=== PATIENT | male | born 1965 | race Caucasian/White ===

== ENCOUNTER → 2016-06-18 | Outpatient (CLI) | payer MEDICAID | LOC: RAD 08:25 | PROVIDERS: ATTEND Specialist | DX: C82.90 Follicular lymphoma, unspecified, unspecified site (principal); C83.39 Diffuse large B-cell lymphoma, extranodal and solid organ sites | CPT/HCPCS: 70491; 71260; 74177 ==

== ENCOUNTER 2016-07-03 08:38 | Day surgery (SDC) | payer MEDICAID ==
[2016-07-03 10:12] LABS: PROTHROMBIN TIME 13.2 SEC (11.4-15.4)
[2016-07-03 10:13] LABS: PARTIAL THROMBOPLASTIN TIME 28.3 SEC (23.5-35.8)
[2016-07-03 10:15] LABS: MEAN CORPUSCULAR HEMOGLOBIN 28.2 pg (27.0-33.4); MEAN CORPUSCULAR HGB CONC 32.6 g/dL (32.0-36.0); MEAN CORPUSCULAR VOLUME 87 fl (80-97); RED BLOOD COUNT 4.62 10^6/uL (4.35-5.55); RED CELL DISTRIBUTION WIDTH 14.1 % (11.5-14.0); WHITE BLOOD COUNT 3.9 10^3/uL (4.0-10.5)
[2016-07-03 10:23] LABS: BLOOD UREA NITROGEN 11 mg/dL (7-20)
[2016-07-03] MEDS ORDERED: FENTANYL CITRATE INJ/PF 100 MCG/2 ML AMPUL ONE (10:52)
[2016-07-03] MEDS ORDERED: MIDAZOLAM 2 MG/2 ML INJ ONE (10:52)
[2016-07-03 16:21] VITALS: BP 110/79
== END 2016-07-03 16:22 | disposition home or self-care (01) ==
LOC: RAD 08:38
PROVIDERS: ATTEND Specialist
PROC: 0BBG3ZX Excision of Left Upper Lung Lobe, Percutaneous Approach, Diagnostic (ICD-10-PCS; principal; 2016-07-03)
DX: C82.90 Follicular lymphoma, unspecified, unspecified site (principal); F17.210 Nicotine dependence, cigarettes, uncomplicated
CPT/HCPCS: 36415; 84520; 82565; 85027; 85610; 85730; 88342 ×2; 88305 ×2; 88313 ×2; 71010; 77012; 32405; J2250; J3010

== ENCOUNTER → 2016-09-26 | Outpatient (CLI) | payer MEDICAID | LOC: RAD 07:39 | PROVIDERS: ATTEND Specialist | DX: C82.90 Follicular lymphoma, unspecified, unspecified site (principal) | CPT/HCPCS: 71260; 82565 ==

== ENCOUNTER 2016-10-22 05:42 | Day surgery (SDC) | payer MEDICAID ==
[2016-10-09 10:53] LABS: HEMATOCRIT 44.4 % (37.9-51.0); HGB HCT DIFFERENCE 0.6; MEAN CORPUSCULAR HEMOGLOBIN 29.5 pg (27.0-33.4); MEAN CORPUSCULAR HGB CONC 33.7 g/dL (32.0-36.0); MEAN CORPUSCULAR VOLUME 88 fl (80-97); RED BLOOD COUNT 5.07 10^6/uL (4.35-5.55); RED CELL DISTRIBUTION WIDTH 14.7 % (11.5-14.0); WHITE BLOOD COUNT 4.6 10^3/uL (4.0-10.5)
[2016-10-09 11:02] LABS: PARTIAL THROMBOPLASTIN TIME 28.6 SEC (23.5-35.8); PROTHROMBIN TIME 12.7 SEC (11.4-15.4)
--- NOTE | 2016-10-09 21:16 | EKG REPORT ---
SEVERITY:- NORMAL ECG - SINUS RHYTHM : Confirmed by: Gail Barrientos 09-Oct-2016 21:15:06
[~2016-10-22 05:42] MED LIST: CEFAZOLIN 1 GM/D5W RTU 1 GM/50 ML RTUPB IV PRN; LIDOCAINE 0.5% INJ-PF (5 MG/ML) 50 ML SDV INJ PRN; RINGERS SOLUTION,LACTATED 1,000 ML IV PRN
[2016-10-22] MEDS ORDERED: SODIUM BICARBONATE 8.4% INJ 50 MEQ/50 ML DISP.SYRIN ONE (06:58)
[2016-10-22] MEDS ORDERED: POVIDONE-IODINE 5% OPH PREP SOLN 30 ML ONE (06:58)
[2016-10-22] MEDS ORDERED: LIDOCAINE 1%/EPINEPHRINE INJ 20 ML VIAL ONE (06:59)
[2016-10-22] MEDS ORDERED: MIDAZOLAM 2 MG/2 ML INJ ONE (07:28)
[2016-10-22] MEDS ORDERED: PROPOFOL INJ 200 MG/20 ML VIAL IV ONE (07:28)
[2016-10-22] MEDS ORDERED: KETAMINE HCL INJ 500 MG/10 ML VIAL ONE (07:28)
[2016-10-22] MEDS ORDERED: OXYCODONE-ACETAMINOPHEN 5-325 MG TABLET PO PRN ×2 (08:16)
[2016-10-22] MEDS ORDERED: DIPHENHYDRAMINE HCL 50 MG/ML VIAL IV PRN (08:16)
[2016-10-22] MEDS ORDERED: PROMETHAZINE HCL INJ 25 MG/1 ML VIAL IV PRN ×2 (08:16)
[2016-10-22] MEDS ORDERED: MEPERIDINE HCL/PF INJ 25 MG/1 ML DISP.SYRIN IV PRN (08:16)
[2016-10-22] MEDS ORDERED: FENTANYL CITRATE INJ/PF 100 MCG/2 ML AMPUL IV PRN ×3 (08:16)
[2016-10-22] MEDS ORDERED: MORPHINE SULFATE 10 MG/ML INJ IV PRN (08:16)
--- NOTE | 2016-10-22 09:04 | Operative Report ---
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 Patient was brought into the operating room and placed on the operating room table in a supine position. Patient was then prepped with a Betadine scrub and Betadine solution and draped in a sterile and aseptic manner. The area was then marked. 12 O'clock was marked towards the brow 3 O'clock was marked towards to caodaism forehead 6:00 was marked towards hairline 9:00 was marked towards the cheek The area was then anesthetized with 1% lidocaine with epinephrine and bicarbonate for its anesthetic and hemostatic effects. The area was then excised and marked at 12:00. We had considered a primary closure but this would go against the natural relaxed skin tension lines. A primary closure would be too tight and would have increased chance of dehiscence. This will leave more of a scar so we decided to use a O to S plasty Flap reconstruction which would camouflage the scar better and take tension off of the closure so that would be less chances of complications. Then went ahead and outlined the flap and anesthetized it. Then incised the flap and developed a flap maintaining the subdermal plexus. Then we undermined 360 to allow for plate like scarring and minimize trap door deformity. Throughout the case hemostasis was achieved with the bipolar. We then sutured the flap into its new position Using 5-0 Vicryl for the subcutaneous and deep dermis. Skin was closed with a subcuticular stitch using 4-0 PDS with knots being tied on the outside. And 4-0 PDS suture was used for support and placed in the central area of the incision. We then applied tincture benzoin and Steri-Strips followed by a light pressure dressing. Patient was then reversed from anesthesia and taken to the [facility] for recovery. The patient tolerated well. There were no complications. Lesion size was approximately 1.5 x 1.3 cm please see pathology for actual size. Portions of this note may be dictated using [employer] voice recognition software. Occasional variations and spelling and vocabulary could be possible and are unintentional. Additionally, there is a chance that some errors may not be caught or corrected. Please notify the offer of any discrepancies noted or if any statements are unclear. Subjective: No complaints Objective: Vital signs stable afebrile No bleeding Dressing intact Assessment and plan: Doing well. Elevate the operative site. Resume medications. Take antibiotics for 1 day Follow-up Full instructions were given to the patient and family and they understand Portions of this note may be dictated using [employer] voice recognition software. Occasional variations and spelling and vocabulary could be possible and are unintentional. Additionally, there is a chance that some errors may not be caught or corrected. Please notify the offer of any discrepancies noted or if any statements are unclear.
--- NOTE | 2016-10-22 09:06 | PDOC DISCHARGE SUMMARY ---
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 Leave the steri-strip tapes on for 5 days, then removal. Then cleaning wound with peroxide and apply Neosporin/bacitracin 3 times per day. Antibiotics for 1 day, then discontinue. Elevate operative area to decrease swelling. Do not strain, or lift heavy objects. Call for excessive bleeding, increased temperature of 101, uncontrolled pain, or excessive nausea or vomiting. You may reach Dr. Jean-Baptiste through his office at [phone]. In the event of an emergency after hours, then contact Dr. Jean-Baptiste through [facility]. Return to the office for a postop check on . The time will be scheduled by the nursing staff of [facility] prior to discharge. Please give the patient a copy of their labs and EKG so they can bring this to their PMD. Thank you Portions of this note may be dictated using [employer] voice recognition software. Occasional variations and spelling and vocabulary could be possible and are unintentional. Additionally, there is a chance that some errors may not be caught or corrected. Please notify the offer of any discrepancies noted or if any statements are unclear. Discharge Diet: Regular Discharge Activity: Activity As Tolerated - Discharged to home
[2016-10-22 10:41] VITALS: BP 105/61
== END 2016-10-22 10:56 | disposition home or self-care (01) ==
LOC: OROUT 05:42
PROVIDERS: ATTEND Plastic Surgery
PROC: 0HB1XZZ Excision of Face Skin, External Approach (ICD-10-PCS; 2016-10-22)
PROC: 0HX1XZZ Transfer Face Skin, External Approach (ICD-10-PCS; principal; 2016-10-22 07:30)
DX: C44.329 Squamous cell carcinoma of skin of other parts of face (principal); J44.9 Chronic obstructive pulmonary disease, unspecified; F17.210 Nicotine dependence, cigarettes, uncomplicated; R06.02 Shortness of breath; Z79.899 Other long term (current) drug therapy
CPT/HCPCS: 93005; 36415; 85027; 85610; 85730; 88305 ×2; 88331 ×2; 93010; 14040; J2250; J0690; J3490 ×4; J2704

== ENCOUNTER → 2017-01-15 | Outpatient (CLI) | payer MEDICARE, MEDICAID ==
--- NOTE | 2017-01-15 09:47 | RADIOLOGY REPORT (SQ) ---
EXAM DESCRIPTION: CT CHEST WITH; CT ABD/PELVIS WITH IV ORAL COMPLETED DATE/TIME: 01/15/2017 9:16 am; 01/15/2017 9:21 am REASON FOR STUDY: LYMPHOMA (C83.39) C83.39 DIFFUSE LARGE B-CELL LYMPHOMA, EXTRNOD AND SOLID ORGA COMPARISON: CT chest dated 09/26/2016. CT abdomen/ pelvis dated 06/18/2016. CONTRAST TYPE AND DOSE: contrast/concentration: Isovue 370.00 mg/ml; Total Contrast Delivered: 58.0 ml; Total Saline Delivered: 65.0 ml RENAL FUNCTION: Creatinine 0.8 TECHNIQUE: CT scan of the chest performed using helical scanning technique with dynamic intravenous contrast injection. Images reviewed with lung, soft tissue and bone windows. Reconstructed coronal a nd sagittal MPR images reviewed. All images stored on PACS. CT scan of the abdomen and pelvis performed with intravenous and with oral contrastusing helical scan adelfo technique with dynamic intravenous contrast injection. Images reviewed with lung, soft tissue a nd bone windows. Reconstructed coronal and sagittal MPR images reviewed. Delayed images for evaluat ion of the urinary system also acquired and evaluated. All images stored on PACS. All CT scanners at this facility use dose modulation, iterative reconstruction, and/or weight based d osing when appropriate to reduce radiation dose to as low as reasonably achievable (ALARA). [facility]: Dose Right [facility]: CareDose [facility]: Dose Right [facility]: Teradose 4D [facility]: [employer] RADIATION DOSE: Up-to-date CT equipment and radiation dose reduction techniques were employed. CTDIv ol: 4.4 - 4.5 mGy. DLP: 600 mGy-cm. . LIMITATIONS: None. FINDINGS: CHEST: LUNGS AND PLEURA: The 11 mm nodule seen in the left upper lobe has increased slightly in size compari son the prior study (series 6, image 46) which it measured approximately 10 mm the prior study. The previously noted lesion in the left lung apex that have developed a cystic component on the prior cortney dy is not completely cystic with a small rim of thickening (series 6, image 28). Stable scarring not ed in the medial left lingula. Stable a focal area of scarring noted in the right lung apex posterio rly (series 6, image 32). No new nodules are identified. No focal consolidations. No pleural effusi on or pleural thickening. No pneumothorax. HILAR AND MEDIASTINAL STRUCTURES: No identified masses or abnormal nodes. HEART AND VASCULAR STRUCTURES: No aneurysm or dissection. No central pulmonary emboli. No pericardi al effusion. HARDWARE: None. THYROID AND OTHER SOFT TISSUES: No masses. No adenopathy. BONES: No significant finding. OTHER: No other significant finding. ABDOMEN AND PELVIS: LIVER: Again noted is the prominence of the intrahepatic biliary system, left greater than right, sim ilar to the prior study. No focal worrisome liver lesions are identified. The liver is normal in si ze. SPLEEN: Normal size. No focal lesions. PANCREAS: No masses. No significant calcifications. No adjacent inflammation or peripancreatic fluid collections. Pancreatic duct not dilated. GALLBLADDER: No identified stones by CT criteria. No inflammatory changes to suggest cholecystitis. ADRENAL GLANDS: No significant masses or asymmetry. RIGHT KIDNEY AND URETER: No solid masses. No significant calcification. No hydronephrosis or hydroure ter. LEFT KIDNEY AND URETER: Atrophic. No mass lesions. No hydronephrosis. No significant calcification s. AORTA AND VESSELS: Mild soft tissue prominence surrounding the aorta and iliac arteries appears to be slightly more prominent on the than on the prior study. This could represent scarring lower diffuse disease. There is scattered calcifications noted throughout the aorta and iliac arteries. No disse ction identified. No aneurysm. The mesenteric and renal arteries are patent. RETROPERITONEUM: No hemorrhage. Again soft tissue thickening is noted along the aorta and iliac sweta tamir of unknown significance. This appears to be slightly more prominent on the prior study from Jun. No retroperitoneal masses. No discrete adenopathy. BOWEL AND PERITONEAL CAVITY: No masses or inflammatory changes. No free fluid or peritoneal masses. APPENDIX: Normal. ABDOMINAL WALL: No masses. No hernias. Prominent varicosities noted over the lower abdomen/pelvis. BONES: No significant or acute findings. OTHER: No definite adenopathy identified within the pelvis. IMPRESSION: 1. A solid soft tissue nodule in the left upper lobe is slightly enlarged in comparison prior study measuring 11 mm compared to 10 mm on the prior study. The previously noted semi solid/ cystic soft tissue nodule in the left lung apex is not completely cystic with a rim of soft tissue th ickening. No new pulmonary nodules are identified. No adenopathy identified within the mediastinum, axilla, or supraclavicular regions. 2. There is some very mild soft tissue thickening seen along the abdominal aorta and iliac arteries of unknown significance. This appears to be slightly more prominent on prior study. This could rep resent disease versus scarring. No discrete adenopathy identified in the retroperitoneum or pelvis. No mesenteric adenopathy. 3. Stable prominence of the intrahepatic biliary ducts, left greater than right. Overall this is no t significantly changed since 2014. NORMAL CT OF THE ABDOMEN AND PELVIS WITH ORAL AND INTRAVENOUS CONTRAST. TECHNICAL DOCUMENTATION: JOB ID: [id number] Quality ID # [id number]: Final reports with documentation of one or more dose reduction techniques (e.g., Au tomated exposure control, adjustment of the mA and/or kV according to patient size, use of iterative reconstruction technique) 2010 [employer]- All Rights Reserved
== END ==
LOC: RAD 08:33
PROVIDERS: ATTEND Specialist
DX: C83.39 Diffuse large B-cell lymphoma, extranodal and solid organ sites (principal)
CPT/HCPCS: 71260; 74177; 82565

== ENCOUNTER 2017-04-30 18:51 | Inpatient (IN) | payer MEDICARE, MEDICAID ==
[2017-04-30] MEDS ORDERED: NORMAL SALINE 1000 ML 1,000 ML IV ONE (19:52)
--- NOTE | 2017-04-30 20:23 | RADIOLOGY REPORT (SQ) ---
EXAM DESCRIPTION: CHEST SINGLE VIEW COMPLETED DATE/TIME: 04/30/2017 8:14 pm REASON FOR STUDY: difficulty breathing COMPARISON: June 2016 EXAM PARAMETERS: NUMBER OF VIEWS: One view. TECHNIQUE: Single frontal radiographic view of the chest acquired. RADIATION DOSE: NA LIMITATIONS: None. FINDINGS: LUNGS AND PLEURA: No opacities, masses or pneumothorax. No pleural effusion. Stable appea ring chronic appearing changes are again identified. Again there is evidence for obstructive lung di sease. MEDIASTINUM AND HILAR STRUCTURES: No masses. Contour normal. HEART AND VASCULAR STRUCTURES: Heart normal in size. Normal vasculature. BONES: No acute findings. HARDWARE: None in the chest. OTHER: No other significant finding. IMPRESSION: No significant interval change. No acute findings. Other findings as noted above TECHNICAL DOCUMENTATION: JOB ID: [id number] [employer]- All Rights Reserved
[2017-04-30 20:26] LABS: HEMATOCRIT 37.2 % (37.9-51.0); HEMOGLOBIN 12.8 g/dL (13.5-17.0); HGB HCT DIFFERENCE 1.2; MEAN CORPUSCULAR HEMOGLOBIN 29.1 pg (27.0-33.4); MEAN CORPUSCULAR HGB CONC 34.3 g/dL (32.0-36.0); MEAN CORPUSCULAR VOLUME 85 fl (80-97); RED CELL DISTRIBUTION WIDTH 13.9 % (11.5-14.0); WHITE BLOOD COUNT 5.1 10^3/uL (4.0-10.5)
[2017-04-30 20:27] LABS: VENOUS BLOOD HCO3 31.9 mmol/L (20-32); VENOUS BLOOD PCO2 58.2 mmHg (35-63); VENOUS BLOOD PH 7.36 (7.30-7.42)
[2017-04-30 20:29] LABS: PROTHROMBIN TIME 14.6 SEC (11.4-15.4)
[2017-04-30 21:11] LABS: BASOPHILS % (MANUAL) 0 % (0-2); EOSINOPHILS % (MANUAL) 2 % (0-6); LYMPHOCYTES % (MANUAL) 4 % (13-45); TOTAL CELLS COUNTED 100
[2017-04-30 21:12] LABS: TOXIC GRANULATION SLIGHT
[2017-04-30 21:13] LABS: BAND NEUTROPHILS % (MANUAL) 25 % (3-5)
[2017-04-30 21:44] LABS: ALANINE AMINOTRANSFERASE 26 U/L (21-72); ALBUMIN 2.7 g/dL (3.5-5.0); ALKALINE PHOSPHATASE 92 U/L (38-126); ANION GAP 13 (5-19); ASPARTATE AMINO TRANSFERASE 29 U/L (17-59); BILIRUBIN,DIRECT 0.6 mg/dL (0.0-0.4); BILIRUBIN,TOTAL 0.7 mg/dL (0.2-1.3); BLOOD UREA NITROGEN 24 mg/dL (7-20); CARBON DIOXIDE 30 mmol/L (22-30); CHLORIDE 87 mmol/L (98-107); GLUCOSE 94 mg/dL (75-110); POTASSIUM 3.8 mmol/L (3.6-5.0); SODIUM 130.1 mmol/L (137-145); TOTAL PROTEIN 4.6 g/dL (6.3-8.2)
--- NOTE | 2017-04-30 22:08 | ER Document Report ---
ED General - General Chief Complaint: Shortness Of Breath Stated Complaint: DIFFICULTY BREATHING Time Seen by Provider: 04/30/17 19:31 Notes: Patient is a 52-year-old male with a past medical history of lymphoma currently receiving active chemotherapy, COPD, who presents with 1 week of progressively worsening shortness of breath, cough, nausea, and generalized fatigue. He has not had any chest pain, fever, headache or neck pain at home. His son at the bedside states that is been trying to convince the patient come to the hospital for quite some time but the father has persistently refused. Patient agreed to come today when he himself began to feel extremely weak, tired and lethargic. He has not noted that anything seems to improve or worsen his symptoms. Patient has had difficulty tolerating oral intake over the last several days but has not had vomiting. He has no history of similar symptoms in the past. He does not have a baseline oxygen requirement. He has not seen his primary doctor regarding today's concerns. TRAVEL OUTSIDE OF THE [place] IN LAST 30 DAYS: No - Related Data Allergies/Adverse Reactions: alex Allergy (Mild, Verified 04/30/17 19:00) RASH Past Medical History - General Information source: Patient, Relative - Social History Smoking Status: Smoker,Current Status Unk Chew tobacco use (# tins/day): No Frequency of alcohol use: None Drug Abuse: None Lives with: Family Family History: Reviewed & Not Pertinent Patient has suicidal ideation: No Patient has homicidal ideation: No - Past Medical History Cardiac Medical History: Denies: Hx Coronary Artery Disease, Hx Heart Attack, Hx Hypertension Pulmonary Medical History: Denies: Hx Asthma, Hx Bronchitis, Hx COPD, Hx Pneumonia Neurological Medical History: Reports: 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 Denies: Hx Cerebrovascular Accident Renal/ Medical History: Denies: Hx Peritoneal Dialysis Malignancy Medical History: 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 Medicated with rituxan Musculoskeltal Medical History: Reports Hx Arthritis - BACK, Reports Hx Gout Psychiatric Medical History: Denies: Hx Depression Past Surgical History: Reports: Hx Bowel Surgery - Perforated bowel surgery - Immunizations Hx Diphtheria, Pertussis, Tetanus Vaccination: No - UNSURE Review of Systems - Review of Systems Notes: Constitutional: Negative for fever. HENT: Negative for sore throat. Eyes: Negative for visual changes. Cardiovascular: Negative for chest pain. Respiratory: Positive for shortness of breath. Gastrointestinal: Positive for nausea Genitourinary: Negative for dysuria. Musculoskeletal: Negative for back pain. Skin: Negative for rash. Neurological: Negative for headaches, weakness or numbness. 10 point ROS negative except as marked above and in HPI. Physical Exam - Vital signs Vitals: Temp Pulse Resp BP Pulse Ox 98.5 F 126 H 26 H 93/64 L 87 L 04/30/17 19:00 04/30/17 19:00 04/30/17 19:00 04/30/17 19:00 04/30/17 19:00 Interpretation: Hypotensive, Tachycardic, Hypoxic, Tachypneic Notes: PHYSICAL EXAMINATION: GENERAL: Appears extremely unwell, emaciated, lethargic HEAD: Atraumatic, normocephalic. EYES: Pupils equal round and reactive to light, extraocular movements intact, sclera anicteric, conjunctiva are normal. ENT: nares patent, oropharynx clear without exudates. Dry mucous membranes. NECK: Normal range of motion, supple without lymphadenopathy LUNGS: Diminished at the bases bilaterally, rhonchi bilaterally. Tachypneic without retractions or obvious distress HEART: Regular tachycardia without murmurs ABDOMEN: Soft, nontender, normoactive bowel sounds. No guarding, no rebound. No masses appreciated. EXTREMITIES: Normal range of motion, no pitting or edema. No cyanosis. NEUROLOGICAL: No focal neurological deficits. Moves all extremities spontaneously and on command. PSYCH: Somewhat lethargic SKIN: Warm, Dry, poor skin turgor, no rashes or lesions noted. Course - Re-evaluation Re-evalutation: 04/30/171999- Please note that documentation is initially delayed as our electronic medical record system was initially not operating when I first saw this patient. In summary, this is a critically ill patient who presents with acute tachycardia, tachypnea, hypoxemia, and hypotension in the setting of lymphoma actively receiving chemotherapy. Patient is not febrile. He is chronically ill in appearance and with some moderate respiratory distress at time of presentation although this did improve with supplemental oxygen administration. Patient does have coarse breath sounds at the bases bilaterally, is tachypneic, but is not having retractions. Patient also appears quite clinically dehydrated. Chest x-ray does not show any evidence of an acute infiltrate although does show a patchy pattern of mild vascular congestion bilaterally. Immediately upon seeing this patient 2 L of IV fluids were ordered. Patient did not have any significant change in his blood pressure after the first liter. Labs were pending at this time. 2200-labs have returned and show some mild dehydration, mild elevation of creatinine, lactate 2.1. Patient remains hypotensive and the second liter fluid is infusing. Primary concerns at this point include pulmonary embolus, less likely an acute myopericarditis, possible occult pneumonia not visualized on chest x-ray. Patient remains chronically ill given his ongoing hypertension I have continue to reassess him frequently. CT of the chest will be obtained at this time as his blood pressure has remained stable although continues to be moderately low in the mid 90s. 04/30/17 22:27 Patient's blood pressure is now improved to 106 and 73, tachycardia is also improving down to 108. Awaiting the results of the CT of the chest. 04/30/17 23:35 CT scan shows an atypical pneumonia pattern, has been started on levofloxacin and will be admitted to the hospitalist service. Patient appears Much improved relative to presentation is no longer considered critically ill. - Vital Signs Vital signs: Temp Pulse Resp BP Pulse Ox 98.5 F 122 H 16 106/73 97 04/30/17 19:00 04/30/17 19:23 04/30/17 22:24 04/30/17 22:24 04/30/17 22:24 - Laboratory Result Diagrams: 04/30/17 19:45 04/30/17 21:15 Laboratory results interpreted by me: 04/30/17 04/30/17 19:45 21:15 Hgb 12.8 L Hct 37.2 L Plt Count 493 H Band Neutrophils % 25 H Lymphocytes % (Manual) 4 L Metamyelocytes % 1 H Myelocytes % 3 H Abs Lymphs (Manual) 0.2 L Sodium 130.1 L Chloride 87 L BUN 24 H Creatinine 1.30 H Est GFR (Non-Af Amer) 58 L Calcium 8.0 L Direct Bilirubin 0.6 H Total Protein 4.6 L Albumin 2.7 L - Diagnostic Test Radiology reviewed: Image reviewed, Reports reviewed Radiology results interpreted by me: 05/01/17 01:35 Chest x-ray: Patchy infiltrates bilaterally - EKG Interpretation by Me Additional EKG results interpreted by me: 05/01/17 01:41 Sinus tachycardia. Rate 112. No ST elevations or depressions. QTC is 437. Critical Care Note - Critical Care Note Total time excluding time spent on procedures (mins): 37 Comments: Critical care time spent obtaining history from patient or surrogate, discussions with consultants, development of treatment plan with patient or surrogate, evaluation of patient's response to treatment, examination of patient , ordering and performing treatments and interventions, ordering and review of laboratory studies, re-evaluation of patient's condition, ordering and review of radiographic studies and review of old charts Discharge - Discharge Clinical Impression: Atypical pneumonia Sepsis Qualifiers: Sepsis type: sepsis due to unspecified organism Qualified Code(s): A41.9 - Sepsis, unspecified organism Hypotension Qualifiers: Hypotension type: other hypotension type Qualified Code(s): I95.89 - Other hypotension Condition: Fair Disposition: ADMITTED INPATIENT Admitting Provider: Kekeist [facility] [place] Unit Admitted: [facility]
--- NOTE | 2017-04-30 22:33 | RADIOLOGY REPORT (SQ) ---
EXAM DESCRIPTION: CTA CHEST COMPLETED DATE/TIME: 04/30/2017 10:10 pm REASON FOR STUDY: sob, diff breathing, eval pe COMPARISON: Chest CT an abdominal CT scan dated January 2017 TECHNIQUE: CT scan of the chest performed using helical scanning technique with dynamic intravenous contrast injection. Images reviewed with lung, soft tissue and bone windows. Reconstructed coronal and sagittal MPR images reviewed. Additional 3 dimensional post-processing performed to develop Maximal Intensity Projection images (ID P). All images stored on PACS. All CT scanners at this facility use dose modulation, iterative reconstruction, and/or weight based d osing when appropriate to reduce radiation dose to as low as reasonably achievable (ALARA). [facility]: Dose Right [facility]: CareDose [facility]: Dose Right [facility]: Teradose 4D [facility]: [employer] CONTRAST TYPE AND DOSE: contrast/concentration: Isovue 370.00 mg/ml; Total Contrast Delivered: 61.0 ml; Total Saline Delivered: 40.1 ml Contrast bolus optimized for the pulmonary arteries. Not diagnostic for the aorta. RENAL FUNCTION: Creatinine 1.3 RADIATION DOSE: Up-to-date CT equipment and radiation dose reduction techniques were employed. CTDIv ol: 3.3 - 14.3 mGy. DLP: 576 mGy-cm. . LIMITATIONS: None. FINDINGS: LUNGS AND PLEURA: Chronic appearing changes are again identified. Diffuse bilateral tree- in-bud opacities are identified most consistent with a developing infiltrate. The possibility of an atypical pneumonia including a mycobacterial infection cannot be excluded. There are ground-glass op acities in the lingula of the left upper lobe which could represent an infiltrate or atelectatic [place] ges. There is some minimal airspace consolidation in the lung bases bilaterally which could represen t pneumonic infiltrates or atelectatic changes. No pleural effusions are identified. No pneumothora x is seen. AORTA AND GREAT VESSELS: No aneurysm. Contrast bolus not optimized for the aorta. HEART: No pericardial effusion. No significant coronary artery calcifications. PULMONARY ARTERIES: No emboli visualized in the main pulmonary arteries or the segmental branches. HILAR AND MEDIASTINAL STRUCTURES: No identified masses or abnormal nodes. HARDWARE: None in the chest. UPPER ABDOMEN: Prominent intrahepatic bile ducts are again identified. Atrophic appearing left kidne y is again identified. Limited exam. THYROID AND OTHER SOFT TISSUES: No masses. No adenopathy. BONES: No acute or significant finding. 3D MIPS: Confirm above findings. OTHER: No other significant finding. IMPRESSION: No evidence for pulmonary embolic disease. Diffuse bilateral tree-in-bud opacities as n oted above most consistent with a developing infiltrate. The possibility of an 8 typical pneumonia s hould be considered. There are ground-glass opacities in the lingula of the left upper lobe which co uld represent an infiltrate or atelectatic changes. Other findings as noted above COMMENT: Quality ID # [id number]: Final reports with documentation of one or more dose reduction techniques (e.g., Automated exposure control, adjustment of the mA and/or kV according to patient size, use of iterative reconstruction technique) TECHNICAL DOCUMENTATION: JOB ID: [id number] [employer]- All Rights Reserved
[2017-04-30 23:17] LABS: APPEARANCE,URINE SLIGHTLY-CLOUDY; BILIRUBIN,URINE NEGATIVE (NEGATIVE); GLUCOSE, URINE NEGATIVE (NEGATIVE); KETONES,URINE NEGATIVE (NEGATIVE); LEUKOCYTE ESTERASE,URINE NEGATIVE (NEGATIVE); NITRITE,URINE NEGATIVE (NEGATIVE); PROTEIN,URINE NEGATIVE (NEGATIVE); URINE SPECIFIC GRAVITY 1.013; UROBILINOGEN,URINE NEGATIVE mg/dL (<2.0)
[2017-04-30] MEDS ORDERED: LEVOFLOXACIN 750 MG/D5W RTU 750 MG/150 ML RTUPB IV ONE (23:35)
[2017-05-01] MEDS ORDERED: NORMAL SALINE 1000 ML 2,000 ML IV ONE
[2017-05-01] MEDS ORDERED: GUAIFENESIN SYRP 200 MG/10 ML UDC PO PRN
[2017-05-01] MEDS ORDERED: GENTAMICIN SULFATE 0 MG in DEXTROSE 5%-WATER 100 ML IV NR ×2
[2017-05-01] MEDS ORDERED: NORMAL SALINE 1000 ML 1,000 ML IV PRN
[2017-05-01] MEDS ORDERED: ACETAMINOPHEN 325 MG TABLET PO PRN
--- NOTE | 2017-05-01 00:03 | EKG REPORT ---
SEVERITY:- BORDERLINE ECG - SINUS TACHYCARDIA LOW VOLTAGE WITH RIGHT AXIS DEVIATION : Confirmed by: Gail Barrientos 01-May-2017 00:02:28
--- NOTE | 2017-05-01 00:03 | EKG REPORT ---
SEVERITY:- OTHERWISE NORMAL ECG - SINUS TACHYCARDIA LOW VOLTAGE IN FRONTAL LEADS : Confirmed by: Gail Barrientos 01-May-2017 00:03:05
--- NOTE | 2017-05-01 00:04 | EKG REPORT ---
SEVERITY:- ABNORMAL ECG - SINUS RHYTHM BORDERLINE PROLONGED QT INTERVAL : Confirmed by: Gail Barrientos 01-May-2017 00:04:11
[2017-05-01] MEDS ORDERED: LEVALBUTEROL HCL NEB 1.25 MG/3 ML AMPUL NEB PRN ×2 (00:09→08:00)
[2017-05-01] MEDS ORDERED: (PENDING PHARMACY ID) (Oxycodone Hcl/Acetaminophen [Percocet 10-325 Mg Tablet] 1 TAB) PO PRN (00:09)
[2017-05-01] MEDS ORDERED: METHYLPREDNISOLONE INJ 125 MG/2 ML SDV IV ONE (00:45)
[2017-05-01] MEDS ORDERED: CEFEPIME 2 GM/D5W RTU 2 GM/50 ML RTUPB IV ONE (00:45)
[2017-05-01] MEDS ORDERED: GENTAMICIN SULFATE INJ 80 MG/2 ML VIAL IV PRN (00:47)
[2017-05-01] MEDS ORDERED: GENTAMICIN SULFATE 100 MG in DEXTROSE 5%-WATER 100 ML IV ONE (01:00)
[2017-05-01] MEDS ORDERED: NICOTINE 7 MG/24 HR PATCH.TD24 TD PRN (01:12)
--- NOTE | 2017-05-01 01:19 | PDOC H&P ---
History of Present Illness Admission Date/PCP: 04/30/17 23:53 DALE GUZMAN MD History of Present Illness: DARSHAN SABA is a 52 year old male with a PMH of lymphoma who presents with 2 weeks of shortness of breath. Patient reports his last chemo was at the beginning of March. He reports cough, which is minimally productive. He does complain of mouth pain. He reports he has been on a white pill that he is not sure the name of for his rash/skin lesions which has occurred since the initiation of chemotherapy. He denies any fevers or chills. He does report shortness of breath which has been worsening over the last several days. Patient was found to be tachycardic, tachypneic, hypotensive and hypoxic on admission. Patient underwent a CTA in the emergency department which revealed no PE but did reveal an atypical pneumonia. He is referred to the hospitalist service for sepsis and pneumonia. Past Medical History Cardiac Medical History: Denies: Coronary Artery Disease, Myocardial Infarction, Hypertension Pulmonary Medical History: Denies: Asthma, Bronchitis, Chronic Obstructive Pulmonary Disease (COPD), Pneumonia Neurological Medical History: Reports: Seizures - 20 YEARS AGO R/T HX COCAINE Malignancy Medical History: Reports: Lymphoma - Follicular. Medicated with rituxan GI Medical History: Reports: Peptic Ulcer Disease Musculoskeltal Medical History: Reports: Arthritis - BACK, Gout Psychiatric Medical History: Denies: Depression Hematology: Denies: Anemia Past Surgical History Past Surgical History: Reports: Other - Ulcer repair, SBO repair, port placement , left eyebrow surgery Social History Smoking Status: Current Every Day Smoker Cigarettes Packs Per Day: 0.2 Frequency of Alcohol Use: None Hx Recreational Drug Use: No Drugs: Cocaine - History, Marijuana Hx Prescription Drug Abuse: No - Advance Directive Resuscitation Status: Full Code Surrogate healthcare decision maker:: Darshan Saba Junior. Son Family History Family History: Other - Alcoholism and old age Parental Family History Reviewed: Yes Children Family History Reviewed: Yes Sibling(s) Family History Reviewed.: Yes Medication/Allergy Home Medications: Oxycodone HCl/Acetaminophen [Percocet 10-325 mg Tablet] 2 tab PO DAILY 07/03/16 Esomeprazole Magnesium [Nexium] 20 mg PO DAILY 10/09/16 Oxycodone HCl [Oxycontin Sr 10 mg Tablet] 10 mg PO DAILY 10/09/16 Allergies/Adverse Reactions: alex Allergy (Mild, Verified 04/30/17 19:00) RASH Review of Systems Constitutional: PRESENT: fatigue, weakness. ABSENT: chills, fever(s), headache( s), weight gain, weight loss Eyes: ABSENT: visual disturbances Ears: ABSENT: hearing changes Nose, Mouth, and Throat: PRESENT: mouth pain Cardiovascular: PRESENT: dyspnea on exertion. ABSENT: chest pain, edema, orthropnea, palpitations Respiratory: PRESENT: cough, dyspnea, sputum. ABSENT: hemoptysis Gastrointestinal: PRESENT: constipation, heartburn, nausea. ABSENT: abdominal pain, diarrhea, hematemesis, hematochezia, melena, vomiting Genitourinary: PRESENT: difficulty urinating - Occasional. ABSENT: dysuria, hematuria Musculoskeletal: ABSENT: joint swelling Integumentary: ABSENT: rash, wounds Neurological: PRESENT: weakness. ABSENT: abnormal gait, abnormal speech, confusion, dizziness, focal weakness, syncope Psychiatric: ABSENT: anxiety, depression, homidical ideation, suicidal ideation Endocrine: ABSENT: cold intolerance, heat intolerance, polydipsia, polyuria Hematologic/Lymphatic: ABSENT: easy bleeding, easy bruising Physical Exam Vital Signs: Temp Pulse Resp BP Pulse Ox 98.5 F 122 H 16 106/73 97 04/30/17 19:00 04/30/17 19:23 04/30/17 22:24 04/30/17 22:24 04/30/17 22:24 General appearance: PRESENT: mild distress - Acute and chronically ill-appearing , thin, well-developed, well-nourished Head exam: PRESENT: atraumatic, normocephalic Eye exam: PRESENT: conjunctiva pink, EOMI, PERRLA. ABSENT: conjunctival injection, periorbital swelling, scleral icterus Ear exam: PRESENT: normal external ear exam Mouth exam: PRESENT: dry mucosa, tongue midline, other - White plaques and mucositis Neck exam: PRESENT: lymphadenopathy. ABSENT: JVD, thyromegaly, tracheal deviation Respiratory exam: PRESENT: accessory muscle use, prolonged expiratory phas, rhonchi, symmetrical, tachypnea. ABSENT: crackles, rales, unlabored, wheezes Cardiovascular exam: PRESENT: RRR, +S1, +S2, tachycardia. ABSENT: diastolic murmur, gallop, rubs, systolic murmur Pulses: PRESENT: normal dorsalis pedis pul Vascular exam: PRESENT: normal capillary refill GI/Abdominal exam: PRESENT: normal bowel sounds, soft. ABSENT: distended, firm , guarding, mass, Wilkins's sign, organolmegaly, rebound, rigid, tenderness Rectal exam: PRESENT: deferred Extremities exam: PRESENT: clubbing, full ROM. ABSENT: calf tenderness, pedal edema Neurological exam: PRESENT: alert, awake, oriented to person, oriented to place , oriented to time, oriented to situation, CN II-XII grossly intact. ABSENT: motor sensory deficit Psychiatric exam: PRESENT: appropriate affect, normal mood. ABSENT: homicidal ideation, suicidal ideation Skin exam: PRESENT: dry, warm, other - Large circumferential ulcerated lesions on the extensor surfaces of the hand, elbow, and bilateral lower extremities. ABSENT: cyanosis, rash Results Laboratory Results: 04/30/17 04/30/17 04/30/17 19:45 19:45 19:45 WBC 5.1 Hgb 12.8 L Hct 37.2 L Plt Count 493 H Band Neutrophils % 25 H INR 1.07 VBG pH 7.36 VBG pCO2 58.2 VBG HCO3 31.9 Sodium Potassium Chloride Carbon Dioxide Anion Gap BUN Creatinine Est GFR (Non-Af Amer) Glucose Lactic Acid Calcium Total Bilirubin Direct Bilirubin AST ALT Alkaline Phosphatase Total Protein Albumin 04/30/17 04/30/17 21:15 23:40 WBC Hgb Hct Plt Count Band Neutrophils % INR VBG pH VBG pCO2 VBG HCO3 Sodium 130.1 L Potassium 3.8 Chloride 87 L Carbon Dioxide 30 Anion Gap 13 BUN 24 H Creatinine 1.30 H Est GFR (Non-Af Amer) 58 L Glucose 94 Lactic Acid 1.2 Calcium 8.0 L Total Bilirubin 0.7 Direct Bilirubin 0.6 H AST 29 ALT 26 Alkaline Phosphatase 92 Total Protein 4.6 L Albumin 2.7 L Impressions: Chest X-Ray 04/30/17 19:56 IMPRESSION: No significant interval change. No acute findings. Other findings as noted above Chest/Abdomen CTA 04/30/17 20:03 IMPRESSION: No evidence for pulmonary embolic disease. Diffuse bilateral tree- in-bud opacities as noted above most consistent with a developing infiltrate. The possibility of an 8 typical pneumonia should be considered. There are ground-glass opacities in the lingula of the left upper lobe which could represent an infiltrate or atelectatic changes. Other findings as noted above Status: Imported from PACS Assessment & Plan - Diagnosis (1) Sepsis Qualifiers: Sepsis type: sepsis due to unspecified organism Qualified Code(s): A41.9 - Sepsis, unspecified organism Is this a current diagnosis for this admission?: Yes Plan: Patient meets sepsis criteria on admission secondary to underlying pneumonia. Maintain map greater than 65. Have placed patient on broad-spectrum antibiotics pending cultures. Blood, sputum, and urine cultures pending. Influenza was negative. Selected Entries 04/30/17 04/30/17 04/30/17 19:00 21:39 21:40 Pulse Rate [ 126 H Peripheral] Respiratory 26 H 31 H Rate Blood Pressure 91/65 L Blood Pressure 93/64 L [Right Upper Arm] O2 Sat by Pulse 87 L Oximetry 07/03/16 04/30/17 04/30/17 09:44 19:45 21:15 Band Neutrophils % 25 H Creatinine 0.90 1.30 H (2) Atypical pneumonia Is this a current diagnosis for this admission?: Yes Plan: Place patient on azithromycin, cefepime, gentamicin and will consider vancomycin if patient worsens. Patient is currently undergoing chemotherapy and susceptible to abnormal pathogens. Place patient on guaifenesin, scheduled nebulized treatments, and Solu-Medrol (3) COPD exacerbation Is this a current diagnosis for this admission?: Yes Plan: Place patient on Solu-Medrol and scheduled nebulized treatments. Continue home Advair. As needed Xopenex (4) Acute hypoxemic respiratory failure Is this a current diagnosis for this admission?: Yes Plan: Secondary to underlying pneumonia and COPD exacerbation. Continue oxygen as needed to maintain saturation between 90 and 94%. (5) ARF (acute renal failure) Qualifiers: Acute renal failure type: unspecified Qualified Code(s): N17.9 - Acute kidney failure, unspecified Is this a current diagnosis for this admission?: Yes Plan: Secondary to dehydration. will hydrate and recheck. (6) Hyponatremia Is this a current diagnosis for this admission?: Yes Plan: Secondary to intravascular volume depletion. Will replete and recheck (7) Anemia Qualifiers: Anemia type: unspecified type Qualified Code(s): D64.9 - Anemia, unspecified Is this a current diagnosis for this admission?: Yes Plan: Likely secondary to underlying malignancy. Will monitor and transfuse if drops below 8 (8) Hypotension Qualifiers: Hypotension type: other hypotension type Qualified Code(s): I95.89 - Other hypotension Is this a current diagnosis for this admission?: Yes Plan: Improved with hydration. Will give patient 2 additional liters of normal saline and initiated on maintenance fluids. (9) Tobacco abuse Is this a current diagnosis for this admission?: Yes Plan: Nicotine patch as needed encourage cessation (10) Lymphoma Qualifiers: Lymphoma type: unspecified type Lymphoma site: unspecified region Qualified Code(s): C85.90 - Non-Hodgkin lymphoma, unspecified, unspecified site Is this a current diagnosis for this admission?: Yes Plan: Have consulted his hematology oncologist (11) Chemotherapy adverse reaction Qualifiers: Encounter type: subsequent encounter Qualified Code(s): T45.1X5D - Adverse effect of antineoplastic and immunosuppressive drugs, subsequent encounter Is this a current diagnosis for this admission?: Yes Plan: We will place patient on Solu-Medrol and consult his oncologist for further guidance. Local wound care and expectant management. (12) Protein-calorie malnutrition, severe Is this a current diagnosis for this admission?: Yes Plan: Consult dietary and place patient on a high-calorie high-protein diet Magic cup 3 times daily (13) Thrush Is this a current diagnosis for this admission?: Yes Plan: Magic mouthwash 4 times daily - Time Time Spent: 50 to 70 Minutes Medications reviewed and adjusted accordingly: Yes Anticipated discharge: Home with Homehealth Within: Other - Inpatient Certification Based on my medical assessment, after consideration of the patient's comorbidities, presenting symptoms, or acuity I expect that the services needed warrant INPATIENT care.: Yes I certify that my determination is in accordance with my understanding of Medicare's requirements for reasonable and necessary INPATIENT services [42 CFR 412.3e].: Yes Medical Necessity: Need For IV Fluids, Need For Continuous Telemetry Monitoring , Need for IV Antibiotics Post Hospital Care: D/C Board Stacker Documentation
[2017-05-01] MEDS: IPRATROPIUM/ALBUTEROL 0.5-2.5 MG/3 ML AMPUL NEB SCH ×4 (01:53→19:49)
[2017-05-01] MEDS ORDERED: OXYCODONE-ACETAMINOPHEN 5-325 MG TABLET PO PRN ×2 (05:09→05:18)
[2017-05-01] MEDS ORDERED: OXYCODONE HCL IR 5 MG TABLET PO PRN (05:10)
[2017-05-01] MEDS: METHYLPREDNISOLONE INJ 125 MG/2 ML SDV IV SCH ×3 (05:33→21:47)
[2017-05-01] MEDS: HEPARIN SOD (PORCINE) 5,000 UNIT/ML 1 ML SYRINGE SUBCUT SCH ×3 (05:33→21:46)
[2017-05-01] MEDS: OXYCODONE-ACETAMINOPHEN 5-325 MG TABLET PO PRN ×2 (05:35→14:19)
[2017-05-01] MEDS: OXYCODONE HCL IR 5 MG TABLET PO PRN ×2 (05:35→14:18)
[2017-05-01] MEDS ORDERED: LANSOPRAZOLE 15 MG TAB.RAP.DR PO SCH (06:00)
[2017-05-01] MEDS ORDERED: INFLUENZA ADLT QUAD (36MOS+) 2017-18 VAC 0.5 ML SYR IM PRN (08:36)
[2017-05-01] MEDS: NYSTATIN/DEXAMETH/DIPHEN SUSP 120 ML PO SCH ×4 (10:01→21:46)
[2017-05-01] MEDS: FLUTICASONE/SALMETEROL DISKUS 250-50 MCG/DOSE IH SCH ×2 (10:01→21:45)
[2017-05-01] MEDS: GUAIFENESIN 600 MG TABLET.SA PO SCH ×2 (10:01→21:44)
[2017-05-01] MEDS: OXYCODONE HCL SR 10 MG TABLET PO SCH ×2 (10:02→21:44)
[2017-05-01] MEDS: DOCUSATE SODIUM 100 MG CAPSULE PO SCH ×2 (10:02→17:22)
[2017-05-01] MEDS: CEFEPIME 2 GM/D5W RTU 2 GM/50 ML RTUPB IV SCH ×2 (10:03→21:46)
[2017-05-01] MEDS: AZITHROMYCIN 500 MG in DEXTROSE 5%-WATER 250 ML IV SCH (11:08)
[2017-05-01 11:14] LABS: PATH REVIEW PATHOLOGIST REVIEWED
--- NOTE | 2017-05-01 11:47 | PDOC CONSULTATION ---
Consultation Consult Date: 05/01/17 Attending physician:: HARLAN BYNUM Consult reason:: lymphoma History of Present Illness Admission Date/PCP: 04/30/17 23:53 DALE GUZMAN MD History of Present Illness: Mr. Low is a 52 year old male who has followed with me for his Non -Hodgkin Lymphoma. 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 He was treated with R-CHOP x 6 cycles which completed . Since that time, he has had no evidence of active disease and has been on maintenance Rituxan every 2 months. His most recent dose was 03/25/2017 , when I last saw him. At that time, he was complaining of further dyspnea and pulmonary consult was requested, but this has not yet been arranged. Today, he states that about 2 weeks ago, his dyspnea worsened and has progressed until he presented to the ED. He has been using Advair and Albuterol , but these were no longer helping. He was found on admission to have an atypical pneumonia by chest CT without evidence of PE. His BP was also quite low. Past Medical History Cardiac Medical History: Denies: Coronary Artery Disease, Myocardial Infarction, Hypertension Pulmonary Medical History: Reports: Chronic Obstructive Pulmonary Disease (COPD) Denies: Asthma, Bronchitis, Pneumonia Neurological Medical History: Reports: Seizures - 20 YEARS AGO R/T HX COCAINE Malignancy Medical History: Reports: Lymphoma - Follicular. Medicated with rituxan GI Medical History: Reports: Peptic Ulcer Disease Musculoskeltal Medical History: Reports: Arthritis - BACK, Gout Skin Medical History: Reports: Other - Squamous cell skin cancer Right buddhist. Psychiatric Medical History: Denies: Depression Hematology: Denies: Anemia Past Surgical History Past Surgical History: Reports: Other - Ulcer repair, SBO repair, port placement , left eyebrow surgery Social History Information Source: Patient Occupation: Unemployed since 2013. 3 children. Lives with . Lives with: Family Smoking Status: Former Smoker Cigarettes Packs Per Day: 0.2 Frequency of Alcohol Use: None Hx Prescription Drug Abuse: No - Advance Directive Resuscitation Status: Full Code Family History Family History: Reviewed & Not Pertinent Parental Family History Reviewed: Yes - Mother at age 55 from alcohol. Father long ago. Unknown cause. Children Family History Reviewed: Yes Sibling(s) Family History Reviewed.: Yes Medication/Allergy Home Medications: Albuterol Sulfate [Proair Hfa Inhalation Aerosol 8.5 gm Mdi] 2 puff IH Q4HP PRN 05/01/17 Clotrimazole/Betamethasone Dip [Clotrimazole-Betamethasone Crm] 1 applic TP BID 05/01/17 Esomeprazole Mag Trihydrate [Nexium] 40 mg PO DAILY 05/01/17 Oxycodone HCl [Oxy-Ir 5 mg Tablet] 10 mg PO Q6HP PRN 05/01/17 Oxycodone HCl [Oxycontin] 10 mg PO Q12 05/01/17 Allergies/Adverse Reactions: alex Allergy (Mild, Verified 04/30/17 19:00) RASH Review of Systems Constitutional: PRESENT: chills, fever(s), weakness Eyes: ABSENT: visual disturbances Ears: ABSENT: hearing changes Nose, Mouth, and Throat: ABSENT: sore throat Cardiovascular: PRESENT: dyspnea on exertion Respiratory: PRESENT: cough, dyspnea Gastrointestinal: ABSENT: constipation, diarrhea Genitourinary: ABSENT: difficulty urinating Neurological: ABSENT: confusion Endocrine: PRESENT: other - Decreased Appetite. Physical Exam Vital Signs: Temp Pulse Resp BP Pulse Ox 97.7 F 110 H 18 93/64 L 96 05/01/17 08:08 05/01/17 08:36 05/01/17 08:36 05/01/17 08:08 05/01/17 08:36 Intake & Output 04/30/17 05/01/17 05/02/17 06:59 06:59 06:59 Intake Total 700 Balance 700 Weight 51.4 kg General appearance: PRESENT: no acute distress, thin Exam: Male, lying in bed, wearing Oxygen. Mild respiratory distress. Head exam: PRESENT: atraumatic Eye exam: PRESENT: PERRLA Mouth exam: PRESENT: dry mucosa, tongue midline Neck exam: ABSENT: lymphadenopathy, tenderness Respiratory exam: PRESENT: wheezes Cardiovascular exam: PRESENT: RRR GI/Abdominal exam: PRESENT: soft. ABSENT: tenderness Extremities exam: ABSENT: pedal edema Neurological exam: PRESENT: alert, oriented to person, oriented to place, other - Some memory difficulties. Psychiatric exam: PRESENT: appropriate affect Skin exam: PRESENT: dry, warm Results Impressions: Chest X-Ray 04/30/17 19:56 IMPRESSION: No significant interval change. No acute findings. Other findings as noted above Chest/Abdomen CTA 04/30/17 20:03 IMPRESSION: No evidence for pulmonary embolic disease. Diffuse bilateral tree- in-bud opacities as noted above most consistent with a developing infiltrate. The possibility of an 8 typical pneumonia should be considered. There are ground-glass opacities in the lingula of the left upper lobe which could represent an infiltrate or atelectatic changes. Other findings as noted above Assessment & Plan - Diagnosis (1) Lymphoma Qualifiers: Lymphoma type: non-Hodgkin Non-Hodgkin lymphoma type: follicular Follicular lymphoma grade: unspecified grade Lymphoma site: unspecified region Qualified Code(s): C82.90 - Follicular lymphoma, unspecified, unspecified site Is this a current diagnosis for this admission?: Yes Plan: Currently with No evidence of Active Disease. Last CT 01/15/2017 showed stability. He should continue maintenance Rituxan. Last dose was 03/25/2017. Next dose will be due in Early May, 2017 (2) Atypical pneumonia Is this a current diagnosis for this admission?: Yes Plan: I agree with plan for antibiotics. He has NOT been neutropenic, but has had Decreased LYMPHOCYTES, which would make him more susceptible to viral and fungal infections. (3) Anemia Qualifiers: Anemia type: unspecified type Qualified Code(s): D64.9 - Anemia, unspecified Is this a current diagnosis for this admission?: Yes Plan: This is new. His HGB on 03/25/17 was 15.2 Will watch and follow.
--- NOTE | 2017-05-01 12:23 | PROGRESS NOTE E ---
Progress Note NAME: DARSHAN SABA : 1965 AGE: 52Y DATE: 05/01/2017 ROOM: 313 SUBJECTIVE: The patient is currently lying in bed. The patient does appear to have work of breathing. The patient at this time denies any nausea, vomiting, diarrhea, dizziness, chest pain. No fevers, chills. The patient does admit to shortness of breath. According to the patient, this has been persisting for quite some period of time. The patient stated that he felt that he was absolutely going to ; however, he has been holding on because he is caring for his "old lady" that has Parkinson disease. The patient stated that multiple people rely on his disability check and, therefore, he wants to hang on as long as he can, although he did express a desire for a natural of his own. The patient has been afebrile, his blood pressures have been somewhat soft, the patient is mildly tachycardic and does not voice any specific concerns at this time. MEDICATIONS: Medications have been reviewed. DIAGNOSTICS: Lab values are as follows. Hematology obtained on 04/30/2017: WBCs are 5.1, hemoglobin is 12.8, hematocrit is 37.5, platelet count is 493,000. Chemistry obtained on 04/30/2017: Sodium is 130, potassium 3.8, chloride is 87, carbon dioxide 30, BUN 24, creatinine is 1.30, glucose 94, calcium is 8.0, bilirubin is 0.7, AST 29, ALT is 26, alk phos 92, total protein 4.6, albumin 2.7. IMPRESSION AND PLAN: 1. ATYPICAL PNEUMONIA. The patient is on broad-spectrum coverage. Will add an additional fungal agent and obtain sputum specimen and Candidal smear as well. It appears the patient has been on Rituxan which can unfortunately cause these issues. Follow. 2. CHRONIC OBSTRUCTIVE PULMONARY DISEASE. The patient has had an ongoing history of this and is quite exacerbated at this time. Will continue with nebulizers and discourage smoking THC at this time. 3. ACUTE ON CHRONIC HYPOXEMIC RESPIRATORY FAILURE. The patient does appear to have significant work of breathing at this time. Will defer BiPAP as long as possible given a possible fungal etiology and maintain sats greater than 88%. 4. LYMPHOMA. Apparently the patient's last chemo was in March. He is on an agent for suppression and is supposedly "lymphoma free." Will hold this agent during this time and follow. 5. SEPSIS. The patient has been tachycardic, tachypneic and hypotensive. The patient's symptoms do appear to be improving though. Will follow. 6. ACUTE RENAL FAILURE. Will repeat the patient's chemistries this afternoon. 7. HYPONATREMIA, POSSIBLY DUE TO INTRAVASCULAR VOLUME DEPLETION BUT MOST LIKELY A SYNDROME OF INAPPROPRIATE DIURETIC HORMONE AT THIS TIME. 8. ANEMIA, MOST LIKELY OF UNDERLYING CHRONIC DISEASE. Will transfuse at the threshold that Hematology suggests. 9. TOBACCO DEPENDENCY. Will continue p.r.n. nicotine patch. 10. PROTEIN CALORIE MALNOURISHMENT. Patient has been placed on a high-calorie, high-protein diet. 11. THRUSH. Will continue Magic Mouthwash. 12. ULCERATED LESIONS. The patient does have these on the extensor surface of his hands, elbow, bilateral lower extremities. The patient has an appointment with Dermatology on the regarding this. Will follow. DISPOSITION: THE PATIENT IS A FULL CODE. However, the patient has expressed conflicting interests in his code status. Will consult Palliative Care to help this patient and follow. Time spent on this followup, including assessment/plan, physical examination, patient education, and specialty collaboration, is 45 minutes. DICTATING PHYSICIAN: TERESA WELCH NP [id number] PHY#: [id number] ID: [id number] JOB#: [id number] ACCT: [id number] cc: >
[2017-05-01 13:09] LABS: VENOUS BLOOD BASE EXCESS 3.4 mmol/L; VENOUS BLOOD HCO3 29.4 mmol/L (20-32); VENOUS BLOOD PCO2 50.3 mmHg (35-63); VENOUS BLOOD PH 7.38 (7.30-7.42)
[2017-05-01 13:27] LABS: ANION GAP 13 (5-19); BLOOD UREA NITROGEN 18 mg/dL (7-20); CALCIUM 8.3 mg/dL (8.4-10.2); CARBON DIOXIDE 28 mmol/L (22-30); CHLORIDE 95 mmol/L (98-107); CREATININE RESULT 0.75 mg/dL (0.52-1.25); GLUCOSE 169 mg/dL (75-110); POTASSIUM 4.1 mmol/L (3.6-5.0); SODIUM 135.6 mmol/L (137-145)
[2017-05-01] MEDS: NORMAL SALINE 1000 ML 1,000 ML IV PRN (15:22)
[2017-05-01] MEDS: GENTAMICIN SULFATE 120 MG in DEXTROSE 5%-WATER 100 ML IV SCH (17:23)
[2017-05-01] MEDS: MICAFUNGIN SODIUM 150 MG in NORMAL SALINE 100 ML IV SCH (18:44)
[2017-05-01] MEDS: SENNOSIDES/DOCUSATE 8.6-50 MG 1 EACH TABLET PO SCH (21:44)
[2017-05-02] MEDS: IPRATROPIUM/ALBUTEROL 0.5-2.5 MG/3 ML AMPUL NEB SCH ×4 (01:51→20:21)
[2017-05-02 05:16] LABS: HEMATOCRIT 31.8 % (37.9-51.0); HEMOGLOBIN 10.9 g/dL (13.5-17.0); HGB HCT DIFFERENCE 0.9; MEAN CORPUSCULAR HEMOGLOBIN 29.1 pg (27.0-33.4); MEAN CORPUSCULAR HGB CONC 34.4 g/dL (32.0-36.0); MEAN CORPUSCULAR VOLUME 85 fl (80-97); RED BLOOD COUNT 3.76 10^6/uL (4.35-5.55); WHITE BLOOD COUNT 3.8 10^3/uL (4.0-10.5)
[2017-05-02] MEDS: GENTAMICIN SULFATE 120 MG in DEXTROSE 5%-WATER 100 ML IV SCH ×2 (05:33→18:35)
[2017-05-02] MEDS: LANSOPRAZOLE 30 MG TAB.RAP.DR PO SCH (05:33)
[2017-05-02] MEDS: HEPARIN SOD (PORCINE) 5,000 UNIT/ML 1 ML SYRINGE SUBCUT SCH ×3 (05:33→22:40)
[2017-05-02] MEDS: METHYLPREDNISOLONE INJ 125 MG/2 ML SDV IV SCH ×3 (05:34→23:59)
[2017-05-02 05:37] LABS: ANION GAP 12 (5-19); BLOOD UREA NITROGEN 16 mg/dL (7-20); CALCIUM 8.5 mg/dL (8.4-10.2); CARBON DIOXIDE 28 mmol/L (22-30); CHLORIDE 98 mmol/L (98-107); CREATININE RESULT 0.73 mg/dL (0.52-1.25); GLUCOSE 162 mg/dL (75-110); POTASSIUM 4.7 mmol/L (3.6-5.0); SODIUM 138.3 mmol/L (137-145)
[2017-05-02 05:42] LABS: BAND NEUTROPHILS % (MANUAL) 11 % (3-5); BASOPHILS % (MANUAL) 0 % (0-2); EOSINOPHILS % (MANUAL) 0 % (0-6); LYMPHOCYTES % (MANUAL) 10 % (13-45); TOTAL CELLS COUNTED 100
[2017-05-02 05:43] LABS: PLATELET CLUMPS PRESENT
[2017-05-02 05:46] LABS: ANISOCYTOSIS SLIGHT
--- NOTE | 2017-05-02 07:56 | PDOC PROGRESS REPORT ---
Subjective Progress Note for:: 05/02/17 Subjective:: Patient reports that his breathing is some better. No new complaints. He is eating some, but does not have much appetite. Physical Exam Vital Signs: Temp Pulse Resp BP Pulse Ox 97.6 F 91 22 H 111/61 91 L 05/02/17 04:45 05/02/17 04:45 05/02/17 04:45 05/02/17 04:45 05/02/17 04:45 Intake & Output 05/01/17 05/02/17 05/03/17 06:59 06:59 06:59 Intake Total 700 2569 Balance 700 2569 Weight 51.4 kg General appearance: PRESENT: mild distress, thin Respiratory exam: PRESENT: rales, wheezes Cardiovascular exam: PRESENT: RRR. ABSENT: systolic murmur Pulses: PRESENT: normal dorsalis pedis pul Psychiatric exam: PRESENT: appropriate affect, normal mood Skin exam: PRESENT: other - Lesions unchanged. Results Laboratory Results: 05/02/17 04:24 05/02/17 04:24 05/01/17 05/01/17 05/02/17 12:50 12:50 04:24 WBC 3.8 L RBC 3.76 L Hgb 10.9 L Hct 31.8 L MCV 85 MCH 29.1 MCHC 34.4 RDW 14.0 Plt Count 447 Seg Neutrophils % Not Reportable Lymphocytes % Not Reportable Monocytes % Not Reportable Eosinophils % Not Reportable Basophils % Not Reportable Absolute Neutrophils Not Reportable Absolute Lymphocytes Not Reportable Absolute Monocytes Not Reportable Absolute Eosinophils Not Reportable Absolute Basophils Not Reportable VBG pH 7.38 VBG pCO2 50.3 VBG HCO3 29.4 VBG Base Excess 3.4 Sodium 135.6 L Potassium 4.1 Chloride 95 L Carbon Dioxide 28 Anion Gap 13 BUN 18 Creatinine 0.75 Est GFR ( Amer) > 60 Est GFR (Non-Af Amer) > 60 Glucose 169 H Calcium 8.3 L 05/02/17 04:24 WBC RBC Hgb Hct MCV MCH MCHC RDW Plt Count Seg Neutrophils % Lymphocytes % Monocytes % Eosinophils % Basophils % Absolute Neutrophils Absolute Lymphocytes Absolute Monocytes Absolute Eosinophils Absolute Basophils VBG pH VBG pCO2 VBG HCO3 VBG Base Excess Sodium 138.3 Potassium 4.7 Chloride 98 Carbon Dioxide 28 Anion Gap 12 BUN 16 Creatinine 0.73 Est GFR ( Amer) > 60 Est GFR (Non-Af Amer) > 60 Glucose 162 H Calcium 8.5 Impressions: Chest X-Ray 04/30/17 19:56 IMPRESSION: No significant interval change. No acute findings. Other findings as noted above Chest/Abdomen CTA 04/30/17 20:03 IMPRESSION: No evidence for pulmonary embolic disease. Diffuse bilateral tree- in-bud opacities as noted above most consistent with a developing infiltrate. The possibility of an 8 typical pneumonia should be considered. There are ground-glass opacities in the lingula of the left upper lobe which could represent an infiltrate or atelectatic changes. Other findings as noted above Assessment & Plan - Diagnosis (1) Lymphoma Qualifiers: Lymphoma type: non-Hodgkin Non-Hodgkin lymphoma type: follicular Follicular lymphoma grade: unspecified grade Lymphoma site: unspecified region Qualified Code(s): C82.90 - Follicular lymphoma, unspecified, unspecified site Is this a current diagnosis for this admission?: Yes Plan: Although no current evidence of active lymphoma, current treatment may have contributed to suppressed immune system. No further Rituxan planned until May. (2) Atypical pneumonia Is this a current diagnosis for this admission?: Yes Plan: HIV testing in 2014 was negative. However, in light of pneumonia and skin issues, perhaps repeat HIV screening would be indicated. No known risk factors currently. (3) Anemia Qualifiers: Anemia type: unspecified type Qualified Code(s): D64.9 - Anemia, unspecified Is this a current diagnosis for this admission?: Yes Plan: Currently stable. Continue to follow.
[2017-05-02] MEDS: DOCUSATE SODIUM 100 MG CAPSULE PO SCH ×2 (09:49→18:31)
[2017-05-02] MEDS: CEFEPIME 2 GM/D5W RTU 2 GM/50 ML RTUPB IV SCH ×2 (09:49→23:57)
[2017-05-02] MEDS: OXYCODONE HCL SR 10 MG TABLET PO SCH ×2 (09:49→23:42)
[2017-05-02] MEDS: GUAIFENESIN 600 MG TABLET.SA PO SCH ×2 (09:49→22:42)
[2017-05-02] MEDS: NYSTATIN/DEXAMETH/DIPHEN SUSP 120 ML PO SCH ×4 (09:50→22:54)
[2017-05-02] MEDS: FLUTICASONE/SALMETEROL DISKUS 250-50 MCG/DOSE IH SCH ×2 (09:50→22:40)
[2017-05-02] MEDS: AZITHROMYCIN 500 MG in DEXTROSE 5%-WATER 250 ML IV SCH (09:52)
[2017-05-02] MEDS ORDERED: (PENDING PHARMACY ID) (Esomeprazole Mag Trihydrate [Nexium] 40 MG) PO SCH (10:00)
[2017-05-02] MEDS: NORMAL SALINE 1000 ML 1,000 ML IV PRN (10:44)
[2017-05-02] MEDS: OXYCODONE-ACETAMINOPHEN 5-325 MG TABLET PO PRN ×2 (10:52→18:31)
[2017-05-02] MEDS: OXYCODONE HCL IR 5 MG TABLET PO PRN ×2 (10:54→18:31)
--- NOTE | 2017-05-02 12:18 | PDOC PROGRESS REPORT ---
Subjective Progress Note for:: 05/02/17 Subjective:: Pt states that he is coughing up phelgm. Pt states that he has been having night sweats. Pt states that he has been losing weight. Pt states that he does not have known TB contact. Pt states that his appetite has been good well in hospital. Physical Exam Vital Signs: Temp Pulse Resp BP Pulse Ox 97.7 F 75 22 H 109/56 L 95 05/02/17 07:59 05/02/17 08:03 05/02/17 08:03 05/02/17 07:59 05/02/17 08:03 Intake & Output 05/01/17 05/02/17 05/03/17 06:59 06:59 06:59 Intake Total 700 2569 Balance 700 2569 Weight 51.4 kg General appearance: PRESENT: no acute distress, thin Head exam: PRESENT: atraumatic, normocephalic Eye exam: PRESENT: conjunctiva pink, EOMI, PERRLA. ABSENT: scleral icterus Ear exam: PRESENT: normal external ear exam Mouth exam: PRESENT: moist, tongue midline Neck exam: ABSENT: carotid bruit, JVD, lymphadenopathy, thyromegaly Respiratory exam: PRESENT: other - + coarse breath sounds, + Prolonged exp phase Cardiovascular exam: PRESENT: RRR. ABSENT: diastolic murmur, rubs, systolic murmur Pulses: PRESENT: normal dorsalis pedis pul Vascular exam: PRESENT: normal capillary refill GI/Abdominal exam: PRESENT: normal bowel sounds, soft. ABSENT: distended, guarding, mass, organolmegaly, rebound, tenderness Rectal exam: PRESENT: deferred Extremities exam: PRESENT: full ROM. ABSENT: calf tenderness, clubbing, pedal edema Neurological exam: PRESENT: alert, awake, oriented to person, oriented to place , oriented to time, oriented to situation, CN II-XII grossly intact. ABSENT: motor sensory deficit Psychiatric exam: PRESENT: appropriate affect, normal mood. ABSENT: homicidal ideation, suicidal ideation Skin exam: PRESENT: other - dry erythematous lesions on arms. Results Laboratory Results: 05/02/17 04:24 05/02/17 04:24 05/01/17 05/01/17 05/02/17 12:50 12:50 04:24 WBC 3.8 L RBC 3.76 L Hgb 10.9 L Hct 31.8 L MCV 85 MCH 29.1 MCHC 34.4 RDW 14.0 Plt Count 447 Seg Neutrophils % Not Reportable Lymphocytes % Not Reportable Monocytes % Not Reportable Eosinophils % Not Reportable Basophils % Not Reportable Absolute Neutrophils Not Reportable Absolute Lymphocytes Not Reportable Absolute Monocytes Not Reportable Absolute Eosinophils Not Reportable Absolute Basophils Not Reportable VBG pH 7.38 VBG pCO2 50.3 VBG HCO3 29.4 VBG Base Excess 3.4 Sodium 135.6 L Potassium 4.1 Chloride 95 L Carbon Dioxide 28 Anion Gap 13 BUN 18 Creatinine 0.75 Est GFR ( Amer) > 60 Est GFR (Non-Af Amer) > 60 Glucose 169 H Calcium 8.3 L 05/02/17 04:24 WBC RBC Hgb Hct MCV MCH MCHC RDW Plt Count Seg Neutrophils % Lymphocytes % Monocytes % Eosinophils % Basophils % Absolute Neutrophils Absolute Lymphocytes Absolute Monocytes Absolute Eosinophils Absolute Basophils VBG pH VBG pCO2 VBG HCO3 VBG Base Excess Sodium 138.3 Potassium 4.7 Chloride 98 Carbon Dioxide 28 Anion Gap 12 BUN 16 Creatinine 0.73 Est GFR ( Amer) > 60 Est GFR (Non-Af Amer) > 60 Glucose 162 H Calcium 8.5 Impressions: Chest X-Ray 04/30/17 19:56 IMPRESSION: No significant interval change. No acute findings. Other findings as noted above Chest/Abdomen CTA 04/30/17 20:03 IMPRESSION: No evidence for pulmonary embolic disease. Diffuse bilateral tree- in-bud opacities as noted above most consistent with a developing infiltrate. The possibility of an 8 typical pneumonia should be considered. There are ground-glass opacities in the lingula of the left upper lobe which could represent an infiltrate or atelectatic changes. Other findings as noted above Assessment & Plan - Diagnosis (1) Acute hypoxemic respiratory failure Is this a current diagnosis for this admission?: Yes Plan: Will continue current treatment. Pt currently on NC. Will continue steroids, breathing treatments, antibiotics, and antifungal. (2) Atypical pneumonia Is this a current diagnosis for this admission?: Yes Plan: Will check Interferon Gold, AFBs, and Asp Quant. Will continue current treatment. (3) COPD exacerbation Is this a current diagnosis for this admission?: Yes Plan: Will wean steroids to 60 mg IV Q8 hours. Will continue current treatment plan. (4) Chemotherapy adverse reaction Qualifiers: Encounter type: subsequent encounter Qualified Code(s): T45.1X5D - Adverse effect of antineoplastic and immunosuppressive drugs, subsequent encounter Is this a current diagnosis for this admission?: Yes Plan: Pt's current condition most likely related to pt being immunocompromised. (5) Hyponatremia Is this a current diagnosis for this admission?: Yes Plan: Secondary to Hypovolemia Hyponatremia: Resolved (6) Lymphoma Qualifiers: Lymphoma type: non-Hodgkin Non-Hodgkin lymphoma type: follicular Follicular lymphoma grade: unspecified grade Lymphoma site: unspecified region Qualified Code(s): C82.90 - Follicular lymphoma, unspecified, unspecified site Is this a current diagnosis for this admission?: Yes Plan: Appreciate Dr. Shaikh's assistance with case. (7) Protein-calorie malnutrition, severe Is this a current diagnosis for this admission?: Yes (8) Sepsis Qualifiers: Sepsis type: sepsis due to unspecified organism Qualified Code(s): A41.9 - Sepsis, unspecified organism Is this a current diagnosis for this admission?: Yes Plan: Secondary to Atypical Pneumonia: Will continue current treatment. (9) Thrush Is this a current diagnosis for this admission?: Yes Plan: Will continue current treatment. (10) Tobacco abuse Is this a current diagnosis for this admission?: Yes Plan: Will continue nicoderm patch. (11) DVT prophylaxis Is this a current diagnosis for this admission?: Yes Plan: Heparin - Time Time Spent with patient: 15-24 minutes
[2017-05-02 13:24] LABS: ADD HIVPANEL? NO; HIV (1 AND 2) ANTIBODY NEGATIVE (NEGATIVE)
[2017-05-02] MEDS: CLONAZEPAM 1 MG TABLET PO PRN (15:07)
[2017-05-02] MEDS: MICAFUNGIN SODIUM 150 MG in NORMAL SALINE 100 ML IV SCH (18:36)
[2017-05-02] MEDS: SENNOSIDES/DOCUSATE 8.6-50 MG 1 EACH TABLET PO SCH (22:42)
--- NOTE | 2017-05-02 23:49 | Palliative Consultation Report ---
Consultation From:: IRVIN STONE Consult Reason: lymphoma - HPI HPI: Palliative Care Visit May 02, 2017 3:10- 3:35 PM Appreciate consult request with this unfortunate 52 year old man who suffers with lymphoma and is treating with chemotherapy. He has been admitted with increased dyspnea and has been diagnosed with an atypical pneumonia. He is in respiratory isolation with question of TB from CXR. He also has anemia and increased fatigue. Mr. Low is alert and awake at time of visit. He is having some anxiety and obvious conversational dyspnea. He states he doesnt feel especially short of breath and he dos improve when nurse brings a fan into the room. Patient is also wearing a paper mask which may be adding to his shortness of reath. He reports being afraid of "catching something" from others.'' Normally patient lives at home. His son is very close and helps him with most of his health care. He states he lives with his significant other female friend but she has Parkinson's disease and he cares for her. He wants his son to be his spokes personif he cannot speak for himself but doesnt have any legal papers to that effect. However, his son is his next of kin and he reports no one would contest the sons choices for him. We discussed his wishes for end of life care. He states he would want CPR and even ventilatory support if he had an arrest but would not want to be on a ventilator for a long time. He said he feels sure his son would be able to "pull the plug" if the situation hopeless. He did not want to complete MOST form today. Mr. Low has pain in his back and has pain in ribs with cough.. He says Dr. Serrano has him on a good plan for pain using oxycodone. We discussed how the oxycodone helps his respiratory distress also. He has taken a clonazepam just before my visit to help with his dyspnea. He seems to enjoy talking and is very open. He reports many people including his daughter depend on him. Onset: Last week Onset/Duration: Gradual Quality of Pain: Achy Severity: Moderate Associated Symptoms: Nonproductive cough, Hurts to breath, Shortness of breath, Weakness Exacerbated by: Movement Relieved by: Remaining still Past Medical History(Consults) - General Information Source: Patient, [facility] Records Home Medications: Albuterol Sulfate [Proair Hfa Inhalation Aerosol 8.5 gm Mdi] 2 puff IH Q4HP PRN 05/01/17 Clotrimazole/Betamethasone Dip [Clotrimazole-Betamethasone Crm] 1 applic TP BID 05/01/17 Esomeprazole Mag Trihydrate [Nexium] 40 mg PO DAILY 05/01/17 Oxycodone HCl [Oxy-Ir 5 mg Tablet] 10 mg PO Q6HP PRN 05/01/17 Oxycodone HCl [Oxycontin] 10 mg PO Q12 05/01/17 Allergies/Adverse Reactions: alex Allergy (Mild, Verified 04/30/17 19:00) RASH - Social History Lives with: Family Family History: Reviewed & Not Pertinent Parental Family History Reviewed: No Children Family History Reviewed: No Sibling(s) Family History Reviewed.: No Smoking Status: Smoker,Current Status Unk Cigarettes Packs Per Day: 0.2 Frequency of Alcohol Use: None Hx Recreational Drug Use: No Drugs: Cocaine - History, Marijuana Hx Prescription Drug Abuse: No - Past Medical History Cardiac Medical History: Denies: Hx Coronary Artery Disease, Hx Heart Attack, Hx Hypertension Pulmonary Medical History: Reports: Hx COPD Denies: Hx Asthma, Hx Bronchitis, Hx Pneumonia Neurological Medical History: Reports: 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 Denies: Hx Cerebrovascular Accident Renal/ Medical History: Denies: Hx Peritoneal Dialysis Malignancy Medical History: 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 Medicated with rituxan Musculoskeltal Medical History: Reports Hx Arthritis - BACK, Reports Hx Gout Skin Medical History: Reports Other - Squamous cell skin cancer Right taoism. Psychiatric Medical History: Reports: Hx Anxiety Denies: Hx Depression Hematology: Denies: Anemia - Surgical History Past Surgical History: Reports: Hx Bowel Surgery - Perforated bowel surgery, Other - Ulcer repair, SBO repair, port placement, left eyebrow surgery Review of systems Constitutional: Weakness, Recent illness EENT: Nose congestion Cardiovascular: Dyspnea Respiratory: Cough, Hurts to breath Geniturinary: No symptoms reported Musculoskeltal: Back pain, Joint pain, Muscle pain, Muscle stiffness Hematologic/Lymphatic: Anemia Neurological/Psychological: Anxiety Ojective:Exam Vital Signs: Temp Pulse Resp BP Pulse Ox 98.0 F 91 18 94/69 L 98 05/02/17 16:23 05/02/17 20:21 05/02/17 20:21 05/02/17 16:23 05/02/17 20:21 Intake & Output 05/01/17 05/02/17 05/03/17 06:59 06:59 06:59 Intake Total 700 2569 1913 Balance 700 2569 1913 Weight 51.4 kg - General General Appearance: Alert, Anxious In distress: Mild - HEENT Head: Normocephalic Conjunctiva: Normal Pupils: PERRLA - Respiratory Respiratory Status: Labored Chest Status: Nontender Breath sounds: Rhonchi - Cardiovascular Rhythm: Regular Pulses: Normal: Radial - Neurological Cognition: Normal Orientation: AAOx4 Speech: Normal Cranial nerves: Facial palsy - Psychological Associated symptoms: Anxious, Decreased appetite Objective-Diagnostic Laboratory: 05/02/17 04:24 05/02/17 04:24 05/02/17 05/02/17 04:24 04:24 WBC 3.8 L RBC 3.76 L Hgb 10.9 L Hct 31.8 L MCV 85 MCH 29.1 MCHC 34.4 RDW 14.0 Plt Count 447 Seg Neutrophils % Not Reportable Lymphocytes % Not Reportable Monocytes % Not Reportable Eosinophils % Not Reportable Basophils % Not Reportable Absolute Neutrophils Not Reportable Absolute Lymphocytes Not Reportable Absolute Monocytes Not Reportable Absolute Eosinophils Not Reportable Absolute Basophils Not Reportable Sodium 138.3 Potassium 4.7 Chloride 98 Carbon Dioxide 28 Anion Gap 12 BUN 16 Creatinine 0.73 Est GFR ( Amer) > 60 Est GFR (Non-Af Amer) > 60 Glucose 162 H Calcium 8.5 Plan and Recommendation Plan and Recommendation: Patient does want to remain full code and doesnt want to complete MOST form at this time. He depends on his son to make decisions for him. Agreed to let me follow up with him next week when he is able to talk without as much dyspnea. We discussed treating his pneumonia. He is happy with current medication orders for pain while he is in hosptal and appreciative of doctor carefully controlling pain at home.. Weakness is his only other symptom at present. Will follow next week. - Time Spent with Patient Time: 30 min with patient and consultation nurse after chart review.
[2017-05-03] MEDS: IPRATROPIUM/ALBUTEROL 0.5-2.5 MG/3 ML AMPUL NEB SCH ×4 (02:09→19:35)
[2017-05-03] MEDS: HEPARIN SOD (PORCINE) 5,000 UNIT/ML 1 ML SYRINGE SUBCUT SCH ×3 (05:50→21:39)
[2017-05-03] MEDS: LANSOPRAZOLE 30 MG TAB.RAP.DR PO SCH (05:51)
[2017-05-03] MEDS: METHYLPREDNISOLONE INJ 125 MG/2 ML SDV IV SCH ×3 (05:51→21:37)
[2017-05-03] MEDS: GENTAMICIN SULFATE 120 MG in DEXTROSE 5%-WATER 100 ML IV SCH (05:54)
[2017-05-03 06:35] LABS: HEMATOCRIT 31.5 % (37.9-51.0); HEMOGLOBIN 10.6 g/dL (13.5-17.0); HGB HCT DIFFERENCE 0.3; MEAN CORPUSCULAR HEMOGLOBIN 28.7 pg (27.0-33.4); MEAN CORPUSCULAR HGB CONC 33.7 g/dL (32.0-36.0); MEAN CORPUSCULAR VOLUME 85 fl (80-97); RED CELL DISTRIBUTION WIDTH 14.5 % (11.5-14.0)
[2017-05-03 07:11] LABS: CREATININE RESULT 0.64 mg/dL (0.52-1.25)
[2017-05-03 07:15] LABS: GENTAMICIN-TROUGH 1.6 ug/mL (<2.0)
[2017-05-03 07:23] LABS: BAND NEUTROPHILS % (MANUAL) 4 % (3-5); BASOPHILS % (MANUAL) 0 % (0-2); EOSINOPHILS % (MANUAL) 0 % (0-6); LYMPHOCYTES % (MANUAL) 3 % (13-45); TOTAL CELLS COUNTED 100
[2017-05-03 07:24] LABS: RBC MORPHOLOGY COMMENT NORMO-CYTIC/CHROMIC
[2017-05-03] MEDS ORDERED: TUBERCULIN,PURIF.PROT.DERIV. 5 TU/0.1 ML TEST 1 ML VIAL ID ONE ×2 (07:49→09:00)
--- NOTE | 2017-05-03 08:20 | PDOC PROGRESS REPORT ---
Subjective Progress Note for:: 05/03/17 Subjective:: Patient states that the Klonopin he was given for his anxiety worked quite well and he would like to have this as an outpatient. He believes this would help prevent him for getting addicted to the narcotics. His breathing is about the same. No other new concerns. Physical Exam Vital Signs: Temp Pulse Resp BP Pulse Ox 97.7 F 89 22 H 136/90 H 99 05/03/17 04:00 05/03/17 04:00 05/03/17 04:00 05/03/17 04:00 05/03/17 04:00 Intake & Output 05/02/17 05/03/17 05/04/17 06:59 06:59 06:59 Intake Total 2569 3940 Output Total 400 Balance 2569 3540 Weight 55.5 kg General appearance: PRESENT: mild distress Head exam: PRESENT: atraumatic Respiratory exam: PRESENT: crackles, rales, wheezes Cardiovascular exam: PRESENT: other - Heart sounds obscured by lung sounds. Neurological exam: PRESENT: alert, awake, oriented to person, oriented to place , oriented to situation Results Laboratory Results: 05/03/17 05:54 05/03/17 05:54 05/03/17 05/03/17 05:54 05:54 WBC 5.0 RBC 3.70 L Hgb 10.6 L Hct 31.5 L MCV 85 MCH 28.7 MCHC 33.7 RDW 14.5 H Plt Count 351 Seg Neutrophils % Not Reportable Lymphocytes % Not Reportable Monocytes % Not Reportable Eosinophils % Not Reportable Basophils % Not Reportable Absolute Neutrophils Not Reportable Absolute Lymphocytes Not Reportable Absolute Monocytes Not Reportable Absolute Eosinophils Not Reportable Absolute Basophils Not Reportable Creatinine 0.64 Est GFR ( Amer) > 60 Est GFR (Non-Af Amer) > 60 Impressions: Chest X-Ray 04/30/17 19:56 IMPRESSION: No significant interval change. No acute findings. Other findings as noted above Chest/Abdomen CTA 04/30/17 20:03 IMPRESSION: No evidence for pulmonary embolic disease. Diffuse bilateral tree- in-bud opacities as noted above most consistent with a developing infiltrate. The possibility of an 8 typical pneumonia should be considered. There are ground-glass opacities in the lingula of the left upper lobe which could represent an infiltrate or atelectatic changes. Other findings as noted above Assessment & Plan - Diagnosis (1) Lymphoma Qualifiers: Qualified Code(s): C82.90 - Follicular lymphoma, unspecified, unspecified site Is this a current diagnosis for this admission?: Yes Plan: Still with low Lymphocyte count due to Rituxan. (2) Atypical pneumonia Is this a current diagnosis for this admission?: Yes Plan: Agree with broad spectrum coverage. Consider repeat CXR. Fungal and TB studies pending. HIV was negative. I have inquired as to if Beta D Glucan could be obtained. If no significant improvement, may need to consider bronch. (3) Anemia Qualifiers: Qualified Code(s): D64.9 - Anemia, unspecified Is this a current diagnosis for this admission?: Yes Plan: Currently remains stable. No indication for transfusion currently. - Plan Summary Plan Summary: Klonopin has helped his anxiety. Consider PRN dose of this in the future.
--- NOTE | 2017-05-03 08:21 | PDOC PROGRESS REPORT ---
Subjective Progress Note for:: 05/03/17 Subjective:: Pt states that he is doing ok. Nursing states that there were no problems overnight. Physical Exam Vital Signs: Temp Pulse Resp BP Pulse Ox 97.7 F 89 22 H 136/90 H 99 05/03/17 04:00 05/03/17 04:00 05/03/17 04:00 05/03/17 04:00 05/03/17 04:00 Intake & Output 05/02/17 05/03/17 05/04/17 06:59 06:59 06:59 Intake Total 2569 3940 Output Total 400 Balance 2569 3540 Weight 55.5 kg General appearance: PRESENT: no acute distress, thin Head exam: PRESENT: atraumatic, normocephalic Eye exam: PRESENT: conjunctiva pink, EOMI, PERRLA. ABSENT: scleral icterus Ear exam: PRESENT: normal external ear exam Mouth exam: PRESENT: moist, tongue midline Neck exam: ABSENT: carotid bruit, JVD, lymphadenopathy, thyromegaly Respiratory exam: PRESENT: other - +coarse breath sounds,+ scant wheezing. Cardiovascular exam: PRESENT: RRR. ABSENT: diastolic murmur, rubs, systolic murmur Pulses: PRESENT: normal carotid pulses Vascular exam: PRESENT: normal capillary refill GI/Abdominal exam: PRESENT: normal bowel sounds, soft. ABSENT: distended, guarding, mass, organolmegaly, rebound, tenderness Rectal exam: PRESENT: deferred Extremities exam: PRESENT: full ROM. ABSENT: calf tenderness, clubbing, pedal edema Musculoskeletal exam: PRESENT: full ROM Neurological exam: PRESENT: alert, awake, oriented to person, oriented to place , oriented to time, oriented to situation, CN II-XII grossly intact. ABSENT: motor sensory deficit Psychiatric exam: PRESENT: appropriate affect, normal mood. ABSENT: homicidal ideation, suicidal ideation Skin exam: PRESENT: other - +right hand lesion Results Laboratory Results: 05/03/17 05:54 05/03/17 05:54 05/03/17 05/03/17 05:54 05:54 WBC 5.0 RBC 3.70 L Hgb 10.6 L Hct 31.5 L MCV 85 MCH 28.7 MCHC 33.7 RDW 14.5 H Plt Count 351 Seg Neutrophils % Not Reportable Lymphocytes % Not Reportable Monocytes % Not Reportable Eosinophils % Not Reportable Basophils % Not Reportable Absolute Neutrophils Not Reportable Absolute Lymphocytes Not Reportable Absolute Monocytes Not Reportable Absolute Eosinophils Not Reportable Absolute Basophils Not Reportable Creatinine 0.64 Est GFR ( Amer) > 60 Est GFR (Non-Af Amer) > 60 Impressions: Chest X-Ray 04/30/17 19:56 IMPRESSION: No significant interval change. No acute findings. Other findings as noted above Chest/Abdomen CTA 04/30/17 20:03 IMPRESSION: No evidence for pulmonary embolic disease. Diffuse bilateral tree- in-bud opacities as noted above most consistent with a developing infiltrate. The possibility of an 8 typical pneumonia should be considered. There are ground-glass opacities in the lingula of the left upper lobe which could represent an infiltrate or atelectatic changes. Other findings as noted above Assessment & Plan - Diagnosis (1) Acute hypoxemic respiratory failure Is this a current diagnosis for this admission?: Yes Plan: Will continue current treatment. Pt currently on NC. Will continue steroids, breathing treatments, antibiotics, and antifungal. (2) Atypical pneumonia Is this a current diagnosis for this admission?: Yes Plan: Interferon Gold, AFBs, and Asp Quant. Spoke to Dr. Fontana who states that we continue to obtain sputum cultures. Appreciate Dr. Fontana's assistance. Will continue current treatment. (3) COPD exacerbation Is this a current diagnosis for this admission?: Yes Plan: Will continue steroids at 60 mg IV Q8 hours. Will continue current treatment plan. (4) Chemotherapy adverse reaction Qualifiers: Encounter type: subsequent encounter Qualified Code(s): T45.1X5D - Adverse effect of antineoplastic and immunosuppressive drugs, subsequent encounter Is this a current diagnosis for this admission?: Yes Plan: Pt's current condition most likely related to pt being immunocompromised. (5) Hyponatremia Is this a current diagnosis for this admission?: Yes Plan: Resolved. (6) Lymphoma Qualifiers: Lymphoma type: non-Hodgkin Non-Hodgkin lymphoma type: follicular Follicular lymphoma grade: unspecified grade Lymphoma site: unspecified region Qualified Code(s): C82.90 - Follicular lymphoma, unspecified, unspecified site Is this a current diagnosis for this admission?: Yes Plan: Appreciate Dr. Shaikh's assistance with case. Pt has been on rituximab. (7) Open wound of right hand Is this a current diagnosis for this admission?: Yes Plan: Will consult Dr. Beck to see if he can biopsy right hand skin lesion. (8) Protein-calorie malnutrition, severe Is this a current diagnosis for this admission?: Yes Plan: Encourage good PO intake with supplemental drinks. (9) Sepsis Qualifiers: Sepsis type: sepsis due to unspecified organism Qualified Code(s): A41.9 - Sepsis, unspecified organism Is this a current diagnosis for this admission?: Yes Plan: Secondary to Atypical Pneumonia: Will continue current treatment. (10) Thrush Is this a current diagnosis for this admission?: Yes Plan: Will continue current treatment. (11) Tobacco abuse Is this a current diagnosis for this admission?: Yes Plan: Will continue nicoderm patch. (12) DVT prophylaxis Is this a current diagnosis for this admission?: Yes Plan: Heparin - Time Time Spent with patient: 15-24 minutes
[2017-05-03] MEDS: NORMAL SALINE 1000 ML 1,000 ML IV PRN (08:29)
[2017-05-03] MEDS: OXYCODONE-ACETAMINOPHEN 5-325 MG TABLET PO PRN ×2 (08:33→15:06)
[2017-05-03] MEDS: OXYCODONE HCL IR 5 MG TABLET PO PRN ×2 (08:34→15:06)
[2017-05-03] MEDS ORDERED: SODIUM CHLORIDE 3% FOR INHALATION 15 ML AMPUL NEB ONE (09:00)
[2017-05-03] MEDS ORDERED: ALBUTEROL SULFATE 0.083% NEB 2.5 MG/3 ML AMPUL NEB ONE (09:00)
[2017-05-03] MEDS: DOCUSATE SODIUM 100 MG CAPSULE PO SCH ×2 (10:52→18:06)
[2017-05-03] MEDS: GUAIFENESIN 600 MG TABLET.SA PO SCH ×2 (10:53→21:43)
[2017-05-03] MEDS: OXYCODONE HCL SR 10 MG TABLET PO SCH ×2 (10:53→21:44)
[2017-05-03] MEDS: AZITHROMYCIN 500 MG in DEXTROSE 5%-WATER 250 ML IV SCH (11:00)
[2017-05-03] MEDS: CEFEPIME 2 GM/D5W RTU 2 GM/50 ML RTUPB IV SCH ×2 (11:00→21:37)
[2017-05-03] MEDS: FLUTICASONE/SALMETEROL DISKUS 250-50 MCG/DOSE IH SCH ×2 (11:02→22:05)
[2017-05-03] MEDS: NYSTATIN/DEXAMETH/DIPHEN SUSP 120 ML PO SCH ×4 (11:02→22:05)
--- NOTE | 2017-05-03 15:18 | CONSULTATION REPORT E ---
Consultation Report NAME: DARSHAN SABA : 1965 AGE: 52Y DATE: 05/03/2017 301 A TO: FREDDIE WOLFE M.D. FROM: HARLAN BYNUM M.D. Requesting Physician CHIEF COMPLAINT: Lesion, right hand. REASON FOR CONSULTATION: The patient is a 52-year-old white male with a history of lymphoma, atypical pneumonia, and respiratory insufficiency who has a several week history of a right hand lesion. PAST MEDICAL AND SURGICAL HISTORY: Can be found in his history and physical document. PHYSICAL EXAMINATION: Using a photograph for interpretation, the patient has an approximately 3 cm centrally ulcerated, heaped up margin, circular lesion on the dorsal aspect of his right hand. No satellite lesions identified. IMPRESSION: Right dorsum hand soft tissue lesion suspicious for cutaneous malignancy. RECOMMENDATIONS: At this point, management is either observation or excision. I do not see a role for an incisional diagnostic biopsy. We may arrange for excision under local anesthesia on an outpatient basis. DICTATING PHYSICIAN: FREDDIE WOLFE M.D. [id number] PHY#: [id number] ID: [id number] JOB#: [id number] ACCT: [id number] cc:FREDDIE WOLFE M.D. > [place]
[2017-05-03] MEDS: MICAFUNGIN SODIUM 150 MG in NORMAL SALINE 100 ML IV SCH (18:07)
[2017-05-03] MEDS ORDERED: ALBUTEROL SULFATE 0.083% NEB 2.5 MG/3 ML AMPUL NEB SCH (20:00)
[2017-05-03] MEDS ORDERED: SODIUM CHLORIDE 3% FOR INHALATION 15 ML AMPUL NEB SCH ×2 (20:00)
[2017-05-03] MEDS: SENNOSIDES/DOCUSATE 8.6-50 MG 1 EACH TABLET PO SCH (21:42)
[2017-05-03] MEDS: CLONAZEPAM 1 MG TABLET PO PRN (21:43)
[2017-05-04] MEDS: IPRATROPIUM/ALBUTEROL 0.5-2.5 MG/3 ML AMPUL NEB SCH ×4 (01:42→19:47)
[2017-05-04] MEDS: METHYLPREDNISOLONE INJ 125 MG/2 ML SDV IV SCH ×3 (06:08→23:24)
[2017-05-04] MEDS: LANSOPRAZOLE 30 MG TAB.RAP.DR PO SCH (06:10)
[2017-05-04] MEDS: HEPARIN SOD (PORCINE) 5,000 UNIT/ML 1 ML SYRINGE SUBCUT SCH ×3 (06:11→23:23)
--- NOTE | 2017-05-04 08:14 | PDOC PROGRESS REPORT ---
Subjective Progress Note for:: 05/04/17 Subjective:: Mr. Low states that he is eating well and has a BM this morning. However, his breathing still has not improved. He misses his children who cannot currently visit him. No new complaints voiced today otherwise. Physical Exam Vital Signs: Temp Pulse Resp BP Pulse Ox 97.5 F 70 18 128/85 H 100 05/04/17 08:00 05/04/17 08:00 05/04/17 08:00 05/04/17 08:00 05/04/17 08:00 Intake & Output 05/03/17 05/04/17 05/05/17 06:59 06:59 06:59 Intake Total 3940 4440 Output Total 400 400 Balance 3540 4040 Weight 55.5 kg 55.6 kg General appearance: PRESENT: mild distress, thin Respiratory exam: PRESENT: rhonchi, wheezes - But improved from yesterday. Cardiovascular exam: PRESENT: other - Obscured by breath sounds. Skin exam: PRESENT: other - Lecion/excar right hand - unchanged. Results Laboratory Results: 05/03/17 05:54 05/03/17 05:54 05/01/17 02:14 Sputum Gram Stain - Final 05/02/17 11:45 Sputum AFB Smear Concentration - Final 05/02/17 11:45 Sputum Acid Fast Bacilli Smear - Final Impressions: Chest X-Ray 04/30/17 19:56 IMPRESSION: No significant interval change. No acute findings. Other findings as noted above Chest/Abdomen CTA 04/30/17 20:03 IMPRESSION: No evidence for pulmonary embolic disease. Diffuse bilateral tree- in-bud opacities as noted above most consistent with a developing infiltrate. The possibility of an 8 typical pneumonia should be considered. There are ground-glass opacities in the lingula of the left upper lobe which could represent an infiltrate or atelectatic changes. Other findings as noted above Assessment & Plan - Diagnosis (1) Lymphoma Qualifiers: Lymphoma type: non-Hodgkin Non-Hodgkin lymphoma type: follicular Follicular lymphoma grade: unspecified grade Lymphoma site: unspecified region Qualified Code(s): C82.90 - Follicular lymphoma, unspecified, unspecified site Is this a current diagnosis for this admission?: Yes (2) Atypical pneumonia Is this a current diagnosis for this admission?: Yes Plan: All cultures still without obvious cause. Consider Bronch if cultures remain negative. This would be a very atypical presentation for cancer recurrence, but not impossible. (3) Anemia Qualifiers: Anemia type: unspecified type Qualified Code(s): D64.9 - Anemia, unspecified Is this a current diagnosis for this admission?: Yes Plan: Currently stable. No treatment indicated at this time. Continue to follow CBCs.
[2017-05-04] MEDS: NORMAL SALINE 1000 ML 1,000 ML IV PRN (08:28)
[2017-05-04] MEDS: CEFEPIME 2 GM/D5W RTU 2 GM/50 ML RTUPB IV SCH ×2 (10:29→23:23)
[2017-05-04] MEDS: GUAIFENESIN 600 MG TABLET.SA PO SCH ×2 (10:29→23:24)
[2017-05-04] MEDS: NYSTATIN/DEXAMETH/DIPHEN SUSP 120 ML PO SCH ×4 (10:29→23:25)
[2017-05-04] MEDS: OXYCODONE HCL SR 10 MG TABLET PO SCH ×2 (10:30→23:24)
[2017-05-04] MEDS: FLUTICASONE/SALMETEROL DISKUS 250-50 MCG/DOSE IH SCH ×2 (10:30→23:24)
[2017-05-04] MEDS: DOCUSATE SODIUM 100 MG CAPSULE PO SCH ×2 (10:37→17:45)
[2017-05-04] MEDS: AZITHROMYCIN 500 MG in DEXTROSE 5%-WATER 250 ML IV SCH (11:18)
[2017-05-04] MEDS ORDERED: DEXTROSE 50%-WATER 25 GM/50 ML DISP.SYRIN IV PRN ×2 (11:53)
[2017-05-04] MEDS ORDERED: INSULIN REG, HUMAN 100 UNIT/ML 3 ML VIAL (PYX) SUBCUT PRN (11:53)
[2017-05-04] MEDS ORDERED: GLUCAGON,HUMAN RECOMB 1 MG INJ IM PRN (11:53)
[2017-05-04] MEDS ORDERED: DEXTROSE 40% GEL 15 GM TUBE PO PRN ×2 (11:53)
--- NOTE | 2017-05-04 11:54 | PDOC PROGRESS REPORT ---
Subjective Progress Note for:: 05/04/17 Subjective:: Pt states that he is resting better. Nursing states that pt has been doing well. Physical Exam Vital Signs: Temp Pulse Resp BP Pulse Ox 97.5 F 70 18 128/85 H 100 05/04/17 08:00 05/04/17 08:00 05/04/17 08:00 05/04/17 08:00 05/04/17 08:00 Intake & Output 05/03/17 05/04/17 05/05/17 06:59 06:59 06:59 Intake Total 3940 4440 Output Total 400 400 Balance 3540 4040 Weight 55.5 kg 55.6 kg General appearance: PRESENT: no acute distress, thin, other - sleeping when I entered the room. Head exam: PRESENT: atraumatic, normocephalic Eye exam: PRESENT: conjunctiva pink, EOMI, PERRLA. ABSENT: scleral icterus Ear exam: PRESENT: normal external ear exam Mouth exam: PRESENT: moist, tongue midline Neck exam: ABSENT: carotid bruit, JVD, lymphadenopathy, thyromegaly Respiratory exam: PRESENT: other - Prolonged exp phase, + Wheezing, + Coarse breath sounds bilaterally. Cardiovascular exam: PRESENT: RRR. ABSENT: diastolic murmur, rubs, systolic murmur Pulses: PRESENT: normal dorsalis pedis pul Vascular exam: PRESENT: normal capillary refill GI/Abdominal exam: PRESENT: normal bowel sounds, soft. ABSENT: distended, guarding, mass, organolmegaly, rebound, tenderness Rectal exam: PRESENT: deferred Extremities exam: PRESENT: full ROM. ABSENT: calf tenderness, clubbing, pedal edema Neurological exam: PRESENT: alert, awake, oriented to person, oriented to place , oriented to time, oriented to situation, CN II-XII grossly intact. ABSENT: motor sensory deficit Psychiatric exam: PRESENT: appropriate affect, normal mood. ABSENT: homicidal ideation, suicidal ideation Skin exam: PRESENT: dry, intact, warm, other - + Right hand lesion with black Escar present.. ABSENT: cyanosis, rash Results Laboratory Results: 05/04/17 09:27 05/03/17 05:54 05/04/17 09:27 WBC Cancelled RBC Cancelled Hgb Cancelled Hct Cancelled MCV Cancelled MCH Cancelled MCHC Cancelled RDW Cancelled Plt Count Cancelled Seg Neutrophils % Cancelled Lymphocytes % Cancelled Monocytes % Cancelled Eosinophils % Cancelled Basophils % Cancelled Absolute Neutrophils Cancelled Absolute Lymphocytes Cancelled Absolute Monocytes Cancelled Absolute Eosinophils Cancelled Absolute Basophils Cancelled 05/01/17 02:14 Sputum Gram Stain - Final 05/01/17 02:14 Sputum Sputum Culture - Final Staphylococcus Aureus Haemophilus Influenzae Normal Belen 05/02/17 11:45 Sputum AFB Smear Concentration - Final 05/02/17 11:45 Sputum Acid Fast Bacilli Smear - Final Impressions: Chest X-Ray 04/30/17 19:56 IMPRESSION: No significant interval change. No acute findings. Other findings as noted above Chest/Abdomen CTA 04/30/17 20:03 IMPRESSION: No evidence for pulmonary embolic disease. Diffuse bilateral tree- in-bud opacities as noted above most consistent with a developing infiltrate. The possibility of an 8 typical pneumonia should be considered. There are ground-glass opacities in the lingula of the left upper lobe which could represent an infiltrate or atelectatic changes. Other findings as noted above Assessment & Plan - Diagnosis (1) Acute hypoxemic respiratory failure Is this a current diagnosis for this admission?: Yes Plan: Will continue current treatment. No changes currently. Pulmonary following pt and may need to have bronch. (2) Atypical pneumonia Is this a current diagnosis for this admission?: Yes Plan: Interferon Gold, AFBs, and Asp Quant. Appreciate Dr. Fontana's assistance. Will continue current treatment. Sputum demonstrated Staph Aureus and Haemophilus Influenzae. Will continue current treatment. (3) COPD exacerbation Is this a current diagnosis for this admission?: Yes Plan: Will continue steroids at 60 mg IV Q8 hours. Will continue current treatment plan. (4) Chemotherapy adverse reaction Qualifiers: Encounter type: subsequent encounter Qualified Code(s): T45.1X5D - Adverse effect of antineoplastic and immunosuppressive drugs, subsequent encounter Is this a current diagnosis for this admission?: Yes Plan: Pt's current condition most likely related to pt being immunocompromised. (5) Hyponatremia Is this a current diagnosis for this admission?: Yes Plan: Resolved. (6) Lymphoma Qualifiers: Lymphoma type: non-Hodgkin Non-Hodgkin lymphoma type: follicular Follicular lymphoma grade: unspecified grade Lymphoma site: unspecified region Qualified Code(s): C82.90 - Follicular lymphoma, unspecified, unspecified site Is this a current diagnosis for this admission?: Yes Plan: Appreciate Dr. Shaikh's assistance with case. Pt has been on rituximab. Pt currently not with recurrence of Lymphoma (7) Open wound of right hand Is this a current diagnosis for this admission?: Yes Plan: Surgery felt that it was not necessary to biopsy lesion at this time. (8) Protein-calorie malnutrition, severe Is this a current diagnosis for this admission?: Yes Plan: Encourage good PO intake with supplemental drinks. (9) Sepsis Qualifiers: Sepsis type: sepsis due to unspecified organism Qualified Code(s): A41.9 - Sepsis, unspecified organism Is this a current diagnosis for this admission?: Yes Plan: Secondary to Atypical Pneumonia: Will continue current treatment. Work up in place. Pt may need biopsy. (10) Hyperglycemia Is this a current diagnosis for this admission?: Yes Plan: Will place on SSI and check Accuchecks. Will check HBGA1C. (11) Thrush Is this a current diagnosis for this admission?: Yes Plan: Will continue current treatment. (12) Tobacco abuse Is this a current diagnosis for this admission?: Yes Plan: Will continue nicoderm patch. (13) DVT prophylaxis Is this a current diagnosis for this admission?: Yes Plan: Heparin
[2017-05-04 12:56] LABS: HEMATOCRIT 37.2 % (37.9-51.0); HEMOGLOBIN 12.5 g/dL (13.5-17.0); HGB HCT DIFFERENCE 0.3; MEAN CORPUSCULAR HEMOGLOBIN 28.6 pg (27.0-33.4); MEAN CORPUSCULAR HGB CONC 33.6 g/dL (32.0-36.0); MEAN CORPUSCULAR VOLUME 85 fl (80-97); RED BLOOD COUNT 4.38 10^6/uL (4.35-5.55); RED CELL DISTRIBUTION WIDTH 14.3 % (11.5-14.0); WHITE BLOOD COUNT 5.9 10^3/uL (4.0-10.5)
[2017-05-04 13:17] LABS: BAND NEUTROPHILS % (MANUAL) 3 % (3-5); BASOPHILS % (MANUAL) 0 % (0-2); EOSINOPHILS % (MANUAL) 1 % (0-6); LYMPHOCYTES % (MANUAL) 2 % (13-45); TOTAL CELLS COUNTED 100
[2017-05-04 13:18] LABS: HYPOCHROMASIA SLIGHT
[2017-05-04] MEDS: OXYCODONE HCL IR 5 MG TABLET PO PRN (14:08)
[2017-05-04] MEDS: MICAFUNGIN SODIUM 150 MG in NORMAL SALINE 100 ML IV SCH (17:40)
--- NOTE | 2017-05-04 18:09 | PDOC CONSULTATION ---
Consultation Consult Date: 05/02/17 Attending physician:: JEREMY ADAMS Consult reason:: dyspnea History of Present Illness Admission Date/PCP: 04/30/17 23:53 DALE GUZMAN MD History of Present Illness: 52-year-old male with a history of lymphoma and chemotherapy complains of increasing shortness of breath and cough related to presented to the emergency room he admits to having dyspnea on exertion at home [id number] history continues to smoke up until the time of admission status is unknown he denies history of chronic lung disease as a child or adolescent he admits to exposed to large amounts of passive smoke with a child as well as an adult. 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 Variations in spelling and tvocabulary are possible and unintentional. Please notify the author if any discrepancies are noted. Past Medical History Cardiac Medical History: Denies: Coronary Artery Disease, Myocardial Infarction, Hypertension Pulmonary Medical History: Reports: Chronic Obstructive Pulmonary Disease (COPD) Denies: Asthma, Bronchitis, Pneumonia EENT Medical History: Denies: Eyes Neurological Medical History: Reports: Seizures - 20 YEARS AGO R/T HX COCAINE Denies: Hemorrhagic CVA, Ischemic CVA Endocrine Medical History: Denies: Diabetes Mellitus Type 1, Obesity Renal/ Medical History: Denies: Nephrolithiasis Malignancy Medical History: Reports: Lymphoma - Follicular. 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 Lives with: Family Smoking Status: Former Smoker Cigarettes Packs Per Day: 1 Number of Years Smokin Passive smoke exposure as: Both Frequency of Alcohol Use: None Hx Recreational Drug Use: No Drugs: Cocaine - History, Marijuana Hx Prescription Drug Abuse: No Do you have pets?: No Have you had any respiratory illnesses as a child?: No Have you been exposed to any sick contacts recently?: No Have you had any recent respiratory illnesses?: No Have you travelled outside of [place] in the past 12 months?: No - Advance Directive Resuscitation Status: Full Code Family History Family History: CAD, Hypertension, Malignancy Parental Family History Reviewed: Yes Children Family History Reviewed: Yes Sibling(s) Family History Reviewed.: Yes Medication/Allergy Home Medications: Albuterol Sulfate [Proair Hfa Inhalation Aerosol 8.5 gm Mdi] 2 puff IH Q4HP PRN 05/01/17 Clotrimazole/Betamethasone Dip [Clotrimazole-Betamethasone Crm] 1 applic TP BID 05/01/17 Esomeprazole Mag Trihydrate [Nexium] 40 mg PO DAILY 05/01/17 Oxycodone HCl [Oxy-Ir 5 mg Tablet] 10 mg PO Q6HP PRN 05/01/17 Oxycodone HCl [Oxycontin] 10 mg PO Q12 05/01/17 Allergies/Adverse Reactions: alex Allergy (Mild, Verified 04/30/17 19:00) RASH Review of Systems Constitutional: ABSENT: anorexia, chills, fatigue Eyes: ABSENT: visual disturbances Ears: ABSENT: hearing changes Nose, Mouth, and Throat: ABSENT: headache(s), sore throat Cardiovascular: ABSENT: palpitations Respiratory: ABSENT: hemoptysis Gastrointestinal: ABSENT: abdominal pain, bloating, diarrhea, melena Neurological: PRESENT: lack of coordination. ABSENT: confusion, convulsions, memory loss Psychiatric: ABSENT: hallucinations, homidical ideation, suicidal ideation Endocrine: ABSENT: cold intolerance, heat intolerance Physical Exam Vital Signs: Temp Pulse Resp BP Pulse Ox 97.7 F 75 22 H 109/56 L 95 05/02/17 07:59 05/02/17 08:03 05/02/17 08:03 05/02/17 07:59 05/02/17 08:03 Intake & Output 05/01/17 05/02/17 05/03/17 06:59 06:59 06:59 Intake Total 700 2569 Balance 700 2569 Weight 51.4 kg General appearance: PRESENT: no acute distress, cooperative, disheveled, thin Head exam: PRESENT: atraumatic, normocephalic Eye exam: PRESENT: conjunctiva pale, EOMI Mouth exam: PRESENT: dry mucosa, neck supple, tongue midline Neck exam: ABSENT: carotid bruit, JVD, lymphadenopathy, thyromegaly Respiratory exam: PRESENT: decreased breath sounds, prolonged expiratory phas, rhonchi, symmetrical, unlabored, wheezes. ABSENT: accessory muscle use, chest wall tenderness, clear to auscultation rylie, crackles Cardiovascular exam: PRESENT: RRR, +S1, +S2 Pulses: PRESENT: normal radial pulses GI/Abdominal exam: PRESENT: normal bowel sounds, soft. ABSENT: distended, guarding, mass, organolmegaly, rebound, tenderness Extremities exam: ABSENT: calf tenderness, joint swelling Musculoskeletal exam: ABSENT: deformity, dislocation Neurological exam: PRESENT: alert, awake Psychiatric exam: PRESENT: normal mood Skin exam: PRESENT: dry, warm Results Laboratory Results: 05/02/17 04:24 05/02/17 04:24 05/01/17 05/01/17 05/02/17 12:50 12:50 04:24 WBC 3.8 L RBC 3.76 L Hgb 10.9 L Hct 31.8 L MCV 85 MCH 29.1 MCHC 34.4 RDW 14.0 Plt Count 447 Seg Neutrophils % Not Reportable Lymphocytes % Not Reportable Monocytes % Not Reportable Eosinophils % Not Reportable Basophils % Not Reportable Absolute Neutrophils Not Reportable Absolute Lymphocytes Not Reportable Absolute Monocytes Not Reportable Absolute Eosinophils Not Reportable Absolute Basophils Not Reportable VBG pH 7.38 VBG pCO2 50.3 VBG HCO3 29.4 VBG Base Excess 3.4 Sodium 135.6 L Potassium 4.1 Chloride 95 L Carbon Dioxide 28 Anion Gap 13 BUN 18 Creatinine 0.75 Est GFR ( Amer) > 60 Est GFR (Non-Af Amer) > 60 Glucose 169 H Calcium 8.3 L 05/02/17 04:24 WBC RBC Hgb Hct MCV MCH MCHC RDW Plt Count Seg Neutrophils % Lymphocytes % Monocytes % Eosinophils % Basophils % Absolute Neutrophils Absolute Lymphocytes Absolute Monocytes Absolute Eosinophils Absolute Basophils VBG pH VBG pCO2 VBG HCO3 VBG Base Excess Sodium 138.3 Potassium 4.7 Chloride 98 Carbon Dioxide 28 Anion Gap 12 BUN 16 Creatinine 0.73 Est GFR ( Amer) > 60 Est GFR (Non-Af Amer) > 60 Glucose 162 H Calcium 8.5 Impressions: Chest X-Ray 04/30/17 19:56 IMPRESSION: No significant interval change. No acute findings. Other findings as noted above Chest/Abdomen CTA 04/30/17 20:03 IMPRESSION: No evidence for pulmonary embolic disease. Diffuse bilateral tree- in-bud opacities as noted above most consistent with a developing infiltrate. The possibility of an 8 typical pneumonia should be considered. There are ground-glass opacities in the lingula of the left upper lobe which could represent an infiltrate or atelectatic changes. Other findings as noted above Assessment & Plan - Diagnosis (1) Atypical pneumonia Is this a current diagnosis for this admission?: Yes Plan: CT scan miliary pattern isolation,ppd sputums for AFB (2) COPD exacerbation Is this a current diagnosis for this admission?: Yes Plan: Generic Name Dose Route Start Last Admin Trade Name Freq PRN Reason Stop Dose Admin Albuterol/Ipratropium 3 ml 05/01/17 02:00 05/04/17 13:33 Duoneb 3 Ml Ampul NEB 05/31/17 01:59 3 ml RTQ6 KEVIN Levalbuterol HCl 1.25 mg 05/01/17 08:00 Xopenex Neb 1.25 Mg/3 Ml Ampul NEB 05/31/17 00:08 RTQ2HP PRN WHEEZING/DYSPNEA (3) Open wound of right hand Is this a current diagnosis for this admission?: Yes (4) Protein-calorie malnutrition, severe Is this a current diagnosis for this admission?: Yes (5) Tobacco abuse Is this a current diagnosis for this admission?: Yes Plan: transdermal nictine disscussed risk/dangers associated with continued tobacco use
[2017-05-04] MEDS: SODIUM CHLORIDE 3% FOR INHALATION 15 ML AMPUL NEB SCH (19:53)
[2017-05-04] MEDS: SENNOSIDES/DOCUSATE 8.6-50 MG 1 EACH TABLET PO SCH (23:25)
[2017-05-05] MEDS: IPRATROPIUM/ALBUTEROL 0.5-2.5 MG/3 ML AMPUL NEB SCH ×4 (02:06→21:19)
[2017-05-05 05:51] LABS: HEMATOCRIT 35.6 % (37.9-51.0); HEMOGLOBIN 11.9 g/dL (13.5-17.0); HGB HCT DIFFERENCE 0.1; MEAN CORPUSCULAR HEMOGLOBIN 28.5 pg (27.0-33.4); MEAN CORPUSCULAR HGB CONC 33.3 g/dL (32.0-36.0); MEAN CORPUSCULAR VOLUME 86 fl (80-97); RED BLOOD COUNT 4.16 10^6/uL (4.35-5.55); RED CELL DISTRIBUTION WIDTH 14.6 % (11.5-14.0); WHITE BLOOD COUNT 5.5 10^3/uL (4.0-10.5)
[2017-05-05 05:52] LABS: ALANINE AMINOTRANSFERASE 31 U/L (21-72); ALBUMIN 2.7 g/dL (3.5-5.0); ALKALINE PHOSPHATASE 71 U/L (38-126); ANION GAP 9 (5-19); ASPARTATE AMINO TRANSFERASE 19 U/L (17-59); BILIRUBIN,DIRECT 0.3 mg/dL (0.0-0.4); BILIRUBIN,TOTAL 0.3 mg/dL (0.2-1.3); BLOOD UREA NITROGEN 13 mg/dL (7-20); CALCIUM 8.2 mg/dL (8.4-10.2); CARBON DIOXIDE 39 mmol/L (22-30); CHLORIDE 93 mmol/L (98-107); CREATININE RESULT 0.56 mg/dL (0.52-1.25); GLUCOSE 123 mg/dL (75-110); POTASSIUM 4.5 mmol/L (3.6-5.0); SODIUM 141.3 mmol/L (137-145); TOTAL PROTEIN 4.5 g/dL (6.3-8.2)
[2017-05-05] MEDS: METHYLPREDNISOLONE INJ 125 MG/2 ML SDV IV SCH ×3 (06:02→21:18)
[2017-05-05] MEDS: LANSOPRAZOLE 30 MG TAB.RAP.DR PO SCH (06:02)
[2017-05-05] MEDS: HEPARIN SOD (PORCINE) 5,000 UNIT/ML 1 ML SYRINGE SUBCUT SCH ×3 (06:02→21:18)
[2017-05-05 06:33] LABS: BAND NEUTROPHILS % (MANUAL) 6 % (3-5); BASOPHILS % (MANUAL) 0 % (0-2); EOSINOPHILS % (MANUAL) 0 % (0-6); LYMPHOCYTES % (MANUAL) 6 % (13-45); TOTAL CELLS COUNTED 100
[2017-05-05 06:37] LABS: RBC MORPHOLOGY COMMENT NORMO-CYTIC/CHROMIC
[2017-05-05] MEDS: OXYCODONE-ACETAMINOPHEN 5-325 MG TABLET PO PRN ×2 (06:51→17:52)
--- NOTE | 2017-05-05 08:08 | PDOC PROGRESS REPORT ---
Subjective Progress Note for:: 05/05/17 Subjective:: Patient states that he does not feel any difference. No better, no worse. Still worried about family at home. Wants to get better faster. Physical Exam Vital Signs: Temp Pulse Resp BP Pulse Ox 97.3 F 62 18 126/81 H 95 05/04/17 23:47 05/05/17 05:30 05/05/17 05:30 05/04/17 23:47 05/05/17 02:07 Intake & Output 05/04/17 05/05/17 05/06/17 06:59 06:59 06:59 Intake Total 4440 3843 Output Total 400 Balance 4040 3843 Weight 55.6 kg 55.4 kg General appearance: PRESENT: no acute distress, thin Head exam: PRESENT: atraumatic, normocephalic Respiratory exam: PRESENT: wheezes - Only wheezes today. Much improved. Cardiovascular exam: PRESENT: RRR Results Laboratory Results: 05/05/17 05:08 05/05/17 05:08 05/04/17 05/04/17 05/05/17 09:27 12:17 05:08 WBC Cancelled 5.9 5.5 RBC Cancelled 4.38 4.16 L Hgb Cancelled 12.5 L 11.9 L Hct Cancelled 37.2 L 35.6 L MCV Cancelled 85 86 MCH Cancelled 28.6 28.5 MCHC Cancelled 33.6 33.3 RDW Cancelled 14.3 H 14.6 H Plt Count Cancelled 490 H 499 H Seg Neutrophils % Cancelled Not Reportable Not Reportable Lymphocytes % Cancelled Not Reportable Not Reportable Monocytes % Cancelled Not Reportable Not Reportable Eosinophils % Cancelled Not Reportable Not Reportable Basophils % Cancelled Not Reportable Not Reportable Absolute Neutrophils Cancelled Not Reportable Not Reportable Absolute Lymphocytes Cancelled Not Reportable Not Reportable Absolute Monocytes Cancelled Not Reportable Not Reportable Absolute Eosinophils Cancelled Not Reportable Not Reportable Absolute Basophils Cancelled Not Reportable Not Reportable Sodium Potassium Chloride Carbon Dioxide Anion Gap BUN Creatinine Est GFR ( Amer) Est GFR (Non-Af Amer) Glucose Calcium Total Bilirubin AST ALT Alkaline Phosphatase Total Protein Albumin 05/05/17 05:08 WBC RBC Hgb Hct MCV MCH MCHC RDW Plt Count Seg Neutrophils % Lymphocytes % Monocytes % Eosinophils % Basophils % Absolute Neutrophils Absolute Lymphocytes Absolute Monocytes Absolute Eosinophils Absolute Basophils Sodium 141.3 Potassium 4.5 Chloride 93 L Carbon Dioxide 39 H Anion Gap 9 BUN 13 Creatinine 0.56 Est GFR ( Amer) > 60 Est GFR (Non-Af Amer) > 60 Glucose 123 H Calcium 8.2 L Total Bilirubin 0.3 AST 19 ALT 31 Alkaline Phosphatase 71 Total Protein 4.5 L Albumin 2.7 L 05/01/17 02:14 Sputum Gram Stain - Final 05/01/17 02:14 Sputum Sputum Culture - Final Staphylococcus Aureus Haemophilus Influenzae Normal Belen Impressions: Chest X-Ray 04/30/17 19:56 IMPRESSION: No significant interval change. No acute findings. Other findings as noted above Chest/Abdomen CTA 04/30/17 20:03 IMPRESSION: No evidence for pulmonary embolic disease. Diffuse bilateral tree- in-bud opacities as noted above most consistent with a developing infiltrate. The possibility of an 8 typical pneumonia should be considered. There are ground-glass opacities in the lingula of the left upper lobe which could represent an infiltrate or atelectatic changes. Other findings as noted above Assessment & Plan - Diagnosis (1) Lymphoma Qualifiers: Lymphoma type: non-Hodgkin Non-Hodgkin lymphoma type: follicular Follicular lymphoma grade: unspecified grade Lymphoma site: unspecified region Qualified Code(s): C82.90 - Follicular lymphoma, unspecified, unspecified site Is this a current diagnosis for this admission?: Yes (2) Atypical pneumonia Is this a current diagnosis for this admission?: Yes Plan: Agree with current treatment. Consider repeat CXR. Pulmonary also following. (3) Anemia Qualifiers: Anemia type: unspecified type Qualified Code(s): D64.9 - Anemia, unspecified Is this a current diagnosis for this admission?: Yes Plan: Remains stable. No transfusion indicated currently.
[2017-05-05] MEDS: SODIUM CHLORIDE 3% FOR INHALATION 15 ML AMPUL NEB SCH ×2 (08:38→21:19)
[2017-05-05] MEDS: CEFEPIME 2 GM/D5W RTU 2 GM/50 ML RTUPB IV SCH ×2 (09:13→21:20)
[2017-05-05] MEDS: GUAIFENESIN 600 MG TABLET.SA PO SCH ×2 (09:14→21:19)
[2017-05-05] MEDS: OXYCODONE HCL SR 10 MG TABLET PO SCH ×2 (09:15→21:21)
[2017-05-05] MEDS: FLUTICASONE/SALMETEROL DISKUS 250-50 MCG/DOSE IH SCH ×2 (09:16→21:41)
[2017-05-05] MEDS: NYSTATIN/DEXAMETH/DIPHEN SUSP 120 ML PO SCH ×4 (09:17→21:23)
[2017-05-05] MEDS: DOCUSATE SODIUM 100 MG CAPSULE PO SCH ×2 (09:19→17:47)
[2017-05-05] MEDS: AZITHROMYCIN 500 MG in DEXTROSE 5%-WATER 250 ML IV SCH (10:30)
--- NOTE | 2017-05-05 12:24 | PDOC PROGRESS REPORT ---
Subjective Progress Note for:: 05/05/17 Subjective:: Pt states that his breathing is a little better today. Nursing states that their are no new changes. Physical Exam Vital Signs: Temp Pulse Resp BP Pulse Ox 97.2 F 84 14 124/78 95 05/05/17 07:57 05/05/17 08:39 05/05/17 08:39 05/05/17 07:57 05/05/17 08:39 Intake & Output 05/04/17 05/05/17 05/06/17 06:59 06:59 06:59 Intake Total 4440 3843 Output Total 400 Balance 4040 3843 Weight 55.6 kg 55.4 kg General appearance: PRESENT: no acute distress, thin Head exam: PRESENT: atraumatic, normocephalic Eye exam: PRESENT: conjunctiva pink, EOMI. ABSENT: scleral icterus Ear exam: PRESENT: normal external ear exam Mouth exam: PRESENT: moist, tongue midline Neck exam: ABSENT: carotid bruit, JVD, lymphadenopathy, thyromegaly Respiratory exam: PRESENT: accessory muscle use, crackles, wheezes Cardiovascular exam: PRESENT: RRR. ABSENT: diastolic murmur, rubs, systolic murmur Pulses: PRESENT: normal dorsalis pedis pul Vascular exam: PRESENT: normal capillary refill GI/Abdominal exam: PRESENT: normal bowel sounds, soft. ABSENT: distended, guarding, mass, organolmegaly, rebound, tenderness Rectal exam: PRESENT: deferred Extremities exam: PRESENT: full ROM. ABSENT: calf tenderness, clubbing, pedal edema Neurological exam: PRESENT: alert, awake, oriented to person, oriented to place , oriented to time, oriented to situation, CN II-XII grossly intact. ABSENT: motor sensory deficit Psychiatric exam: PRESENT: appropriate affect, normal mood. ABSENT: homicidal ideation, suicidal ideation Skin exam: PRESENT: dry, intact, warm, other - +right hand with large dry wound present.. ABSENT: cyanosis, rash Results Laboratory Results: 05/05/17 05:08 05/05/17 05:08 05/04/17 05/05/17 05/05/17 12:17 05:08 05:08 WBC 5.9 5.5 RBC 4.38 4.16 L Hgb 12.5 L 11.9 L Hct 37.2 L 35.6 L MCV 85 86 MCH 28.6 28.5 MCHC 33.6 33.3 RDW 14.3 H 14.6 H Plt Count 490 H 499 H Seg Neutrophils % Not Reportable Not Reportable Lymphocytes % Not Reportable Not Reportable Monocytes % Not Reportable Not Reportable Eosinophils % Not Reportable Not Reportable Basophils % Not Reportable Not Reportable Absolute Neutrophils Not Reportable Not Reportable Absolute Lymphocytes Not Reportable Not Reportable Absolute Monocytes Not Reportable Not Reportable Absolute Eosinophils Not Reportable Not Reportable Absolute Basophils Not Reportable Not Reportable Sodium 141.3 Potassium 4.5 Chloride 93 L Carbon Dioxide 39 H Anion Gap 9 BUN 13 Creatinine 0.56 Est GFR ( Amer) > 60 Est GFR (Non-Af Amer) > 60 Glucose 123 H Calcium 8.2 L Total Bilirubin 0.3 AST 19 ALT 31 Alkaline Phosphatase 71 Total Protein 4.5 L Albumin 2.7 L 05/01/17 02:14 Sputum Gram Stain - Final 05/01/17 02:14 Sputum Sputum Culture - Final Staphylococcus Aureus Haemophilus Influenzae Normal Belen Impressions: Chest X-Ray 04/30/17 19:56 IMPRESSION: No significant interval change. No acute findings. Other findings as noted above Chest/Abdomen CTA 04/30/17 20:03 IMPRESSION: No evidence for pulmonary embolic disease. Diffuse bilateral tree- in-bud opacities as noted above most consistent with a developing infiltrate. The possibility of an 8 typical pneumonia should be considered. There are ground-glass opacities in the lingula of the left upper lobe which could represent an infiltrate or atelectatic changes. Other findings as noted above Assessment & Plan - Diagnosis (1) Acute hypoxemic respiratory failure Is this a current diagnosis for this admission?: Yes Plan: Will continue current treatment. No changes currently. Pulmonary following pt and will most likely need a bronch. (2) Atypical pneumonia Is this a current diagnosis for this admission?: Yes Plan: AFBs and Asp Quant. Appreciate Dr. Fontana's assistance. Will continue current treatment. Sputum demonstrated Staph Aureus and Haemophilus Influenzae. Will continue current treatment. Per nursing Interferon Gold was cancelled. (3) COPD exacerbation Is this a current diagnosis for this admission?: Yes Plan: Will continue steroids at 60 mg IV Q8 hours. Will continue current treatment plan. (4) Chemotherapy adverse reaction Qualifiers: Encounter type: subsequent encounter Qualified Code(s): T45.1X5D - Adverse effect of antineoplastic and immunosuppressive drugs, subsequent encounter Is this a current diagnosis for this admission?: Yes Plan: Pt's current condition most likely related to pt being immunocompromised. (5) Hyponatremia Is this a current diagnosis for this admission?: Yes Plan: Resolved. (6) Lymphoma Qualifiers: Lymphoma type: non-Hodgkin Non-Hodgkin lymphoma type: follicular Follicular lymphoma grade: unspecified grade Lymphoma site: unspecified region Qualified Code(s): C82.90 - Follicular lymphoma, unspecified, unspecified site Is this a current diagnosis for this admission?: Yes Plan: Appreciate Dr. Shaikh's assistance with case. Pt has been on rituximab. Pt currently not with recurrence of Lymphoma. (7) Open wound of right hand Is this a current diagnosis for this admission?: Yes Plan: Surgery felt that it was not necessary to biopsy lesion at this time. (8) Protein-calorie malnutrition, severe Is this a current diagnosis for this admission?: Yes Plan: Encourage good PO intake with supplemental drinks. (9) Sepsis Qualifiers: Sepsis type: sepsis due to unspecified organism Qualified Code(s): A41.9 - Sepsis, unspecified organism Is this a current diagnosis for this admission?: Yes Plan: Secondary to Atypical Pneumonia: Will continue current treatment. Work up in place. Pt will most likely need bronch. (10) Hyperglycemia Is this a current diagnosis for this admission?: Yes Plan: Will continue SSI and Accuchecks do to steroids. HBGA1C 5.7. (11) Thrush Is this a current diagnosis for this admission?: Yes Plan: Will continue current treatment. (12) Tobacco abuse Is this a current diagnosis for this admission?: Yes Plan: Will continue nicoderm patch. (13) DVT prophylaxis Is this a current diagnosis for this admission?: Yes Plan: Heparin
[2017-05-05] MEDS: CLONAZEPAM 1 MG TABLET PO PRN (14:05)
[2017-05-05] MEDS: MICAFUNGIN SODIUM 150 MG in NORMAL SALINE 100 ML IV SCH (17:48)
[2017-05-05 21:07] LABS: ASPERGILLUS FLAVUS Negative (Neg:<1:1); ASPERGILLUS FUMIGATUS Negative (Neg:<1:1)
[2017-05-05] MEDS: SENNOSIDES/DOCUSATE 8.6-50 MG 1 EACH TABLET PO SCH (21:19)
[2017-05-05] MEDS: NORMAL SALINE 1000 ML 1,000 ML IV PRN ×2 (21:20→23:06)
[2017-05-06] MEDS: IPRATROPIUM/ALBUTEROL 0.5-2.5 MG/3 ML AMPUL NEB SCH ×4 (02:26→20:00)
[2017-05-06] MEDS: METHYLPREDNISOLONE INJ 125 MG/2 ML SDV IV SCH ×2 (05:59→15:02)
[2017-05-06] MEDS: HEPARIN SOD (PORCINE) 5,000 UNIT/ML 1 ML SYRINGE SUBCUT SCH ×2 (05:59→15:06)
[2017-05-06] MEDS: LANSOPRAZOLE 30 MG TAB.RAP.DR PO SCH (06:00)
[2017-05-06] MEDS: SODIUM CHLORIDE 3% FOR INHALATION 15 ML AMPUL NEB SCH ×2 (09:26→20:00)
--- NOTE | 2017-05-06 10:03 | PDOC PROGRESS REPORT ---
Subjective Progress Note for:: 05/03/17 Subjective:: Coughing well with saline nebs denies hemoptysis Physical Exam Vital Signs: Temp Pulse Resp BP Pulse Ox 97.8 F 86 18 119/64 95 05/03/17 11:12 05/03/17 19:00 05/03/17 13:33 05/03/17 11:12 05/03/17 11:12 Intake & Output 05/02/17 05/03/17 05/04/17 06:59 06:59 06:59 Intake Total 2569 3940 2265 Output Total 400 400 Balance 2569 3540 1865 Weight 55.5 kg General appearance: PRESENT: no acute distress, cooperative, disheveled, thin, well-developed Head exam: PRESENT: atraumatic, normocephalic Eye exam: PRESENT: conjunctiva pale, EOMI Mouth exam: PRESENT: dry mucosa, neck supple, tongue midline Teeth exam: PRESENT: poor dentation Neck exam: ABSENT: carotid bruit, JVD, lymphadenopathy, thyromegaly Respiratory exam: PRESENT: crackles, decreased breath sounds, prolonged expiratory phas, rhonchi, symmetrical, unlabored. ABSENT: accessory muscle use , chest wall tenderness, clear to auscultation rylie, rales, retraction, stridor, tachypnea Cardiovascular exam: PRESENT: RRR, +S1, +S2. ABSENT: irregular rhythm Pulses: PRESENT: normal radial pulses GI/Abdominal exam: PRESENT: normal bowel sounds, soft. ABSENT: distended, guarding, mass, organolmegaly, rebound, tenderness Extremities exam: ABSENT: calf tenderness, clubbing, joint swelling, pedal edema , tenderness Musculoskeletal exam: PRESENT: ambulatory. ABSENT: deformity, dislocation, tenderness Neurological exam: PRESENT: alert, awake Psychiatric exam: PRESENT: normal mood Skin exam: PRESENT: dry, pallor, warm Results Laboratory Results: 05/03/17 05:54 05/03/17 05:54 05/03/17 05/03/17 05:54 05:54 WBC 5.0 RBC 3.70 L Hgb 10.6 L Hct 31.5 L MCV 85 MCH 28.7 MCHC 33.7 RDW 14.5 H Plt Count 351 Seg Neutrophils % Not Reportable Lymphocytes % Not Reportable Monocytes % Not Reportable Eosinophils % Not Reportable Basophils % Not Reportable Absolute Neutrophils Not Reportable Absolute Lymphocytes Not Reportable Absolute Monocytes Not Reportable Absolute Eosinophils Not Reportable Absolute Basophils Not Reportable Creatinine 0.64 Est GFR ( Amer) > 60 Est GFR (Non-Af Amer) > 60 05/02/17 11:45 Sputum AFB Smear Concentration - Final 05/02/17 11:45 Sputum Acid Fast Bacilli Smear - Final 05/01/17 02:14 Sputum Gram Stain - Final Impressions: Chest X-Ray 04/30/17 19:56 IMPRESSION: No significant interval change. No acute findings. Other findings as noted above Chest/Abdomen CTA 04/30/17 20:03 IMPRESSION: No evidence for pulmonary embolic disease. Diffuse bilateral tree- in-bud opacities as noted above most consistent with a developing infiltrate. The possibility of an 8 typical pneumonia should be considered. There are ground-glass opacities in the lingula of the left upper lobe which could represent an infiltrate or atelectatic changes. Other findings as noted above Assessment & Plan - Diagnosis (1) Acute hypoxemic respiratory failure Is this a current diagnosis for this admission?: Yes Plan: Stable at this time continue supplemental oxygen follow pulse oximetry (2) Atypical pneumonia Is this a current diagnosis for this admission?: Yes Plan: AFBs negative thus far (3) COPD exacerbation Is this a current diagnosis for this admission?: Yes Plan: Generic Name Dose Route Start Last Admin Trade Name Freq PRN Reason Stop Dose Admin Albuterol/Ipratropium 3 ml 05/01/17 02:00 05/04/17 13:33 Duoneb 3 Ml Ampul NEB 05/31/17 01:59 3 ml RTQ6 KEVIN Levalbuterol HCl 1.25 mg 05/01/17 08:00 Xopenex Neb 1.25 Mg/3 Ml Ampul NEB 05/31/17 00:08 RTQ2HP PRN WHEEZING/DYSPNEA
--- NOTE | 2017-05-06 10:04 | PDOC PROGRESS REPORT ---
Subjective Progress Note for:: 05/05/17 Subjective:: Patient without complaints continues to cough up copious amounts of secretions as a result of nebulizer therapy chest physiotherapy and postural drainage. Physical Exam Vital Signs: Temp Pulse Resp BP Pulse Ox 98.0 F 78 16 110/80 95 05/05/17 12:38 05/05/17 14:10 05/05/17 14:10 05/05/17 12:38 05/05/17 12:38 Intake & Output 05/04/17 05/05/17 05/06/17 06:59 06:59 06:59 Intake Total 4440 3843 Output Total 400 Balance 4040 3843 Weight 55.6 kg 55.4 kg General appearance: PRESENT: no acute distress, cooperative, disheveled, thin, well-developed Head exam: PRESENT: atraumatic, normocephalic Eye exam: PRESENT: conjunctiva pale, EOMI Mouth exam: PRESENT: dry mucosa, neck supple, tongue midline Teeth exam: PRESENT: poor dentation Neck exam: ABSENT: carotid bruit, JVD, lymphadenopathy, thyromegaly Respiratory exam: PRESENT: decreased breath sounds, prolonged expiratory phas, rhonchi, symmetrical, unlabored, wheezes. ABSENT: accessory muscle use, chest wall tenderness, clear to auscultation rylie, crackles, rales, retraction, stridor , tachypnea Cardiovascular exam: PRESENT: RRR, +S1, +S2. ABSENT: irregular rhythm Pulses: PRESENT: normal radial pulses GI/Abdominal exam: PRESENT: normal bowel sounds, soft. ABSENT: distended, guarding, mass, organolmegaly, rebound, tenderness Extremities exam: PRESENT: calf tenderness, clubbing, joint swelling, pedal edema Musculoskeletal exam: ABSENT: deformity, dislocation, tenderness Neurological exam: PRESENT: alert, awake Psychiatric exam: PRESENT: normal mood Skin exam: PRESENT: dry, warm Results Laboratory Results: 05/05/17 05:08 05/05/17 05:08 05/05/17 05/05/17 05:08 05:08 WBC 5.5 RBC 4.16 L Hgb 11.9 L Hct 35.6 L MCV 86 MCH 28.5 MCHC 33.3 RDW 14.6 H Plt Count 499 H Seg Neutrophils % Not Reportable Lymphocytes % Not Reportable Monocytes % Not Reportable Eosinophils % Not Reportable Basophils % Not Reportable Absolute Neutrophils Not Reportable Absolute Lymphocytes Not Reportable Absolute Monocytes Not Reportable Absolute Eosinophils Not Reportable Absolute Basophils Not Reportable Sodium 141.3 Potassium 4.5 Chloride 93 L Carbon Dioxide 39 H Anion Gap 9 BUN 13 Creatinine 0.56 Est GFR ( Amer) > 60 Est GFR (Non-Af Amer) > 60 Glucose 123 H Calcium 8.2 L Total Bilirubin 0.3 AST 19 ALT 31 Alkaline Phosphatase 71 Total Protein 4.5 L Albumin 2.7 L Impressions: Chest X-Ray 04/30/17 19:56 IMPRESSION: No significant interval change. No acute findings. Other findings as noted above Chest/Abdomen CTA 04/30/17 20:03 IMPRESSION: No evidence for pulmonary embolic disease. Diffuse bilateral tree- in-bud opacities as noted above most consistent with a developing infiltrate. The possibility of an 8 typical pneumonia should be considered. There are ground-glass opacities in the lingula of the left upper lobe which could represent an infiltrate or atelectatic changes. Other findings as noted above Assessment & Plan - Diagnosis (1) Atypical pneumonia Is this a current diagnosis for this admission?: Yes Plan: No positive cultures thus far continue respiratory isolation (2) COPD exacerbation Is this a current diagnosis for this admission?: Yes Plan: Generic Name Dose Route Start Last Admin Trade Name Freq PRN Reason Stop Dose Admin Albuterol/Ipratropium 3 ml 05/01/17 02:00 05/04/17 13:33 Duoneb 3 Ml Ampul NEB 05/31/17 01:59 3 ml RTQ6 KEVIN Levalbuterol HCl 1.25 mg 05/01/17 08:00 Xopenex Neb 1.25 Mg/3 Ml Ampul NEB 05/31/17 00:08 RTQ2HP PRN WHEEZING/DYSPNEA (3) Open wound of right hand Is this a current diagnosis for this admission?: Yes (4) Protein-calorie malnutrition, severe Is this a current diagnosis for this admission?: Yes (5) Tobacco abuse Is this a current diagnosis for this admission?: Yes Plan: transdermal nictine disscussed risk/dangers associated with continued tobacco use
--- NOTE | 2017-05-06 10:07 | PDOC PROGRESS REPORT ---
Subjective Progress Note for:: 05/06/17 Subjective:: Patient continues to cough up copious amounts of clear secretions . Physical Exam Vital Signs: Temp Pulse Resp BP Pulse Ox 97.6 F 76 17 108/76 92 05/06/17 00:00 05/06/17 07:00 05/06/17 02:26 05/06/17 00:00 05/06/17 02:26 Intake & Output 05/05/17 05/06/17 05/07/17 06:59 06:59 06:59 Intake Total 3843 3364 Balance 3843 3364 Weight 55.4 kg 56.5 kg General appearance: PRESENT: no acute distress, cooperative, disheveled, thin Head exam: PRESENT: atraumatic, normocephalic Eye exam: PRESENT: conjunctiva pale, EOMI Mouth exam: PRESENT: dry mucosa, neck supple, tongue midline Teeth exam: PRESENT: poor dentation Neck exam: ABSENT: carotid bruit, JVD, lymphadenopathy, thyromegaly Respiratory exam: PRESENT: decreased breath sounds, prolonged expiratory phas, rhonchi, symmetrical, unlabored, wheezes. ABSENT: accessory muscle use, chest wall tenderness, clear to auscultation rylie, crackles, retraction, stridor, tachypnea Cardiovascular exam: PRESENT: RRR, +S1, +S2. ABSENT: irregular rhythm Pulses: PRESENT: normal radial pulses GI/Abdominal exam: PRESENT: normal bowel sounds, soft. ABSENT: distended, guarding, mass, organolmegaly, rebound, tenderness Extremities exam: ABSENT: calf tenderness, clubbing, joint swelling, pedal edema , tenderness Musculoskeletal exam: ABSENT: deformity, dislocation, tenderness Neurological exam: PRESENT: alert, awake Psychiatric exam: PRESENT: normal mood Skin exam: PRESENT: dry, pallor, warm Results Laboratory Results: 05/05/17 05:08 05/05/17 05:08 05/01/17 16:40 Sputum Fungal Smear - Final 05/01/17 16:40 Sputum Fungal Smear - Final Impressions: Chest X-Ray 04/30/17 19:56 IMPRESSION: No significant interval change. No acute findings. Other findings as noted above Chest/Abdomen CTA 04/30/17 20:03 IMPRESSION: No evidence for pulmonary embolic disease. Diffuse bilateral tree- in-bud opacities as noted above most consistent with a developing infiltrate. The possibility of an 8 typical pneumonia should be considered. There are ground-glass opacities in the lingula of the left upper lobe which could represent an infiltrate or atelectatic changes. Other findings as noted above Assessment & Plan - Diagnosis (1) Atypical pneumonia Is this a current diagnosis for this admission?: Yes Plan: S.Aureus; Haemophilus influenza;AFB has been negative thus far (2) COPD exacerbation Is this a current diagnosis for this admission?: Yes Plan: Generic Name Dose Route Start Last Admin Trade Name Freq PRN Reason Stop Dose Admin Albuterol/Ipratropium 3 ml 05/01/17 02:00 05/04/17 13:33 Duoneb 3 Ml Ampul NEB 05/31/17 01:59 3 ml RTQ6 KEVIN Levalbuterol HCl 1.25 mg 05/01/17 08:00 Xopenex Neb 1.25 Mg/3 Ml Ampul NEB 05/31/17 00:08 RTQ2HP PRN WHEEZING/DYSPNEA (3) Open wound of right hand Is this a current diagnosis for this admission?: Yes (4) Protein-calorie malnutrition, severe Is this a current diagnosis for this admission?: Yes (5) Tobacco abuse Is this a current diagnosis for this admission?: Yes
[2017-05-06 10:42] LABS: ASPERGILLUS NIGER Negative (Neg:<1:1)
[2017-05-06] MEDS: OXYCODONE HCL SR 10 MG TABLET PO SCH (11:34)
[2017-05-06] MEDS: DOCUSATE SODIUM 100 MG CAPSULE PO SCH ×2 (11:36→18:04)
[2017-05-06] MEDS: CEFEPIME 2 GM/D5W RTU 2 GM/50 ML RTUPB IV SCH (11:36)
[2017-05-06] MEDS: GUAIFENESIN 600 MG TABLET.SA PO SCH (11:36)
[2017-05-06] MEDS: AZITHROMYCIN 500 MG in DEXTROSE 5%-WATER 250 ML IV SCH (11:37)
[2017-05-06] MEDS: FLUTICASONE/SALMETEROL DISKUS 250-50 MCG/DOSE IH SCH (11:38)
[2017-05-06] MEDS: NYSTATIN/DEXAMETH/DIPHEN SUSP 120 ML PO SCH ×3 (11:40→18:05)
[2017-05-06] MEDS: CLONAZEPAM 1 MG TABLET PO PRN (11:51)
--- NOTE | 2017-05-06 16:50 | PDOC PROGRESS REPORT ---
Subjective Progress Note for:: 05/06/17 Subjective:: Patient presenting with atypical pneumonia. Patient states he is getting better everyday. Patient states his breathing is okay but he can hear himself wheezing. Patient is eating well. Physical Exam Vital Signs: Temp Pulse Resp BP Pulse Ox 97.6 F 76 17 108/76 92 05/06/17 00:00 05/06/17 07:00 05/06/17 02:26 05/06/17 00:00 05/06/17 02:26 Intake & Output 05/05/17 05/06/17 05/07/17 06:59 06:59 06:59 Intake Total 3843 3364 Balance 3843 3364 Weight 55.4 kg 56.5 kg General appearance: PRESENT: no acute distress, thin Head exam: PRESENT: normocephalic Eye exam: PRESENT: EOMI. ABSENT: scleral icterus Ear exam: PRESENT: normal external ear exam Mouth exam: PRESENT: moist Neck exam: ABSENT: carotid bruit, JVD, lymphadenopathy, thyromegaly Respiratory exam: PRESENT: wheezes, other - pursed lip breathing. ABSENT: rales , rhonchi, unlabored Cardiovascular exam: PRESENT: RRR. ABSENT: diastolic murmur, rubs, systolic murmur Pulses: PRESENT: normal dorsalis pedis pul Vascular exam: PRESENT: normal capillary refill GI/Abdominal exam: PRESENT: normal bowel sounds, soft. ABSENT: distended, guarding, mass, organolmegaly, rebound, tenderness Rectal exam: PRESENT: deferred Extremities exam: PRESENT: full ROM. ABSENT: calf tenderness, clubbing, pedal edema Neurological exam: PRESENT: alert, awake, oriented to person, oriented to place , oriented to time, oriented to situation, CN II-XII grossly intact. ABSENT: motor sensory deficit Psychiatric exam: PRESENT: appropriate affect, normal mood. ABSENT: homicidal ideation, suicidal ideation Skin exam: PRESENT: dry, intact, warm, other - ulcer on the dorsum of right hand. PPD on right arm flat without induration. ABSENT: cyanosis, rash Results Laboratory Results: 05/05/17 05:08 05/05/17 05:08 05/01/17 16:40 Sputum Fungal Smear - Final 05/01/17 16:40 Sputum Fungal Smear - Final Impressions: Chest X-Ray 04/30/17 19:56 IMPRESSION: No significant interval change. No acute findings. Other findings as noted above Chest/Abdomen CTA 04/30/17 20:03 IMPRESSION: No evidence for pulmonary embolic disease. Diffuse bilateral tree- in-bud opacities as noted above most consistent with a developing infiltrate. The possibility of an 8 typical pneumonia should be considered. There are ground-glass opacities in the lingula of the left upper lobe which could represent an infiltrate or atelectatic changes. Other findings as noted above Assessment & Plan - Diagnosis (1) Acute hypoxemic respiratory failure Is this a current diagnosis for this admission?: Yes Plan: Oxygen 98 percent on 3L nasal canula. His acute hypoxia is secondary to COPD exacerbation and pneumonia. Will continue to treat underlying conditions and monitor for improvement in respiratory status. (2) Atypical pneumonia Is this a current diagnosis for this admission?: Yes Plan: Continue current antibiotics. Will repeat chest XR. Patient slowly improving. (3) COPD exacerbation Is this a current diagnosis for this admission?: Yes Plan: Continue nebs, antibiotics and steriods. Will wean to 40mg po steroids today as patient is no in distress and has mild wheezing. (4) Chemotherapy adverse reaction Qualifiers: Encounter type: subsequent encounter Qualified Code(s): T45.1X5D - Adverse effect of antineoplastic and immunosuppressive drugs, subsequent encounter Is this a current diagnosis for this admission?: Yes Plan: Patient is immunocompromised which puts him at risk for infections. Will continue to treat patient's pneumonia. (5) DVT prophylaxis Is this a current diagnosis for this admission?: Yes Plan: Continue heparin. (6) Hyperglycemia Is this a current diagnosis for this admission?: Yes Plan: Most likely due to steroids as patient is not diabetic. His A1c is 5.7. Will wean steroids and continue to monitor. (7) Hyponatremia Is this a current diagnosis for this admission?: Yes Plan: Resolved. 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 Oncology is currently following. Recommendations appreciated. (9) Open wound of right hand Is this a current diagnosis for this admission?: Yes Plan: No need to biopsy at this time per surgery. Will continue to monitor. (10) Protein-calorie malnutrition, severe Is this a current diagnosis for this admission?: Yes Plan: Continue dietary supplement. Patient states he is trying to eat as much as he can. (11) Sepsis Qualifiers: Sepsis type: sepsis due to unspecified organism Qualified Code(s): A41.9 - Sepsis, unspecified organism Is this a current diagnosis for this admission?: Yes Plan: Due to his pneumonia. Now resolved. Continue antibitoics. (12) Thrush Is this a current diagnosis for this admission?: Yes Plan: Continue nystatin mouth wash. (13) Tobacco abuse Is this a current diagnosis for this admission?: Yes Plan: Continue with nicotine patch and counseling. - Time Time Spent with patient: Less than 15 minutes Medications reviewed and adjusted accordingly: Yes Anticipated discharge: Home - Inpatient Certification Medical Necessity: Need for IV Antibiotics
--- NOTE | 2017-05-06 17:05 | RADIOLOGY REPORT (SQ) ---
EXAM DESCRIPTION: CHEST SINGLE VIEW COMPLETED DATE/TIME: 05/06/2017 4:55 pm REASON FOR STUDY: pneuomnia COMPARISON: 04/30/2017 EXAM PARAMETERS: NUMBER OF VIEWS: One view. TECHNIQUE: Single frontal radiographic view of the chest acquired. RADIATION DOSE: NA LIMITATIONS: None. FINDINGS: LUNGS AND PLEURA: No opacities, masses or pneumothorax. No pleural effusion. Stable appea ring chronic changes are again identified. Again there is evidence for obstructive lung disease MEDIASTINUM AND HILAR STRUCTURES: No masses. Contour normal. HEART AND VASCULAR STRUCTURES: Heart normal in size. Normal vasculature. BONES: No acute findings. HARDWARE: None in the chest. OTHER: No other significant finding. IMPRESSION: No significant interval change. No acute findings. Other findings as noted above TECHNICAL DOCUMENTATION: JOB ID: [id number] [employer]- All Rights Reserved
--- NOTE | 2017-05-06 19:23 | XCELERA REPORT ---
[address] [address] Transthoracic Echocardiogram Report Name: DARSHAN SABA Age: 52 yrs Gender: Male : 1965 Patient Status: Inpatient Patient Location: [address] [place], [place] [id number] Study Date: 05/05/2017 09:51 AM Height: 71 in Weight: 122 lb BSA: 1.7 m2 Procedure: A complete two-dimensional transthoracic echocardiogram was performed (2D, M-mode, spectral and color flow Doppler). The study was technically adequate with some images being suboptimal in quality. Reason For Study: concern for vegetations Ordering Physician: JEREMY ADAMS Performed By: Rose Marie Seals Interpretation Summary The study was technically adequate with some images being suboptimal in quality. Left ventricular systolic function is low normal. There is normal left ventricular wall thickness. The left ventricle is grossly normal size. LV diastolic function could not be adequately assessed. Regional wall motion abnormalities cannot be excluded due to limited visualization. The right ventricular systolic function is normal. The left atrial size is normal. The right atrium is normal in size There is a trace amount of mitral regurgitation There is no mitral valve stenosis. No aortic regurgitation is present. There is no aortic valve stenosis There is a trace or physiologic amount of tricuspid regurgitation Tricuspid regurgitation jet envelope not well defined to measure RV systolic pressure accurately. The aortic root is not well visualized but is probably normal size. The inferior vena cava appeared normal and decreased > 50% with respiration (RAP 5-10 mmHg) No definite vegetations noted but if clinical suspicion is high, then consider VERNA and multiple blood cultures. MMode/2D Measurements & Calculations RVDd: 2.4 cm LVIDd: 5.4 cm FS: 32.0 % Ao root diam: 3.5 cm IVSd: 0.71 cm LVIDs: 3.7 cm EDV(Teich): 142.9 ml LVPWd: 0.72 cmESV(Teich): 57.7 ml Ao root area: 9.8 cm2 EF(Teich): 59.6 % LA dimension: 3.5 cm LVOT diam: 2.3 cm LVOT area: 4.0 cm2 Doppler Measurements & Calculations MV E max kike: MV P1/2t max kike: Ao V2 max: LV V1 max P.3 cm/sec 67.3 cm/sec 103.2 cm/sec 3.1 mmHg MV A max kike: MV P1/2t: 51.1 msec Ao max PG: LV V1 max: 45.7 cm/sec MVA(P1/2t): 4.3 cm2 4.3 mmHg 87.9 cm/sec MV E/A: 1.5 MV dec slope: ALFRED(V,D): 3.4 cm2 385.5 cm/sec2 PA V2 max: TR max kike: 75.3 cm/sec 177.0 cm/sec PA max PG: TR max P.5 mmHg 2.3 mmHg Left Ventricle The left ventricle is grossly normal size. There is normal left ventricular wall thickness. Left ventricular systolic function is low normal. LV diastolic function could not be adequately assessed. Regional wall motion abnormalities cannot be excluded due to limited visualization. Right Ventricle The right ventricle is grossly normal size. There is normal right ventricular wall thickness. The right ventricular systolic function is normal. Atria The right atrium is normal in size. The left atrial size is normal. Interarterial septum not well visualized and not well dopplered. Cannot comment on ASD/PFO presence. Mitral Valve The mitral valve is grossly normal. There is no mitral valve stenosis. There is a trace amount of mitral regurgitation. Aortic Valve The aortic valve is grossly normal. There is no aortic valve stenosis. No aortic regurgitation is present. Tricuspid Valve The tricuspid valve is not well visualized, but is grossly normal. There is no tricuspid stenosis. There is a trace or physiologic amount of tricuspid regurgitation. Tricuspid regurgitation jet envelope not well defined to measure RV systolic pressure accurately. Pulmonic Valve The pulmonic valve is not well visualized. Great Vessels The aortic root is not well visualized but is probably normal size. The inferior vena cava appeared normal and decreased > 50% with respiration (RAP 5-10 mmHg). Effusions Minimal pericardial effusion. Incidental Findings No definite vegetations noted but if clinical suspicion is high, then consider VERNA and multiple blood cultures. : JEREMY ADAMS > Gail Barrientos
--- NOTE | 2017-05-06 23:50 | Progress Note ---
Provider Note Provider Note: Palliative care follow up visit 05/06/17 2:10- 2:25 pm Brief follow up visit with Mr. Low who is continuing to receive treatment for his atypical pnumonia and influenza. He reports feeling much better. He is alert and cheerful, states he is just taking the meds and resting , no pain and less dyspnea. He states he is sleeping well and is drowsy this afternoon. Patient reports good appetite and no GI disturbance. He says he is still coughing a lot and did cough some during my visit. He has much less conversational dyspnea during my visit but still is a little short of breath. Other providers notes appreciated and labs reviewed. Patient denies any problems or symptoms to address. No recommendations at this time, patient has my number to call if he wants to discuss any apects of care of advance directives. He is hoping to go home soon and denies need for PC visits at home. Will check on patient again in a few days. Card left with my cell number for patient.
[2017-05-07] MEDS: OXYCODONE-ACETAMINOPHEN 5-325 MG TABLET PO PRN ×2 (00:13→05:42)
[2017-05-07] MEDS: OXYCODONE HCL IR 5 MG TABLET PO PRN ×2 (00:13→05:41)
[2017-05-07] MEDS: IPRATROPIUM/ALBUTEROL 0.5-2.5 MG/3 ML AMPUL NEB SCH ×2 (02:25→08:58)
[2017-05-07] MEDS: LANSOPRAZOLE 30 MG TAB.RAP.DR PO SCH (05:41)
[2017-05-07] MEDS: FLUTICASONE/SALMETEROL DISKUS 250-50 MCG/DOSE IH SCH ×2 (08:56→12:34)
[2017-05-07] MEDS: SENNOSIDES/DOCUSATE 8.6-50 MG 1 EACH TABLET PO SCH (08:56)
[2017-05-07] MEDS: NYSTATIN/DEXAMETH/DIPHEN SUSP 120 ML PO SCH ×2 (08:56→12:34)
[2017-05-07] MEDS: HEPARIN SOD (PORCINE) 5,000 UNIT/ML 1 ML SYRINGE SUBCUT SCH (08:56)
[2017-05-07] MEDS: GUAIFENESIN 600 MG TABLET.SA PO SCH ×2 (08:56→12:30)
[2017-05-07] MEDS: CEFEPIME 2 GM/D5W RTU 2 GM/50 ML RTUPB IV SCH ×2 (08:56→12:34)
[2017-05-07] MEDS: SODIUM CHLORIDE 3% FOR INHALATION 15 ML AMPUL NEB SCH (08:58)
[2017-05-07] MEDS ORDERED: PREDNISONE 20 MG TABLET PO SCH (10:00)
[2017-05-07] MEDS: OXYCODONE HCL SR 10 MG TABLET PO SCH (12:30)
[2017-05-07] MEDS: DOCUSATE SODIUM 100 MG CAPSULE PO SCH (12:31)
[2017-05-07] MEDS: AZITHROMYCIN 500 MG in DEXTROSE 5%-WATER 250 ML IV SCH (12:34)
[2017-05-07 12:44] VITALS: BP 108/76
--- NOTE | 2017-05-07 20:59 | PDOC DISCHARGE SUMMARY ---
General - Admit/Disc Date/PCP Admission Date/Primary Care Provider: 04/30/17 23:53 DALE GUZMAN MD Discharge Date: 05/07/17 - Discharge Diagnosis (1) Acute hypoxemic respiratory failure Is this a current diagnosis for this admission?: Yes (2) Atypical pneumonia Is this a current diagnosis for this admission?: Yes (3) COPD exacerbation Is this a current diagnosis for this admission?: Yes (4) Chemotherapy adverse reaction Is this a current diagnosis for this admission?: Yes (5) DVT prophylaxis Is this a current diagnosis for this admission?: Yes (6) Hyperglycemia Is this a current diagnosis for this admission?: Yes (7) Hyponatremia Is this a current diagnosis for this admission?: Yes (8) Lymphoma Is this a current diagnosis for this admission?: Yes (9) Open wound of right hand Is this a current diagnosis for this admission?: Yes (10) Protein-calorie malnutrition, severe Is this a current diagnosis for this admission?: Yes (11) Sepsis Is this a current diagnosis for this admission?: Yes (12) Thrush Is this a current diagnosis for this admission?: Yes (13) Tobacco abuse Is this a current diagnosis for this admission?: Yes - Additional Information Resuscitation Status: Full Code Discharge Diet: Regular Discharge Activity: Activity As Tolerated Home Medications: Albuterol Sulfate [Proair HFA Inhalation Aerosol 8.5 gm MDI] 2 puff IH Q4HP PRN 05/01/17 Clotrimazole/Betamethasone Dip [Clotrimazole-Betamethasone Crm] 1 applic TP BID 05/01/17 Oxycodone HCl [Oxy-Ir 5 mg Tablet] 10 mg PO Q6HP PRN 05/01/17 Oxycodone HCl [Oxycontin] 10 mg PO Q12 05/01/17 Levofloxacin [Levaquin 750 mg Tablet] 750 mg PO DAILY 3 Days #3 tablet 05/07/17 History of Present Illness History of Present Illness: DARSHAN SABA is a 52 year old male presented with complaint of cough and shortness of breathe. CTA chest consistent with atypical pneumonia. Patient was admitted for further treatment. Hospital Course Hospital Course: Patient presented with respiratory symptoms. CT chest was consistent with atypical pneumonia. Patient diagnosed with sepsis due to UTI. Patient was treated with cefepime, azithromcycin and micafungin. Patient was being worked up for TB. The results are currently promising however patient advised that this does not mean that he does not have TB. Patient sputum grew staph aureus and H. infleuenzae. Dr. Fontana recommended that patient have a repeat CT chest with constrast in 2 weeks and see him in 3. PAtient was given levaquin 750mg po daily to complete a total of 10 days of treatment. Explained to patient and his family, that he is immunocompromised and that he should wear a mask. He should not be providing care to others in the home without the proper precautions as he is prone to infections. Unfortunately, I was unable to schedule that appointment for the CT chest. Patient has COPD and was found to be hypoxic at rest satting below 88. Patient could maintain his sats in the 90s with 2 liters. Patient was treated for his oral thrush with swish and swallow. Patient advised to quite smoking and not to surround himself that other who do that this will surely impact him negatively. Patient also has malnutrition but did eat well while in the hospital. Overall, patient is feeling better and is looking forward to going home. Physical Exam Vital Signs: Temp Pulse Resp BP Pulse Ox 98.0 F 74 22 H 108/76 96 05/07/17 12:42 05/07/17 12:42 05/07/17 12:42 05/07/17 12:42 05/07/17 12:42 Intake & Output 05/06/17 05/07/17 05/08/17 06:59 06:59 06:59 Intake Total 3364 3355 Balance 3364 3355 Weight 56.5 kg 56 kg General appearance: PRESENT: no acute distress, thin Head exam: PRESENT: normocephalic Eye exam: PRESENT: EOMI. ABSENT: scleral icterus Ear exam: PRESENT: normal external ear exam Mouth exam: PRESENT: moist Teeth exam: PRESENT: poor dentation Neck exam: ABSENT: carotid bruit, JVD, lymphadenopathy, thyromegaly Respiratory exam: PRESENT: clear to auscultation rylie. ABSENT: rales, rhonchi, wheezes Cardiovascular exam: PRESENT: RRR. ABSENT: diastolic murmur, rubs, systolic murmur Pulses: PRESENT: normal dorsalis pedis pul Vascular exam: PRESENT: normal capillary refill GI/Abdominal exam: PRESENT: normal bowel sounds, soft. ABSENT: distended, guarding, mass, organolmegaly, rebound, tenderness Rectal exam: PRESENT: deferred Extremities exam: PRESENT: full ROM. ABSENT: calf tenderness, clubbing, pedal edema Neurological exam: PRESENT: alert, awake, oriented to person, oriented to place , oriented to time, oriented to situation, CN II-XII grossly intact. ABSENT: motor sensory deficit Psychiatric exam: PRESENT: appropriate affect, normal mood. ABSENT: homicidal ideation, suicidal ideation Skin exam: PRESENT: dry, intact, warm, other - wound on the back of right hand. ABSENT: cyanosis, rash Results Laboratory Results: 05/05/17 05:08 05/05/17 05:08 05/04/17 14:00 Sputum AFB Smear Concentration - Final 05/04/17 14:00 Sputum Acid Fast Bacilli Smear - Final Impressions: Chest/Abdomen CTA 04/30/17 20:03 IMPRESSION: No evidence for pulmonary embolic disease. Diffuse bilateral tree- in-bud opacities as noted above most consistent with a developing infiltrate. The possibility of an 8 typical pneumonia should be considered. There are ground-glass opacities in the lingula of the left upper lobe which could represent an infiltrate or atelectatic changes. Other findings as noted above Chest X-Ray 05/06/17 00:00 IMPRESSION: No significant interval change. No acute findings. Other findings as noted above Qualifiers PATEINT BEING DISCHARGED WITH ANY OF THE FOLLOWING DIAGNOSIS?: No Plan Discharge Plan: Patient to follow up with Dr. Fontana. Patient should have repeat imaging of the chest prior to this. Will attempt to have the CT chest with contrast ordered. Patient to complete 3 more days of antibiotics. Patient with hypoxic due to COPD and pneumonia. Patient was discharge on 2L oxygen. Time Spent: Greater than 30 Minutes
== END 2017-05-07 12:57 | disposition home or self-care (01) | DRG 871 ==
LOC: ER 18:51 → EH 23:53 → 3W 05-01 04:18 → 3N 05-02 10:39
PROVIDERS: ADMIT Family Medicine; ATTEND Family Medicine
DX: A41.9 Sepsis, unspecified organism (principal); J96.01 Acute respiratory failure with hypoxia; J18.9 Pneumonia, unspecified organism; E43 Unspecified severe protein-calorie malnutrition; C82.90 Follicular lymphoma, unspecified, unspecified site; J44.0 Chronic obstructive pulmonary disease with (acute) lower respiratory infection; J44.1 Chronic obstructive pulmonary disease with (acute) exacerbation; N17.9 Acute kidney failure, unspecified; E87.1 Hypo-osmolality and hyponatremia; B37.0 Candidal stomatitis; Z68.1 Body mass index [BMI] 19.9 or less, adult; E86.0 Dehydration; T45.1X5D Adverse effect of antineoplastic and immunosuppressive drugs, subsequent encounter; L98.499 Non-pressure chronic ulcer of skin of other sites with unspecified severity; M19.90 Unspecified osteoarthritis, unspecified site; M10.9 Gout, unspecified; D64.9 Anemia, unspecified; Z79.899 Other long term (current) drug therapy; Z91.018 Allergy to other foods; Z87.11 Personal history of peptic ulcer disease; Z85.828 Personal history of other malignant neoplasm of skin; F17.210 Nicotine dependence, cigarettes, uncomplicated
CPT/HCPCS: 36415; 71010; 71275; 80048; 80053; 80170; 81001; 82565; 82803; 82962; 83036; 83605; 85025; 85610; 86480; 86606; 86701; 87015; 87040; 87070; 87077; 87086; 87101; 87116; 87186; 87205; 87206; 87804; 93005; 93010; 93306; 94640; 94667; 94668; 94799; 96360; 99291; J0456; J0692; J1580; J1644; J1815; J1956; J2248; J2930; J3490; J7030; J7060; J7512; J7620

== ENCOUNTER 2018-07-10 12:22 | Inpatient (IN) | payer MEDICARE, MEDICAID ==
[2018-07-10] MEDS ORDERED: NORMAL SALINE 1000 ML 1,000 ML IV ONE ×3 (12:40→14:33)
[2018-07-10] MEDS ORDERED: ALBUTEROL SULFATE 0.083% NEB 2.5 MG/3 ML AMPUL NEB ONE (12:41)
[2018-07-10] MEDS ORDERED: IPRATROPIUM/ALBUTEROL 0.5-2.5 MG/3 ML AMPUL NEB ONE (12:41)
[2018-07-10] MEDS ORDERED: METHYLPREDNISOLONE INJ 125 MG/2 ML SDV IV ONE (12:42)
[2018-07-10] MEDS ORDERED: MAGNESIUM SULFATE/D5W 1 GM/100 ML RTUPB IV ONE (12:42)
[2018-07-10 13:12] LABS: VENOUS BLOOD BASE EXCESS 5.7 mmol/L; VENOUS BLOOD HCO3 33.4 mmol/L (20-32); VENOUS BLOOD PCO2 61.5 mmHg (35-63); VENOUS BLOOD PH 7.35 (7.30-7.42)
[2018-07-10] MEDS ORDERED: CEFTRIAXONE 1 GM/D5W RTU 1 GM/50 ML RTUPB IV ONE (13:14)
[2018-07-10] MEDS ORDERED: AZITHROMYCIN INJ 500 MG VIAL IV ONE (13:14)
--- NOTE | 2018-07-10 13:23 | RADIOLOGY REPORT (SQ) ---
EXAM DESCRIPTION: CHEST SINGLE VIEW COMPLETED DATE/TIME: 07/10/2018 1:15 pm REASON FOR STUDY: sob COMPARISON: 07/03/2016 EXAM PARAMETERS: NUMBER OF VIEWS: One view. TECHNIQUE: Single frontal radiographic view of the chest acquired. RADIATION DOSE: NA LIMITATIONS: None. FINDINGS: LUNGS AND PLEURA: There is new heterogeneous opacity and consolidation of the left upper l obe. MEDIASTINUM AND HILAR STRUCTURES: No masses. Contour normal. HEART AND VASCULAR STRUCTURES: Heart normal in size. Normal vasculature. BONES: No acute findings. HARDWARE: None in the chest. OTHER: No other significant finding. IMPRESSION: There is new heterogeneous opacity and consolidation of the left upper lobe, concerning for infection. Recommend follow-up radiographs in 6 to 8 weeks to ensure complete resolution and exc lude underlying mass. TECHNICAL DOCUMENTATION: JOB ID: [id number] [employer]- All Rights Reserved Reading location - IP/workstation name: [email or web address]
[2018-07-10 13:24] LABS: INTERNATIONAL RATION (INR) 1.21; PROTHROMBIN TIME 15.9 SEC (11.4-15.4)
[2018-07-10 13:33] LABS: ALANINE AMINOTRANSFERASE 29 U/L (21-72); ALBUMIN 2.6 g/dL (3.5-5.0); ALKALINE PHOSPHATASE 95 U/L (38-126); ANION GAP 13 (5-19); ASPARTATE AMINO TRANSFERASE 75 U/L (17-59); BILIRUBIN,DIRECT 0.4 mg/dL (0.0-0.4); BILIRUBIN,TOTAL 0.4 mg/dL (0.2-1.3); BLOOD UREA NITROGEN 42 mg/dL (7-20); CALCIUM 7.8 mg/dL (8.4-10.2); CARBON DIOXIDE 33 mmol/L (22-30); CHLORIDE 86 mmol/L (98-107); GLUCOSE 98 mg/dL (75-110); LIPASE < 10.0 U/L (23-300); POTASSIUM 4.9 mmol/L (3.6-5.0); SODIUM 131.6 mmol/L (137-145); TOTAL PROTEIN 4.6 g/dL (6.3-8.2)
[2018-07-10 13:38] LABS: HEMATOCRIT 35.3 % (37.9-51.0); HEMOGLOBIN 12.1 g/dL (13.5-17.0); MEAN CORPUSCULAR HEMOGLOBIN 29.6 pg (27.0-33.4); MEAN CORPUSCULAR HGB CONC 34.2 g/dL (32.0-36.0); MEAN CORPUSCULAR VOLUME 87 fl (80-97); PLATELET COUNT 258 10^3/uL (150-450); RED BLOOD COUNT 4.08 10^6/uL (4.35-5.55); RED CELL DISTRIBUTION WIDTH 14.1 % (11.5-14.0)
[2018-07-10 14:11] LABS: ABSOLUTE LYMPHOCYTES# (MANUAL) 0.1 10^3/uL (0.5-4.7); BASOPHILS % (MANUAL) 0 % (0-2); TOTAL CELLS COUNTED 100
--- NOTE | 2018-07-10 14:34 | ER Document Report ---
ED General - General Chief Complaint: Shortness Of Breath Stated Complaint: DIZZINESS Time Seen by Provider: 07/10/18 12:40 TRAVEL OUTSIDE OF THE [place] IN LAST 30 DAYS: No - HPI Patient complains to provider of: Shortness of breath dizziness Notes: Patient has a history of lymphoma COPD on home O2 coming in for shortness of breath ongoing for greater than a week. Patient states no fevers or chills however has had a productive cough patient states he feels like he may have und erlying pneumonia. Denies any recent antibiotics or travel. Patient states he has had difficulty in obtaining resources and is on medications because his oncologist Dr. uriostegui is not been refilling his medication stating that he would need to get a PCP. Patient otherwise upon triage was found to be hypoxic on room air patient was brought back placed on his home dose of O2 with improvement of his saturations. Patient is tachypneic however able to speak full sentences - Related Data Allergies/Adverse Reactions: alex Allergy (Mild, Verified 07/10/18 12:24) RASH Past Medical History - Social History Smoking Status: Former Smoker Family History: CAD, Hypertension, Malignancy Patient has suicidal ideation: No Patient has homicidal ideation: No - Past Medical History Cardiac Medical History: Denies: Hx Coronary Artery Disease, Hx Heart Attack, Hx Hypertension Pulmonary Medical History: Reports: Hx COPD Denies: Hx Asthma, Hx Bronchitis, Hx Pneumonia Neurological Medical History: Reports: 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 Medicated with rituxan GI Medical History: Denies: Hx Cirrhosis, Hx Crohn's Disease, Hx Hepatitis Musculoskeletal Medical History: Reports Hx Arthritis - BACK, Reports Hx Gout Psychiatric Medical History: Reports: Hx Anxiety Denies: Hx Depression Traumatic Medical History: Denies: Hx Gunshot Wound, Hx Pneumothorax Infectious Medical History: Denies: Hx Hepatitis Past Surgical History: Reports: Hx Bowel Surgery - Perforated bowel surgery, Other - Ulcer repair, SBO repair, port placement, left eyebrow surgery - Immunizations Hx Diphtheria, Pertussis, Tetanus Vaccination: No - UNSURE Review of Systems - Review of Systems Constitutional: No symptoms reported EENT: No symptoms reported Cardiovascular: No symptoms reported Respiratory: Cough, Short of breath Gastrointestinal: No symptoms reported Genitourinary: No symptoms reported Male Genitourinary: No symptoms reported Musculoskeletal: No symptoms reported Skin: No symptoms reported Hematologic/Lymphatic: No symptoms reported Neurological/Psychological: No symptoms reported -: Yes All other systems reviewed and negative Physical Exam - Vital signs Vitals: Temp Pulse Resp BP Pulse Ox 98.3 F 130 H 24 H 90/60 L 84 L 07/10/18 12:29 07/10/18 12:29 07/10/18 12:07/10/18 12:07/10/18 12:29 Interpretation: Tachycardic, Tachypneic - General General appearance: Appears well, Alert - HEENT Head: Normocephalic, Atraumatic Eyes: Normal Pupils: PERRL - Respiratory Respiratory status: Tachypnea Chest status: Nontender Breath sounds: Normal Chest palpation: Normal - Cardiovascular Rhythm: Tachycardia Heart sounds: Normal auscultation Murmur: No - Abdominal Inspection: Normal Distension: No distension Bowel sounds: Normal Tenderness: Nontender Organomegaly: No organomegaly - Back Back: Normal, Nontender - Extremities General upper extremity: Normal inspection, Nontender, Normal color, Normal ROM, Normal temperature General lower extremity: Normal inspection, Nontender, Normal color, Normal ROM, Normal temperature, Normal weight bearing. No: Mary Ann's sign - Neurological Neuro grossly intact: Yes Cognition: Normal Orientation: AAOx4 Brody Coma Scale Eye Opening: Spontaneous [place] Coma Scale Verbal: Oriented [place] Coma Scale Motor: Obeys Commands Brody Coma Scale Total: 15 Speech: Normal Motor strength normal: LUE, RUE, LLE, RLE Sensory: Normal - Psychological Associated symptoms: Normal affect, Normal mood - Skin Skin Temperature: Warm Skin Moisture: Dry Skin Color: Normal Course - Re-evaluation Re-evalutation: 07/10/18 15:35 Laboratory studies show signs of sepsis with pneumonia. Patient was started on Rocephin and Zithromax initially for antibiotic coverage. Patient's vital signs did improve with administration of BiPAP and IV fluids. Will admit the patient for further evaluation to the hospital staff - Vital Signs Vital signs: Temp Pulse Resp BP Pulse Ox 98.3 F 130 H 18 109/80 97 07/10/18 12:29 07/10/18 12:29 07/10/18 15:00 07/10/18 15:00 07/10/18 15:00 - Laboratory Result Diagrams: 07/10/18 12:56 07/10/18 12:56 Laboratory results interpreted by me: 07/10/18 07/10/18 07/10/18 12:35 12:56 12:56 WBC 3.0 L RBC 4.08 L Hgb 12.1 L Hct 35.3 L RDW 14.1 H Band Neutrophils % 42 H Lymphocytes % (Manual) 2 L Metamyelocytes % 3 H Abs Lymphs (Manual) 0.1 L PT 15.9 H VBG HCO3 33.4 H Sodium Chloride Carbon Dioxide BUN Creatinine Est GFR (Non-Af Amer) POC Glucose Lactic Acid Calcium AST Total Protein Albumin Lipase 07/10/18 07/10/18 07/10/18 12:56 12:56 13:01 WBC RBC Hgb Hct RDW Band Neutrophils % Lymphocytes % (Manual) Metamyelocytes % Abs Lymphs (Manual) PT VBG HCO3 Sodium 131.6 L Chloride 86 L Carbon Dioxide 33 H BUN 42 H Creatinine 1.45 H Est GFR (Non-Af Amer) 51 L POC Glucose 126 H Lactic Acid 4.1 H Calcium 7.8 L AST 75 H Total Protein 4.6 L Albumin 2.6 L Lipase < 10.0 L Critical Care Note - Critical Care Note Total time excluding time spent on procedures (mins): 35 Comments: Multiple evaluation for patient with sepsis pneumonia requiring BiPAP management Discharge - Discharge Clinical Impression: Tobacco abuse, COPD exacerbation, Acute respiratory failure with hypoxia Pneumonia Qualifiers: Pneumonia type: due to unspecified organism Laterality: left Lung location: upper lobe of lung Qualified Code(s): J18.1 - Lobar pneumonia, unspecified organism Sepsis Qualifiers: Sepsis type: sepsis due to unspecified organism Qualified Code(s): A41.9 - Sepsis, unspecified organism Condition: Stable Disposition: ADMITTED INPATIENT Admitting Provider: Hospitalist - [facility] Admitted: [facility]
[2018-07-10 14:57] LABS: ABSOLUTE MONOCYTES # (MANUAL) 0.1 10^3/uL (0.1-1.4); ABSOLUTE NEUTROPHILS# (MANUAL) 2.9 10^3/uL (1.7-8.2); BAND NEUTROPHILS % (MANUAL) 42 % (3-5); EOSINOPHILS % (MANUAL) 0 % (0-6); LYMPHOCYTES % (MANUAL) 2 % (13-45); METAMYELOCYTES % (MANUAL) 3 % (0); MONOCYTES % (MANUAL) 3 % (3-13); SEGMENTED NEUTROPHILS % (MAN) 50 % (42-78); TOXIC GRANULATION 2+
[2018-07-10 14:58] LABS: HYPOCHROMASIA SLIGHT; PLATELET CLUMPS PRESENT; POLYCHROMASIA SLIGHT; TOXIC VACUOLATION PRESENT
[2018-07-10] MEDS ORDERED: ACETAMINOPHEN 325 MG TABLET PO PRN (15:15)
[2018-07-10] MEDS ORDERED: IPRATROPIUM/ALBUTEROL 0.5-2.5 MG/3 ML AMPUL NEB PRN (15:15)
[2018-07-10] MEDS ORDERED: ONDANSETRON 4 MG TAB.RAPDIS PO PRN (15:15)
[2018-07-10] MEDS ORDERED: OXYCODONE-ACETAMINOPHEN 5-325 MG TABLET PO PRN (15:15)
[2018-07-10] MEDS ORDERED: PIPERACILLIN/TAZOBACTAM 3.375 GM VIAL IV SCH (15:30)
[2018-07-10] MEDS ORDERED: NICOTINE 21 MG/24 HR PATCH.TD24 TD PRN (15:38)
--- NOTE | 2018-07-10 15:50 | PDOC H&P ---
History of Present Illness Admission Date/PCP: 07/10/18 15:10 KAYLYN SAINI Patient complains of: Shortness of breath and fever History of Present Illness: DARSHAN SABA is a 53 year old male with history of lymphoma in remission as per the patient, history of COPD secondary to chronic smoking is on oxygen 2 L nasal cannula at home came to the emergency room with complaints of shortness of breath for last 2 weeks. Patient says he is in the bed for the last 2 weeks, his son finally persuaded him to come to the emergency room thinking there is a possibility that patient might have pneumonia. Patient is giving history of fever on and off in association with nausea and poor appetite. Patient denies any history of headaches falls. Is complaining of chest pains with severe coughing. He has albuterol inhaler at home using it regular basis without any help. In the emergency room the workup was done and patient was found to be hypotensive and chest x-ray shows opacification on the left side with possible consolidation in the left upper lobe. Blood cultures sputum culture was sent. Patient was given Rocephin and Zithromax and medical consult was called for admission. In the emergency room patient was hypotensive tachycardic and possi ble acute kidney injury. Meeting the criteria for sepsis. Lactic acid was also elevated which is a 4.1. Went to talk to the patient he was on BiPAP in shortness of breath able to give a detailed history. Patient continued to smoke all these years. He confirmed the history that he has COPD on 2 L oxygen and also has history of lymphoma. He is to see Dr. Shaikh for lymphoma and is following with Dr. Fontana for his COPD. Requesting to see the these physicians during the hospital stay. Past Medical History Cardiac Medical History: Denies: Coronary Artery Disease, Myocardial Infarction, Hypertension Pulmonary Medical History: Reports: Chronic Obstructive Pulmonary Disease (COPD) Denies: Asthma, Bronchitis, Pneumonia Neurological Medical History: Reports: Seizures - 20 YEARS AGO R/T HX COCAINE Endocrine Medical History: Denies: Diabetes Mellitus Type 1 Malignancy Medical History: Reports: Lymphoma - Follicular. Medicated with rituxan GI Medical History: Denies: Cirrhosis, Crohn's Disease, Hepatitis Musculoskeltal Medical History: Reports: Arthritis - BACK, Gout Psychiatric Medical History: Denies: Depression Traumatic Medical History: Denies: Gunshot Wound, Pneumothorax Hematology: Denies: Anemia Past Surgical History Past Surgical History: Reports: Other - Ulcer repair, SBO repair, port placement, left eyebrow surgery Social History Smoking Status: Current Every Day Smoker Frequency of Alcohol Use: None Hx Recreational Drug Use: No Drugs: Cocaine - History, Marijuana Hx Prescription Drug Abuse: No - Advance Directive Resuscitation Status: Full Code Family History Family History: CAD, Hypertension, Malignancy Parental Family History Reviewed: Yes Children Family History Reviewed: Yes Sibling(s) Family History Reviewed.: Yes Medication/Allergy Home Medications: Albuterol Sulfate [Proair HFA Inhalation Aerosol 8.5 gm MDI] 2 puff IH Q4HP PRN 05/01/17 Clotrimazole/Betamethasone Dip [Clotrimazole-Betamethasone Crm] 1 applic TP BID 05/01/17 Oxycodone HCl [Oxy-Ir 5 mg Tablet] 10 mg PO Q6HP PRN 05/01/17 Oxycodone HCl [Oxycontin] 10 mg PO Q12 05/01/17 Levofloxacin [Levaquin 750 mg Tablet] 750 mg PO DAILY 3 Days #3 tablet 05/07/17 Allergies/Adverse Reactions: alex Allergy (Mild, Verified 07/10/18 12:24) RASH Review of Systems Constitutional: PRESENT: chills, fatigue, fever(s), weakness, weight loss. ABSENT: headache(s) Eyes: ABSENT: visual disturbances Ears: ABSENT: hearing changes Cardiovascular: ABSENT: edema Respiratory: PRESENT: cough, dyspnea, sputum Gastrointestinal: PRESENT: nausea, other - Poor appetite Neurological: ABSENT: abnormal gait, abnormal speech, confusion, dizziness, focal weakness, syncope Psychiatric: PRESENT: anxiety Physical Exam Vital Signs: Temp Pulse Resp BP Pulse Ox 98.3 F 130 H 18 109/80 97 07/10/18 12:29 07/10/18 12:29 07/10/18 15:00 07/10/18 15:00 07/10/18 15:00 Intake & Output 07/09/18 07/10/18 07/11/18 06:59 06:59 06:59 Intake Total 3150 Balance 3150 Weight 54.9 kg General appearance: PRESENT: mild distress Head exam: PRESENT: atraumatic Eye exam: PRESENT: PERRLA Neck exam: ABSENT: carotid bruit, JVD, lymphadenopathy, thyromegaly Respiratory exam: PRESENT: decreased breath sounds, other - Decreased air entry in the left upper and lower lobes. Cardiovascular exam: PRESENT: tachycardia GI/Abdominal exam: PRESENT: other - Previous surgical scar over the middle of the abdomen. Extremities exam: PRESENT: full ROM. ABSENT: calf tenderness, clubbing, pedal edema Neurological exam: PRESENT: alert, awake, oriented to person, oriented to place, oriented to time, oriented to situation, CN II-XII grossly intact. ABSENT: motor sensory deficit Psychiatric exam: PRESENT: anxious Results Laboratory Results: 07/10/18 12:56 07/10/18 12:56 07/10/18 07/10/18 07/10/18 12:35 12:56 12:56 WBC 3.0 L RBC 4.08 L Hgb 12.1 L Hct 35.3 L MCV 87 MCH 29.6 MCHC 34.2 RDW 14.1 H Plt Count 258 Seg Neutrophils % Not Reportable Lymphocytes % Not Reportable Monocytes % Not Reportable Eosinophils % Not Reportable Basophils % Not Reportable Absolute Neutrophils Not Reportable Absolute Lymphocytes Not Reportable Absolute Monocytes Not Reportable Absolute Eosinophils Not Reportable Absolute Basophils Not Reportable VBG pH 7.35 VBG pCO2 61.5 VBG HCO3 33.4 H VBG Base Excess 5.7 Sodium 131.6 L Potassium 4.9 Chloride 86 L Carbon Dioxide 33 H Anion Gap 13 BUN 42 H Creatinine 1.45 H Est GFR ( Amer) > 60 Est GFR (Non-Af Amer) 51 L Glucose 98 Lactic Acid Calcium 7.8 L Total Bilirubin 0.4 AST 75 H ALT 29 Alkaline Phosphatase 95 Total Protein 4.6 L Albumin 2.6 L Lipase < 10.0 L 07/10/18 12:56 WBC RBC Hgb Hct MCV MCH MCHC RDW Plt Count Seg Neutrophils % Lymphocytes % Monocytes % Eosinophils % Basophils % Absolute Neutrophils Absolute Lymphocytes Absolute Monocytes Absolute Eosinophils Absolute Basophils VBG pH VBG pCO2 VBG HCO3 VBG Base Excess Sodium Potassium Chloride Carbon Dioxide Anion Gap BUN Creatinine Est GFR ( Amer) Est GFR (Non-Af Amer) Glucose Lactic Acid 4.1 H Calcium Total Bilirubin AST ALT Alkaline Phosphatase Total Protein Albumin Lipase 07/10/18 12:56 Troponin I < 0.012 Impressions: Chest X-Ray 07/10/18 12:35 IMPRESSION: There is new heterogeneous opacity and consolidation of the left upper lobe, concerning for infection. Recommend follow-up radiographs in 6 to 8 weeks to ensure complete resolution and exclude underlying mass. Assessment & Plan - Diagnosis (1) Pneumonia Qualifiers: Pneumonia type: due to unspecified organism Laterality: left Lung location: upper lobe of lung Qualified Code(s): J18.1 - Lobar pneumonia, unspecified organism Is this a current diagnosis for this admission?: Yes Plan: 2018 patient has community-acquired pneumonia. He is going to be IMCU. Started on oxygen 2 L nasal cannula we also plan to use BiPAP on as-needed basis. Blood cultures ,sputum cultures were sent. He was started on Zosyn and and Levaquin. Consultation with Dr. Fontana was requested. Repeat lactic acid levels were requested. going to do the screening for flu and pneumonia vaccination. He is going to be admitted as inpatient. He was to be a full code. (2) Sepsis Qualifiers: Sepsis type: sepsis due to unspecified organism Qualified Code(s): A41.9 - Sepsis, unspecified organism Is this a current diagnosis for this admission?: Yes Plan: 07/10/2018 patient's meet the criteria for sepsis. He was hypoxic hypotensive tachycardic with possible acute kidney injury. Lactic acid is also elevated. S epsis core measures were implemented. Initial lactic acid is 4.1 going to recheck the lactic acid again. Patient received 2 L of IV fluids in the emergency room blood pressure was improved to 109/70. I will continue the IV fluids 75 cc/h the for the next 24 hours. Cultures sputum cultures urine cultures were requested. (3) COPD exacerbation Is this a current diagnosis for this admission?: Yes Plan: 07/10/2018-patient has history of COPD secondary to smoking he is a current smoker. On 2 L oxygen via nasal cannula at home. Patient was on BiPAP right now. We are going to put him on IV steroids nebulizer treatments flutter valve therapy. (4) Tobacco abuse Is this a current diagnosis for this admission?: Yes Plan: 07/10/2018-patient is a chronic smoker, continues to smoke, smoking counseling was provided for more than 10 minutes, strongly advised to quit smoking. Started on nicotine patch. (5) Acute hypoxemic respiratory failure Is this a current diagnosis for this admission?: Yes Plan: 07/10/2018 patient came in with shortness of breath and found to be hypoxic, tachypneic hypotensive in the emergency room. He pulse ox at the time of admission is in the 70s he was placed on BiPAP. Acute hypoxic respiratory failure probably secondary to community-acquired pneumonia and underlying COPD with exacerbation. Plan to do the ABG today and repeat the ABGs on daily basis. Chest x-ray shows opacification in the left upper lobe with possible underlying mass. Patient has history of lymphoma so going ahead and ordering the CT chest with IV contrast. (6) Hypotension Qualifiers: Hypotension type: other hypotension type Qualified Code(s): I95.89 - Other hypotension Is this a current diagnosis for this admission?: Yes Plan: 07/10/2018-patient was hypotensive when he came in systolic blood pressure in the 80s started on IV fluids he got total of 2 L of normal saline in the emergency room latest blood pressure is 106/70. Hypotension probably secondary to sepsis. (7) Lymphoma Qualifiers: Lymphoma type: non-Hodgkin Non-Hodgkin lymphoma type: follicular Follic ular lymphoma grade: unspecified grade Lymphoma site: unspecified region Qualified Code(s): C82.90 - Follicular lymphoma, unspecified, unspecified site Is this a current diagnosis for this admission?: Yes Plan: 07/10/2018-patient is given the history of lymphoma as per the patient he was in remission. He is to follow-up with Dr. Shaikh. He is requesting follow-up with Dr Suarez while he was in the hospital - Time Time Spent: 50 to 70 Minutes Critical Time spent with patient: 25-34 minutes Smoking Cessation Education: over 10 minutes Medications reviewed and adjusted accordingly: Yes Anticipated discharge: Home
--- NOTE | 2018-07-10 16:11 | RADIOLOGY REPORT (SQ) ---
EXAM DESCRIPTION: CT CHEST WITH COMPLETED DATE/TIME: 07/10/2018 3:54 pm REASON FOR STUDY: pneumonia COMPARISON: 04/30/2017 TECHNIQUE: CT scan of the chest performed using helical scanning technique with dynamic intravenous contrast injection. Images reviewed with lung, soft tissue and bone windows. Reconstructed coronal and sagittal MPR and MIP images reviewed. All images stored on PACS. All CT scanners at this facility use dose modulation, iterative reconstruction, and/or weight based d osing when appropriate to reduce radiation dose to as low as reasonably achievable (ALARA). [facility]: Dose Right [facility]: CareDose [facility]: Dose Right [facility]: Teradose 4D [facility]: Xymogen CONTRAST TYPE AND DOSE: contrast/concentration: Isovue 300.00 mg/ml; Total Contrast Delivered: 80.0 ml; Total Saline Delivered: 55.0 ml RENAL FUNCTION: BUN 42 creatinine 1.45 RADIATION DOSE: CT Rad equipment meets quality standard of care and radiation dose reduction techniq ues were employed. CTDIvol: 5.5 mGy. DLP: 245 mGy-cm. . LIMITATIONS: None. FINDINGS: LUNGS AND PLEURA: Extensive left upper lobe and lingular opacification. Patchy ground-gla ss infiltrates scattered in both lungs. HILAR AND MEDIASTINAL STRUCTURES: No identified masses or abnormal nodes. HEART AND VASCULAR STRUCTURES: No aneurysm or dissection. No central pulmonary emboli. No pericardi al effusion. HARDWARE: None in the chest. UPPER ABDOMEN: No significant findings. Limited exam. THYROID AND OTHER SOFT TISSUES: No masses. No adenopathy. BONES: No significant finding. OTHER: No other significant finding. IMPRESSION: Extensive infiltrates in left upper lobe and lingula with patchy ground-glass infiltrate s scattered elsewhere in the lungs. Suggestive of pneumonia. May represent an atypical process such as mycobacterium avium. TECHNICAL DOCUMENTATION: JOB ID: [id number] Quality ID # [id number]: Final reports with documentation of one or more dose reduction techniques (e.g., Au tomated exposure control, adjustment of the mA and/or kV according to patient size, use of iterative reconstruction technique) 2010 [email or web address]- All Rights Reserved Reading location - IP/workstation name: [email or web address]
[2018-07-10 16:53] LABS: APPEARANCE,URINE SLIGHTLY-CLOUDY; BILIRUBIN,URINE NEGATIVE (NEGATIVE); COLOR,URINE YELLOW; GLUCOSE, URINE NEGATIVE (NEGATIVE); KETONES,URINE NEGATIVE (NEGATIVE); LEUKOCYTE ESTERASE,URINE NEGATIVE (NEGATIVE); NITRITE,URINE NEGATIVE (NEGATIVE); PROTEIN,URINE NEGATIVE (NEGATIVE); URINE SPECIFIC GRAVITY 1.012; UROBILINOGEN,URINE NEGATIVE mg/dL (<2.0)
[2018-07-10 16:59] LABS: ARTERIAL BLOOD BASE EXCESS 2.3 mmol/L; ARTERIAL BLOOD FIO2 30%; ARTERIAL BLOOD H2CO3 1.54 mmol/L (1.05-1.35); ARTERIAL BLOOD HCO3 28.7 mmol/L (20-24); ARTERIAL BLOOD O2 SATURATION 95.2 % (94-98); ARTERIAL BLOOD PH 7.37 (7.35-7.45); ARTERIAL BLOOD PO2 78.8 mmHg (80-100); ARTERIAL BLOOD TOTAL CO2 30.3 mmol/L (23-27)
[2018-07-10] MEDS: ENOXAPARIN SODIUM INJ 40 MG/0.4 ML DISP.SYRIN SUBCUT SCH (17:07)
[2018-07-10] MEDS: NORMAL SALINE 1000 ML 1,000 ML IV PRN (17:07)
[2018-07-10] MEDS: LEVOFLOXACIN 750 MG/D5W RTU 750 MG/150 ML RTUPB IV SCH (17:07)
[2018-07-10 17:15] LABS: URINE AMPHETAMINES SCREEN NEGATIVE; URINE BARBITURATES SCREEN NEGATIVE; URINE BENZODIAZEPINES SCREEN NEGATIVE; URINE COCAINE SCREEN NEGATIVE; URINE MARIJUANA (THC) SCREEN NEGATIVE; URINE METHADONE SCREEN NEGATIVE; URINE PHENCYCLIDINE SCREEN NEGATIVE
[2018-07-10 17:32] LABS: CREATINE KINASE MB 0.57 ng/mL (<4.55)
[2018-07-10 17:38] LABS: TROPONIN I < 0.012 ng/mL
[2018-07-10] MEDS: PIPERACILLIN SODIUM/TAZOBACTAM 3.375 GM in NORMAL SALINE 100 ML IV SCH (19:17)
[2018-07-10] MEDS: DOCUSATE SODIUM 100 MG/10 ML UDC PO SCH (19:38)
[2018-07-10] MEDS: CLOTRIMAZOLE/BETAMETHASONE DIP CREAM 15 GM TOP SCH (19:39)
[2018-07-10] MEDS: ALBUTEROL SULFATE 0.083% NEB 2.5 MG/3 ML AMPUL NEB SCH (20:33)
[2018-07-10] MEDS ORDERED: OXYCODONE HCL SR 10 MG TABLET PO SCH (22:00)
[2018-07-10] MEDS: FAMOTIDINE INJ/PF 20 MG/2 ML SDV IV SCH (22:08)
[2018-07-10] MEDS: METHYLPREDNISOLONE INJ 40 MG/1 ML SDV IV SCH (22:08)
[2018-07-10 22:15] LABS: CREATINE KINASE MB 0.82 ng/mL (<4.55)
[2018-07-10 22:16] LABS: TROPONIN I < 0.012 ng/mL
--- NOTE | 2018-07-10 22:57 | EKG REPORT ---
SEVERITY:- ABNORMAL ECG - SINUS TACHYCARDIA BORDERLINE RIGHT AXIS DEVIATION ABNRM R PROG, CONSIDER ASMI OR LEAD PLACEMENT : Confirmed by: Kayy Sauer MD 10-Jul-2018 22:56:23
[2018-07-11] MEDS: PIPERACILLIN SODIUM/TAZOBACTAM 3.375 GM in NORMAL SALINE 100 ML IV SCH ×5 (00:07→23:45)
[2018-07-11] MEDS: ALBUTEROL SULFATE 0.083% NEB 2.5 MG/3 ML AMPUL NEB SCH ×2 (01:29→08:18)
[2018-07-11 03:39] LABS: HEMATOCRIT 33.2 % (37.9-51.0); HEMOGLOBIN 11.3 g/dL (13.5-17.0); MEAN CORPUSCULAR HEMOGLOBIN 29.4 pg (27.0-33.4); MEAN CORPUSCULAR VOLUME 87 fl (80-97); PLATELET COUNT 190 10^3/uL (150-450); RED BLOOD COUNT 3.83 10^6/uL (4.35-5.55); RED CELL DISTRIBUTION WIDTH 14.2 % (11.5-14.0)
[2018-07-11 03:45] LABS: INTERNATIONAL RATION (INR) 1.39; PROTHROMBIN TIME 17.7 SEC (11.4-15.4)
[2018-07-11 03:50] LABS: ALANINE AMINOTRANSFERASE 9 U/L (21-72); ALBUMIN 2.3 g/dL (3.5-5.0); ALKALINE PHOSPHATASE 81 U/L (38-126); ANION GAP 10 (5-19); ASPARTATE AMINO TRANSFERASE 50 U/L (17-59); BILIRUBIN,DIRECT 0.6 mg/dL (0.0-0.4); BILIRUBIN,TOTAL 0.6 mg/dL (0.2-1.3); BLOOD UREA NITROGEN 32 mg/dL (7-20); CALCIUM 7.6 mg/dL (8.4-10.2); CARBON DIOXIDE 31 mmol/L (22-30); CHLORIDE 96 mmol/L (98-107); GLUCOSE 133 mg/dL (75-110); POTASSIUM 4.2 mmol/L (3.6-5.0); SODIUM 136.6 mmol/L (137-145); TOTAL PROTEIN 4.3 g/dL (6.3-8.2); TRIGLYCERIDES 92 mg/dL (<150)
[2018-07-11 04:01] LABS: CREATINE KINASE MB 0.81 ng/mL (<4.55)
[2018-07-11 04:04] LABS: CHOLESTEROL < 50.00 mg/dL (0-200); DIRECT LDL < 30 mg/dL (<100); TROPONIN I < 0.012 ng/mL
[2018-07-11 04:18] LABS: WHITE BLOOD COUNT 7.2 10^3/uL (4.0-10.5)
[2018-07-11 04:26] LABS: ABSOLUTE LYMPHOCYTES# (MANUAL) 0.2 10^3/uL (0.5-4.7); ABSOLUTE MONOCYTES # (MANUAL) 0.1 10^3/uL (0.1-1.4); ABSOLUTE NEUTROPHILS# (MANUAL) 6.9 10^3/uL (1.7-8.2); BASOPHILS % (MANUAL) 0 % (0-2); EOSINOPHILS % (MANUAL) 0 % (0-6); LYMPHOCYTES % (MANUAL) 3 % (13-45); MONOCYTES % (MANUAL) 1 % (3-13); SEGMENTED NEUTROPHILS % (MAN) 96 % (42-78); TOTAL CELLS COUNTED 100
[2018-07-11 04:27] LABS: ANISOCYTOSIS SLIGHT; PLATELET COMMENT ADEQUATE; POIKILOCYTOSIS SLIGHT; SCHISTOCYTES SLIGHT; TEAR DROP CELLS SLIGHT; TOXIC GRANULATION 1+; TOXIC VACUOLATION PRESENT
[2018-07-11 06:11] LABS: ARTERIAL BLOOD BASE EXCESS 4.7 mmol/L; ARTERIAL BLOOD H2CO3 1.74 mmol/L (1.05-1.35); ARTERIAL BLOOD HCO3 31.5 mmol/L (20-24); ARTERIAL BLOOD O2 SATURATION 94.1 % (94-98); ARTERIAL BLOOD PCO2 57.9 mmHg (35-45); ARTERIAL BLOOD PH 7.35 (7.35-7.45); ARTERIAL BLOOD PO2 74.6 mmHg (80-100); ARTERIAL BLOOD TOTAL CO2 33.2 mmol/L (23-27)
[2018-07-11 06:16] LABS: ARTERIAL BLOOD FIO2 30%
[2018-07-11] MEDS: METHYLPREDNISOLONE INJ 40 MG/1 ML SDV IV SCH ×3 (06:54→21:43)
[2018-07-11] MEDS: NORMAL SALINE 1000 ML 1,000 ML IV PRN (07:01)
--- NOTE | 2018-07-11 09:16 | PDOC PROGRESS REPORT ---
Subjective Progress Note for:: 07/11/18 Subjective:: 53 year old male with history of lymphoma in remission as per the patient, history of COPD secondary to chronic smoking is on oxygen 2 L nasal cannula at home came to the emergency room with complaints of shortness of breath for last 2 weeks. Patient says he is in the bed for the last 2 weeks, his son finally persuaded him to come to the emergency room thinking there is a possibility that patient might have pneumonia. Patient is giving history of fever on and off in association with nausea and poor appetite. Patient denies any history of headaches falls. Is complaining of chest pains with severe coughing. He has albuterol inhaler at home using it regular basis without any help. In the emergency room the workup was done and patient was found to be hypotensive and chest x-ray shows opacification on the left side with possible consolidation in the left upper lobe. Blood cultures sputum culture was sent. Patient was given Rocephin and Zithromax and medical consult was called for admission. In the emergency room patient was hypotensive tachycardic and possible acute kidney injury. Meeting the criteria for sepsis. Lactic acid was also elevated which is a 4.1. Went to talk to the patient he was on BiPAP in shortness of breath able to give a detailed history. Patient continued to smoke all these years. He confirmed the history that he has COPD on 2 L oxygen and also has history of lymphoma. He is to see Dr. Shaikh for lymphoma and is following with Dr. Fontana for his COPD. Requesting to see the these physicians during the hospital stay. [id number]-sehu-old male with history of lymphoma in remission according to him and history of COPD secondary to chronic smoking, on 2 L oxygen at home came to the emergency room with complaints of severe shortness of breath yesterday. He still in the emergency room awaiting a bed in [facility]. Patient was found to be hypotensive in the ER and chest x-ray shows opacification of the left side with possible consolidation of the left upper lobe. In the ER he was also tachycardic, creatinine was elevated to 1.45, and elevated lactic acid levels. Suggesting he has a sepsis. No acute events in the last 24 hours. Patient is afebrile . Patient denies any complaints. Pulse ox today on 4 L is 93%. Consult was placed for Dr. Shaikh and also for Dr. Fontana. Reason For Visit: PNEUMONIA Physical Exam Vital Signs: Temp Pulse Resp BP Pulse Ox 98.4 F 106 H 27 H 102/68 93 07/11/18 07:59 07/11/18 01:29 07/11/18 02:01 07/11/18 02:00 07/11/18 02:01 Intake & Output 07/10/18 07/11/18 07/12/18 06:59 06:59 06:59 Intake Total 3500 1100 Balance 3500 1100 Weight 54.9 kg General appearance: PRESENT: disheveled, thin Head exam: PRESENT: atraumatic Eye exam: PRESENT: PERRLA Mouth exam: PRESENT: moist, tongue midline Neck exam: ABSENT: carotid bruit, JVD, lymphadenopathy, thyromegaly Respiratory exam: PRESENT: crackles, decreased breath sounds, wheezes Cardiovascular exam: PRESENT: tachycardia GI/Abdominal exam: PRESENT: normal bowel sounds, soft. ABSENT: distended, guarding, mass, organolmegaly, rebound, tenderness Extremities exam: PRESENT: full ROM. ABSENT: calf tenderness, clubbing, pedal edema Neurological exam: PRESENT: alert, awake, oriented to person, oriented to place, oriented to time, oriented to situation, CN II-XII grossly intact. ABSENT: motor sensory deficit Psychiatric exam: PRESENT: appropriate affect, normal mood. ABSENT: homicidal ideation, suicidal ideation Results Laboratory Results: 07/11/18 03:20 07/11/18 03:20 07/10/18 07/10/18 07/10/18 12:35 12:56 12:56 WBC 3.0 L RBC 4.08 L Hgb 12.1 L Hct 35.3 L MCV 87 MCH 29.6 MCHC 34.2 RDW 14.1 H Plt Count 258 Seg Neutrophils % Not Reportable Lymphocytes % Not Reportable Monocytes % Not Reportable Eosinophils % Not Reportable Basophils % Not Reportable Absolute Neutrophils Not Reportable Absolute Lymphocytes Not Reportable Absolute Monocytes Not Reportable Absolute Eosinophils Not Reportable Absolute Basophils Not Reportable Carbonic Acid HCO3/H2CO3 Ratio ABG pH ABG pCO2 ABG pO2 ABG HCO3 ABG O2 Saturation ABG Base Excess VBG pH 7.35 VBG pCO2 61.5 VBG HCO3 33.4 H VBG Base Excess 5.7 FiO2 Sodium 131.6 L Potassium 4.9 Chloride 86 L Carbon Dioxide 33 H Anion Gap 13 BUN 42 H Creatinine 1.45 H Est GFR ( Amer) > 60 Est GFR (Non-Af Amer) 51 L Glucose 98 Lactic Acid Calcium 7.8 L Magnesium Total Bilirubin 0.4 AST 75 H ALT 29 Alkaline Phosphatase 95 Total Protein 4.6 L Albumin 2.6 L Triglycerides Cholesterol LDL Cholesterol Direct VLDL Cholesterol HDL Cholesterol Lipase < 10.0 L TSH Urine Color Urine Appearance Urine pH Ur Specific [place] Urine Protein Urine Glucose (UA) Urine Ketones Urine Blood Urine Nitrite Ur Leukocyte Esterase Urine WBC (Auto) Urine RBC (Auto) 07/10/18 07/10/18 07/10/18 12:56 16:29 16:29 WBC RBC Hgb Hct MCV MCH MCHC RDW Plt Count Seg Neutrophils % Lymphocytes % Monocytes % Eosinophils % Basophils % Absolute Neutrophils Absolute Lymphocytes Absolute Monocytes Absolute Eosinophils Absolute Basophils Carbonic Acid 1.54 H HCO3/H2CO3 Ratio 18:1 ABG pH 7.37 ABG pCO2 51.0 H ABG pO2 78.8 L ABG HCO3 28.7 H ABG O2 Saturation 95.2 ABG Base Excess 2.3 VBG pH VBG pCO2 VBG HCO3 VBG Base Excess FiO2 30% Sodium Potassium Chloride Carbon Dioxide Anion Gap BUN Creatinine Est GFR ( Amer) Est GFR (Non-Af Amer) Glucose Lactic Acid 4.1 H Calcium Magnesium Total Bilirubin AST ALT Alkaline Phosphatase Total Protein Albumin Triglycerides Cholesterol LDL Cholesterol Direct VLDL Cholesterol HDL Cholesterol Lipase TSH Urine Color YELLOW Urine Appearance SLIGHTLY-CLOUDY Urine pH 5.0 Ur Specific [place] 1.012 Urine Protein NEGATIVE Urine Glucose (UA) NEGATIVE Urine Ketones NEGATIVE Urine Blood NEGATIVE Urine Nitrite NEGATIVE Ur Leukocyte Esterase NEGATIVE Urine WBC (Auto) 7 Urine RBC (Auto) 1 07/10/18 07/11/18 07/11/18 17:09 03:20 03:20 WBC 7.2 D RBC 3.83 L Hgb 11.3 L Hct 33.2 L MCV 87 MCH 29.4 MCHC 34.0 RDW 14.2 H Plt Count 190 Seg Neutrophils % Not Reportable Lymphocytes % Not Reportable Monocytes % Not Reportable Eosinophils % Not Reportable Basophils % Not Reportable Absolute Neutrophils Not Reportable Absolute Lymphocytes Not Reportable Absolute Monocytes Not Reportable Absolute Eosinophils Not Reportable Absolute Basophils Not Reportable Carbonic Acid HCO3/H2CO3 Ratio ABG pH ABG pCO2 ABG pO2 ABG HCO3 ABG O2 Saturation ABG Base Excess VBG pH VBG pCO2 VBG HCO3 VBG Base Excess FiO2 Sodium 136.6 L Potassium 4.2 Chloride 96 L Carbon Dioxide 31 H Anion Gap 10 BUN 32 H Creatinine 0.90 Est GFR ( Amer) > 60 Est GFR (Non-Af Amer) > 60 Glucose 133 H Lactic Acid 2.2 H Calcium 7.6 L Magnesium 2.2 Total Bilirubin 0.6 AST 50 ALT 9 L Alkaline Phosphatase 81 Total Protein 4.3 L Albumin 2.3 L Triglycerides 92 Cholesterol < 50.00 LDL Cholesterol Direct < 30 VLDL Cholesterol 18.0 HDL Cholesterol 15 L Lipase TSH Urine Color Urine Appearance Urine pH Ur Specific [place] Urine Protein Urine Glucose (UA) Urine Ketones Urine Blood Urine Nitrite Ur Leukocyte Esterase Urine WBC (Auto) Urine RBC (Auto) 07/11/18 07/11/18 03:20 05:55 WBC RBC Hgb Hct MCV MCH MCHC RDW Plt Count Seg Neutrophils % Lymphocytes % Monocytes % Eosinophils % Basophils % Absolute Neutrophils Absolute Lymphocytes Absolute Monocytes Absolute Eosinophils Absolute Basophils Carbonic Acid 1.74 H HCO3/H2CO3 Ratio 18:1 ABG pH 7.35 ABG pCO2 57.9 H ABG pO2 74.6 L ABG HCO3 31.5 H ABG O2 Saturation 94.1 ABG Base Excess 4.7 VBG pH VBG pCO2 VBG HCO3 VBG Base Excess FiO2 30% Sodium Potassium Chloride Carbon Dioxide Anion Gap BUN Creatinine Est GFR ( Amer) Est GFR (Non-Af Amer) Glucose Lactic Acid Calcium Magnesium Total Bilirubin AST ALT Alkaline Phosphatase Total Protein Albumin Triglycerides Cholesterol LDL Cholesterol Direct VLDL Cholesterol HDL Cholesterol Lipase TSH 1.10 Urine Color Urine Appearance Urine pH Ur Specific [place] Urine Protein Urine Glucose (UA) Urine Ketones Urine Blood Urine Nitrite Ur Leukocyte Esterase Urine WBC (Auto) Urine RBC (Auto) 07/10/18 07/10/18 07/10/18 12:56 16:32 21:30 CK-MB (CK-2) 0.57 0.82 Troponin I < 0.012 < 0.012 < 0.012 NT-Pro-B Natriuret Pep 07/11/18 07/11/18 03:20 03:20 CK-MB (CK-2) 0.81 Troponin I < 0.012 NT-Pro-B Natriuret Pep 6770 H Impressions: Chest CT 07/10/18 00:00 IMPRESSION: Extensive infiltrates in left upper lobe and lingula with patchy ground-glass infiltrates scattered elsewhere in the lungs. Suggestive of p neumonia. May represent an atypical process such as mycobacterium avium. Chest X-Ray 07/10/18 12:35 IMPRESSION: There is new heterogeneous opacity and consolidation of the left upper lobe, concerning for infection. Recommend follow-up radiographs in 6 to 8 weeks to ensure complete resolution and exclude underlying mass. Assessment & Plan - Diagnosis (1) Acute hypoxemic respiratory failure Is this a current diagnosis for this admission?: Yes Plan: 07/10/2018 patient came in with shortness of breath and found to be hypoxic, tachypneic hypotensive in the emergency room. He pulse ox at the time of admission is in the 70s he was placed on BiPAP. Acute hypoxic respiratory failure probably secondary to community-acquired pneumonia and underlying COPD with exacerbation. Plan to do the ABG today and repeat the ABGs on daily basis. Chest x-ray shows opacification in the left upper lobe with possible underlying mass. Patient has history of lymphoma so going ahead and ordering the CT chest with IV contrast. 07/11/2018-patient came in with acute on chronic hypoxic respiratory failure. Pulse ox is improved today. On 4 L oxygen pulse ox 93% today. He is getting levofloxacin, Zosyn, Xopenex, ipratropium, Solu-Medrol IV 40 mg every [address] chest with IV contrast was requested yesterday to rule out any underlying malignancy. (2) Pneumonia Qualifiers: Pneumonia type: due to unspecified organism Laterality: left Lung location: upper lobe of lung Qualified Code(s): J18.1 - Lobar pneumonia, unspecified organism Is this a current diagnosis for this admission?: Yes Plan: 2018 patient has community-acquired pneumonia. He is going to be IMCU. Started on oxygen 2 L nasal cannula we also plan to use BiPAP on as-needed basis. Blood cultures ,sputum cultures were sent. He was started on Zosyn and and Levaquin. Consultation with Dr. Fontana was requested. Repeat lactic acid levels were requested. going to do the screening for flu and pneumonia vaccination. He is going to be admitted as inpatient. He was to be a full code. 07/11/2018-patient was admitted with a left-sided pneumonia presently on Zosyn IV and Levaquin. The cultures are pending at this time. Repeat lactic acid level is 2.2. He was started on IV fluids yesterday he BNP came back as 6770. IV fluids are discontinued this morning. Plan is to continue the antibiotic ther apy. (3) Sepsis Qualifiers: Sepsis type: sepsis due to unspecified organism Qualified Code(s): A41.9 - Sepsis, unspecified organism Is this a current diagnosis for this admission?: Yes Plan: 07/10/2018 patient's meet the criteria for sepsis. He was hypoxic hypotensive tachycardic with possible acute kidney injury. Lactic acid is also elevated. Sepsis core measures were implemented. Initial lactic acid is 4.1 going to recheck the lactic acid again. Patient received 2 L of IV fluids in the emergency room blood pressure was improved to 109/70. I will continue the IV fluids 75 cc/h the for the next 24 hours. Cultures sputum cultures urine cultures were requested. 07/11/2018-patient was admitted with sepsis secondary to left sided pneumonia which is a community-acquired pneumonia in my opinion he is afebrile right now on Zosyn and levofloxacin blood cultures are pending repeat lactic acid level is 2.2 IV fluids are discontinued because of the elevated BNP plan is to continue the present management. His creatinine came down to 0.9 from 1.45 on admission acute kidney injury is resolved. (4) COPD exacerbation Is this a current diagnosis for this admission?: Yes Plan: 07/10/2018-patient has history of COPD secondary to smoking he is a current smoker. On 2 L oxygen via nasal cannula at home. Patient was on BiPAP right now. We are going to put him on IV steroids nebulizer treatments flutter valve therapy. 07/11/2018-patient has history of COPD secondary to chronic smoking. He co ntinues to smoke. He is on oxygen 2 L at home. Presently he is on IV Solu- Medrol, Xopenex and albuterol nebulizations along with flutter valve therapy. Plan is to continue the present management. (5) Tobacco abuse Is this a current diagnosis for this admission?: Yes Plan: 07/10/2018-patient is a chronic smoker, continues to smoke, smoking counseling was provided for more than 10 minutes, strongly advised to quit smoking. Sta rted on nicotine patch. 07/11/2018 patient is a chronic smoker is also admitting he smoked marijuana at home. Smoking counseling was provided for more than 10 minutes strongly advised him to quit smoking and also quit using marijuana. (6) Hypotension Qualifiers: Hypotension type: other hypotension type Qualified Code(s): I95.89 - Other hypotension Is this a current diagnosis for this admission?: Yes Plan: 07/10/2018-patient was hypotensive when he came in systolic blood pressure in the 80s started on IV fluids he got total of 2 L of normal saline in the emergency room latest blood pressure is 106/70. Hypotension probably secondary to sepsis. 07/11/2018-patient was hypotensive in the emergency room initially received IV fluids bolus of 2 L followed by IV fluids normal saline at 75 cc/h. Today's blood pressure is 102/68 asymptomatic. But BNP came back as 6770 and examination few crackles both lung stallings so IV fluids are discontinued. 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 He is to follow-up with Dr. Shaikh. He is requesting follow-up with Dr Suarez while he was in the hospital 07/11/2018 patient agreed with history of lymphoma in remission. CT chest without contrast is negative for any lung masses. Saltation with Dr. Shaikh is requested. - Time Time Spent with patient: 25-34 minutes Smoking Cessation Education: over 10 minutes Medications reviewed and adjusted accordingly: Yes Anticipated discharge: Home
--- NOTE | 2018-07-11 09:32 | PDOC CONSULTATION ---
Consultation Consult Date: 07/11/18 Consult reason:: Hematology/Oncology consult was requested for patient with pneumonia and history of lymphoma. History of Present Illness Admission Date/PCP: 07/10/18 15:10 KAYLYN SAINI History of Present Illness: Mr. Low is a 53 year old male who has followed by me for his Non- Hodgkin Lymphoma. 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 He was treated with R-CHOP x 6 cycles which completed 01/29/2016. Since that time, he has had no evidence of active disease and had been on maintenance Rituxan every 2 months. He completed this 01/2018. Patient states that he has had a 1-2 week history of dyspnea, cough and pr ogressive URI symptoms. He was found to have pneumonia on chest radiology. He is currently on CPAP and states that he was afraid he would if he did not come to the ED. He is now feeling a little better on the CPAP. He has been started on steroids and antibiotics. Past Medical History Cardiac Medical History: Denies: Coronary Artery Disease, Myocardial Infarction, Hypertension Pulmonary Medical History: Reports: Chronic Obstructive Pulmonary Disease (COPD) Denies: Asthma, Bronchitis, Pneumonia Neurological Medical History: Reports: Seizures - 20 YEARS AGO R/T HX COCAINE Endocrine Medical History: Denies: Diabetes Mellitus Type 1 Malignancy Medical History: Reports: Lymphoma - Follicular. Completed all treatment. Currently with no evidence of disease GI Medical History: Denies: Cirrhosis, Crohn's Disease, Hepatitis Musculoskeltal Medical History: Reports: Arthritis - BACK, Gout Psychiatric Medical History: Denies: Depression Traumatic Medical History: Denies: Gunshot Wound, Pneumothorax Hematology: Denies: Anemia Past Surgical History Past Surgical History: Reports: Other - Ulcer repair, SBO repair, port placement, left eyebrow surgery Social History Smoking Status: Current Every Day Smoker Frequency of Alcohol Use: None Hx Recreational Drug Use: No Drugs: Cocaine - History, Marijuana Hx Prescription Drug Abuse: No - Advance Directive Resuscitation Status: Full Code Family History Family History: CAD, Hypertension, Malignancy Parental Family History Reviewed: Yes Children Family History Reviewed: No Sibling(s) Family History Reviewed.: No Medication/Allergy Home Medications: Albuterol Sulfate [Proair HFA Inhalation Aerosol 8.5 gm MDI] 2 puff IH Q4HP PRN 05/01/17 Budesonide/Formoterol Fumarate [Symbicort Hfa 160-4.5 Mcg Inhaler 6 gm] 2 puff IH Q12 07/10/18 Omeprazole 40 mg PO DAILY 07/10/18 Allergies/Adverse Reactions: alex Allergy (Mild, Verified 07/10/18 12:24) RASH Review of Systems Constitutional: PRESENT: fever(s). ABSENT: headache(s) Eyes: PRESENT: visual disturbances Ears: ABSENT: hearing changes Nose, Mouth, and Throat: PRESENT: sore throat Cardiovascular: PRESENT: dyspnea on exertion Respiratory: PRESENT: dyspnea Gastrointestinal: ABSENT: constipation, nausea Genitourinary: ABSENT: dysuria Integumentary: ABSENT: rash Hematologic/Lymphatic: ABSENT: lymphadenopathy Physical Exam Vital Signs: Temp Pulse Resp BP Pulse Ox 98.4 F 106 H 27 H 102/68 93 07/11/18 07:59 07/11/18 01:29 07/11/18 02:01 07/11/18 02:00 07/11/18 02:01 Intake & Output 07/10/18 07/11/18 07/12/18 06:59 06:59 06:59 Intake Total 3500 1100 Balance 3500 1100 Weight 54.9 kg General appearance: PRESENT: thin, well-developed Head exam: PRESENT: atraumatic, normocephalic Eye exam: PRESENT: EOMI Throat exam: PRESENT: other - CPAP in place. Neck exam: ABSENT: lymphadenopathy, tenderness, thyromegaly Respiratory exam: PRESENT: wheezes - Throughout. Cardiovascular exam: PRESENT: RRR, other - obscured by breath sounds. GI/Abdominal exam: PRESENT: soft. ABSENT: tenderness Extremities exam: ABSENT: pedal edema Neurological exam: PRESENT: alert, awake Psychiatric exam: PRESENT: appropriate affect Skin exam: PRESENT: normal color Results Laboratory Results: 07/11/18 03:20 07/11/18 03:20 07/10/18 07/10/18 07/10/18 12:35 12:56 12:56 WBC 3.0 L RBC 4.08 L Hgb 12.1 L Hct 35.3 L MCV 87 MCH 29.6 MCHC 34.2 RDW 14.1 H Plt Count 258 Seg Neutrophils % Not Reportable Lymphocytes % Not Reportable Monocytes % Not Reportable Eosinophils % Not Reportable Basophils % Not Reportable Absolute Neutrophils Not Reportable Absolute Lymphocytes Not Reportable Absolute Monocytes Not Reportable Absolute Eosinophils Not Reportable Absolute Basophils Not Reportable Carbonic Acid HCO3/H2CO3 Ratio ABG pH ABG pCO2 ABG pO2 ABG HCO3 ABG O2 Saturation ABG Base Excess VBG pH 7.35 VBG pCO2 61.5 VBG HCO3 33.4 H VBG Base Excess 5.7 FiO2 Sodium 131.6 L Potassium 4.9 Chloride 86 L Carbon Dioxide 33 H Anion Gap 13 BUN 42 H Creatinine 1.45 H Est GFR ( Amer) > 60 Est GFR (Non-Af Amer) 51 L Glucose 98 Lactic Acid Calcium 7.8 L Magnesium Total Bilirubin 0.4 AST 75 H ALT 29 Alkaline Phosphatase 95 Total Protein 4.6 L Albumin 2.6 L Triglycerides Cholesterol LDL Cholesterol Direct VLDL Cholesterol HDL Cholesterol Lipase < 10.0 L TSH Urine Color Urine Appearance Urine pH Ur Specific [place] Urine Protein Urine Glucose (UA) Urine Ketones Urine Blood Urine Nitrite Ur Leukocyte Esterase Urine WBC (Auto) Urine RBC (Auto) 07/10/18 07/10/18 07/10/18 12:56 16:29 16:29 WBC RBC Hgb Hct MCV MCH MCHC RDW Plt Count Seg Neutrophils % Lymphocytes % Monocytes % Eosinophils % Basophils % Absolute Neutrophils Absolute Lymphocytes Absolute Monocytes Absolute Eosinophils Absolute Basophils Carbonic Acid 1.54 H HCO3/H2CO3 Ratio 18:1 ABG pH 7.37 ABG pCO2 51.0 H ABG pO2 78.8 L ABG HCO3 28.7 H ABG O2 Saturation 95.2 ABG Base Excess 2.3 VBG pH VBG pCO2 VBG HCO3 VBG Base Excess FiO2 30% Sodium Potassium Chloride Carbon Dioxide Anion Gap BUN Creatinine Est GFR ( Amer) Est GFR (Non-Af Amer) Glucose Lactic Acid 4.1 H Calcium Magnesium Total Bilirubin AST ALT Alkaline Phosphatase Total Protein Albumin Triglycerides Cholesterol LDL Cholesterol Direct VLDL Cholesterol HDL Cholesterol Lipase TSH Urine Color YELLOW Urine Appearance SLIGHTLY-CLOUDY Urine pH 5.0 Ur Specific [place] 1.012 Urine Protein NEGATIVE Urine Glucose (UA) NEGATIVE Urine Ketones NEGATIVE Urine Blood NEGATIVE Urine Nitrite NEGATIVE Ur Leukocyte Esterase NEGATIVE Urine WBC (Auto) 7 Urine RBC (Auto) 1 07/10/18 07/11/18 07/11/18 17:09 03:20 03:20 WBC 7.2 D RBC 3.83 L Hgb 11.3 L Hct 33.2 L MCV 87 MCH 29.4 MCHC 34.0 RDW 14.2 H Plt Count 190 Seg Neutrophils % Not Reportable Lymphocytes % Not Reportable Monocytes % Not Reportable Eosinophils % Not Reportable Basophils % Not Reportable Absolute Neutrophils Not Reportable Absolute Lymphocytes Not Reportable Absolute Monocytes Not Reportable Absolute Eosinophils Not Reportable Absolute Basophils Not Reportable Carbonic Acid HCO3/H2CO3 Ratio ABG pH ABG pCO2 ABG pO2 ABG HCO3 ABG O2 Saturation ABG Base Excess VBG pH VBG pCO2 VBG HCO3 VBG Base Excess FiO2 Sodium 136.6 L Potassium 4.2 Chloride 96 L Carbon Dioxide 31 H Anion Gap 10 BUN 32 H Creatinine 0.90 Est GFR ( Amer) > 60 Est GFR (Non-Af Amer) > 60 Glucose 133 H Lactic Acid 2.2 H Calcium 7.6 L Magnesium 2.2 Total Bilirubin 0.6 AST 50 ALT 9 L Alkaline Phosphatase 81 Total Protein 4.3 L Albumin 2.3 L Triglycerides 92 Cholesterol < 50.00 LDL Cholesterol Direct < 30 VLDL Cholesterol 18.0 HDL Cholesterol 15 L Lipase TSH Urine Color Urine Appearance Urine pH Ur Specific [place] Urine Protein Urine Glucose (UA) Urine Ketones Urine Blood Urine Nitrite Ur Leukocyte Esterase Urine WBC (Auto) Urine RBC (Auto) 07/11/18 07/11/18 03:20 05:55 WBC RBC Hgb Hct MCV MCH MCHC RDW Plt Count Seg Neutrophils % Lymphocytes % Monocytes % Eosinophils % Basophils % Absolute Neutrophils Absolute Lymphocytes Absolute Monocytes Absolute Eosinophils Absolute Basophils Carbonic Acid 1.74 H HCO3/H2CO3 Ratio 18:1 ABG pH 7.35 ABG pCO2 57.9 H ABG pO2 74.6 L ABG HCO3 31.5 H ABG O2 Saturation 94.1 ABG Base Excess 4.7 VBG pH VBG pCO2 VBG HCO3 VBG Base Excess FiO2 30% Sodium Potassium Chloride Carbon Dioxide Anion Gap BUN Creatinine Est GFR ( Amer) Est GFR (Non-Af Amer) Glucose Lactic Acid Calcium Magnesium Total Bilirubin AST ALT Alkaline Phosphatase Total Protein Albumin Triglycerides Cholesterol LDL Cholesterol Direct VLDL Cholesterol HDL Cholesterol Lipase TSH 1.10 Urine Color Urine Appearance Urine pH Ur Specific [place] Urine Protein Urine Glucose (UA) Urine Ketones Urine Blood Urine Nitrite Ur Leukocyte Esterase Urine WBC (Auto) Urine RBC (Auto) 07/10/18 07/10/18 07/10/18 12:56 16:32 21:30 CK-MB (CK-2) 0.57 0.82 Troponin I < 0.012 < 0.012 < 0.012 NT-Pro-B Natriuret Pep 07/11/18 07/11/18 03:20 03:20 CK-MB (CK-2) 0.81 Troponin I < 0.012 NT-Pro-B Natriuret Pep 6770 H Impressions: Chest CT 07/10/18 00:00 IMPRESSION: Extensive infiltrates in left upper lobe and lingula with patchy ground-glass infiltrates scattered elsewhere in the lungs. Suggestive of pneumonia. May represent an atypical process such as mycobacterium avium. Chest X-Ray 07/10/18 12:35 IMPRESSION: There is new heterogeneous opacity and consolidation of the left upper lobe, concerning for infection. Recommend follow-up radiographs in 6 to 8 weeks to ensure complete resolution and exclude underlying mass. Assessment & Plan - Diagnosis (1) Lymphoma Qualifiers: Lymphoma type: non-Hodgkin Non-Hodgkin lymphoma type: follicular Follicular lymphoma grade: unspecified grade Lymphoma site: unspecified region Qualified Code(s): C82.90 - Follicular lymphoma, unspecified, unspecified site Is this a current diagnosis for this admission?: Yes Plan: Currently with no evidence of disease. Continued surveillance planned. I will continue to follow him in the office q 3 months. I will check LDH in addition to the CBC, CMP. (2) Pneumonia Qualifiers: Pneumonia type: due to unspecified organism Laterality: left Lung location: upper lobe of lung Qualified Code(s): J18.1 - Lobar pneumonia, unspecified organism Is this a current diagnosis for this admission?: Yes Plan: Patient is on appropriate antibiotics. (3) COPD exacerbation Is this a current diagnosis for this admission?: Yes Plan: Wheezes throughout lung stallings. On steroids. On CPAP. - Plan Summary Plan Summary: Thank you for this consultation. I will follow only from a distance. Please call me if needed. I will arrange follow-up as outpatient. Patient was discussed with the Emergency Room physician.
[2018-07-11] MEDS ORDERED: LEVOFLOXACIN 500 MG/D5W RTU 500 MG/100 ML RTUPB IV SCH (10:00)
[2018-07-11] MEDS: DOCUSATE SODIUM 100 MG/10 ML UDC PO SCH ×2 (10:05→18:07)
[2018-07-11] MEDS: BUDESONIDE/FORMOTEROL 160-4.5 MCG 60 PUFF/6 GM MDI IH SCH ×2 (10:05→21:43)
[2018-07-11] MEDS: CLOTRIMAZOLE/BETAMETHASONE DIP CREAM 15 GM TOP SCH ×2 (10:05→18:07)
[2018-07-11] MEDS: FAMOTIDINE INJ/PF 20 MG/2 ML SDV IV SCH ×2 (10:05→21:43)
[2018-07-11] MEDS: ENOXAPARIN SODIUM INJ 40 MG/0.4 ML DISP.SYRIN SUBCUT SCH (10:06)
[2018-07-11] MEDS: LEVALBUTEROL HCL NEB 1.25 MG/3 ML AMPUL NEB SCH ×2 (15:56→23:59)
[2018-07-12] MEDS: METHYLPREDNISOLONE INJ 40 MG/1 ML SDV IV SCH ×2 (06:04→21:40)
[2018-07-12] MEDS: PIPERACILLIN SODIUM/TAZOBACTAM 3.375 GM in NORMAL SALINE 100 ML IV SCH ×4 (06:04→23:19)
[2018-07-12 06:40] LABS: HEMATOCRIT 31.6 % (37.9-51.0); HEMOGLOBIN 10.6 g/dL (13.5-17.0); MEAN CORPUSCULAR HEMOGLOBIN 29.2 pg (27.0-33.4); MEAN CORPUSCULAR HGB CONC 33.5 g/dL (32.0-36.0); MEAN CORPUSCULAR VOLUME 87 fl (80-97); PLATELET COUNT 149 10^3/uL (150-450); RED BLOOD COUNT 3.61 10^6/uL (4.35-5.55); RED CELL DISTRIBUTION WIDTH 14.4 % (11.5-14.0)
[2018-07-12 06:46] LABS: ARTERIAL BLOOD H2CO3 1.74 mmol/L (1.05-1.35); ARTERIAL BLOOD HCO3 31.7 mmol/L (20-24); ARTERIAL BLOOD O2 SATURATION 97.6 % (94-98); ARTERIAL BLOOD PCO2 57.8 mmHg (35-45); ARTERIAL BLOOD PH 7.36 (7.35-7.45); ARTERIAL BLOOD PO2 106.3 mmHg (80-100); ARTERIAL BLOOD TOTAL CO2 33.5 mmol/L (23-27)
[2018-07-12 06:53] LABS: ARTERIAL BLOOD FIO2 45%
[2018-07-12 07:08] LABS: ALANINE AMINOTRANSFERASE 30 U/L (21-72); ALBUMIN 2.1 g/dL (3.5-5.0); ALKALINE PHOSPHATASE 68 U/L (38-126); ANION GAP 5 (5-19); ASPARTATE AMINO TRANSFERASE 31 U/L (17-59); BILIRUBIN,DIRECT 0.2 mg/dL (0.0-0.4); BILIRUBIN,TOTAL 0.2 mg/dL (0.2-1.3); BLOOD UREA NITROGEN 31 mg/dL (7-20); CALCIUM 7.9 mg/dL (8.4-10.2); CARBON DIOXIDE 32 mmol/L (22-30); CHLORIDE 97 mmol/L (98-107); GLUCOSE 121 mg/dL (75-110); POTASSIUM 4.6 mmol/L (3.6-5.0); SODIUM 134.4 mmol/L (137-145); TOTAL PROTEIN 3.9 g/dL (6.3-8.2)
[2018-07-12 07:12] LABS: ABSOLUTE LYMPHOCYTES# (MANUAL) 0.3 10^3/uL (0.5-4.7); ABSOLUTE MONOCYTES # (MANUAL) 0.2 10^3/uL (0.1-1.4); ABSOLUTE NEUTROPHILS# (MANUAL) 5.5 10^3/uL (1.7-8.2); BASOPHILS % (MANUAL) 0 % (0-2); EOSINOPHILS % (MANUAL) 0 % (0-6); LYMPHOCYTES % (MANUAL) 5 % (13-45); MONOCYTES % (MANUAL) 4 % (3-13); SEGMENTED NEUTROPHILS % (MAN) 91 % (42-78); TOTAL CELLS COUNTED 100
[2018-07-12 07:13] LABS: ANISOCYTOSIS SLIGHT; SCHISTOCYTES SLIGHT; TOXIC GRANULATION 1+
[2018-07-12 07:14] LABS: PLATELET COMMENT ADEQUATE; PLATELET LARGE PRESENT
[2018-07-12] MEDS: LEVALBUTEROL HCL NEB 1.25 MG/3 ML AMPUL NEB SCH ×2 (08:23→16:02)
[2018-07-12] MEDS: ENOXAPARIN SODIUM INJ 40 MG/0.4 ML DISP.SYRIN SUBCUT SCH (10:07)
[2018-07-12] MEDS: FAMOTIDINE INJ/PF 20 MG/2 ML SDV IV SCH ×2 (10:07→21:40)
[2018-07-12] MEDS: DOCUSATE SODIUM 100 MG/10 ML UDC PO SCH ×2 (10:09→17:08)
[2018-07-12] MEDS: BUDESONIDE/FORMOTEROL 160-4.5 MCG 60 PUFF/6 GM MDI IH SCH ×2 (10:10→21:40)
[2018-07-12] MEDS: CLOTRIMAZOLE/BETAMETHASONE DIP CREAM 15 GM TOP SCH ×2 (10:10→17:09)
--- NOTE | 2018-07-12 11:01 | PDOC PROGRESS REPORT ---
Subjective Progress Note for:: 07/12/18 Subjective:: 53 year old male with history of lymphoma in remission as per the patient, history of COPD secondary to chronic smoking is on oxygen 2 L nasal cannula at home came to the emergency room with complaints of shortness of breath for last 2 weeks. Patient says he is in the bed for the last 2 weeks, his son finally persuaded him to come to the emergency room thinking there is a possibility that patient might have pneumonia. Patient is giving history of fever on and off in association with nausea and poor appetite. Patient denies any history of headaches falls. Is complaining of chest pains with severe coughing. He has albuterol inhaler at home using it regular basis without any help. In the emergency room the workup was done and patient was found to be hypotensive and chest x-ray shows opacification on the left side with possible consolidation in the left upper lobe. Blood cultures sputum culture was sent. Patient was given Rocephin and Zithromax and medical consult was called for admission. In the emergency room patient was hypotensive tachycardic and possible acute kidney injury. Meeting the criteria for sepsis. Lactic acid was also elevated which is a 4.1. Went to talk to the patient he was on BiPAP in shortness of breath able to give a detailed history. Patient continued to smoke all these years. He confirmed the history that he has COPD on 2 L oxygen and also has history of lymphoma. He is to see Dr. Shaikh for lymphoma and is following with Dr. Fontana for his COPD. Requesting to see the these physicians during the hospital stay. 07/11/[id number]-[id number]-old male with history of lymphoma in remission according to him and history of COPD secondary to chronic smoking, on 2 L oxygen at home came to the emergency room with complaints of severe shortness of breath yesterday. He still in the emergency room awaiting a bed in [facility]. Patient was found to be hypotensive in the ER and chest x-ray shows opacification of the left side with possible consolidation of the left upper lobe. In the ER he was also tachycardic, creatinine was elevated to 1.45, and elevated lactic acid levels. Suggesting he has a sepsis. No acute events in the last 24 hours. Patient is afebrile . Patient denies any complaints. Pulse ox today on 4 L is 93%. Consult was placed for Dr. Shaikh and also for Dr. Fontana. 07/12/[id number]-pkfe-old male with history of non-Hodgkin's lymphoma in remission he was actually diagnosed with a stage IV follicular B-cell lymphoma in September 2014 received R CHOP 6 cycles completed therapy in January 2016. He did Rituxan every 2 months and January 2018. He is in remission. Came in with severe shortness of breath found to be hypoxic hypercapnic hypotensive with acute kidney injury and elevated lactic acid levels at the time of admission in association with left-sided opacification indicating consolidation in the left upper lobe. Presently he is on levofloxacin 11 and Zosyn. Afebrile. Blood cultures microbiology called me to notify growing gram-negative rods. He still requiring BiPAP. No acute events in the last 24 hours. Reason For Visit: PNEUMONIA Physical Exam Vital Signs: Temp Pulse Resp BP Pulse Ox 97.9 F 91 18 122/70 100 07/12/18 09:47 07/12/18 09:47 07/12/18 09:47 07/12/18 09:47 07/12/18 09:47 Intake & Output 07/11/18 07/12/18 07/13/18 06:59 06:59 06:59 Intake Total 3500 3499 100 Output Total 1025 Balance 3500 2474 100 Weight 54.9 kg 56.4 kg General appearance: PRESENT: mild distress, other - On BiPAP at the time of examination Head exam: PRESENT: atraumatic Eye exam: PRESENT: PERRLA Mouth exam: PRESENT: moist, tongue midline Neck exam: ABSENT: carotid bruit, JVD, lymphadenopathy, thyromegaly Respiratory exam: PRESENT: decreased breath sounds, wheezes Cardiovascular exam: PRESENT: tachycardia GI/Abdominal exam: PRESENT: normal bowel sounds, soft. ABSENT: distended, guarding, mass, organolmegaly, rebound, tenderness Extremities exam: PRESENT: full ROM. ABSENT: calf tenderness, clubbing, pedal edema Neurological exam: PRESENT: alert, awake, oriented to person, oriented to place, oriented to time, oriented to situation, CN II-XII grossly intact. ABSENT: motor sensory deficit Psychiatric exam: PRESENT: appropriate affect, normal mood. ABSENT: homicidal ideation, suicidal ideation Results Laboratory Results: 07/12/18 05:57 07/12/18 05:57 07/12/18 07/12/18 07/12/18 05:57 05:57 06:15 WBC 6.0 RBC 3.61 L Hgb 10.6 L Hct 31.6 L MCV 87 MCH 29.2 MCHC 33.5 RDW 14.4 H Plt Count 149 L Seg Neutrophils % Not Reportable Lymphocytes % Not Reportable Monocytes % Not Reportable Eosinophils % Not Reportable Basophils % Not Reportable Absolute Neutrophils Not Reportable Absolute Lymphocytes Not Reportable Absolute Monocytes Not Reportable Absolute Eosinophils Not Reportable Absolute Basophils Not Reportable Carbonic Acid 1.74 H HCO3/H2CO3 Ratio 18:1 ABG pH 7.36 ABG pCO2 57.8 H ABG pO2 106.3 H ABG HCO3 31.7 H ABG O2 Saturation 97.6 ABG Base Excess 5.0 FiO2 45% Sodium 134.4 L Potassium 4.6 Chloride 97 L Carbon Dioxide 32 H Anion Gap 5 BUN 31 H Creatinine 0.81 Est GFR ( Amer) > 60 Est GFR (Non-Af Amer) > 60 Glucose 121 H Calcium 7.9 L Magnesium 2.4 H Total Bilirubin 0.2 AST 31 ALT 30 Alkaline Phosphatase 68 Total Protein 3.9 L Albumin 2.1 L 07/10/18 07/10/18 07/10/18 12:56 16:32 21:30 CK-MB (CK-2) 0.57 0.82 Troponin I < 0.012 < 0.012 < 0.012 NT-Pro-B Natriuret Pep 07/11/18 07/11/18 07/12/18 03:20 03:20 06:25 CK-MB (CK-2) 0.81 Troponin I < 0.012 NT-Pro-B Natriuret Pep 6770 H 6900 H Impressions: Chest CT 07/10/18 00:00 IMPRESSION: Extensive infiltrates in left upper lobe and lingula with patchy ground-glass infiltrates scattered elsewhere in the lungs. Suggestive of pneumonia. May represent an atypical process such as mycobacterium avium. Chest X-Ray 07/10/18 12:35 IMPRESSION: There is new heterogeneous opacity and consolidation of the left upper lobe, concerning for infection. Recommend follow-up radiographs in 6 to 8 weeks to ensure complete resolution and exclude underlying mass. Assessment & Plan - Diagnosis (1) Acute hypoxemic respiratory failure Is this a current diagnosis for this admission?: Yes Plan: 07/10/2018 patient came in with shortness of breath and found to be hypoxic, tachypneic hypotensive in the emergency room. He pulse ox at the time of admission is in the 70s he was placed on BiPAP. Acute hypoxic respiratory failure probably secondary to community-acquired pneumonia and underlying COPD with exacerbation. Plan to do the ABG today and repeat the ABGs on daily basis. Chest x-ray shows opacification in the left upper lobe with possible underlying mass. Patient has history of lymphoma so going ahead and ordering the CT chest with IV contrast. 07/11/2018-patient came in with acute on chronic hypoxic respiratory failure. Pulse ox is improved today. On 4 L oxygen pulse ox 93% today. He is getting levofloxacin, Zosyn, Xopenex, ipratropium, Solu-Medrol IV 40 mg every [address] chest with IV contrast was requested yesterday to rule out any underlying malignancy. 07/12/2018-patient was admitted with acute on chronic respiratory failure pulse ox 80s at the time of admission today pulse ox on 45% on BiPAP is 100%. He is receiving IV Solu-Medrol 40 mg every 12 hours, Xopenex nebulizations, ipratropium nebulizations, chest physical therapy. The chest with contrast was done ruled out any malignancy. Physical therapy consult was requested be going to arrange for a chest physical therapy. (2) Pneumonia Qualifiers: Pneumonia type: due to unspecified organism Laterality: left Lung loc ation: upper lobe of lung Qualified Code(s): J18.1 - Lobar pneumonia, unspecified organism Is this a current diagnosis for this admission?: Yes Plan: 2018 patient has community-acquired pneumonia. He is going to be IMCU. Started on oxygen 2 L nasal cannula we also plan to use BiPAP on as-needed basis. Blood cultures ,sputum cultures were sent. He was started on Zosyn and and Levaquin. Consultation with Dr. oFntana was requested. Repeat lactic acid levels were requested. going to do the screening for flu and pneumonia vaccination. He is going to be admitted as inpatient. He was to be a full code. 07/11/2018-patient was admitted with a left-sided pneumonia presently on Zosyn IV and Levaquin. The cultures are pending at this time. Repeat lactic acid level is 2.2. He was started on IV fluids yesterday he BNP came back as 6770. IV fluids are discontinued this morning. Plan is to continue the antibiotic therapy. 07/12/2018-chest x-ray shows left-sided pneumonia patient is presently on IV Zosyn and IV Levaquin. The blood culture showing gram-negative rods. Waiting for the sensitivity report. Plan is to continue the present antibiotic therapy. (3) Sepsis Qualifiers: Sepsis type: sepsis due to unspecified organism Qualified Code(s): A41.9 - Sepsis, unspecified organism Is this a current diagnosis for this admission?: Yes Plan: 07/10/2018 patient's meet the criteria for sepsis. He was hypoxic hypotensive tachycardic with possible acute kidney injury. Lactic acid is also elevated. Sepsis core measures were implemented. Initial lactic acid is 4.1 going to recheck the lactic acid again. Patient received 2 L of IV fluids in the emerge ncy room blood pressure was improved to 109/70. I will continue the IV fluids 75 cc/h the for the next 24 hours. Cultures sputum cultures urine cultures were requested. 07/11/2018-patient was admitted with sepsis secondary to left sided pneumonia which is a community-acquired pneumonia in my opinion he is afebrile right now on Zosyn and levofloxacin blood cultures are pending repeat lactic acid level is 2.2 IV fluids are discontinued because of the elevated BNP plan is to continue the present management. His creatinine came down to 0.9 from 1.45 on admission acute kidney injury is resolved. 07/12/2018 patient came in with community-acquired pneumonia started on Zosyn and levofloxacin. He met the criteria for sepsis. Blood cultures are showing gram- negative rods. X-ray shows left-sided consolidation. (4) COPD exacerbation Is this a current diagnosis for this admission?: Yes Plan: 07/10/2018-patient has history of COPD secondary to smoking he is a current smoker. On 2 L oxygen via nasal cannula at home. Patient was on BiPAP right now. We are going to put him on IV steroids nebulizer treatments flutter valve therapy. 07/11/2018-patient has history of COPD secondary to chronic smoking. He continues to smoke. He is on oxygen 2 L at home. Presently he is on IV Solu- Medrol, Xopenex and albuterol nebulizations along with flutter valve therapy. Plan is to continue the present management. 07/12/2018 patient is a chronic smoker leading to COPD. He uses 2 L oxygen at home. We will continue the pulmonary toilet and IV Solu-Medrol. chest bilateral entry was decreased bilateral extensive wheezing is present. Started on the chest physiotherapy today. (5) Tobacco abuse Is this a current diagnosis for this admission?: Yes Plan: 07/10/2018-patient is a chronic smoker, continues to smoke, smoking counseling was provided for more than 10 minutes, strongly advised to quit smoking. Started on nicotine patch. 07/11/2018 patient is a chronic smoker is also admitting he smoked marijuana at home. Smoking counseling was provided for more than 10 minutes strongly advised him to quit smoking and also quit using marijuana. 07/12/2018. Patient is a chronic smoker he was placed on nicotine patch 21 mg daily. When he is ready to go home I am going to give him a prescription. Smoking counseling was again provided. (6) Hypotension Qualifiers: Hypotension type: other hypotension type Qualified Code(s): I95.89 - Other hypotension Is this a current diagnosis for this admission?: Yes Plan: 07/10/2018-patient was hypotensive when he came in systolic blood pressure in the 80s started on IV fluids he got total of 2 L of normal saline in the emergency room latest blood pressure is 106/70. Hypotension probably secondary to sepsis. 07/11/2018-patient was hypotensive in the emergency room initially received IV fluids bolus of 2 L followed by IV fluids normal saline at 75 cc/h. Today's blood pressure is 102/68 asymptomatic. But BNP came back as 6770 and examination few crackles both lung stallings so IV fluids are discontinued. 07/12/2018 patient was hypotensive in the emergency room probably secondary to sepsis. He received 2 L of normal saline and followed by 75 cc/h. BNP today is 6900. Blood pressure is improved to 122/70. I am going to put him on fluid restriction 1.5 L/day started on Lasix 20 mg p.o. twice daily. echoCardiogram was requested. 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 He is to follow-up with Dr. Shaikh. He is requesting follow-up with Dr Suarez while he was in the hospital 07/11/2018 patient agreed with history of lymphoma in remission. CT chest without contrast is negative for any lung masses. Saltation with Dr. Shaikh is requested. 07/12/2018-patient has history of non-Hodgkin's lymphoma diagnosed in 2016 he received R CHOP 6 cycles followed by Rituxan every 2 months he completed the course is in January 2018 Dr. Shaikh is going to follow the patient as an outpatient. CT scan of the chest with contrast shows no evidence of any malignancy. - Time Time Spent with patient: 15-24 minutes Medications reviewed and adjusted accordingly: Yes Anticipated discharge: Home
--- NOTE | 2018-07-12 15:50 | XCELERA REPORT ---
[address] [address] Transthoracic Echocardiogram Report Name: DARSHAN SABA Age: 53 yrs Gender: Male : 1965 Patient Status: Inpatient Patient Location: [address] [place], [place] [address] Study Date: 07/12/2018 12:24 PM Reason For Study: chf Ordering Physician: BERNADETTE VIDAL Performed By: Demar Lim Interpretation Summary Technologist Comment: patient extremely thin with tight rib spaces, was on a breathing pap machine, patient breathing rapidly. lung artifact in many pictures. Suboptimal study with many off-axis views and lack of contrast limits evaluation for thrombus/mass. LVEF appears normal at 55-60%. RV systolic function appears normal. AV appears to open well. There is a trace amount of tricuspid regurgitation Right ventricular systolic pressure is normal. There is no pericardial effusion. IVC sie and respiratoory variation appears normal. The aortic root is normal size. MMode/2D Measurements & Calculations RVDd: 2.2 cm LVIDd: 5.5 cm FS: 24.5 % Ao root diam: 3.5 cm IVSd: 0.93 cm LVIDs: 4.1 cm EDV(Teich): Ao root area: LVPWd: 0.87 cm 144.4 ml 9.6 cm2 ESV(Teich): 74.9 ml EF(Teich): 48.1 % LVOT diam: 1.8 cm EDV(MOD-sp4): SV(MOD-sp4): LVOT area: 92.5 ml 63.0 ml 2.7 cm2 ESV(MOD-sp4): 29.5 ml EF(MOD-sp4): 68.2 % Doppler Measurements & Calculations MV E max kike: MV dec slope: Ao V2 max: LV V1 max P.0 cm/sec 352.8 cm/sec2 123.5 cm/sec 3.6 mmHg MV A max kike: MV dec time: 0.20 sec Ao max P.1 mmHgLV V1 mean P.6 cm/sec Ao V2 mean: 2.3 mmHg MV E/A: 1.2 86.8 cm/sec LV V1 max: Ao mean P.2 cm/sec 3.3 mmHg LV V1 mean: Ao V2 VTI: 22.1 cm 73.1 cm/sec ALFRED(I,D): 2.3 cm2 LV V1 VTI: 18.9 cm ALFRED(V,D): 2.1 cm2 SV(LVOT): 50.6 ml PA V2 max: TR max kike: 103.9 cm/sec 252.1 cm/sec PA max P.3 mmHg TR max P.5 mmHg Left Ventricle The left ventricular ejection fraction is normal. LV EF is 55-60%. Right Ventricle A moderator band is seen in the right ventricle. RV size appears upper limit normal visually. The right ventricular systolic function is normal. Atria RA visually appears dilated mildly. Mitral Valve The mitral valve leaflets appear thickened, but open well. Aortic Valve AV leaflets appear focally thickened with preserved opening. There is a peak gradient of 6.1 mm of Hg. Tricuspid Valve There is a trace amount of tricuspid regurgitation. Right ventricular systolic pressure is normal. Great Vessels The aortic root is normal size. IVC sie and respiratoory variation appears normal. Effusions There is no pericardial effusion. : BERNADTETE VIDAL > Triston Beckman
[2018-07-12] MEDS: LEVOFLOXACIN 750 MG/D5W RTU 750 MG/150 ML RTUPB IV SCH (17:08)
[2018-07-12] MEDS ORDERED: FUROSEMIDE 20 MG TABLET PO SCH (18:00)
[2018-07-13] MEDS: LEVALBUTEROL HCL NEB 1.25 MG/3 ML AMPUL NEB SCH ×3 (00:35→18:55)
[2018-07-13] MEDS: PIPERACILLIN SODIUM/TAZOBACTAM 3.375 GM in NORMAL SALINE 100 ML IV SCH ×4 (05:02→23:24)
[2018-07-13 05:57] LABS: HEMATOCRIT 32.5 % (37.9-51.0); HEMOGLOBIN 10.9 g/dL (13.5-17.0); MEAN CORPUSCULAR HEMOGLOBIN 29.1 pg (27.0-33.4); MEAN CORPUSCULAR HGB CONC 33.4 g/dL (32.0-36.0); MEAN CORPUSCULAR VOLUME 87 fl (80-97); PLATELET COUNT 149 10^3/uL (150-450); RED BLOOD COUNT 3.73 10^6/uL (4.35-5.55); RED CELL DISTRIBUTION WIDTH 14.5 % (11.5-14.0); WHITE BLOOD COUNT 5.4 10^3/uL (4.0-10.5)
[2018-07-13 06:12] LABS: ALANINE AMINOTRANSFERASE 31 U/L (21-72); ALBUMIN 2.3 g/dL (3.5-5.0); ALKALINE PHOSPHATASE 62 U/L (38-126); ANION GAP 10 (5-19); ASPARTATE AMINO TRANSFERASE 31 U/L (17-59); BILIRUBIN,DIRECT 0.2 mg/dL (0.0-0.4); BILIRUBIN,TOTAL 0.2 mg/dL (0.2-1.3); BLOOD UREA NITROGEN 26 mg/dL (7-20); CALCIUM 7.9 mg/dL (8.4-10.2); CARBON DIOXIDE 29 mmol/L (22-30); CHLORIDE 97 mmol/L (98-107); GLUCOSE 124 mg/dL (75-110); POTASSIUM 4.6 mmol/L (3.6-5.0); SODIUM 136.3 mmol/L (137-145); TOTAL PROTEIN 3.8 g/dL (6.3-8.2)
[2018-07-13 06:45] LABS: ABSOLUTE LYMPHOCYTES# (MANUAL) 0.1 10^3/uL (0.5-4.7); ABSOLUTE MONOCYTES # (MANUAL) 0.4 10^3/uL (0.1-1.4); BASOPHILS % (MANUAL) 0 % (0-2); EOSINOPHILS % (MANUAL) 0 % (0-6); LYMPHOCYTES % (MANUAL) 1 % (13-45); MONOCYTES % (MANUAL) 7 % (3-13); SEGMENTED NEUTROPHILS % (MAN) 92 % (42-78); TOTAL CELLS COUNTED 100
[2018-07-13 06:46] LABS: ANISOCYTOSIS 1+; PLATELET COMMENT ADEQUATE; POLYCHROMASIA 1+; TOXIC GRANULATION SLIGHT
--- NOTE | 2018-07-13 08:00 | PDOC PROGRESS REPORT ---
Subjective Progress Note for:: 07/13/18 Subjective:: Patient was hoping to go home today, but is much more short of breath after getting up to the bathroom this morning. Had loose BM today. Poor appetite. Reason For Visit: PNEUMONIA Physical Exam Vital Signs: Temp Pulse Resp BP Pulse Ox 98.0 F 79 22 H 101/54 L 97 07/13/18 04:17 07/13/18 04:17 07/13/18 04:17 07/13/18 04:17 07/13/18 04:17 Intake & Output 07/12/18 07/13/18 07/14/18 06:59 06:59 06:59 Intake Total 3499 2253 Output Total 1025 Balance 2474 2253 Weight 56.4 kg 58 kg General appearance: PRESENT: thin Head exam: PRESENT: normocephalic Respiratory exam: PRESENT: wheezes Cardiovascular exam: PRESENT: RRR Extremities exam: ABSENT: pedal edema Neurological exam: PRESENT: alert, awake Psychiatric exam: PRESENT: appropriate affect Skin exam: PRESENT: normal color Results Laboratory Results: 07/13/18 05:31 07/13/18 05:31 07/13/18 07/13/18 05:31 05:31 WBC 5.4 RBC 3.73 L Hgb 10.9 L Hct 32.5 L MCV 87 MCH 29.1 MCHC 33.4 RDW 14.5 H Plt Count 149 L Seg Neutrophils % Not Reportable Lymphocytes % Not Reportable Monocytes % Not Reportable Eosinophils % Not Reportable Basophils % Not Reportable Absolute Neutrophils Not Reportable Absolute Lymphocytes Not Reportable Absolute Monocytes Not Reportable Absolute Eosinophils Not Reportable Absolute Basophils Not Reportable Sodium 136.3 L Potassium 4.6 Chloride 97 L Carbon Dioxide 29 Anion Gap 10 BUN 26 H Creatinine 0.71 Est GFR ( Amer) > 60 Est GFR (Non-Af Amer) > 60 Glucose 124 H Calcium 7.9 L Magnesium 1.9 Total Bilirubin 0.2 AST 31 ALT 31 Alkaline Phosphatase 62 Total Protein 3.8 L Albumin 2.3 L 07/10/18 16:29 Clean Catch Midstream Urine Culture - Final NO GROWTH 2 DAYS 07/10/18 07/10/18 07/10/18 12:56 16:32 21:30 CK-MB (CK-2) 0.57 0.82 Troponin I < 0.012 < 0.012 < 0.012 NT-Pro-B Natriuret Pep 07/11/18 07/11/18 07/12/18 03:20 03:20 06:25 CK-MB (CK-2) 0.81 Troponin I < 0.012 NT-Pro-B Natriuret Pep 6770 H 6900 H 07/13/18 05:31 CK-MB (CK-2) Troponin I NT-Pro-B Natriuret Pep 8070 H Impressions: Chest CT 07/10/18 00:00 IMPRESSION: Extensive infiltrates in left upper lobe and lingula with patchy gr ound-glass infiltrates scattered elsewhere in the lungs. Suggestive of pneumonia. May represent an atypical process such as mycobacterium avium. Chest X-Ray 07/10/18 12:35 IMPRESSION: There is new heterogeneous opacity and consolidation of the left upper lobe, concerning for infection. Recommend follow-up radiographs in 6 to 8 weeks to ensure complete resolution and exclude underlying mass. Assessment & Plan - Diagnosis (1) Lymphoma Qualifiers: Lymphoma type: non-Hodgkin Non-Hodgkin lymphoma type: follicular Follicular lymphoma grade: unspecified grade Lymphoma site: unspecified region Qualified Code(s): C82.90 - Follicular lymphoma, unspecified, unspecified site Is this a current diagnosis for this admission?: Yes Plan: Currently in remission. (2) Pneumonia Qualifiers: Pneumonia type: due to unspecified organism Laterality: left Lung location: upper lobe of lung Qualified Code(s): J18.1 - Lobar pneumonia, unspecified organism Is this a current diagnosis for this admission?: Yes Plan: On appropriate antibiotics. Remains afebrile. (3) COPD exacerbation Is this a current diagnosis for this admission?: Yes Plan: Continues steroids and inhalers. Still quite hypoxic and dyspnic.
--- NOTE | 2018-07-13 10:05 | PDOC PROGRESS REPORT ---
Subjective Progress Note for:: 07/13/18 Subjective:: 53 year old male with history of lymphoma in remission as per the patient, history of COPD secondary to chronic smoking is on oxygen 2 L nasal cannula at home came to the emergency room with complaints of shortness of breath for last 2 weeks. Patient says he is in the bed for the last 2 weeks, his son finally persuaded him to come to the emergency room thinking there is a possibility that patient might have pneumonia. Patient is giving history of fever on and off in association with nausea and poor appetite. Patient denies any history of headaches falls. Is complaining of chest pains with severe coughing. He has albuterol inhaler at home using it regular basis without any help. In the emergency room the workup was done and patient was found to be hypotensive and chest x-ray shows opacification on the left side with possible consolidation in the left upper lobe. Blood cultures sputum culture was sent. Patient was given Rocephin and Zithromax and medical consult was called for admission. In the emergency room patient was hypotensive tachycardic and possible acute kidney injury. Meeting the criteria for sepsis. Lactic acid was also elevated which is a 4.1. Went to talk to the patient he was on BiPAP in shortness of breath able to give a detailed history. Patient continued to smoke all these years. He confirmed the history that he has COPD on 2 L oxygen and also has history of lymphoma. He is to see Dr. Shaikh for lymphoma and is following with Dr. Fontana for his COPD. Requesting to see the these physicians during the hospital stay. 07/11/[id number]-cbig-old male with history of lymphoma in remission according to him and history of COPD secondary to chronic smoking, on 2 L oxygen at home came to the emergency room with complaints of severe shortness of breath yesterday. He still in the emergency room awaiting a bed in [facility]. Patient was found to be hypotensive in the ER and chest x-ray shows opacification of the left side with possible consolidation of the left upper lobe. In the ER he was also tachycardic, creatinine was elevated to 1.45, and elevated lactic acid levels. Suggesting he has a sepsis. No acute events in the last 24 hours. Patient is afebrile . Patient denies any complaints. Pulse ox today on 4 L is 93%. Consult was placed for Dr. Shaikh and also for Dr. Fontana. 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 He did Rituxan every 2 months and January 2018. He is in remission. Came in with severe shortness of breath found to be hypoxic hypercapnic hypotensive with acute kidney injury and elevated lactic acid levels at the time of admission in association with left-sided opacification indicating consolidation in the left upper lobe. Presently he is on levofloxacin 11 and Zosyn. Afebrile. Blood cultures microbiology called me to notify growing gram-negative rods. He still requiring BiPAP. No acute events in the last 24 hours. 07/13/2018 56-year-old male with history of non-Hodgkin's lymphoma in remission he has actually stage IV follicular B-cell lymphoma received R CHOP 6 cycles followed by Rituxan. Presently he is on remission. Admitted for hypoxic hypercapnic respiratory failure hypotensive in association with acute kidney injury diagnosed to be in sepsis. He still wheezing a lot. He still hypoxic. Blood pressures are improved. The cultures came back positive for H. influenzae. Waiting for the sensitivity report. Presently is on levofloxacin and Zosyn. No acute events in the last 24 hours. Afebrile. Reason For Visit: PNEUMONIA Physical Exam Vital Signs: Temp Pulse Resp BP Pulse Ox 97.8 F 81 16 114/74 97 07/13/18 07:46 07/13/18 08:26 07/13/18 08:26 07/13/18 07:46 07/13/18 08:26 Intake & Output 07/12/18 07/13/18 07/14/18 06:59 06:59 06:59 Intake Total 3499 2253 Output Total 1025 Balance 2474 2253 Weight 56.4 kg 58 kg General appearance: PRESENT: no acute distress Head exam: PRESENT: atraumatic Eye exam: PRESENT: PERRLA Mouth exam: PRESENT: moist Neck exam: ABSENT: carotid bruit, JVD, lymphadenopathy, thyromegaly Respiratory exam: PRESENT: decreased breath sounds, wheezes Cardiovascular exam: PRESENT: tachycardia GI/Abdominal exam: PRESENT: normal bowel sounds, soft. ABSENT: distended, guarding, mass, organolmegaly, rebound, tenderness Extremities exam: PRESENT: full ROM. ABSENT: calf tenderness, clubbing, pedal edema Neurological exam: PRESENT: alert, awake, oriented to person, oriented to place, oriented to time, oriented to situation, CN II-XII grossly intact. ABSENT: motor sensory deficit Psychiatric exam: PRESENT: appropriate affect, normal mood. ABSENT: homicidal ideation, suicidal ideation Results Laboratory Results: 07/13/18 05:31 07/13/18 05:31 07/13/18 07/13/18 05:31 05:31 WBC 5.4 RBC 3.73 L Hgb 10.9 L Hct 32.5 L MCV 87 MCH 29.1 MCHC 33.4 RDW 14.5 H Plt Count 149 L Seg Neutrophils % Not Reportable Lymphocytes % Not Reportable Monocytes % Not Reportable Eosinophils % Not Reportable Basophils % Not Reportable Absolute Neutrophils Not Reportable Absolute Lymphocytes Not Reportable Absolute Monocytes Not Reportable Absolute Eosinophils Not Reportable Absolute Basophils Not Reportable Sodium 136.3 L Potassium 4.6 Chloride 97 L Carbon Dioxide 29 Anion Gap 10 BUN 26 H Creatinine 0.71 Est GFR ( Amer) > 60 Est GFR (Non-Af Amer) > 60 Glucose 124 H Calcium 7.9 L Magnesium 1.9 Total Bilirubin 0.2 AST 31 ALT 31 Alkaline Phosphatase 62 Total Protein 3.8 L Albumin 2.3 L 07/10/18 16:29 Clean Catch Midstream Urine Culture - Final NO GROWTH 2 DAYS 07/10/18 07/10/18 07/10/18 12:56 16:32 21:30 CK-MB (CK-2) 0.57 0.82 Troponin I < 0.012 < 0.012 < 0.012 NT-Pro-B Natriuret Pep 07/11/18 07/11/18 07/12/18 03:20 03:20 06:25 CK-MB (CK-2) 0.81 Troponin I < 0.012 NT-Pro-B Natriuret Pep 6770 H 6900 H 07/13/18 05:31 CK-MB (CK-2) Troponin I NT-Pro-B Natriuret Pep 8070 H Impressions: Chest CT 07/10/18 00:00 IMPRESSION: Extensive infiltrates in left upper lobe and lingula with patchy ground-glass infiltrates scattered elsewhere in the lungs. Suggestive of pneumonia. May represent an atypical process such as mycobacterium avium. Chest X-Ray 07/10/18 12:35 IMPRESSION: There is new heterogeneous opacity and consolidation of the left upper lobe, concerning for infection. Recommend follow-up radiographs in 6 to 8 weeks to ensure complete resolution and exclude underlying mass. Assessment & Plan - Diagnosis (1) Acute hypoxemic respiratory failure Is this a current diagnosis for this admission?: Yes Plan: 07/10/2018 patient came in with shortness of breath and found to be hypoxic, tachypneic hypotensive in the emergency room. He pulse ox at the time of admission is in the 70s he was placed on BiPAP. Acute hypoxic respiratory failure probably secondary to community-acquired pneumonia and underlying COPD with exacerbation. Plan to do the ABG today and repeat the ABGs on daily basis. Chest x-ray shows opacification in the left upper lobe with possible underlying mass. Patient has history of lymphoma so going ahead and ordering the CT chest with IV contrast. 07/11/2018-patient came in with acute on chronic hypoxic respiratory failure. Pulse ox is improved today. On 4 L oxygen pulse ox 93% today. He is getting levofloxacin, Zosyn, Xopenex, ipratropium, Solu-Medrol IV 40 mg every [address] chest with IV contrast was requested yesterday to rule out any underlying malignancy. 07/12/2018-patient was admitted with acute on chronic respiratory failure pulse ox 80s at the time of admission today pulse ox on 45% on BiPAP is 100%. He is receiving IV Solu-Medrol 40 mg every 12 hours, Xopenex nebulizations, ipratr opium nebulizations, chest physical therapy. The chest with contrast was done ruled out any malignancy. Physical therapy consult was requested be going to arrange for a chest physical therapy. 07/13/2018-patient was admitted with acute on chronic respiratory failure with hypoxia. He is off the BiPAP today. Patient is still hypoxic. Today pulse ox is improved to 97% on 2 L. Presently on IV Solu-Medrol 40 mg every 12 hours, Xopenex nebulizations, ipratropium nebulizations. He is also receiving chest physical therapy. He has history of non-Hodgkin's lymphoma Dr. Shaikh is following the patient. (2) Pneumonia Qualifiers: Pneumonia type: due to unspecified organism Laterality: left Lung location: upper lobe of lung Qualified Code(s): J18.1 - Lobar pneumonia, unsp ecified organism Is this a current diagnosis for this admission?: Yes Plan: 2018 patient has community-acquired pneumonia. He is going to be IMCU. Started on oxygen 2 L nasal cannula we also plan to use BiPAP on as-needed basis. Blood cultures ,sputum cultures were sent. He was started on Zosyn and and Levaquin. Consultation with Dr. Fontana was requested. Repeat lactic acid levels were requested. going to do the screening for flu and pneumonia vaccination. He is going to be admitted as inpatient. He was to be a full code . 07/11/2018-patient was admitted with a left-sided pneumonia presently on Zosyn IV and Levaquin. The cultures are pending at this time. Repeat lactic acid level is 2.2. He was started on IV fluids yesterday he BNP came back as 6770. IV fluids are discontinued this morning. Plan is to continue the antibiotic therapy. 07/12/2018-chest x-ray shows left-sided pneumonia patient is presently on IV Zosyn and IV Levaquin. The blood culture showing gram-negative rods. Waiting for the sensitivity report. Plan is to continue the present antibiotic therapy. 07/13/2018 patient has a left-sided pneumonia on Zosyn and IV levofloxacin blood cultures are positive for H. influenzae. Waiting for the sensitivity reports. I am going to request for ID consult. pt is afebrile. (3) Sepsis Qualifiers: Sepsis type: sepsis due to unspecified organism Qualified Code(s): A41.9 - Sepsis, unspecified organism Is this a current diagnosis for this admission?: Yes Plan: 07/10/2018 patient's meet the criteria for sepsis. He was hypoxic hypotensive tachycardic with possible acute kidney injury. Lactic acid is also elevated. Sepsis core measures were implemented. Initial lactic acid is 4.1 going to recheck the lactic acid again. Patient received 2 L of IV fluids in the [facility] room blood pressure was improved to 109/70. I will continue the IV fluids 75 cc/h the for the next 24 hours. Cultures sputum cultures urine cultures were requested. 07/11/2018-patient was admitted with sepsis secondary to left sided pneumonia which is a community-acquired pneumonia in my opinion he is afebrile right now on Zosyn and levofloxacin blood cultures are pending repeat lactic acid level is 2.2 IV fluids are discontinued because of the elevated BNP plan is to continue the present management. His creatinine came down to 0.9 from 1.45 on admission acute kidney injury is resolved. 07/12/2018 patient came in with community-acquired pneumonia started on Zosyn and levofloxacin. He met the criteria for sepsis. Blood cultures are showing gram- negative rods. X-ray shows left-sided consolidation. 07/13/2018 patient was admitted with sepsis secondary to community-acquired pneu monia. Patient is presently on Zosyn and levofloxacin and cultures came back positive for H influenza , state will be notified. requested for ID consult. Waiting for the sensitivity report. (4) COPD exacerbation Is this a current diagnosis for this admission?: Yes Plan: 07/10/2018-patient has history of COPD secondary to smoking he is a current smoker. On 2 L oxygen via nasal cannula at home. Patient was on BiPAP right now. We are going to put him on IV steroids nebulizer treatments flutter valve therapy. 07/11/2018-patient has history of COPD secondary to chronic smoking. He continues to smoke. He is on oxygen 2 L at home. Presently he is on IV Solu- Medrol, Xopenex and albuterol nebulizations along with flutter valve therapy. Plan is to continue the present management. 07/12/2018 patient is a chronic smoker leading to COPD. He uses 2 L oxygen at home. We will continue the pulmonary toilet and IV Solu-Medrol. chest bilateral entry was decreased bilateral extensive wheezing is present. Started on the chest physiotherapy today. 07/13/2018-patient has history of COPD secondary to chronic smoking. He is on 2 L oxygen at home. Presently pulse ox is 97% on 2 L. His hypoxia and hypercapnia resolving. On examination chest bilateral entry was decreased still bilateral extensive wheezing is present plan is to continue his IV Solu-Medrol 40 mg every 12 hours, Xopenex, albuterol nebulizations along with flutter valve therapy. Planning to do the follow-up chest x-ray tomorrow. (5) Tobacco abuse Is this a current diagnosis for this admission?: Yes Plan: 07/10/2018-patient is a chronic smoker, continues to smoke, smoking counseling was provided for more than 10 minutes, strongly advised to quit smoking. Started on nicotine patch. 07/11/2018 patient is a chronic smoker is also admitting he smoked marijuana at home. Smoking counseling was provided for more than 10 minutes strongly advised him to quit smoking and also quit using marijuana. 07/12/2018. Patient is a chronic smoker he was placed on nicotine patch 21 mg daily. When he is ready to go home I am going to give him a prescription. Smoking counseling was again provided. 07/13/2018-patient has history of chronic smoking he is a nicotine patch daily smoking counseling was provided for more than 10 minutes strongly advised to quit smoking. (6) Hypotension Qualifiers: Hypotension type: other hypotension type Qualified Code(s): I95.89 - Other hypotension Is this a current diagnosis for this admission?: Yes Plan: 07/10/2018-patient was hypotensive when he came in systolic blood pressure in the 80s started on IV fluids he got total of 2 L of normal saline in the emergency room latest blood pressure is 106/70. Hypotension probably secondary to sepsis. 07/11/2018-patient was hypotensive in the emergency room initially received IV fluids bolus of 2 L followed by IV fluids normal saline at 75 cc/h. Today's blood pressure is 102/68 asymptomatic. But BNP came back as 6770 and examination few crackles both lung stallings so IV fluids are discontinued. 07/12/2018 patient was hypotensive in the emergency room probably secondary to s epsis. He received 2 L of normal saline and followed by 75 cc/h. BNP today is 6900. Blood pressure is improved to 122/70. I am going to put him on fluid restriction 1.5 L/day started on Lasix 20 mg p.o. twice daily. echoCardiogram was requested. 07/13/2018 at the time of admission patient was hypotensive probably secondary to sepsis. Blood pressure was improved to 114/74. He is off the IV fluids. Started on Lasix 20 mg p.o. twice daily yesterday still BNP went up to 8070. Lasix dose is increased to 40 twice a day today. Cardiogram was done shows left ventricular systolic heart failure with EF between 55-60%. In my opinion he has chronic congestive heart failure. 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 He is to follow-up with Dr. Shaikh. He is requesting follow-up with Dr Suarez while he was in the hospital 07/11/2018 patient agreed with history of lymphoma in remission. CT chest without contrast is negative for any lung masses. Saltation with Dr. Shaikh is requested. 07/12/2018-patient has history of non-Hodgkin's lymphoma diagnosed in 2016 he received R CHOP 6 cycles followed by Rituxan every 2 months he completed the course is in January 2018 Dr. Shaikh is going to follow the patient as an outpatient. CT scan of the chest with contrast shows no evidence of any malignancy. 07/13/2018-patient has history of non-Hodgkin's lymphoma which was diagnosed as stage IV follicular B cell lymphoma. Status post R CHOP therapy total of 6 cycles followed by Rituxan. He is in remission. Dr. Shaikh is following the patient. CT chest with IV contrast to ruled out any malignancy. - Time Time Spent with patient: 15-24 minutes Smoking Cessation Education: over 10 minutes Medications reviewed and adjusted accordingly: Yes Anticipated discharge: Home
[2018-07-13] MEDS: BUDESONIDE/FORMOTEROL 160-4.5 MCG 60 PUFF/6 GM MDI IH SCH ×2 (10:14→21:46)
[2018-07-13] MEDS: METHYLPREDNISOLONE INJ 40 MG/1 ML SDV IV SCH ×2 (10:15→21:46)
[2018-07-13] MEDS: FAMOTIDINE INJ/PF 20 MG/2 ML SDV IV SCH (10:16)
[2018-07-13] MEDS: FUROSEMIDE 40 MG TABLET PO SCH ×2 (10:18→19:23)
[2018-07-13] MEDS: CLOTRIMAZOLE/BETAMETHASONE DIP CREAM 15 GM TOP SCH ×2 (10:18→19:27)
[2018-07-13] MEDS: DOCUSATE SODIUM 100 MG CAPSULE PO SCH ×2 (10:19→19:11)
[2018-07-13] MEDS: ENOXAPARIN SODIUM INJ 40 MG/0.4 ML DISP.SYRIN SUBCUT SCH (10:23)
[2018-07-13] MEDS ORDERED: ONDANSETRON 4 MG TAB.RAPDIS PO PRN (11:00)
[2018-07-13 11:05] LABS: PATH REVIEW PATHOLOGIST REVIEWED
--- NOTE | 2018-07-13 15:06 | Progress Note ---
Provider Note Provider Note: ID Consult Note Asked by Dr Aguilar to review patient's chart. Pt not seen or examined. Mr. Low is a 53 year old man with PMH including COPD secondary to chronic smoking on home oxygen 2L and lymphoma in remission who presented with SOB and pleuritic chest pain. He was found to have on exam tachypnea and decreased air entry on the left side. He was found to have sepsis with elevated lactic acid level, acute kidney injury, and community-acquired pneumonia with opacification of the lingula and KG on CT scan of the chest. Empirically Zosyn and Levaquin were started. Blood cx yielded growth of beta-lactamase negative Haemophilus influenzae from one blood culture bottle only. The other set was negative. impression/recommendations sepsis secondary to community-acquired bacterial pneumonia and Haemophilus influenzae bacteremia - Haemophilus influenzae is well known as a potential cause of bacteremic pneumonia, particularly in smokers, as appears to be the case here. Now that the identification and susceptibility report is available, Zosyn should be discontinued. Antipseudomonal activity is not needed. - Recommend switching to Rocephin 2 g daily to complete the remainder of a 7 day course and stopping Levaquin, considering the risk of tendinopathy may be increased in patients on steroids in addition to fluoroquinolones and there are other options for IV antibiotic therapy. Wiley Torres MD [facility] Infectious Diseases pager [phone]
[2018-07-13] MEDS ORDERED: LEVOFLOXACIN 750 MG/D5W RTU 750 MG/150 ML RTUPB IV SCH (18:00)
[2018-07-13] MEDS: FAMOTIDINE 20 MG TABLET PO SCH (21:46)
[2018-07-14] MEDS: LEVALBUTEROL HCL NEB 1.25 MG/3 ML AMPUL NEB SCH ×3 (00:45→17:31)
[2018-07-14] MEDS: PIPERACILLIN SODIUM/TAZOBACTAM 3.375 GM in NORMAL SALINE 100 ML IV SCH ×2 (05:04→12:41)
[2018-07-14 06:29] LABS: HEMATOCRIT 32.9 % (37.9-51.0); HEMOGLOBIN 11.2 g/dL (13.5-17.0); MEAN CORPUSCULAR HEMOGLOBIN 29.3 pg (27.0-33.4); MEAN CORPUSCULAR HGB CONC 34.1 g/dL (32.0-36.0); MEAN CORPUSCULAR VOLUME 86 fl (80-97); PLATELET COUNT 192 10^3/uL (150-450); RED BLOOD COUNT 3.83 10^6/uL (4.35-5.55); WHITE BLOOD COUNT 5.1 10^3/uL (4.0-10.5)
[2018-07-14 06:54] LABS: ALANINE AMINOTRANSFERASE 30 U/L (21-72); ALBUMIN 2.3 g/dL (3.5-5.0); ALKALINE PHOSPHATASE 62 U/L (38-126); ANION GAP 8 (5-19); ASPARTATE AMINO TRANSFERASE 30 U/L (17-59); BILIRUBIN,DIRECT 0.3 mg/dL (0.0-0.4); BILIRUBIN,TOTAL 0.3 mg/dL (0.2-1.3); BLOOD UREA NITROGEN 20 mg/dL (7-20); CALCIUM 7.6 mg/dL (8.4-10.2); CARBON DIOXIDE 36 mmol/L (22-30); CHLORIDE 93 mmol/L (98-107); GLUCOSE 107 mg/dL (75-110); POTASSIUM 3.6 mmol/L (3.6-5.0); SODIUM 137.2 mmol/L (137-145); TOTAL PROTEIN 4.1 g/dL (6.3-8.2)
[2018-07-14 07:02] LABS: ABSOLUTE LYMPHOCYTES# (MANUAL) 0.2 10^3/uL (0.5-4.7); ABSOLUTE MONOCYTES # (MANUAL) 0.1 10^3/uL (0.1-1.4); ABSOLUTE NEUTROPHILS# (MANUAL) 4.8 10^3/uL (1.7-8.2); BAND NEUTROPHILS % (MANUAL) 1 % (3-5); BASOPHILS % (MANUAL) 0 % (0-2); EOSINOPHILS % (MANUAL) 0 % (0-6); LYMPHOCYTES % (MANUAL) 3 % (13-45); METAMYELOCYTES % (MANUAL) 1 % (0); MONOCYTES % (MANUAL) 2 % (3-13); SEGMENTED NEUTROPHILS % (MAN) 93 % (42-78); TOTAL CELLS COUNTED 100
[2018-07-14 07:03] LABS: PLATELET COMMENT ADEQUATE; RBC MORPHOLOGY COMMENT NORMO-CYTIC/CHROMIC
--- NOTE | 2018-07-14 10:13 | RADIOLOGY REPORT (SQ) ---
EXAM DESCRIPTION: CHEST 2 VIEWS COMPLETED DATE/TIME: 07/14/2018 9:35 am REASON FOR STUDY: pnumonia COMPARISON: 07/10/2018 EXAM PARAMETERS: NUMBER OF VIEWS: two views TECHNIQUE: Digital Frontal and Lateral radiographic views of the chest acquired. RADIATION DOSE: NA LIMITATIONS: none FINDINGS: LUNGS AND PLEURA: Improved aeration with residual segmental airspace disease in the left u pper lobe. There is a background of COPD. No effusions. MEDIASTINUM AND HILAR STRUCTURES: No masses or contour abnormalities. HEART AND VASCULAR STRUCTURES: Heart normal size. No evidence for failure. BONES: No acute findings. HARDWARE: None in the chest. OTHER: No other significant finding. IMPRESSION: Improving pneumonia. TECHNICAL DOCUMENTATION: JOB ID: [id number] [employer]- All Rights Reserved Reading location - IP/workstation name: [email or web address]
[2018-07-14] MEDS: MAGNESIUM SULFATE/D5W 1 GM/100 ML RTUPB IV SCH ×2 (10:44→12:36)
[2018-07-14] MEDS: CLOTRIMAZOLE/BETAMETHASONE DIP CREAM 15 GM TOP SCH ×2 (10:45→17:29)
[2018-07-14] MEDS: FAMOTIDINE 20 MG TABLET PO SCH ×2 (10:45→21:34)
[2018-07-14] MEDS: METHYLPREDNISOLONE INJ 40 MG/1 ML SDV IV SCH ×2 (10:45→21:34)
[2018-07-14] MEDS: DOCUSATE SODIUM 100 MG CAPSULE PO SCH ×2 (10:45→17:30)
[2018-07-14] MEDS: FUROSEMIDE 40 MG TABLET PO SCH ×2 (10:45→17:29)
[2018-07-14] MEDS: ENOXAPARIN SODIUM INJ 40 MG/0.4 ML DISP.SYRIN SUBCUT SCH (10:46)
[2018-07-14] MEDS: TIOTROPIUM BROMIDE DPI 5 CAP/KIT (18 MCG/CAP) IH SCH (10:46)
[2018-07-14] MEDS: BUDESONIDE/FORMOTEROL 160-4.5 MCG 60 PUFF/6 GM MDI IH SCH ×2 (10:46→21:34)
--- NOTE | 2018-07-14 12:16 | PDOC PROGRESS REPORT ---
Subjective Progress Note for:: 07/14/18 Subjective:: 53 year old male with history of lymphoma in remission as per the patient, history of COPD secondary to chronic smoking is on oxygen 2 L nasal cannula at home came to the emergency room with complaints of shortness of breath for last 2 weeks. Patient says he is in the bed for the last 2 weeks, his son finally persuaded him to come to the emergency room thinking there is a possibility that patient might have pneumonia. Patient is giving history of fever on and off in association with nausea and poor appetite. Patient denies any history of headaches falls. Is complaining of chest pains with severe coughing. He has albuterol inhaler at home using it regular basis without any help. In the emergency room the workup was done and patient was found to be hypotensive and chest x-ray shows opacification on the left side with possible consolidation in the left upper lobe. Blood cultures sputum culture was sent. Patient was given Rocephin and Zithromax and medical consult was called for admission. In the emergency room patient was hypotensive tachycardic and possible acute kidney injury. Meeting the criteria for sepsis. Lactic acid was also elevated which is a 4.1. Went to talk to the patient he was on BiPAP in shortness of breath able to give a detailed history. Patient continued to smoke all these years. He confirmed the history that he has COPD on 2 L oxygen and also has history of lymphoma. He is to see Dr. Shaikh for lymphoma and is following with Dr. Fontana for his COPD. Requesting to see the these physicians during the hospital stay. 07/[id number]-vyxf-old male with history of lymphoma in remission according to him and history of COPD secondary to chronic smoking, on 2 L oxygen at home came to the emergency room with complaints of severe shortness of breath yesterday. He still in the emergency room awaiting a bed in [facility]. Patient was found to be hypotensive in the ER and chest x-ray shows opacification of the left side with possible consolidation of the left upper lobe. In the ER he was also tachycardic, creatinine was elevated to 1.45, and elevated lactic acid levels. Suggesting he has a sepsis. No acute events in the last 24 hours. Patient is afebrile . Patient denies any complaints. Pulse ox today on 4 L is 93%. Consult was placed for Dr. Shaikh and also for Dr. Fontana. 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 He did Rituxan every 2 months and January 2018. He is in remission. Came in with severe shortness of breath found to be hypoxic hypercapnic hypotensive with acute kidney injury and elevated lactic acid levels at the time of admission in association with left-sided opacification indicating consolidation in the left upper lobe. Presently he is on levofloxacin 11 and Zosyn. Afebrile. Blood cultures microbiology called me to notify growing gram-negative rods. He still requiring BiPAP. No acute events in the last 24 hours. 07/13/2018 56-year-old male with history of non-Hodgkin's lymphoma in remission he has actually stage IV follicular B-cell lymphoma received R CHOP 6 cycles followed by Rituxan. Presently he is on remission. Admitted for hypoxic hypercapnic respiratory failure hypotensive in association with acute kidney injury diagnosed to be in sepsis. He still wheezing a lot. He still hypoxic. Blood pressures are improved. The cultures came back positive for H. influenzae. Waiting for the sensitivity report. Presently is on levofloxacin and Zosyn. No acute events in the last 24 hours. Afebrile. 07/14/2018 56-year-old male with history of non-Hodgkin's lymphoma which is a stage IV follicular B-cell lymphoma received R CHOP cycle 6 cycles and on the retuxan admitted for acute on chronic respiratory failure with hypoxia and hypercapnia. No acute events in the last 24 hours. Chest x-ray done this morning shows improvement. His hypotension is resolved. Pulse ox is 96% on 2 L. Comfortably in the bed not in distress communicating very well. Reason For Visit: PNEUMONIA Physical Exam Vital Signs: Temp Pulse Resp BP Pulse Ox 98.1 F 77 16 130/75 H 91 L 07/14/18 08:01 07/14/18 08:48 07/14/18 08:48 07/14/18 08:01 07/14/18 08:48 Intake & Output 07/13/18 07/14/18 07/15/18 06:59 06:59 06:59 Intake Total 2253 2896 Output Total 4 Balance 2253 2892 Weight 58 kg 54.7 kg General appearance: PRESENT: no acute distress Head exam: PRESENT: atraumatic Eye exam: PRESENT: PERRLA Mouth exam: PRESENT: moist, tongue midline Neck exam: ABSENT: carotid bruit, JVD, lymphadenopathy, thyromegaly Respiratory exam: PRESENT: decreased breath sounds, wheezes Cardiovascular exam: PRESENT: tachycardia GI/Abdominal exam: PRESENT: normal bowel sounds, soft. ABSENT: distended, guarding, mass, organolmegaly, rebound, tenderness Extremities exam: PRESENT: full ROM. ABSENT: calf tenderness, clubbing, pedal edema Neurological exam: PRESENT: alert, awake, oriented to person, oriented to place, oriented to time, oriented to situation, CN II-XII grossly intact. ABSENT: motor sensory deficit Psychiatric exam: PRESENT: appropriate affect, normal mood. ABSENT: homicidal ideation, suicidal ideation Results Laboratory Results: 07/14/18 05:50 07/14/18 05:50 07/14/18 07/14/18 05:50 05:50 WBC 5.1 RBC 3.83 L Hgb 11.2 L Hct 32.9 L MCV 86 MCH 29.3 MCHC 34.1 RDW 14.0 Plt Count 192 Seg Neutrophils % Not Reportable Lymphocytes % Not Reportable Monocytes % Not Reportable Eosinophils % Not Reportable Basophils % Not Reportable Absolute Neutrophils Not Reportable Absolute Lymphocytes Not Reportable Absolute Monocytes Not Reportable Absolute Eosinophils Not Reportable Absolute Basophils Not Reportable Sodium 137.2 Potassium 3.6 Chloride 93 L Carbon Dioxide 36 H Anion Gap 8 BUN 20 Creatinine 0.72 Est GFR ( Amer) > 60 Est GFR (Non-Af Amer) > 60 Glucose 107 Calcium 7.6 L Magnesium 1.4 L Total Bilirubin 0.3 AST 30 ALT 30 Alkaline Phosphatase 62 Total Protein 4.1 L Albumin 2.3 L 07/10/18 12:56 Blood Blood Culture - Final Haemophilus Influenzae 07/10/18 07/10/18 07/10/18 12:56 16:32 21:30 CK-MB (CK-2) 0.57 0.82 Troponin I < 0.012 < 0.012 < 0.012 NT-Pro-B Natriuret Pep 07/11/18 07/11/18 07/12/18 03:20 03:20 06:25 CK-MB (CK-2) 0.81 Troponin I < 0.012 NT-Pro-B Natriuret Pep 6770 H 6900 H 07/13/18 07/14/18 05:31 05:50 CK-MB (CK-2) Troponin I NT-Pro-B Natriuret Pep 8070 H 6560 H Impressions: Chest CT 07/10/18 00:00 IMPRESSION: Extensive infiltrates in left upper lobe and lingula with patchy ground-glass infiltrates scattered elsewhere in the lungs. Suggestive of pneumonia. May represent an atypical process such as mycobacterium avium. Chest X-Ray 07/14/18 07:45 IMPRESSION: Improving pneumonia. Assessment & Plan - Diagnosis (1) Acute hypoxemic respiratory failure Is this a current diagnosis for this admission?: Yes Plan: 07/10/2018 patient came in with shortness of breath and found to be hypoxic, tachypneic hypotensive in the emergency room. He pulse ox at the time of admission is in the 70s he was placed on BiPAP. Acute hypoxic respiratory failure probably secondary to community-acquired pneumonia and underlying COPD with exacerbation. Plan to do the ABG today and repeat the ABGs on daily basis. Chest x-ray shows opacification in the left upper lobe with possible underlying mass. Patient has history of lymphoma so going ahead and ordering the CT chest with IV contrast. 07/11/2018-patient came in with acute on chronic hypoxic respiratory failure. Pulse ox is improved today. On 4 L oxygen pulse ox 93% today. He is getting levofloxacin, Zosyn, Xopenex, ipratropium, Solu-Medrol IV 40 mg every [address] chest with IV contrast was requested yesterday to rule out any underlying malignancy. 07/12/2018-patient was admitted with acute on chronic respiratory failure pulse ox 80s at the time of admission today pulse ox on 45% on BiPAP is 100%. He is receiving IV Solu-Medrol 40 mg every 12 hours, Xopenex nebulizations, ipratropium nebulizations, chest physical therapy. The chest with contrast was done ruled out any malignancy. Physical therapy consult was requested be going to arrange for a chest physical therapy. 07/13/2018-patient was admitted with acute on chronic respiratory failure with hypoxia. He is off the BiPAP today. Patient is still hypoxic. Today pulse ox is improved to 97% on 2 L. Presently on IV Solu-Medrol 40 mg every 12 hours, Xopenex nebulizations, ipratropium nebulizations. He is also receiving chest physical therapy. He has history of non-Hodgkin's lymphoma Dr. Shaikh is following the patient. 07/14/2018-acute on chronic respiratory failure with hypoxia. Pulse ox is 96% 2 L. He is off the BiPAP now. On examination chest bilateral entry was decreased bilateral wheezing is present. He is on a Xopenex, ipratropium nebulizations, CPT and IV Solu-Medrol 40 mg every 12 hours. Patient is on Zosyn and levofloxacin. The culture showing H influenza. Sensitivity to ampicillin, ceftriaxone. I am going to put him on IV ceftriaxone 2 g daily. (2) Pneumonia Qualifiers: Pneumonia type: due to unspecified organism Laterality: left Lung location: upper lobe of lung Qualified Code(s): J18.1 - Lobar pneumonia, unspecified organism Is this a current diagnosis for this admission?: Yes Plan: 2018 patient has community-acquired pneumonia. He is going to be IMCU. Started on oxygen 2 L nasal cannula we also plan to use BiPAP on as-needed basis. Blood cultures ,sputum cultures were sent. He was started on Zosyn and and Levaquin. Consultation with Dr. Fontana was requested. Repeat lactic acid levels were requested. going to do the screening for flu and pneumonia vaccination. He is going to be admitted as inpatient. He was to be a full code. 07/11/2018-patient was admitted with a left-sided pneumonia presently on Zosyn IV and Levaquin. The cultures are pending at this time. Repeat lactic acid level is 2.2. He was started on IV fluids yesterday he BNP came back as 6770. IV fluids are discontinued this morning. Plan is to continue the antibiotic therapy. 07/12/2018-chest x-ray shows left-sided pneumonia patient is presently on IV Zosyn and IV Levaquin. The blood culture showing gram-negative rods. Waiting for the sensitivity report. Plan is to continue the present antibiotic therapy. 07/13/2018 patient has a left-sided pneumonia on Zosyn and IV levofloxacin blood cultures are positive for H. influenzae. Waiting for the sensitivity reports. I am going to request for ID consult. pt is afebrile. 07/14/2018-chest x-ray today done shows improvement in pneumonia. Patient is presently on IV Zosyn, IV levofloxacin. Cultures are positive for H. influenzae. Started on IV Rocephin 2 g daily discontinued Zosyn and levofloxacin today. Patient is afebrile for the last 48 hours. (3) Sepsis Qualifiers: Sepsis type: sepsis due to unspecified organism Qualified Code(s): A41.9 - Sepsis, unspecified organism Is this a current diagnosis for this admission?: Yes Plan: 07/10/2018 patient's meet the criteria for sepsis. He was hypoxic hypotensive tachycardic with possible acute kidney injury. Lactic acid is also elevated. Sepsis core measures were implemented. Initial lactic acid is 4.1 going to recheck the lactic acid again. Patient received 2 L of IV fluids in the emergency room blood pressure was improved to 109/70. I will continue the IV fluids 75 cc/h the for the next 24 hours. Cultures sputum cultures urine cultures were requested. 07/11/2018-patient was admitted with sepsis secondary to left sided pneumonia which is a community-acquired pneumonia in my opinion he is afebrile right now on Zosyn and levofloxacin blood cultures are pending repeat lactic acid level is 2.2 IV fluids are discontinued because of the elevated BNP plan is to continue the present management. His creatinine came down to 0.9 from 1.45 on admission acute kidney injury is resolved. 07/12/2018 patient came in with community-acquired pneumonia started on Zosyn and levofloxacin. He met the criteria for sepsis. Blood cultures are showing gram- negative rods. X-ray shows left-sided consolidation. 07/13/2018 patient was admitted with sepsis secondary to community-acquired pneumonia. Patient is presently on Zosyn and levofloxacin and cultures came back positive for H influenza , state will be notified. requested for ID consult. Waiting for the sensitivity report. 07/14/2018-patient was admitted with sepsis secondary to community-acquired pneumonia. Cultures positive for H influenza. He is going to be on IV Rocephin 2 g daily from today. (4) COPD exacerbation Is this a current diagnosis for this admission?: Yes Plan: 07/10/2018-patient has history of COPD secondary to smoking he is a current smoker. On 2 L oxygen via nasal cannula at home. Patient was on BiPAP right now. We are going to put him on IV steroids nebulizer treatments flutter valve therapy. 07/11/2018-patient has history of COPD secondary to chronic smoking. He continues to smoke. He is on oxygen 2 L at home. Presently he is on IV Solu- Medrol, Xopenex and albuterol nebulizations along with flutter valve therapy. Plan is to continue the present management. 07/12/2018 patient is a chronic smoker leading to COPD. He uses 2 L oxygen at home. We will continue the pulmonary toilet and IV Solu-Medrol. chest bilateral entry was decreased bilateral extensive wheezing is present. Started on the chest physiotherapy today. 07/13/2018-patient has history of COPD secondary to chronic smoking. He is on 2 L oxygen at home. Presently pulse ox is 97% on 2 L. His hypoxia and hypercapnia resolving. On examination chest bilateral entry was decreased still bilateral extensive wheezing is present plan is to continue his IV Solu-Medrol 40 mg every 12 hours, Xopenex, albuterol nebulizations along with flutter valve therapy. Planning to do the follow-up chest x-ray tomorrow. 07/14/2018-on examination today patient is still wheezing. On IV Solu-Medrol 40 mg every 12 hours, Xopenex, ipratropium nebulizations. Is also receiving chest physical therapy. COPD secondary to chronic smoking. Plan is to continue the present management for at least 24-48 hours. (5) Tobacco abuse Is this a current diagnosis for this admission?: Yes Plan: 07/10/2018-patient is a chronic smoker, continues to smoke, smoking counseling was provided for more than 10 minutes, strongly advised to quit smoking. Started on nicotine patch. 07/11/2018 patient is a chronic smoker is also admitting he smoked marijuana at home. Smoking counseling was provided for more than 10 minutes strongly advised him to quit smoking and also quit using marijuana. 07/12/2018. Patient is a chronic smoker he was placed on nicotine patch 21 mg daily. When he is ready to go home I am going to give him a prescription. Smoking counseling was again provided. 07/13/2018-patient has history of chronic smoking he is a nicotine patch daily smoking counseling was provided for more than 10 minutes strongly advised to quit smoking. 07/14/2018-patient has history of chronic smoking presently on nicotine patch. (6) Hypotension Qualifiers: Hypotension type: other hypotension type Qualified Code(s): I95.89 - Other hypotension Is this a current diagnosis for this admission?: Yes Plan: 07/10/2018-patient was hypotensive when he came in systolic blood pressure in the 80s started on IV fluids he got total of 2 L of normal saline in the emergency room latest blood pressure is 106/70. Hypotension probably secondary to sepsis. 07/11/2018-patient was hypotensive in the emergency room initially received IV fluids bolus of 2 L followed by IV fluids normal saline at 75 cc/h. Today's blood pressure is 102/68 asymptomatic. But BNP came back as 6770 and examination few crackles both lung stallings so IV fluids are discontinued. 07/12/2018 patient was hypotensive in the emergency room probably secondary to sepsis. He received 2 L of normal saline and followed by 75 cc/h. BNP today is 6900. Blood pressure is improved to 122/70. I am going to put him on fluid restriction 1.5 L/day started on Lasix 20 mg p.o. twice daily. echoCardiogram was requested. 07/13/2018 at the time of admission patient was hypotensive probably secondary to sepsis. Blood pressure was improved to 114/74. He is off the IV fluids. Started on Lasix 20 mg p.o. twice daily yesterday still BNP went up to 8070. Lasix dose is increased to 40 twice a day today. Cardiogram was done shows left ventricular systolic heart failure with EF between 55-60%. In my opinion he has chronic congestive heart failure. 07/14/2018-patient was hypotensive at the time of admission. Most likely secondary to sepsis. Today's blood pressure is 130/75 he is off the IV fluids. His BNP is 6490. No signs of any fluid overload. 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 He is to follow-up with Dr. Shaikh. He is requesting follow-up with Dr Suarez while he was in the hospital 07/11/2018 patient agreed with history of lymphoma in remission. CT chest without contrast is negative for any lung masses. Saltation with Dr. Shaikh is requested. 07/12/2018-patient has history of non-Hodgkin's lymphoma diagnosed in 2015 he received R CHOP 6 cycles followed by Rituxan every 2 months he completed the course is in January 2018 Dr. Shaikh is going to follow the patient as an outpatient. CT scan of the chest with contrast shows no evidence of any malignancy. 07/13/2018-patient has history of non-Hodgkin's lymphoma which was diagnosed as stage IV follicular B cell lymphoma. Status post R CHOP therapy total of 6 cyc les followed by Rituxan. He is in remission. Dr. Shaikh is following the patient. CT chest with IV contrast to ruled out any malignancy. 07/14/2018-patient has history of non-Hodgkin's lymphoma which is a stage IV follicular B-cell lymphoma. Dr. Shaikh is following the patient. Plan is to continue the present management. - Time Time Spent with patient: 15-24 minutes Smoking Cessation Education: over 10 minutes Medications reviewed and adjusted accordingly: Yes Anticipated discharge: Home
[2018-07-15] MEDS: LEVALBUTEROL HCL NEB 1.25 MG/3 ML AMPUL NEB SCH ×3 (00:29→16:18)
[2018-07-15 05:09] LABS: HEMATOCRIT 35.2 % (37.9-51.0); HEMOGLOBIN 12.2 g/dL (13.5-17.0); MEAN CORPUSCULAR HEMOGLOBIN 29.4 pg (27.0-33.4); MEAN CORPUSCULAR HGB CONC 34.7 g/dL (32.0-36.0); MEAN CORPUSCULAR VOLUME 85 fl (80-97); PLATELET COUNT 274 10^3/uL (150-450); RED BLOOD COUNT 4.16 10^6/uL (4.35-5.55); WHITE BLOOD COUNT 6.9 10^3/uL (4.0-10.5)
[2018-07-15 05:29] LABS: ALANINE AMINOTRANSFERASE 36 U/L (21-72); ALBUMIN 2.5 g/dL (3.5-5.0); ALKALINE PHOSPHATASE 68 U/L (38-126); ASPARTATE AMINO TRANSFERASE 22 U/L (17-59); BILIRUBIN,DIRECT 0.3 mg/dL (0.0-0.4); BILIRUBIN,TOTAL 0.4 mg/dL (0.2-1.3); BLOOD UREA NITROGEN 16 mg/dL (7-20); CALCIUM 7.6 mg/dL (8.4-10.2); CHLORIDE 88 mmol/L (98-107); GLUCOSE 115 mg/dL (75-110); POTASSIUM 3.3 mmol/L (3.6-5.0); SODIUM 136.7 mmol/L (137-145); TOTAL PROTEIN 4.3 g/dL (6.3-8.2)
[2018-07-15 05:40] LABS: ABSOLUTE LYMPHOCYTES# (MANUAL) 0.3 10^3/uL (0.5-4.7); ABSOLUTE MONOCYTES # (MANUAL) 0.8 10^3/uL (0.1-1.4); ABSOLUTE NEUTROPHILS# (MANUAL) 5.7 10^3/uL (1.7-8.2); BAND NEUTROPHILS % (MANUAL) 3 % (3-5); BASOPHILS % (MANUAL) 0 % (0-2); EOSINOPHILS % (MANUAL) 0 % (0-6); LYMPHOCYTES % (MANUAL) 4 % (13-45); MONOCYTES % (MANUAL) 12 % (3-13); PLATELET COMMENT ADEQUATE; RBC MORPHOLOGY COMMENT NORMO-CYTIC/CHROMIC; SEGMENTED NEUTROPHILS % (MAN) 80 % (42-78); TOTAL CELLS COUNTED 100; TOXIC VACUOLATION PRESENT
[2018-07-15 05:44] LABS: ANION GAP 5 (5-19)
[2018-07-15 05:47] LABS: CARBON DIOXIDE 44 mmol/L (22-30)
[2018-07-15] MEDS ORDERED: POTASSIUM CHLORIDE 10 MEQ CAPSULE.ER PO ONE (09:30)
[2018-07-15] MEDS: FAMOTIDINE 20 MG TABLET PO SCH ×2 (10:17→22:59)
[2018-07-15] MEDS: METHYLPREDNISOLONE INJ 40 MG/1 ML SDV IV SCH ×2 (10:17→22:59)
[2018-07-15] MEDS: CEFTRIAXONE 2 GM/D5W RTU 2 GM/50 ML RTUPB IV SCH (10:18)
[2018-07-15] MEDS: TIOTROPIUM BROMIDE DPI 5 CAP/KIT (18 MCG/CAP) IH SCH (10:18)
[2018-07-15] MEDS: BUDESONIDE/FORMOTEROL 160-4.5 MCG 60 PUFF/6 GM MDI IH SCH ×2 (10:19→22:59)
[2018-07-15] MEDS: CLOTRIMAZOLE/BETAMETHASONE DIP CREAM 15 GM TOP SCH ×2 (10:19→18:25)
[2018-07-15] MEDS: DOCUSATE SODIUM 100 MG CAPSULE PO SCH ×2 (10:20→18:25)
[2018-07-15] MEDS: ENOXAPARIN SODIUM INJ 40 MG/0.4 ML DISP.SYRIN SUBCUT SCH (10:20)
--- NOTE | 2018-07-15 13:00 | PDOC PROGRESS REPORT ---
Subjective Progress Note for:: 07/15/18 Subjective:: 07/15/2018 56-year-old male with history of non-Hodgkin's lymphoma which is a stage IV follicular B-cell lymphoma received R CHOP cycle 6 cycles and on the retuxan admitted for acute on chronic respiratory failure with hypoxia and hypercapnia. No acute events in the last 24 hours. Chest x-ray done this morning shows improvement. His hypotension is resolved. Pulse ox is 96% on 2 L. Comfortably in the bed not in distress communicating very well. Tachycardic this morning and bicarb is up to 44. We will stop Lasix for now and observe. Reason For Visit: PNEUMONIA Physical Exam Vital Signs: Temp Pulse Resp BP Pulse Ox 98.2 F 113 H 21 H 128/82 H 92 07/15/18 04:25 07/15/18 07:45 07/15/18 04:25 07/15/18 07:45 07/15/18 07:45 Intake & Output 07/14/18 07/15/18 07/16/18 06:59 06:59 06:59 Intake Total 2896 2020 Output Total 4 Balance 2892 2020 Weight 54.7 kg 52.6 kg General appearance: PRESENT: no acute distress, thin, other - Still requiring oxygen Head exam: PRESENT: atraumatic, normocephalic Eye exam: PRESENT: conjunctiva pale, PERRLA Ear exam: PRESENT: normal external ear exam Mouth exam: PRESENT: moist, tongue midline Neck exam: ABSENT: carotid bruit, JVD, lymphadenopathy, thyromegaly Respiratory exam: PRESENT: clear to auscultation rylie. ABSENT: rales, rhonchi, wheezes Cardiovascular exam: PRESENT: RRR. ABSENT: diastolic murmur, rubs, systolic murmur Pulses: PRESENT: normal dorsalis pedis pul Vascular exam: PRESENT: normal capillary refill GI/Abdominal exam: PRESENT: normal bowel sounds, soft. ABSENT: distended, guarding, mass, organolmegaly, rebound, tenderness Rectal exam: PRESENT: deferred Extremities exam: PRESENT: full ROM. ABSENT: calf tenderness, clubbing, pedal edema Neurological exam: PRESENT: alert, awake, oriented to person, oriented to place, oriented to time, oriented to situation, CN II-XII grossly intact. ABSENT: motor sensory deficit Psychiatric exam: PRESENT: appropriate affect, normal mood. ABSENT: homicidal ideation, suicidal ideation Skin exam: PRESENT: dry, intact, warm. ABSENT: cyanosis, rash Results Laboratory Results: 07/15/18 04:46 07/15/18 04:46 07/15/18 07/15/18 04:46 04:46 WBC 6.9 RBC 4.16 L Hgb 12.2 L Hct 35.2 L MCV 85 MCH 29.4 MCHC 34.7 RDW 14.0 Plt Count 274 Seg Neutrophils % Not Reportable Lymphocytes % Not Reportable Monocytes % Not Reportable Eosinophils % Not Reportable Basophils % Not Reportable Absolute Neutrophils Not Reportable Absolute Lymphocytes Not Reportable Absolute Monocytes Not Reportable Absolute Eosinophils Not Reportable Absolute Basophils Not Reportable Sodium 136.7 L Potassium 3.3 L Chloride 88 L Carbon Dioxide 44 H* Anion Gap 5 BUN 16 Creatinine 0.65 Est GFR ( Amer) > 60 Est GFR (Non-Af Amer) > 60 Glucose 115 H Calcium 7.6 L Magnesium 1.4 L Total Bilirubin 0.4 AST 22 ALT 36 Alkaline Phosphatase 68 Total Protein 4.3 L Albumin 2.5 L 07/10/18 07/10/18 07/10/18 12:56 16:32 21:30 CK-MB (CK-2) 0.57 0.82 Troponin I < 0.012 < 0.012 < 0.012 NT-Pro-B Natriuret Pep 07/11/18 07/11/18 07/12/18 03:20 03:20 06:25 CK-MB (CK-2) 0.81 Troponin I < 0.012 NT-Pro-B Natriuret Pep 6770 H 6900 H 07/13/18 07/14/18 07/15/18 05:31 05:50 04:46 CK-MB (CK-2) Troponin I NT-Pro-B Natriuret Pep 8070 H 6560 H 5560 H Impressions: Chest CT 07/10/18 00:00 IMPRESSION: Extensive infiltrates in left upper lobe and lingula with patchy ground-glass infiltrates scattered elsewhere in the lungs. Suggestive of pneumonia. May represent an atypical process such as mycobacterium avium. Chest X-Ray 07/14/18 07:45 IMPRESSION: Improving pneumonia. Assessment & Plan - Diagnosis (1) Acute hypoxemic respiratory failure Is this a current diagnosis for this admission?: Yes Plan: Secondary to pneumonia which is improving. He is now down to 2 L of oxygen by nasal cannula. Cultures were positive for Haemophilus in his blood and sputum. Infectious disease has recommended continues to have to resume for a total of 7 days of IV antibiotic therapy. Repeat blood cultures are negative. Hopefully can be discharged home in the next 2 days (2) Atypical pneumonia Is this a current diagnosis for this admission?: Yes Plan: Sugars grew Haemophilus influenza. He is on appropriate antibiotic coverage with IV ceftriaxone. Dr. Torres, [facility] infectious disease recommended total 7 days of IV antibiotics. His chest x-ray is much improved today. We are weaning his oxygen. Hopefully can be discharged home on Friday. He denies need for home care (3) Anemia Qualifiers: Anemia type: unspecified type Qualified Code(s): D64.9 - Anemia, unspecified Is this a current diagnosis for this admission?: Yes Plan: Stable (4) DVT prophylaxis Is this a current diagnosis for this admission?: Yes (5) Hypotension Qualifiers: Hypotension type: other hypotension type Qualified Code(s): I95.89 - Other hypotension Is this a current diagnosis for this admission?: Yes Plan: Resolved. (6) Lymphoma Qualifiers: Lymphoma type: non-Hodgkin Non-Hodgkin lymphoma type: follicular Follicular lymphoma grade: unspecified grade Lymphoma site: unspecified region Qualified Code(s): C82.90 - Follicular lymphoma, unspecified, unspecified site Is this a current diagnosis for this admission?: Yes Plan: In remission appreciate Dr. Gallegos's input (7) Protein-calorie malnutrition, severe Is this a current diagnosis for this admission?: Yes Plan: Regular diet with nutritional supplements. - Time Time Spent with patient: 25-34 minutes Total Critical Time (Minutes): 20 Smoking Cessation Education: 3 to 10 minutes Medications reviewed and adjusted accordingly: Yes Anticipated discharge: Home Within: within 72 hours - Inpatient Certification Based on my medical assessment, after consideration of the patient's comorbidities, presenting symptoms, or acuity I expect that the services needed warrant INPATIENT care.: Yes I certify that my determination is in accordance with my understanding of Medicare's requirements for reasonable and necessary INPATIENT services [42 CFR 412.3e].: Yes Medical Necessity: Significant Comorbidiites Make Outpatient Treatment Too Risky, Need for IV Antibiotics, Risk of Complication if Not Cared For in Hospital
--- NOTE | 2018-07-15 15:40 | CONSULTATION REPORT E ---
Consultation Report NAME: DARSHAN SABA : 1965 AGE: 53Y DATE: 07/14/2018 324 A TO: ANAHI GUZMAN M.D. FROM: LIN PATINO M.D. Requesting Physician HISTORY OF PRESENT ILLNESS: The patient is a 53-year-old male who came for increased shortness of breath. The patient has a past medical history of non-Hodgkin's lymphoma, originally diagnosed with stage IV follicular B-cell lymphoma in September 2014. She was treated with R-CHOP x6 completed on January 29, 2016 and followed by Oncology. The patient came in with increased shortness of breath, coughing with sputum production on 07/10/2018 and was admitted. PAST MEDICAL HISTORY: Denies any coronary artery disease, myocardial infarction, hypertension. The patient has history of COPD and a history of seizures. Denies diabetes. History of lymphoma, completed all treatment. Denies any hepatitis history. 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 PAST SURGICAL HISTORY: Ulcer repair, small bowel obstruction repair, port placement, left. SOCIAL HISTORY: Smokes every day and quit a few months ago. History of cocaine use and marijuana use. Denies any history of prescription drug abuse. FAMILY HISTORY: reviewed and not pertinent. MEDICATIONS AT HOME: Include: 1. Albuterol. 2. Oxycodone. 3. Levofloxacin. 4. Clotrimazole. ALLERGIES: MARISELA MEDICATIONS IN THE HOSPITAL: Include: 1. Tylenol. 2. Duoneb nebulizer. 3. Lotrisone cream. 4. Symbicort 160. 5. Rocephin. 6. Colace. 7. Lovenox. 8. Pepcid. 9. Lasix. 10. Xopenex nebulizer treatment. 11. Solu-Medrol 40. 12. Spiriva inhaler 1 puff p.o. daily. PHYSICAL EXAMINATION: GENERAL: The patient is awake, alert, coherent, oriented x3. VITAL SIGNS: Temperature is 97.4 with a T-max of 98.7, heart rate is 81, blood pressure is 112/68, saturation is 96% on 4 L nasal cannula. EYES: No jaundice or pallor. EARS, NOSE, AND THROAT: No ear drainage. No nasal discharge. CHEST AND LUNGS: No wheezing, no rhonchi. No coarse crackles. Fine rales in the left upper lobe. CARDIOVASCULAR: S1, S2 distinct. Normal rate. Regular rhythm. ABDOMEN: Flabby. Positive bowel sounds. Soft, nondistended, nontender. EXTREMITIES: No joint swelling. No cellulitis. LABORATORY: CBC done today showed white count of 5.1, hemoglobin is 11.2, hematocrit 32.9, and platelet count is 192, bands of 1%. Chemistry done today showed sodium is 137, potassium 3.6, chloride 93, CO2 is 36, BUN is 20, creatinine is 0.72, glucose 107, calcium 7.6, magnesium 1.4. Total protein is 4.1 and albumin is 2.3. Chest x-ray done today showed improving aeration on the left upper lobe today compared to the CAT scan on 07/10/2018 and the chest x-ray on 07/10/2018. ASSESSMENT: 1. Pneumonia, left upper lobe, appears to be improving. 2. COPD, currently stable and not in acute severe bronchospasm. 3. History of B-cell lymphoma. Followed by Oncology. PLAN/RECOMMENDATION: 1. Taper IV Solu-Medrol to oral prednisone. 2. Patient needs home oxygen therapy evaluation by respiratory therapist. 3. Continue Symbicort 160 mcg 2 puffs twice a day. 4. Continue Spiriva inhaler 1 capsule once daily. 5. Recommend Xopenex nebulizer treatment 1.25 mg every 8 hours upon discharge and as needed. 6. Recommend pulmonary clinic followup upon hospital discharge. Will decrease the Solu-Medrol dose to 20 mg q. 12 starting tonight. DICTATING PHYSICIAN: ANAHI GUZMAN MD,YAKELIN,MPH [id number] PHY#: [id number] ID: [id number] JOB#: [id number] ACCT: [id number] cc:ANAHI GUZMAN M.D. > [place]
[2018-07-16] MEDS: LEVALBUTEROL HCL NEB 1.25 MG/3 ML AMPUL NEB SCH ×3 (00:49→16:07)
[2018-07-16 06:09] LABS: HEMOGLOBIN 12.5 g/dL (13.5-17.0); MEAN CORPUSCULAR HGB CONC 33.9 g/dL (32.0-36.0); MEAN CORPUSCULAR VOLUME 86 fl (80-97); PLATELET COUNT 405 10^3/uL (150-450); RED BLOOD COUNT 4.32 10^6/uL (4.35-5.55); RED CELL DISTRIBUTION WIDTH 14.3 % (11.5-14.0); WHITE BLOOD COUNT 8.7 10^3/uL (4.0-10.5)
[2018-07-16 06:23] LABS: ANION GAP 11 (5-19); BLOOD UREA NITROGEN 12 mg/dL (7-20); CALCIUM 7.7 mg/dL (8.4-10.2); CARBON DIOXIDE 34 mmol/L (22-30); CHLORIDE 91 mmol/L (98-107); GLUCOSE 114 mg/dL (75-110); POTASSIUM 3.8 mmol/L (3.6-5.0); SODIUM 135.6 mmol/L (137-145)
[2018-07-16 06:31] LABS: ABSOLUTE LYMPHOCYTES# (MANUAL) 0.3 10^3/uL (0.5-4.7); ABSOLUTE MONOCYTES # (MANUAL) 0.2 10^3/uL (0.1-1.4); ABSOLUTE NEUTROPHILS# (MANUAL) 8.3 10^3/uL (1.7-8.2); BAND NEUTROPHILS % (MANUAL) 3 % (3-5); BASOPHILS % (MANUAL) 0 % (0-2); EOSINOPHILS % (MANUAL) 0 % (0-6); LYMPHOCYTES % (MANUAL) 3 % (13-45); METAMYELOCYTES % (MANUAL) 2 % (0); MONOCYTES % (MANUAL) 2 % (3-13); SEGMENTED NEUTROPHILS % (MAN) 90 % (42-78); TOTAL CELLS COUNTED 100
[2018-07-16 06:32] LABS: PLATELET COMMENT ADEQUATE; RBC MORPHOLOGY COMMENT NORMO-CYTIC/CHROMIC
[2018-07-16] MEDS: DOCUSATE SODIUM 100 MG CAPSULE PO SCH ×2 (09:24→17:13)
[2018-07-16] MEDS: CLOTRIMAZOLE/BETAMETHASONE DIP CREAM 15 GM TOP SCH ×2 (09:24→17:14)
[2018-07-16] MEDS: ENOXAPARIN SODIUM INJ 40 MG/0.4 ML DISP.SYRIN SUBCUT SCH (09:24)
[2018-07-16] MEDS: FAMOTIDINE 20 MG TABLET PO SCH ×2 (09:25→22:27)
[2018-07-16] MEDS: TIOTROPIUM BROMIDE DPI 5 CAP/KIT (18 MCG/CAP) IH SCH (09:25)
[2018-07-16] MEDS: METHYLPREDNISOLONE INJ 40 MG/1 ML SDV IV SCH ×2 (09:25→22:27)
[2018-07-16] MEDS: CEFTRIAXONE 2 GM/D5W RTU 2 GM/50 ML RTUPB IV SCH (09:25)
[2018-07-16] MEDS: BUDESONIDE/FORMOTEROL 160-4.5 MCG 60 PUFF/6 GM MDI IH SCH ×2 (09:26→22:28)
--- NOTE | 2018-07-16 10:33 | PDOC PROGRESS REPORT ---
Subjective Progress Note for:: 07/16/18 Subjective:: Patient states his breathing continues to get better, but nurses get upset when he tries to get up out of bed. He states he doesn't have time to be sick, but also understands that he needs to get better before going home. ROS: appetite is OK. No diarrhea. No nausea. No headaches. Reason For Visit: PNEUMONIA Physical Exam Vital Signs: Temp Pulse Resp BP Pulse Ox 97.4 F 84 20 126/84 H 96 07/16/18 08:00 07/16/18 08:00 07/16/18 08:00 07/16/18 08:00 07/16/18 08:00 Intake & Output 07/15/18 07/16/18 07/17/18 06:59 06:59 06:59 Intake Total 2020 144 Balance 2020 1444 Weight 52.6 kg 50.5 kg General appearance: PRESENT: thin Head exam: PRESENT: normocephalic Respiratory exam: PRESENT: other - mild respiratory distress with purse-lipped breathing and prolonged expiratory phase. Wheezes throughout. Cardiovascular exam: PRESENT: RRR Extremities exam: ABSENT: pedal edema Neurological exam: PRESENT: alert, awake Psychiatric exam: PRESENT: appropriate affect Skin exam: PRESENT: normal color Results Laboratory Results: 07/16/18 05:27 07/16/18 05:27 07/16/18 07/16/18 05:27 05:27 WBC 8.7 RBC 4.32 L Hgb 12.5 L Hct 37.0 L MCV 86 MCH 29.0 MCHC 33.9 RDW 14.3 H Plt Count 405 Seg Neutrophils % Not Reportable Lymphocytes % Not Reportable Monocytes % Not Reportable Eosinophils % Not Reportable Basophils % Not Reportable Absolute Neutrophils Not Reportable Absolute Lymphocytes Not Reportable Absolute Monocytes Not Reportable Absolute Eosinophils Not Reportable Absolute Basophils Not Reportable Sodium 135.6 L Potassium 3.8 Chloride 91 L Carbon Dioxide 34 H Anion Gap 11 BUN 12 Creatinine 0.53 Est GFR ( Amer) > 60 Est GFR (Non-Af Amer) > 60 Glucose 114 H Calcium 7.7 L Magnesium 1.4 L 07/10/18 13:09 Blood Blood Culture - Final NO GROWTH IN 5 DAYS 07/10/18 07/10/18 07/10/18 12:56 16:32 21:30 CK-MB (CK-2) 0.57 0.82 Troponin I < 0.012 < 0.012 < 0.012 NT-Pro-B Natriuret Pep 07/11/18 07/11/18 07/12/18 03:20 03:20 06:25 CK-MB (CK-2) 0.81 Troponin I < 0.012 NT-Pro-B Natriuret Pep 6770 H 6900 H 07/13/18 07/14/18 07/15/18 05:31 05:50 04:46 CK-MB (CK-2) Troponin I NT-Pro-B Natriuret Pep 8070 H 6560 H 5560 H Impressions: Chest CT 07/10/18 00:00 IMPRESSION: Extensive infiltrates in left upper lobe and lingula with patchy ground-glass infiltrates scattered elsewhere in the lungs. Suggestive of pneumonia. May represent an atypical process such as mycobacterium avium. Chest X-Ray 07/14/18 07:45 IMPRESSION: Improving pneumonia. Assessment & Plan - Diagnosis (1) Lymphoma Qualifiers: Lymphoma type: non-Hodgkin Non-Hodgkin lymphoma type: follicular Follicular lymphoma grade: unspecified grade Lymphoma site: unspecified region Qualified Code(s): C82.90 - Follicular lymphoma, unspecified, unspecified site Is this a current diagnosis for this admission?: Yes (2) Pneumonia Qualifiers: Pneumonia type: due to unspecified organism Laterality: left Lung location: upper lobe of lung Qualified Code(s): J18.1 - Lobar pneumonia, unspecified organism Is this a current diagnosis for this admission?: Yes (3) COPD exacerbation Is this a current diagnosis for this admission?: Yes - Plan Summary Plan Summary: Continue current care. No evidence of lymphoma. I will continue to follow from a distance. Please call if needed.
[2018-07-16] MEDS ORDERED: MAGNESIUM SULFATE 4 GM/100 ML RTUPB IV ONE (11:00)
[2018-07-17] MEDS: LEVALBUTEROL HCL NEB 1.25 MG/3 ML AMPUL NEB SCH ×3 (00:04→16:28)
[2018-07-17 06:51] LABS: ANION GAP 7 (5-19); BLOOD UREA NITROGEN 14 mg/dL (7-20); CARBON DIOXIDE 34 mmol/L (22-30); CHLORIDE 95 mmol/L (98-107); GLUCOSE 107 mg/dL (75-110); POTASSIUM 4.6 mmol/L (3.6-5.0)
[2018-07-17] MEDS: DOCUSATE SODIUM 100 MG CAPSULE PO SCH ×2 (09:00→17:30)
[2018-07-17] MEDS: CLOTRIMAZOLE/BETAMETHASONE DIP CREAM 15 GM TOP SCH ×2 (09:04→17:30)
[2018-07-17] MEDS: FAMOTIDINE 20 MG TABLET PO SCH ×2 (09:04→22:30)
[2018-07-17] MEDS: TIOTROPIUM BROMIDE DPI 5 CAP/KIT (18 MCG/CAP) IH SCH (09:05)
[2018-07-17] MEDS: BUDESONIDE/FORMOTEROL 160-4.5 MCG 60 PUFF/6 GM MDI IH SCH ×2 (09:05→22:32)
[2018-07-17] MEDS: METHYLPREDNISOLONE INJ 40 MG/1 ML SDV IV SCH ×2 (09:05→22:30)
[2018-07-17] MEDS: CEFTRIAXONE 2 GM/D5W RTU 2 GM/50 ML RTUPB IV SCH (09:07)
[2018-07-17] MEDS: ENOXAPARIN SODIUM INJ 40 MG/0.4 ML DISP.SYRIN SUBCUT SCH (09:41)
[2018-07-17] MEDS ORDERED: NORMAL SALINE 1000 ML 1,000 ML IV PRN (13:46)
--- NOTE | 2018-07-17 13:47 | PDOC PROGRESS REPORT ---
Subjective Progress Note for:: 07/17/18 Subjective:: spoke with patient at bedside- tells me he's doing well- he has no complaints. denies chest pain, SOB more than usual, abdominal pain, n/v or dizziness. Reason For Visit: PNEUMONIA Physical Exam Vital Signs: Temp Pulse Resp BP Pulse Ox 97.4 F 79 16 119/70 98 07/17/18 11:21 07/17/18 11:21 07/17/18 11:21 07/17/18 11:21 07/17/18 11:21 Intake & Output 07/16/18 07/17/18 07/18/18 06:59 06:59 06:59 Intake Total 1444 850 50 Balance 1444 850 50 Weight 111 lb 5.335 oz 109 lb 9.116 oz General appearance: PRESENT: no acute distress Head exam: PRESENT: atraumatic, normocephalic Eye exam: PRESENT: EOMI. ABSENT: conjunctival injection, scleral icterus Ear exam: PRESENT: normal external ear exam Mouth exam: PRESENT: moist, tongue midline Neck exam: ABSENT: tracheal deviation Respiratory exam: PRESENT: decreased breath sounds, rhonchi, symmetrical, wheezes Cardiovascular exam: PRESENT: +S1, +S2 Pulses: PRESENT: +2 pedal pulses bilateral GI/Abdominal exam: PRESENT: normal bowel sounds, soft. ABSENT: tenderness Extremities exam: ABSENT: pedal edema Neurological exam: PRESENT: alert, awake, oriented to person, oriented to place, oriented to time, CN II-XII grossly intact Skin exam: PRESENT: dry, warm Results Laboratory Results: 07/16/18 05:27 07/17/18 06:08 07/17/18 06:08 Sodium 136.0 L Potassium 4.6 Chloride 95 L Carbon Dioxide 34 H Anion Gap 7 BUN 14 Creatinine 0.46 L Est GFR ( Amer) > 60 Est GFR (Non-Af Amer) > 60 Glucose 107 Calcium 8.0 L Magnesium 1.9 07/10/18 07/10/18 07/10/18 12:56 16:32 21:30 CK-MB (CK-2) 0.57 0.82 Troponin I < 0.012 < 0.012 < 0.012 NT-Pro-B Natriuret Pep 07/11/18 07/11/18 07/12/18 03:20 03:20 06:25 CK-MB (CK-2) 0.81 Troponin I < 0.012 NT-Pro-B Natriuret Pep 6770 H 6900 H 07/13/18 07/14/18 07/15/18 05:31 05:50 04:46 CK-MB (CK-2) Troponin I NT-Pro-B Natriuret Pep 8070 H 6560 H 5560 H Impressions: Chest CT 07/10/18 00:00 IMPRESSION: Extensive infiltrates in left upper lobe and lingula with patchy ground-glass infiltrates scattered elsewhere in the lungs. Suggestive of pneumonia. May represent an atypical process such as mycobacterium avium. Chest X-Ray 07/14/18 07:45 IMPRESSION: Improving pneumonia. Assessment & Plan - Diagnosis (1) COPD exacerbation Is this a current diagnosis for this admission?: Yes (2) Pneumonia Qualifiers: Pneumonia type: due to unspecified organism Laterality: left Lung location: upper lobe of lung Qualified Code(s): J18.1 - Lobar pneumonia, unspecified organism Is this a current diagnosis for this admission?: Yes (3) Sepsis Qualifiers: Sepsis type: sepsis due to unspecified organism Qualified Code(s): A41.9 - Sepsis, unspecified organism Is this a current diagnosis for this admission?: Yes (4) Tobacco abuse Is this a current diagnosis for this admission?: Yes (5) Hyponatremia Is this a current diagnosis for this admission?: Yes (6) Lymphoma Qualifiers: Lymphoma type: non-Hodgkin Non-Hodgkin lymphoma type: follicular Follicular lymphoma grade: unspecified grade Lymphoma site: unspecified region Qualified Code(s): C82.90 - Follicular lymphoma, unspecified, unspecified site Is this a current diagnosis for this admission?: Yes - Plan Summary Plan Summary: Sepsis 2/2 KG PNA- improving. H. Flu is the suspected organism. ID noted appreciated- recommends 7 days of rocephin - started 07/15. he's doing much better. other prior antibiotics were already d/c'd. c/w breathing treatments COPD exac- c/w xopenex, spiriva and symbicort. PRN albuterol Tobacco abuse- on nicotine patch- counseled on cessation. H/o Lymphoma- appreciate Onc consult. Hyponatremia- acute vs chronic. seems to be hold stable around mid 130s. doesn't look volume overloaded- ?dehydration- will consider given some IV NS overnight and see how he responds.
[2018-07-17 14:56] LABS: ARTERIAL BLOOD BASE EXCESS 8.4 mmol/L; ARTERIAL BLOOD FIO2 2L; ARTERIAL BLOOD H2CO3 1.45 mmol/L (1.05-1.35); ARTERIAL BLOOD HCO3 33.5 mmol/L (20-24); ARTERIAL BLOOD O2 SATURATION 94.4 % (94-98); ARTERIAL BLOOD PCO2 48.1 mmHg (35-45); ARTERIAL BLOOD PH 7.46 (7.35-7.45); ARTERIAL BLOOD PO2 68.5 mmHg (80-100)
[2018-07-18] MEDS: LEVALBUTEROL HCL NEB 1.25 MG/3 ML AMPUL NEB SCH ×3 (00:16→16:35)
[2018-07-18] MEDS: DOCUSATE SODIUM 100 MG CAPSULE PO SCH ×2 (09:37→17:05)
[2018-07-18] MEDS: ENOXAPARIN SODIUM INJ 40 MG/0.4 ML DISP.SYRIN SUBCUT SCH (09:37)
[2018-07-18] MEDS: CEFTRIAXONE 2 GM/D5W RTU 2 GM/50 ML RTUPB IV SCH (09:44)
[2018-07-18] MEDS: FAMOTIDINE 20 MG TABLET PO SCH ×2 (09:45→22:11)
[2018-07-18] MEDS: BUDESONIDE/FORMOTEROL 160-4.5 MCG 60 PUFF/6 GM MDI IH SCH ×2 (09:45→22:11)
[2018-07-18] MEDS: TIOTROPIUM BROMIDE DPI 5 CAP/KIT (18 MCG/CAP) IH SCH (09:45)
[2018-07-18] MEDS ORDERED: PREDNISONE 20 MG TABLET PO SCH (10:00)
[2018-07-18 11:18] LABS: ANION GAP 5 (5-19); BLOOD UREA NITROGEN 17 mg/dL (7-20); CALCIUM 8.4 mg/dL (8.4-10.2); CARBON DIOXIDE 36 mmol/L (22-30); CHLORIDE 94 mmol/L (98-107); GLUCOSE 78 mg/dL (75-110); SODIUM 135.3 mmol/L (137-145)
[2018-07-18] MEDS: CLOTRIMAZOLE/BETAMETHASONE DIP CREAM 15 GM TOP SCH ×2 (13:23→17:05)
[2018-07-18] MEDS ORDERED: NORMAL SALINE 1000 ML 1,000 ML IV PRN (15:29)
--- NOTE | 2018-07-18 15:33 | PDOC PROGRESS REPORT ---
Subjective Reason For Visit: PNEUMONIA Physical Exam Vital Signs: Temp Pulse Resp BP Pulse Ox 97.9 F 103 H 18 123/83 93 07/18/18 11:16 07/18/18 14:00 07/18/18 11:16 07/18/18 11:16 07/18/18 11:16 Intake & Output 07/17/18 07/18/18 07/19/18 06:59 06:59 06:59 Intake Total 850 1066 50 Output Total 3 Balance 850 1063 50 Weight 109 lb 9.116 oz 111 lb 1.808 oz Results Laboratory Results: 07/16/18 05:27 07/18/18 09:57 07/18/18 09:57 Sodium 135.3 L Potassium 5.0 Chloride 94 L Carbon Dioxide 36 H Anion Gap 5 BUN 17 Creatinine 0.55 Est GFR ( Amer) > 60 Est GFR (Non-Af Amer) > 60 Glucose 78 Calcium 8.4 Magnesium 1.8 07/10/18 07/10/18 07/10/18 12:56 16:32 21:30 CK-MB (CK-2) 0.57 0.82 Troponin I < 0.012 < 0.012 < 0.012 NT-Pro-B Natriuret Pep 07/11/18 07/11/18 07/12/18 03:20 03:20 06:25 CK-MB (CK-2) 0.81 Troponin I < 0.012 NT-Pro-B Natriuret Pep 6770 H 6900 H 07/13/18 07/14/18 07/15/18 05:31 05:50 04:46 CK-MB (CK-2) Troponin I NT-Pro-B Natriuret Pep 8070 H 6560 H 5560 H Impressions: Chest CT 07/10/18 00:00 IMPRESSION: Extensive infiltrates in left upper lobe and lingula with patchy ground-glass infiltrates scattered elsewhere in the lungs. Suggestive of pneumonia. May represent an atypical process such as mycobacterium avium. Chest X-Ray 07/14/18 07:45 IMPRESSION: Improving pneumonia. Assessment & Plan - Diagnosis (1) COPD exacerbation Is this a current diagnosis for this admission?: Yes (2) Pneumonia Qualifiers: Pneumonia type: due to unspecified organism Laterality: left Lung location: upper lobe of lung Qualified Code(s): J18.1 - Lobar pneumonia, unspecified organism Is this a current diagnosis for this admission?: Yes (3) Sepsis Qualifiers: Sepsis type: sepsis due to unspecified organism Qualified Code(s): A41.9 - Sepsis, unspecified organism Is this a current diagnosis for this admission?: Yes (4) Tobacco abuse Is this a current diagnosis for this admission?: Yes (5) Hyponatremia Is this a current diagnosis for this admission?: Yes (6) Lymphoma Qualifiers: Lymphoma type: non-Hodgkin Non-Hodgkin lymphoma type: follicular Follicular lymphoma grade: unspecified grade Lymphoma site: unspecified region Qualified Code(s): C82.90 - Follicular lymphoma, unspecified, unspecified site Is this a current diagnosis for this admission?: Yes - Plan Summary Plan Summary: Sepsis 2/ KG PNA- improving. H. Flu is the suspected organism. ID noted appreciated- recommends 7 days of rocephin - started 07/15. he's doing much better. c/w breathing treatments COPD exac- c/w xopenex, spiriva and symbicort. PRN albuterol. c/w prednisone 60mg daily for now. will titrate slowly Tobacco abuse- on nicotine patch- counseled on cessation. H/o Lymphoma- appreciate Onc consult. Hyponatremia- acute vs chronic. seems to be hold stable around mid 130s. doesn't look volume overloaded- i gave him some IV fluids overnight and his Na slightly lower today- will try to restrict him today and gets some Osm serum/urine in AM
[2018-07-18] MEDS ORDERED: LEVOFLOXACIN 500 MG TABLET PO SCH (18:00)
--- NOTE | 2018-07-18 18:57 | PROGRESS NOTE E ---
Progress Note NAME: DARSHAN SABA : 1965 AGE: 53Y DATE: 07/18/2018 ROOM: 324 SUBJECTIVE: The patient is a 53-year-old male who came in with pneumonia in left upper lobe and COPD exacerbation. Admitted on July 10, 2018. The patient states he is feeling better. He denies any hemoptysis. Denies any increasing cough or purulent sputum production. No nausea, vomiting, diarrhea. No abdominal pain. The patient is on IV Rocephin daily. Had a blood culture 1 bottle is showing haemophilus influenzae. Sputum cultures not collected. OBJECTIVE: GENERAL: The patient is awake, alert, coherent, oriented x3. VITAL SIGNS: Temperature of 97.4 and a T-max of 98.1, heart rate of 82, blood pressure is 105/69, respiratory rate is 22, saturation is 96% on 2 liters nasal cannula. EYES: No jaundice or pallor. EARS, NOSE, AND THROAT: No ear drainage. No nasal discharge. CHEST AND LUNGS: No wheezing, no rhonchi, no coarse crackles noted. CARDIOVASCULAR: S1, S2 distinct. Normal rate and regular rhythm. ABDOMEN: Flabby, positive bowel sounds, soft, nondistended, nontender. EXTREMITIES: No joint swelling, no cellulitis. LABORATORY DATA: CBC done on 07/16/2018 showed white count of 8.7, hemoglobin is 12.5, hematocrit is 37, and platelet count is 405, band is 3%. ABG done on 07/17/2018 showed pH of 7.46, pCO2 of 48.1, pO2 of 68.5, and saturation 94.4. Chemistry done today showed sodium is 135, potassium 5, chloride 94, CO2 of 36, BUN 17, creatinine 0.55, calcium is 8.4, magnesium 1.8, and glucose is 178. ASSESSMENT: 1. COPD IN SEVERE EXACERBATION, CURRENTLY STABLE AND NOT IN BRONCHOSPASM. 2. PNEUMONIA LEFT UPPER LOBE, CURRENTLY IMPROVING. Blood cultures is showing haemophilus influenzae. No sputum culture available. PLAN/RECOMMENDATION: 1. Taper prednisone gradually. 2. May discontinue Rocephin and place on Levaquin 500 mg p.o. daily for the next 7 to 10 days. 3. The patient may be able to go home on a tapering dose of prednisone and Levaquin for 7 to 10 days. 4. Recommend pulmonary clinic follow up in 2 to 3 weeks after hospital discharge. 5. Discussed patient's condition and treatment plan with hospitalist - Dut DICTATING PHYSICIAN: ANAHI GUZMAN MD,YAKELIN,MPH [id number] PHY#: [id number] ID: [id number] JOB#: [id number] ACCT: [id number] cc: > MTDD
[2018-07-19 00:50] LABS: HEMATOCRIT 37.4 % (37.9-51.0); HEMOGLOBIN 12.7 g/dL (13.5-17.0); MEAN CORPUSCULAR HEMOGLOBIN 29.4 pg (27.0-33.4); MEAN CORPUSCULAR HGB CONC 33.9 g/dL (32.0-36.0); MEAN CORPUSCULAR VOLUME 87 fl (80-97); PLATELET COUNT 739 10^3/uL (150-450); RED BLOOD COUNT 4.32 10^6/uL (4.35-5.55); RED CELL DISTRIBUTION WIDTH 14.6 % (11.5-14.0); WHITE BLOOD COUNT 6.9 10^3/uL (4.0-10.5)
[2018-07-19] MEDS: LEVALBUTEROL HCL NEB 1.25 MG/3 ML AMPUL NEB SCH ×2 (00:58→08:42)
[2018-07-19 01:21] LABS: ABSOLUTE LYMPHOCYTES# (MANUAL) 0.7 10^3/uL (0.5-4.7); ABSOLUTE MONOCYTES # (MANUAL) 0.3 10^3/uL (0.1-1.4); ABSOLUTE NEUTROPHILS# (MANUAL) 5.9 10^3/uL (1.7-8.2); BASOPHILS % (MANUAL) 0 % (0-2); EOSINOPHILS % (MANUAL) 1 % (0-6); LYMPHOCYTES % (MANUAL) 10 % (13-45); MONOCYTES % (MANUAL) 4 % (3-13); SEGMENTED NEUTROPHILS % (MAN) 85 % (42-78); TOTAL CELLS COUNTED 100
[2018-07-19 01:22] LABS: TOXIC GRANULATION SLIGHT; TOXIC VACUOLATION PRESENT
[2018-07-19 01:23] LABS: ANISOCYTOSIS SLIGHT; OVALOCYTES 1+; PLATELET COMMENT ADEQUATE; POIKILOCYTOSIS 1+; SCHISTOCYTES SLIGHT; TEAR DROP CELLS SLIGHT
[2018-07-19 06:56] LABS: ANION GAP 7 (5-19); BLOOD UREA NITROGEN 18 mg/dL (7-20); CALCIUM 8.6 mg/dL (8.4-10.2); CARBON DIOXIDE 30 mmol/L (22-30); CHLORIDE 97 mmol/L (98-107); GLUCOSE 89 mg/dL (75-110); POTASSIUM 5.1 mmol/L (3.6-5.0); SODIUM 134.3 mmol/L (137-145)
[2018-07-19] MEDS: ENOXAPARIN SODIUM INJ 40 MG/0.4 ML DISP.SYRIN SUBCUT SCH (09:42)
[2018-07-19] MEDS: DOCUSATE SODIUM 100 MG CAPSULE PO SCH (09:42)
[2018-07-19] MEDS: CLOTRIMAZOLE/BETAMETHASONE DIP CREAM 15 GM TOP SCH (09:42)
[2018-07-19] MEDS: FAMOTIDINE 20 MG TABLET PO SCH (09:45)
[2018-07-19] MEDS: TIOTROPIUM BROMIDE DPI 5 CAP/KIT (18 MCG/CAP) IH SCH (09:45)
[2018-07-19] MEDS: BUDESONIDE/FORMOTEROL 160-4.5 MCG 60 PUFF/6 GM MDI IH SCH (09:46)
[2018-07-19] MEDS ORDERED: PREDNISONE 20 MG TABLET PO SCH (10:00)
--- NOTE | 2018-07-19 11:09 | PDOC DISCHARGE SUMMARY ---
General - Admit/Disc Date/PCP Admission Date/Primary Care Provider: 07/10/18 15:10 KAYLYN SAINI Discharge Date: 07/19/18 - Discharge Diagnosis (1) COPD exacerbation Is this a current diagnosis for this admission?: Yes (2) Pneumonia Is this a current diagnosis for this admission?: Yes (3) Sepsis Is this a current diagnosis for this admission?: Yes (4) Tobacco abuse Is this a current diagnosis for this admission?: Yes (5) Hyponatremia Is this a current diagnosis for this admission?: Yes (6) Lymphoma Is this a current diagnosis for this admission?: Yes - Additional Information Resuscitation Status: Full Code Discharge Diet: As Tolerated Discharge Activity: Activity As Tolerated Prescriptions: Levofloxacin [Levaquin 500 mg Tablet] 500 mg PO DAILY #7 tablet Prednisone [Deltasone 20 mg Tablet] 20 mg PO ASDIR PRN 10 Days #11 tablet PRN Reason: Home Medications: Albuterol Sulfate [Proair HFA Inhalation Aerosol 8.5 gm MDI] 2 puff IH Q4HP PRN 05/01/17 Budesonide/Formoterol Fumarate [Symbicort HFA 160-4.5 mcg Inhaler 6 gm] 2 puff IH Q12 07/10/18 Omeprazole 40 mg PO DAILY 07/10/18 Acetaminophen [Tylenol 325 mg Tablet] 650 mg PO Q4HP PRN tablet 07/19/18 Levofloxacin [Levaquin 500 mg Tablet] 500 mg PO DAILY #7 tablet 07/19/18 Prednisone [Deltasone 20 mg Tablet] 20 mg PO ASDIR PRN 10 Days #11 tablet 07/19/18 Tiotropium [place] [Spiriva Handihaler 5 Cap/Kit (18 Mcg/Cap)] 1 cap IH DAILY kit 07/19/18 History of Present Illness History of Present Illness: DARSHAN SABA is a 53 year old male admitted for COPD exac, PNA and acute respiratory failure. please see H&P for full A&P Hospital Course Hospital Course: since admission he was started on pulm hygiene for COPD exacerbation- neb treatments and solumedrol IV- later transitioned to PO prednisone on discharge for his PNA- his cultures gew H. Flu- Dr Torres recommended Rocephin for 7 days - but Dr Cordoba feels that he can be discharged today on Levaquin for 7 days. he also wants him on a prednisone taper. he will follow up with patient in his office within 2-3 weeks. he will get repeat CT chest to evaluate the PNA. he remains slightly hyponatreima- he will go home on a fluid restriction 1.5L until he follows up with PCP within 1 week. he will need repeat BMP within 1 wee k. patient verbalized the understandings and instructions above. Physical Exam Vital Signs: Temp Pulse Resp BP Pulse Ox 97.6 F 90 18 107/68 98 07/19/18 08:00 07/19/18 08:42 07/19/18 08:42 07/19/18 08:00 07/19/18 08:42 Intake & Output 07/18/18 07/19/18 07/20/18 06:59 06:59 06:59 Intake Total 1066 50 Output Total 3 1 Balance 1063 49 Weight 111 lb 1.808 oz 107 lb 2.314 oz General appearance: PRESENT: no acute distress Head exam: PRESENT: atraumatic, normocephalic Eye exam: PRESENT: EOMI. ABSENT: conjunctival injection, scleral icterus Ear exam: PRESENT: normal external ear exam Mouth exam: PRESENT: moist, tongue midline Neck exam: ABSENT: tracheal deviation Respiratory exam: PRESENT: decreased breath sounds - bilaterally, symmetrical, wheezes Cardiovascular exam: PRESENT: +S1, +S2 Pulses: PRESENT: +2 pedal pulses bilateral GI/Abdominal exam: PRESENT: normal bowel sounds, soft. ABSENT: tenderness Extremities exam: ABSENT: pedal edema Neurological exam: PRESENT: alert, awake, oriented to person, oriented to place, oriented to time, CN II-XII grossly intact Skin exam: PRESENT: dry, warm Results Laboratory Results: 07/19/18 00:41 07/19/18 05:46 07/18/18 07/18/18 07/18/18 09:57 09:57 15:50 WBC RBC Hgb Hct MCV MCH MCHC RDW Plt Count Seg Neutrophils % Lymphocytes % Monocytes % Eosinophils % Basophils % Absolute Neutrophils Absolute Lymphocytes Absolute Monocytes Absolute Eosinophils Absolute Basophils Sodium 135.3 L Potassium 5.0 Chloride 94 L Carbon Dioxide 36 H Anion Gap 5 BUN 17 Creatinine 0.55 Est GFR ( Amer) > 60 Est GFR (Non-Af Amer) > 60 Glucose 78 Serum Osmolality 285 Calcium 8.4 Magnesium 1.8 Urine Osmolality 406 Stool Occult Blood 07/19/18 07/19/18 07/19/18 00:41 05:46 06:00 WBC 6.9 RBC 4.32 L Hgb 12.7 L Hct 37.4 L MCV 87 MCH 29.4 MCHC 33.9 RDW 14.6 H Plt Count 739 H Seg Neutrophils % Not Reportable Lymphocytes % Not Reportable Monocytes % Not Reportable Eosinophils % Not Reportable Basophils % Not Reportable Absolute Neutrophils Not Reportable Absolute Lymphocytes Not Reportable Absolute Monocytes Not Reportable Absolute Eosinophils Not Reportable Absolute Basophils Not Reportable Sodium 134.3 L Potassium 5.1 H Chloride 97 L Carbon Dioxide 30 Anion Gap 7 BUN 18 Creatinine 0.50 L Est GFR ( Amer) > 60 Est GFR (Non-Af Amer) > 60 Glucose 89 Serum Osmolality Calcium 8.6 Magnesium Urine Osmolality Stool Occult Blood NEGATIVE 07/10/18 07/10/18 07/10/18 12:56 16:32 21:30 CK-MB (CK-2) 0.57 0.82 Troponin I < 0.012 < 0.012 < 0.012 NT-Pro-B Natriuret Pep 07/11/18 07/11/18 07/12/18 03:20 03:20 06:25 CK-MB (CK-2) 0.81 Troponin I < 0.012 NT-Pro-B Natriuret Pep 6770 H 6900 H 07/13/18 07/14/18 07/15/18 05:31 05:50 04:46 CK-MB (CK-2) Troponin I NT-Pro-B Natriuret Pep 8070 H 6560 H 5560 H Impressions: Chest CT 07/10/18 00:00 IMPRESSION: Extensive infiltrates in left upper lobe and lingula with patchy ground-glass infiltrates scattered elsewhere in the lungs. Suggestive of pneumonia. May represent an atypical process such as mycobacterium avium. Chest X-Ray 07/14/18 07:45 IMPRESSION: Improving pneumonia. Qualifiers - * PATIENT BEING DISCHARGED WITH ANY OF THE FOLLOWING DIAGNOSIS: No Plan Time Spent: Less than 30 Minutes
[2018-07-19 11:18] VITALS: BP 122/70
== END 2018-07-19 13:11 | disposition home health service (06) | DRG 871 ==
LOC: ER 12:22 → EH 15:10 → 3W 07-11 15:14
PROVIDERS: ADMIT Internal Medicine; ATTEND Internal Medicine
PROC: 5A09457 Assistance with Respiratory Ventilation, 24-96 Consecutive Hours, Continuous Positive Airway Pressure (ICD-10-PCS; principal; 2018-07-10)
PROC: 3E0234Z Introduction of Serum, Toxoid and Vaccine into Muscle, Percutaneous Approach (ICD-10-PCS; 2018-07-10)
PROC: 3E02340 Introduction of Influenza Vaccine into Muscle, Percutaneous Approach (ICD-10-PCS; 2018-07-19)
DX: A41.9 Sepsis, unspecified organism (principal); J18.1 Lobar pneumonia, unspecified organism; J96.21 Acute and chronic respiratory failure with hypoxia; J96.22 Acute and chronic respiratory failure with hypercapnia; E43 Unspecified severe protein-calorie malnutrition; J44.0 Chronic obstructive pulmonary disease with (acute) lower respiratory infection; J44.1 Chronic obstructive pulmonary disease with (acute) exacerbation; E87.1 Hypo-osmolality and hyponatremia; N17.9 Acute kidney failure, unspecified; I50.22 Chronic systolic (congestive) heart failure; Z68.1 Body mass index [BMI] 19.9 or less, adult; C82.90 Follicular lymphoma, unspecified, unspecified site; M47.9 Spondylosis, unspecified; F41.9 Anxiety disorder, unspecified; I95.89 Other hypotension; I11.0 Hypertensive heart disease with heart failure; F17.210 Nicotine dependence, cigarettes, uncomplicated; Z79.01 Long term (current) use of anticoagulants; Z79.899 Other long term (current) drug therapy; Z91.018 Allergy to other foods; Z79.891 Long term (current) use of opiate analgesic; Z99.81 Dependence on supplemental oxygen; Z82.49 Family history of ischemic heart disease and other diseases of the circulatory system; Z80.9 Family history of malignant neoplasm, unspecified; Z23 Encounter for immunization
CPT/HCPCS: 36415; 36600; 71045; 71046; 71260; 80048; 80053; 80061; 80307; 81001; 82272; 82553; 82803; 82962; 83605; 83615; 83690; 83735; 83880; 83930; 83935; 84443; 84484; 85025; 85610; 87040; 87077; 87086; 87186; 90686; 93005; 93010; 93306; 94640; 94660; 96365; 96366; 96368; 96375; 99291; J0456; J0696; J1650; J1956; J2543; J2920; J2930; J3475; J3490; J7030; J7512; J7620; S0028

== ENCOUNTER → 2018-07-24 | Outpatient (CLI) | payer MEDICARE, MEDICAID ==
--- NOTE | 2018-07-24 11:50 | RADIOLOGY REPORT (SQ) ---
EXAM DESCRIPTION: CHEST PA/LATERAL COMPLETED DATE/TIME: 07/24/2018 11:23 am REASON FOR STUDY: ACUTE RESPIRATORY FAILURE WITH HYPOXIA;PNEUMONIA COMPARISON: Chest films 07/10/2018, 07/14/2018 CT chest 07/10/2018 EXAM PARAMETERS: NUMBER OF VIEWS: two views TECHNIQUE: Digital Frontal and Lateral radiographic views of the chest acquired. RADIATION DOSE: NA LIMITATIONS: none FINDINGS: LUNGS AND PLEURA: Continued improvement in the chest with decrease in density of left uppe r lobe pneumonia compared to studies. Minimal bandlike scarring in the right upper lobe. No pleural effusions. No pneumothorax. MEDIASTINUM AND HILAR STRUCTURES: No masses or contour abnormalities. HEART AND VASCULAR STRUCTURES: Heart normal size. No evidence for failure. BONES: No acute findings. HARDWARE: None in the chest. OTHER: No other significant finding. IMPRESSION: Continued improvement in appearance of the chest, with decrease in density of left upper lobe pneumonia compared to previous studies TECHNICAL DOCUMENTATION: JOB ID: [id number] [employer]- All Rights Reserved Reading location - IP/workstation name: [email or web address]
== END ==
LOC: OD 11:06
PROVIDERS: ATTEND Internal Medicine
DX: J18.9 Pneumonia, unspecified organism (principal); J96.01 Acute respiratory failure with hypoxia
CPT/HCPCS: 71046

== ENCOUNTER → 2018-09-22 | Outpatient (CLI) | payer MEDICARE, MEDICAID ==
[2018-09-22 11:40] LABS: HEMATOCRIT 33.5 % (37.9-51.0); HEMOGLOBIN 11.5 g/dL (13.5-17.0); MEAN CORPUSCULAR HEMOGLOBIN 29.1 pg (27.0-33.4); MEAN CORPUSCULAR HGB CONC 34.4 g/dL (32.0-36.0); MEAN CORPUSCULAR VOLUME 85 fl (80-97); PLATELET COUNT 712 10^3/uL (150-450); RED BLOOD COUNT 3.96 10^6/uL (4.35-5.55); RED CELL DISTRIBUTION WIDTH 15.1 % (11.5-14.0); WHITE BLOOD COUNT 3.6 10^3/uL (4.0-10.5)
[2018-09-22 12:01] LABS: ALANINE AMINOTRANSFERASE 20 U/L (21-72); ALBUMIN 3.2 g/dL (3.5-5.0); ALKALINE PHOSPHATASE 77 U/L (38-126); ANION GAP 11 (5-19); ASPARTATE AMINO TRANSFERASE 22 U/L (17-59); BILIRUBIN,DIRECT 0.3 mg/dL (0.0-0.4); BILIRUBIN,TOTAL 0.3 mg/dL (0.2-1.3); BLOOD UREA NITROGEN 8 mg/dL (7-20); CALCIUM 8.7 mg/dL (8.4-10.2); CARBON DIOXIDE 27 mmol/L (22-30); CHLORIDE 95 mmol/L (98-107); GLUCOSE 76 mg/dL (75-110); POTASSIUM 4.4 mmol/L (3.6-5.0); SODIUM 133.4 mmol/L (137-145); TOTAL PROTEIN 5.6 g/dL (6.3-8.2)
[2018-09-22 12:09] LABS: ABSOLUTE LYMPHOCYTES# (MANUAL) 0.4 10^3/uL (0.5-4.7); ABSOLUTE MONOCYTES # (MANUAL) 0.3 10^3/uL (0.1-1.4); ABSOLUTE NEUTROPHILS# (MANUAL) 2.4 10^3/uL (1.7-8.2); BAND NEUTROPHILS % (MANUAL) 2 % (3-5); BASOPHILS % (MANUAL) 4 % (0-2); EOSINOPHILS % (MANUAL) 12 % (0-6); LYMPHOCYTES % (MANUAL) 10 % (13-45); MONOCYTES % (MANUAL) 8 % (3-13); SEGMENTED NEUTROPHILS % (MAN) 64 % (42-78); TOTAL CELLS COUNTED 100
[2018-09-22 12:15] LABS: ANISOCYTOSIS SLIGHT; OVALOCYTES SLIGHT; PLATELET COMMENT INCREASED; TOXIC GRANULATION 1+; TOXIC VACUOLATION PRESENT
== END ==
LOC: OD 10:36
PROVIDERS: ATTEND Internal Medicine
DX: D64.9 Anemia, unspecified (principal); R10.9 Unspecified abdominal pain
CPT/HCPCS: 36415; 80053; 85025

== ENCOUNTER → 2018-09-23 | Outpatient (CLI) | payer MEDICARE, MEDICAID ==
--- NOTE | 2018-09-23 15:09 | RADIOLOGY REPORT (SQ) ---
EXAM DESCRIPTION: CT CHEST WITHOUT COMPLETED DATE/TIME: 09/23/2018 1:09 pm REASON FOR STUDY: R91.1 SOLITARY PULMONARY NODULE R91.1 SOLITARY PULMONARY NODULE COMPARISON: 07/10/2018 TECHNIQUE: CT scan performed of the chest without intravenous contrast. Images reviewed with lung, soft tissue and bone windows. Reconstructed coronal and sagittal MPR images reviewed. All images st ored on PACS. All CT scanners at this facility use dose modulation, iterative reconstruction, and/or weight based d osing when appropriate to reduce radiation dose to as low as reasonably achievable (ALARA). [facility]: Dose Right [facility]: CareDose [facility]: Dose Right [facility]: Teradose 4D [facility]: LiquidHub RADIATION DOSE: CT Rad equipment meets quality standard of care and radiation dose reduction techniq ues were employed. CTDIvol: 3.3 mGy. DLP: 137 mGy-cm. mGy. LIMITATIONS: No technical limitations. FINDINGS: LUNGS AND PLEURA: Lungs demonstrate improved aeration compared to exam dated 07/10/2018. T here are residual areas of ground-glass attenuation within the left upper lobe with scattered areas o f mild tree-in-bud opacities. There are more areas of dense consolidation within the lingula and lef t lower lobe, worsened from prior. Scattered additional subcentimeter centrilobular nodular opacitie s bilaterally. No significant pleural effusion. No pneumothorax. HILAR AND MEDIASTINAL STRUCTURES: No identified masses or abnormal nodes. No obvious aneurysm. HEART AND VASCULAR STRUCTURES: No aneurysm. No pericardial effusion. UPPER ABDOMEN: No significant findings. Limited exam. THYROID AND OTHER SOFT TISSUES: No masses. No adenopathy. BONES: No significant finding. HARDWARE: None in the chest. OTHER: No other significant findings. IMPRESSION: Dense peribronchovascular consolidation within the lingula and left lower lobe, increase d from prior. Improvement in the diffuse bilateral centrilobular opacities with additional residual ground-glass opacities and tree-in-bud opacities throughout both lungs. Findings may be infectious a lthough idiopathic interstitial pneumonia such as cryptogenic organizing pneumonia is another conside ration. Recommend continued follow-up to resolution. TECHNICAL DOCUMENTATION: JOB ID: [id number] Quality ID # [id number]: Final reports with documentation of one or more dose reduction techniques (e.g., Au tomated exposure control, adjustment of the mA and/or kV according to patient size, use of iterative reconstruction technique) 2010 [employer]- All Rights Reserved Reading location - IP/workstation name: [email or web address]
== END ==
LOC: RAD 12:55
PROVIDERS: ATTEND Internal Medicine Critical Care Medicine
DX: J44.9 Chronic obstructive pulmonary disease, unspecified (principal); J15.9 Unspecified bacterial pneumonia; R91.1 Solitary pulmonary nodule
CPT/HCPCS: 71250

== ENCOUNTER → 2018-11-04 | Outpatient (CLI) | payer MEDICARE, MEDICAID ==
--- NOTE | 2018-11-04 09:19 | RADIOLOGY REPORT (SQ) ---
EXAM DESCRIPTION: CHEST PA/LATERAL COMPLETED DATE/TIME: 11/04/2018 9:06 am REASON FOR STUDY: PNEUMONIA, UNSPECIFIED ORGANISM COMPARISON: 10/10/2018 EXAM PARAMETERS: NUMBER OF VIEWS: two views TECHNIQUE: Digital Frontal and Lateral radiographic views of the chest acquired. RADIATION DOSE: NA LIMITATIONS: none FINDINGS: LUNGS AND PLEURA: The lung stallings are hyperexpanded. There is persistent airspace disease in the left base although are is been significant improvement. Probable underlying interstitial moises g disease. There is hyperexpansion. Slight flattening of the hemidiaphragms. MEDIASTINUM AND HILAR STRUCTURES: No masses or contour abnormalities. HEART AND VASCULAR STRUCTURES: Heart normal size. No evidence for failure. BONES: No acute findings. HARDWARE: None in the chest. OTHER: No other significant finding. IMPRESSION: COPD with chronic interstitial changes. There is residual left lower lobe infiltrate co nsistent with pneumonia. This is improved from prior study. TECHNICAL DOCUMENTATION: JOB ID: [id number] [employer]- All Rights Reserved Reading location - IP/workstation name: [email or web address]
== END ==
LOC: OD 08:51
PROVIDERS: ATTEND Internal Medicine
DX: J18.9 Pneumonia, unspecified organism (principal)
CPT/HCPCS: 71046

== ENCOUNTER 2018-11-30 14:31 | Inpatient (IN) | payer MEDICARE, MEDICAID ==
[2018-11-30] MEDS ORDERED: NORMAL SALINE 1000 ML 1,000 ML IV ONE ×2 (17:37→20:13)
--- NOTE | 2018-11-30 17:37 | ER Document Report ---
ED Medical Screen (RME) - General Chief Complaint: Breathing Difficulty Stated Complaint: POSSIBLE PNEUMONIA Time Seen by Provider: 11/30/18 17:27 Primary Care Provider: HILLARY CONTRERAS MD [Primary Care Provider] - Follow up as needed Mode of Arrival: Wheelchair Information source: Patient, Relative Notes: 53-year-old male presented to ED for pneumonia again "he was sent by his primary care doctor Dr. Contreras with a history of lymphoma COPD and pneumonia on x-ray. According to the patient he just finished taking antibiotics and is much worse. He is extremely short of breath. His respirations of 32 his apical pulse is 140 his O2 sat is 83-85 on room air. He states he sometimes uses oxygen 2 L at home. I have placed him on O2 2 L while waiting for bed. His blood pressure is 80/60. I have spoken with the charge nurse about getting him a room assignment. Lungs are diminished to ask auscultation. I do not hear rales or rhonchi. I have greeted and performed a rapid initial assessment of this patient. A comprehensive ED assessment and evaluation of the patient, analysis of test results and completion of medical decision making process will be conducted by an additional ED providers. Dictation of this chart was performed using voice recognition software; therefore, there may be some unintended grammatical errors. TRAVEL OUTSIDE OF THE [place] 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 Completed all treatment. Currently with no evidence of disease GI Medical History: Denies: Hx Cirrhosis, Hx Crohn's Disease, Hx Hepatitis Musculoskeltal Medical History: Reports Hx Arthritis - BACK, Reports Hx Gout Psychiatric Medical History: Reports: Hx Anxiety, Hx Depression Traumatic Medical History: Denies: Hx Gunshot Wound, Hx Pneumothorax Infectious Medical History: Denies: Hx Hepatitis Past Surgical History: Reports: Hx Bowel Surgery - Perforated bowel surgery, Other - Ulcer repair, SBO repair, port placement, left eyebrow surgery - Immunizations Hx Diphtheria, Pertussis, Tetanus Vaccination: No - UNSURE History of Influenza Vaccine for 03/2017 - 08/2017 Season: No Physical Exam - Vital signs Vitals: Temp Pulse Resp BP 98.3 F 75 26 H 92/64 L 11/30/18 16:15 11/30/18 16:15 11/30/18 16:15 11/30/18 16:15 Course - Vital Signs Vital signs: Temp Pulse Resp BP Pulse Ox 98.3 F 75 26 H 92/64 L 11/30/18 16:15 11/30/18 16:15 11/30/18 16:15 11/30/18 16:15 Doctor's Discharge - Discharge Referrals: HILLARY CONTRERAS MD [Primary Care Provider] - Follow up as needed
[2018-11-30] MEDS ORDERED: CEFTRIAXONE 1 GM/D5W RTU 1 GM/50 ML RTUPB IV ONE (17:43)
--- NOTE | 2018-11-30 18:23 | RADIOLOGY REPORT (SQ) ---
EXAM DESCRIPTION: CHEST SINGLE VIEW COMPLETED DATE/TIME: 11/30/2018 6:07 pm REASON FOR STUDY: short of breath COMPARISON: 11/04/2018 and 10/10/2018 EXAM PARAMETERS: NUMBER OF VIEWS: One view. TECHNIQUE: Single frontal radiographic view of the chest acquired. RADIATION DOSE: NA LIMITATIONS: None. FINDINGS: LUNGS AND PLEURA: Increased airspace markings likely localize to the right lower lobe. In terval radiographic resolution of previously diagnosed left lower lobe pneumonia. No large pleural e ffusion. No pneumothorax. MEDIASTINUM AND HILAR STRUCTURES: No masses. Contour normal. HEART AND VASCULAR STRUCTURES: Heart normal in size. Normal vasculature. BONES: No acute findings. HARDWARE: None in the chest. OTHER: No other significant finding. IMPRESSION: Likely right lower lobe pneumonia. TECHNICAL DOCUMENTATION: JOB ID: [id number] [employer]- All Rights Reserved Reading location - IP/workstation name: [email or web address]
[2018-11-30 18:40] LABS: ARTERIAL BLOOD BASE EXCESS 1.2 mmol/L; ARTERIAL BLOOD FIO2 4L; ARTERIAL BLOOD H2CO3 0.74 mmol/L (1.05-1.35); ARTERIAL BLOOD HCO3 21.8 mmol/L (20-24); ARTERIAL BLOOD O2 SATURATION 95.7 % (94-98); ARTERIAL BLOOD PCO2 24.6 mmHg (35-45); ARTERIAL BLOOD PH 7.57 (7.35-7.45); ARTERIAL BLOOD TOTAL CO2 22.6 mmol/L (23-27)
[2018-11-30 19:12] LABS: VENOUS BLOOD BASE EXCESS 2.9 mmol/L; VENOUS BLOOD HCO3 26.2 mmol/L (20-32); VENOUS BLOOD PCO2 35.9 mmHg (35-63); VENOUS BLOOD PH 7.48 (7.30-7.42)
[2018-11-30 19:13] LABS: HEMATOCRIT 38.8 % (37.9-51.0); HEMOGLOBIN 13.3 g/dL (13.5-17.0); MEAN CORPUSCULAR HEMOGLOBIN 26.4 pg (27.0-33.4); MEAN CORPUSCULAR HGB CONC 34.2 g/dL (32.0-36.0); MEAN CORPUSCULAR VOLUME 77 fl (80-97); PLATELET COUNT 315 10^3/uL (150-450); RED BLOOD COUNT 5.02 10^6/uL (4.35-5.55); RED CELL DISTRIBUTION WIDTH 20.2 % (11.5-14.0); WHITE BLOOD COUNT 7.2 10^3/uL (4.0-10.5)
[2018-11-30 19:18] LABS: INTERNATIONAL RATION (INR) 0.99; PROTHROMBIN TIME 13.6 SEC (11.4-15.4)
[2018-11-30 19:30] LABS: ALANINE AMINOTRANSFERASE 20 U/L (21-72); ALBUMIN 2.9 g/dL (3.5-5.0); ALKALINE PHOSPHATASE 87 U/L (38-126); ANION GAP 12 (5-19); ASPARTATE AMINO TRANSFERASE 42 U/L (17-59); BILIRUBIN,DIRECT 0.3 mg/dL (0.0-0.4); BILIRUBIN,TOTAL 0.7 mg/dL (0.2-1.3); BLOOD UREA NITROGEN 21 mg/dL (7-20); CALCIUM 8.2 mg/dL (8.4-10.2); CARBON DIOXIDE 25 mmol/L (22-30); CHLORIDE 91 mmol/L (98-107); GLUCOSE 100 mg/dL (75-110); POTASSIUM 5.5 mmol/L (3.6-5.0); SODIUM 127.8 mmol/L (137-145); TOTAL PROTEIN 5.2 g/dL (6.3-8.2)
[2018-11-30 19:50] LABS: ABSOLUTE LYMPHOCYTES# (MANUAL) 0.6 10^3/uL (0.5-4.7); ABSOLUTE MONOCYTES # (MANUAL) 1.3 10^3/uL (0.1-1.4); BAND NEUTROPHILS % (MANUAL) 9 % (3-5); BASOPHILS % (MANUAL) 0 % (0-2); EOSINOPHILS % (MANUAL) 0 % (0-6); LYMPHOCYTES % (MANUAL) 9 % (13-45); METAMYELOCYTES % (MANUAL) 1 % (0); MONOCYTES % (MANUAL) 18 % (3-13); SEGMENTED NEUTROPHILS % (MAN) 63 % (42-78); TOTAL CELLS COUNTED 100
[2018-11-30 19:52] LABS: ANISOCYTOSIS 2+
[2018-11-30 19:53] LABS: BURR CELLS 1+
[2018-11-30 19:57] LABS: PLATELET COMMENT ADEQUATE
[2018-11-30] MEDS ORDERED: LEVOFLOXACIN 750 MG/D5W RTU 750 MG/150 ML RTUPB IV ONE (20:13)
--- NOTE | 2018-11-30 22:22 | ER Document Report ---
Entered by EMERY GRIER SCRIBE 11/30/181811 Acting as scribe for:DINESH DELGADO DO ED Respiratory Problem - General Chief Complaint: Breathing Difficulty Stated Complaint: POSSIBLE PNEUMONIA Time Seen by Provider: 11/30/18 17:27 Mode of Arrival: Wheelchair Notes: 53-year-old male who presents to the emergency department today with complaints of a persistent cough for the last week. Patient states that he stopped smoking 6 months ago but had a significant smoking history until then. Patient states about 2 months ago he had a pneumonia that was "difficult to get rid of". Patient states his been lying in bed for most of the week hoping that this would go away but he went to his doctor today who sent him here. Patient states his cough is been productive he has had left-sided back pain. Patient has history of lymphoma from which he has been in remission. TRAVEL OUTSIDE OF THE [place] IN LAST 30 DAYS: No - Related Data Allergies/Adverse Reactions: alex Allergy (Mild, Verified 11/30/18 15:20) RASH Past Medical History - General Information source: Patient, Relative - Social History Smoking Status: Former Smoker Cigarette use (# per day): No Chew tobacco use (# tins/day): No Frequency of alcohol use: None Drug Abuse: None Lives with: Family Family History: Reviewed & Not Pertinent, CAD, Hypertension, Malignancy Pulmonary Medical History: Reports: Hx COPD, Hx Pneumonia Neurological Medical History: Reports: Hx Seizures - 20 YEARS AGO R/T HX COCAINE Malignancy Medical History: 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 Completed all treatment. Currently with no evidence of disease Musculoskeletal Medical History: Reports Hx Arthritis - BACK, Reports Hx Gout Psychiatric Medical History: Reports: Hx Anxiety, Hx Depression Past Surgical History: Reports: Hx Bowel Surgery - Perforated bowel surgery, O ther - Ulcer repair, SBO repair, port placement, left eyebrow surgery - Immunizations Hx Diphtheria, Pertussis, Tetanus Vaccination: No - UNSURE Review of Systems - Review of Systems Constitutional: See HPI, Malaise, Weakness EENT: No symptoms reported Cardiovascular: No symptoms reported Respiratory: See HPI, Cough, Short of breath, Wheezing Gastrointestinal: No symptoms reported Genitourinary: No symptoms reported Male Genitourinary: No symptoms reported Musculoskeletal: Back pain Skin: No symptoms reported Hematologic/Lymphatic: No symptoms reported Neurological/Psychological: No symptoms reported -: Yes All other systems reviewed and negative Physical Exam - Vital signs Vitals: Temp Pulse Resp BP 98.3 F 75 26 H 92/64 L 11/30/18 16:15 11/30/18 16:15 11/30/18 16:15 11/30/18 16:15 Interpretation: Hypotensive, Tachypneic - Notes Notes: PHYSICAL EXAM GENERAL: Alert. Pursed lip breathing. Appears significantly short of breath. Oxygen saturation of 88% on 4 Liters via nasal cannula which is hypoxic with good waveform per my interpretation. Cachectic. HEAD: Normocephalic, atraumatic. EYES: Pupils equal, round, and reactive to light. Extraocular movements intact. ENT: Oral mucosa moist, tongue midline. Dry mucous membranes. NECK: Full range of motion. Supple. Trachea midline. LUNGS: Tachypneic. Crackles up to the mid lung stallings. Moderate respiratory distress. HEART: Tachycardic. Regular rhythm. no murmurs, gallops, or rubs. ABDOMEN: Soft, non-tender. Non-distended. Bowel sounds present in all 4 quadrants. No guarding, rigidity, or rebound. EXTREMITIES: Moves all 4 extremities spontaneously. No edema, radial and dorsalis pedis pulses 2/4 bilaterally. No cyanosis. NEUROLOGICAL: Alert and oriented x3. Normal speech. PSYCH: Normal affect, normal mood. SKIN: Warm, dry, normal turgor. No rashes or lesions noted. Course - Re-evaluation Re-evalutation: 11/30/18 22:09 Patient arrived hypotensive, hypoxic, tachypnea tachycardic, immediately placed on increased oxygen via nasal cannula which did not improve his saturation so we then placed him on BiPAP which improved his saturation rapidly, fluid resuscitation was started with mild improvement although his extremities warmed and his capillary refill remained less than 4 seconds. Chest x-ray confirmed right sided pneumonia, treatment was started with Rocephin and Levaquin giving his underlying lung disease, CBC shows anemia 18.3 and a bandemia, no leukocytosis, coags normal, arterial blood gas actually shows respiratory alkalosis with a pH of 7.57 which does go along with his tachypnea, CO2 was low at 24.6, lactic acid normal at 2.1, CMP shows hyponatremia at 127.8, this is new potassium is elevated at 5.5, EKG does not show peaked T waves, calcium low at 8.2, CMP is otherwise unremarkable. 11/30/18 22:12 Patient is currently requesting to be trialed off of BiPAP, he will be allowed to try transitioning back to nasal cannula off of BiPAP with respiratory standing at the bedside. - Vital Signs Vital signs: Temp Pulse Resp BP Pulse Ox 98.3 F 75 27 H 76/59 L 97 11/30/18 16:15 11/30/18 16:15 11/30/18 22:01 11/30/18 22:01 11/30/18 22:01 - Laboratory Result Diagrams: 11/30/18 18:47 11/30/18 18:47 Laboratory results interpreted by me: 11/30/18 11/30/18 11/30/18 18:16 18:47 18:47 Hgb 13.3 L MCV 77 L MCH 26.4 L RDW 20.2 H Band Neutrophils % 9 H Lymphocytes % (Manual) 9 L Monocytes % (Manual) 18 H Metamyelocytes % 1 H Carbonic Acid 0.74 L ABG pH 7.57 H ABG pCO2 24.6 L ABG pO2 66.0 L ABG Total CO2 22.6 L VBG pH Sodium 127.8 L Potassium 5.5 H Chloride 91 L BUN 21 H Calcium 8.2 L ALT 20 L Total Protein 5.2 L Albumin 2.9 L 11/30/18 18:47 Hgb MCV MCH RDW Band Neutrophils % Lymphocytes % (Manual) Monocytes % (Manual) Metamyelocytes % Carbonic Acid ABG pH ABG pCO2 ABG pO2 ABG Total CO2 VBG pH 7.48 H Sodium Potassium Chloride BUN Calcium ALT Total Protein Albumin - EKG Interpretation by Me Additional EKG results interpreted by me: 11/30/18 22:10 EKG shows sinus tachycardia at a rate of 128, borderline R wave progression, normal axis, normal intervals, no ST segment elevations or depressions, no T wave inversions per my interpretation. Critical Care Note - Critical Care Note Total time excluding time spent on procedures (mins): 60 Discharge - Discharge Clinical Impression: Acute hypoxemic respiratory failure, Acute respiratory alkalosis Pneumonia Qualifiers: Pneumonia type: due to unspecified organism Laterality: right Lung location: lower lobe of lung Qualified Code(s): J18.1 - Lobar pneumonia, unspecified organism Condition: Serious Disposition: ADMITTED INPATIENT Admitting Provider: Marcelino (Hospitalist) Unit Admitted: ICU I personally performed the services described in the documentation, reviewed and edited the documentation which was dictated to the scribe in my presence, and it accurately records my words and actions.
[2018-11-30] MEDS ORDERED: ONDANSETRON HCL INJ/PF 4 MG/2 ML SDV IV PRN (23:09)
[2018-11-30] MEDS ORDERED: MAG HYDROX/AL HYDROX/SIMETH SUSP 30 ML UDCUP PO PRN (23:09)
[2018-11-30] MEDS ORDERED: MORPHINE SULFATE 10 MG/ML INJ IV PRN (23:17)
--- NOTE | 2018-11-30 23:28 | EKG REPORT ---
SEVERITY:- OTHERWISE NORMAL ECG - SINUS TACHYCARDIA LOW VOLTAGE IN FRONTAL LEADS : Confirmed by: Kayy Sauer MD 30-Nov-2018 23:27:47
[2018-11-30] MEDS ORDERED: VANCOMYCIN HCL INJ 1000 MG VIAL IV SCH (23:30)
[2018-11-30] MEDS ORDERED: VANCOMYCIN HCL INJ 500 MG VIAL IV PRN (23:37)
[2018-11-30] MEDS ORDERED: VANCOMYCIN HCL 500 MG in DEXTROSE 5%-WATER 100 ML IV ONE (23:59)
[2018-12-01] MEDS: LEVALBUTEROL HCL NEB 1.25 MG/3 ML AMPUL NEB SCH ×3 (00:23→16:02)
[2018-12-01] MEDS: IPRATROPIUM BROMIDE 0.02% NEB 0.5 MG/2.5 ML AMPUL NEB SCH ×3 (00:23→16:02)
[2018-12-01] MEDS ORDERED: PHENYLEPHRINE HCL INJ/PF 10 MG/1 ML SDV ONE ×2 (00:27→06:13)
[2018-12-01] MEDS: DEXTROSE 5%-WATER 250 ML with PHENYLEPHRINE HCL 40 MG IV PRN ×6 (00:36→11:45)
[2018-12-01 00:42] LABS: ARTERIAL BLOOD BASE EXCESS 0.3 mmol/L; ARTERIAL BLOOD H2CO3 0.72 mmol/L (1.05-1.35); ARTERIAL BLOOD HCO3 21.4 mmol/L (20-24); ARTERIAL BLOOD O2 SATURATION 91.9 % (94-98); ARTERIAL BLOOD PH 7.57 (7.35-7.45); ARTERIAL BLOOD PO2 51.7 mmHg (80-100); ARTERIAL BLOOD TOTAL CO2 22.1 mmol/L (23-27)
[2018-12-01 00:54] LABS: ARTERIAL BLOOD FIO2 30%
[2018-12-01 01:53] LABS: APPEARANCE,URINE SLIGHTLY-CLOUDY; BILIRUBIN,URINE NEGATIVE (NEGATIVE); GLUCOSE, URINE NEGATIVE (NEGATIVE); KETONES,URINE TRACE mg/dL (NEGATIVE); LEUKOCYTE ESTERASE,URINE TRACE (NEGATIVE); NITRITE,URINE NEGATIVE (NEGATIVE); PROTEIN,URINE 30 mg/dL (NEGATIVE); URINE SPECIFIC GRAVITY 1.024; UROBILINOGEN,URINE NEGATIVE mg/dL (<2.0)
[2018-12-01 01:54] LABS: COLOR,URINE DARK YELLOW
[2018-12-01] MEDS ORDERED: CEFEPIME 2 GM/D5W RTU 2 GM/50 ML RTUPB IV ONE (02:11)
[2018-12-01] MEDS: RINGERS SOLUTION,LACTATED 1,000 ML IV PRN ×4 (02:30→23:30)
[2018-12-01 05:05] LABS: ARTERIAL BLOOD BASE EXCESS 0.1 mmol/L; ARTERIAL BLOOD H2CO3 1.15 mmol/L (1.05-1.35); ARTERIAL BLOOD HCO3 24.3 mmol/L (20-24); ARTERIAL BLOOD O2 SATURATION 80.2 % (94-98); ARTERIAL BLOOD PCO2 38.1 mmHg (35-45); ARTERIAL BLOOD PH 7.42 (7.35-7.45); ARTERIAL BLOOD PO2 43.1 mmHg (80-100); ARTERIAL BLOOD TOTAL CO2 25.5 mmol/L (23-27)
[2018-12-01 05:06] LABS: ARTERIAL BLOOD FIO2 50%
[2018-12-01] MEDS: HEPARIN SOD (PORCINE) 5,000 UNIT/ML 1 ML SYRINGE SUBCUT SCH ×3 (05:38→21:21)
[2018-12-01 05:55] LABS: HEMATOCRIT 35.3 % (37.9-51.0); MEAN CORPUSCULAR HEMOGLOBIN 26.4 pg (27.0-33.4); MEAN CORPUSCULAR HGB CONC 33.9 g/dL (32.0-36.0); MEAN CORPUSCULAR VOLUME 78 fl (80-97); PLATELET COUNT 343 10^3/uL (150-450); RED BLOOD COUNT 4.54 10^6/uL (4.35-5.55); RED CELL DISTRIBUTION WIDTH 19.8 % (11.5-14.0); WHITE BLOOD COUNT 9.2 10^3/uL (4.0-10.5)
[2018-12-01] MEDS: MORPHINE SULFATE 10 MG/ML INJ IV PRN (06:00)
[2018-12-01] MEDS ORDERED: CEFEPIME 2 GM/D5W RTU 2 GM/50 ML RTUPB IV SCH (06:00)
[2018-12-01 06:06] LABS: ANION GAP 7 (5-19); BLOOD UREA NITROGEN 17 mg/dL (7-20); CALCIUM 7.5 mg/dL (8.4-10.2); CARBON DIOXIDE 24 mmol/L (22-30); CHLORIDE 98 mmol/L (98-107); GLUCOSE 109 mg/dL (75-110); PHOSPHORUS 3.5 mg/dL (2.5-4.5); SODIUM 128.5 mmol/L (137-145)
[2018-12-01 06:21] LABS: ABSOLUTE LYMPHOCYTES# (MANUAL) 0.6 10^3/uL (0.5-4.7); ABSOLUTE MONOCYTES # (MANUAL) 0.8 10^3/uL (0.1-1.4); BAND NEUTROPHILS % (MANUAL) 3 % (3-5); BASOPHILS % (MANUAL) 0 % (0-2); EOSINOPHILS % (MANUAL) 0 % (0-6); LYMPHOCYTES % (MANUAL) 6 % (13-45); MONOCYTES % (MANUAL) 9 % (3-13); SEGMENTED NEUTROPHILS % (MAN) 82 % (42-78); TOTAL CELLS COUNTED 100
[2018-12-01 06:23] LABS: ANISOCYTOSIS 2+; FREE T3 2.25 pg/mL (2.77-5.27); FREE T4 (FREE THYROXINE) 1.46 ng/dL (0.78-2.19); PLATELET COMMENT ADEQUATE
--- NOTE | 2018-12-01 06:26 | PDOC H&P ---
History of Present Illness Admission Date/PCP: 11/30/2018 HILLARY CONTRERAS MD Patient complains of: Dyspnea History of Present Illness: ALEKSANDER SABA is a 53 year old male who presented to the emergency room with a 4-day history of dyspnea. He admits to progressively worsening dyspnea b ecoming severe over the last 24 hours accompanied by extremely severe dyspnea on exertion, a productive cough (yellowish mucus) and air hunger. He denies all other associated or accompanying signs and symptoms. He has had previous similar symptoms with a pneumonia for which he just recently finished treatment. He denies identification of any additional aggravating or ameliorating factors for his dyspnea. In the emergency room his initial presentation showed tachypnea, tachycardia, hypotension and hypoxia. He was initially placed on oxygen and treated with an aggressive pulmonary toilet. He was subsequently placed on Min-Synephrine for blood pressure support and BiPAP. He was admitted to the ICU for further evaluation and treatment. Past Medical History Cardiac Medical History: Denies: Coronary Artery Disease, Myocardial Infarction, Hypertension Pulmonary Medical History: Reports: Chronic Obstructive Pulmonary Disease (COPD), Pneumonia - Had pneumonia ~3 weeks ago, Respiratory Failure Denies: Asthma, Bronchitis EENT Medical History: Denies: Cataracts, Ears - Hearing aids Neurological Medical History: Reports: Seizures - 20 YEARS AGO R/T HX COCAINE Denies: Hemorrhagic CVA, Ischemic CVA, Multiple Sclerosis Endocrine Medical History: Denies: Diabetes Mellitus Type 1, Diabetes Mellitus Type 2, Hyperthyroidism, Hypothyroidism, Obesity Renal/ Medical History: Denies: Chronic Kidney Disease, Nephrolithiasis Malignancy Medical History: Reports: Lymphoma - Follicular. Completed all treatment. Currently with no evidence of disease GI Medical History: Denies: Cirrhosis, Crohn's Disease, Hepatitis, Ulcerative Colitis Musculoskeltal Medical History: Reports: Arthritis - BACK, Gout Skin Medical History: Denies: Eczema, Psoriasis Psychiatric Medical History: Reports: Depression, Tobacco Dependency Denies: Alcohol Dependency, Substance Abuse Traumatic Medical History: Reports: None Hematology: Denies: Anemia, Bleeding Tendencies Infectious Medical History: Reports: None Past Surgical History Past Surgical History: Reports: Other - Ulcer repair, SBO repair, port placement, left eyebrow surgery Social History Information Source: Patient Lives with: Family Smoking Status: Former Smoker - Quit smoking 6 months ago Frequency of Alcohol Use: None Hx Recreational Drug Use: No Drugs: None Hx Prescription Drug Abuse: No - Advance Directive Resuscitation Status: Full Code Surrogate healthcare decision maker:: Aleksander Saba Family History Family History: CAD, Hypertension, Malignancy Parental Family History Reviewed: Yes Children Family History Reviewed: No Sibling(s) Family History Reviewed.: Yes Medication/Allergy Home Medications: Budesonide/Formoterol Fumarate [Symbicort HFA 160-4.5 mcg Inhaler 6 gm] 2 puff IH Q12 07/10/18 Omeprazole 40 mg PO DAILY 07/10/18 Tiotropium [place] [Spiriva Handihaler 5 Cap/Kit (18 Mcg/Cap)] 1 cap IH DAILY 30 Days #30 capsule 07/19/18 Albuterol Sulfate [Ventolin 0.083% Neb 2.5 mg/3 mL Ampul] 1 vial NEB TID 10/05/18 Albuterol Sulfate [Ventolin Hfa 8 gm Mdi (1 Mdi/ER Disp)] 2 puff IH Q4HP PRN 10/05/18 Bupropion HCl [Wellbutrin Xl 150 mg 24hr Tablet] 1 tab PO DAILY 10/05/18 Fluticasone Propionate [Flonase Nasal [place] 50 Mcg/[place] 16 gm] 1 spray NASL DAILY 10/05/18 l Acidophil/B Lactis/B Longum [Florajen3 Capsule] 460 mg PO BID 10/05/18 Allergies/Adverse Reactions: alex Allergy (Mild, Verified 11/30/18 15:20) RASH Review of Systems Constitutional: PRESENT: as per HPI, fatigue, weakness. ABSENT: chills, feve r(s) Eyes: ABSENT: visual disturbances, other Ears: ABSENT: hearing changes, other - Eye pain ear pain Nose, Mouth, and Throat: ABSENT: mouth pain, sore throat Cardiovascular: PRESENT: as per HPI, dyspnea on exertion. ABSENT: chest pain, edema, orthropnea, palpitations Respiratory: PRESENT: as per HPI, cough, dyspnea, sputum. ABSENT: hemoptysis Gastrointestinal: ABSENT: abdominal pain, constipation, diarrhea, nausea, vomiting Genitourinary: ABSENT: dysuria, hematuria Musculoskeletal: ABSENT: back pain, joint swelling, muscle weakness Integumentary: ABSENT: pruritus, rash Neurological: ABSENT: confusion, convulsions, focal weakness, memory loss, syncope Psychiatric: ABSENT: anxiety, depression Endocrine: ABSENT: cold intolerance, heat intolerance Hematologic/Lymphatic: ABSENT: easy bleeding, easy bruising Physical Exam Vital Signs: Temp Pulse Resp BP Pulse Ox 98.3 F 75 27 H 76/59 L 97 11/30/18 16:15 11/30/18 16:15 11/30/18 22:01 11/30/18 22:01 11/30/18 22:01 Intake & Output 11/28/18 11/29/18 11/30/18 23:59 23:59 23:59 Intake Total 1050 Balance 1050 Weight 47.128 kg General appearance: PRESENT: cooperative, mild distress - Mild respiratory distress, thin Head exam: PRESENT: atraumatic, normocephalic Eye exam: ABSENT: conjunctival injection, scleral icterus Ear exam: PRESENT: normal external ear exam. ABSENT: bleeding, drainage Mouth exam: PRESENT: dry mucosa, neck supple Neck exam: ABSENT: JVD, thyromegaly, tracheal deviation Respiratory exam: PRESENT: decreased breath sounds - Generally decreased breath sounds throughout all stallings with markedly decreased breath sounds in the right base, prolonged expiratory phas - Moderately prolonged expiratory phase throu ghout all stallings, rales - Coarse rales right lower lung, rhonchi - Coarse rhonchi right lower lung, symmetrical, tachypnea, wheezes - Expiratory wheezes present throughout exam Cardiovascular exam: PRESENT: RRR, tachycardia. ABSENT: clicks, gallop, rubs Pulses: ABSENT: normal radial pulses - Thready radial pulses laterally, normal dorsalis pedis pul - Thready dorsalis pedis pulses bilaterally Vascular exam: ABSENT: normal capillary refill - Capillary refill greater than 3 seconds, pallor GI/Abdominal exam: PRESENT: normal bowel sounds, soft Rectal exam: PRESENT: deferred Extremities exam: ABSENT: joint swelling, pedal edema Musculoskeletal exam: ABSENT: deformity, dislocation Neurological exam: PRESENT: alert, oriented to person, oriented to place, oriented to time, oriented to situation, CN II-XII grossly intact. ABSENT: motor sensory deficit Psychiatric exam: PRESENT: appropriate affect, normal mood Skin exam: PRESENT: dry, intact, warm. ABSENT: jaundice, rash, urticaria Results Laboratory Results: 11/30/18 18:47 11/30/18 18:47 11/30/18 11/30/18 11/30/18 18:16 18:47 18:47 WBC 7.2 RBC 5.02 Hgb 13.3 L Hct 38.8 MCV 77 L MCH 26.4 L MCHC 34.2 RDW 20.2 H Plt Count 315 Seg Neutrophils % Not Reportable Lymphocytes % Not Reportable Monocytes % Not Reportable Eosinophils % Not Reportable Basophils % Not Reportable Absolute Neutrophils Not Reportable Absolute Lymphocytes Not Reportable Absolute Monocytes Not Reportable Absolute Eosinophils Not Reportable Absolute Basophils Not Reportable Carbonic Acid 0.74 L HCO3/H2CO3 Ratio 29:1 ABG pH 7.57 H ABG pCO2 24.6 L ABG pO2 66.0 L ABG HCO3 21.8 ABG O2 Saturation 95.7 ABG Base Excess 1.2 VBG pH VBG pCO2 VBG HCO3 VBG Base Excess FiO2 4L Sodium 127.8 L Potassium 5.5 H Chloride 91 L Carbon Dioxide 25 Anion Gap 12 BUN 21 H Creatinine 0.90 Est GFR ( Amer) > 60 Est GFR (Non-Af Amer) > 60 Glucose 100 Lactic Acid Calcium 8.2 L Total Bilirubin 0.7 AST 42 ALT 20 L Alkaline Phosphatase 87 Total Protein 5.2 L Albumin 2.9 L 11/30/18 11/30/18 18:47 18:47 WBC RBC Hgb Hct MCV MCH MCHC RDW Plt Count Seg Neutrophils % Lymphocytes % Monocytes % Eosinophils % Basophils % Absolute Neutrophils Absolute Lymphocytes Absolute Monocytes Absolute Eosinophils Absolute Basophils Carbonic Acid HCO3/H2CO3 Ratio ABG pH ABG pCO2 ABG pO2 ABG HCO3 ABG O2 Saturation ABG Base Excess VBG pH 7.48 H VBG pCO2 35.9 VBG HCO3 26.2 VBG Base Excess 2.9 FiO2 Sodium Potassium Chloride Carbon Dioxide Anion Gap BUN Creatinine Est GFR ( Amer) Est GFR (Non-Af Amer) Glucose Lactic Acid 2.1 Calcium Total Bilirubin AST ALT Alkaline Phosphatase Total Protein Albumin Impressions: Chest X-Ray 11/30/18 17:27 IMPRESSION: Likely right lower lobe pneumonia. Assessment and Plan - Diagnosis (1) Pneumonia Qualifiers: Pneumonia type: due to unspecified organism Laterality: right Lung location: lower lobe of lung Qualified Code(s): J18.1 - Lobar pneumonia, unspecified organism Is this a current diagnosis for this admission?: Yes (2) Acute and chronic respiratory failure with hypoxia Is this a current diagnosis for this admission?: Yes (3) SIRS (systemic inflammatory response syndrome) Is this a current diagnosis for this admission?: Yes (4) COPD exacerbation Is this a current diagnosis for this admission?: Yes (5) Protein-calorie malnutrition, severe Is this a current diagnosis for this admission?: Yes - Time Time Spent with patient: 25-34 minutes Medications reviewed and adjusted accordingly: Yes Anticipated discharge: Home - Inpatient Certification Based on my medical assessment, after consideration of the patient's comorbidities, presenting symptoms, or acuity I expect that the services needed warrant INPATIENT care.: Yes I certify that my determination is in accordance with my understanding of Medicare's requirements for reasonable and necessary INPATIENT services [42 CFR 412.3e].: Yes Medical Necessity: Failure to Improve With Outpatient Therapy, Significant Comorbidiites Make Outpatient Treatment Too Risky, Need Close Monitoring Due to Risk of Patient Decompensation, Need For IV Fluids, Need For Continuous Telemetry Monitoring, Need for Nebulizer Therapy and Monitoring of Response, Need for IV Antibiotics, Risk of Complication if Not Cared For in Hospital, Risk of Diagnosis Which Will Require Inpatient Eval/Care/Monitoring
--- NOTE | 2018-12-01 06:26 | ADVANCED CARE ---
- Diagnosis (1) Pneumonia Diagnosis Current: Yes (2) Acute and chronic respiratory failure with hypoxia Diagnosis Current: Yes (3) SIRS (systemic inflammatory response syndrome) Diagnosis Current: Yes (4) COPD exacerbation Diagnosis Current: Yes (5) Protein-calorie malnutrition, severe Diagnosis Current: Yes Attendance: Patient and myself Resuscitation Status: Full Code Discussion: Patient wishes to be a full CODE STATUS for any cardiac or respiratory arrest that may occur during his hospital stay. He further wishes to name his son Aleksander Low as his designated surrogate medical decision maker. Care Planning Goals: 1. Patient will be full CODE STATUS. 2. Aleksander Low (the patient's son) will be his designated surrogate medical decision maker. Document(s) Completed: The following will be entered into the patient's permanent medical record and medical orders via EMR entry: 1. Patient will be full CODE STATUS. 2. Aleksander Low (the patient's son) will be his designated surrogate medical decision maker. Time Spent: 15 minutes
[2018-12-01 06:36] LABS: THYROID STIMULATING HORMONE 7.56 uIU/mL (0.47-4.68)
[2018-12-01 07:18] LABS: POTASSIUM 4.3 mmol/L (3.6-5.0)
[2018-12-01] MEDS: BUDESONIDE NEB 0.5 MG/2 ML AMPUL NEB SCH ×2 (08:27→20:50)
[2018-12-01] MEDS: ACETYLCYSTEINE 20% SOLN 800 MG/4 ML VIAL.NEB NEB SCH ×2 (08:27→20:50)
[2018-12-01] MEDS: FAMOTIDINE 20 MG TABLET PO SCH ×2 (09:32→21:21)
[2018-12-01] MEDS: DOCUSATE SODIUM 100 MG CAPSULE PO SCH ×2 (09:32→17:19)
[2018-12-01] MEDS: METHYLPREDNISOLONE INJ 40 MG/1 ML SDV IV SCH ×2 (09:32→21:22)
[2018-12-01] MEDS: ACETAMINOPHEN 325 MG TABLET PO PRN ×2 (10:34→19:51)
[2018-12-01] MEDS: VANCOMYCIN HCL 500 MG in DEXTROSE 5%-WATER 100 ML IV SCH ×2 (10:39→21:22)
[2018-12-01] MEDS: LIDOCAINE 5% (700 MG) TRANSDERMAL ADH..PATCH TP SCH (10:53)
--- NOTE | 2018-12-01 15:39 | PDOC PROGRESS REPORT ---
Subjective Progress Note for:: 12/01/18 Subjective:: 12/01: Assumed care today. Chart and ICU course reviewed. This is a 53-year-old male who has a history of COPD, recurrent pneumonia, Stage IV large B cell lymphoma, and history of left upper lung nodule who presented with cough and shortness of breath. Patient was noted to be tachypneic, tachycardic, hypoxic and hypotensive. He was noted to have a right lower lobe pneumonia. He was admitted to the ICU for septic shock as he was requiring vasopressor. Patient is also requiring BiPAP. Upon encounter, patient is not in acute distress and has been switched to nasal cannula. He says that his shortness of breath is slightly improved today. He denies chest pain. He is still currently on high dose of Min-Synephrine. Reason For Visit: RIGHT LOWER LOBE PNEUMONIA, ACUTE ON CHRONIC Physical Exam Vital Signs: Temp Pulse Resp BP Pulse Ox 99.4 F 109 H 28 H 96/75 L 100 12/01/18 08:00 12/01/18 10:00 12/01/18 10:00 12/01/18 10:00 12/01/18 10:00 Intake & Output 11/30/18 12/01/18 12/02/18 06:59 06:59 06:59 Intake Total 2895 1134 Output Total 165 570 Balance 2730 564 Weight 109 lb 9.116 oz General appearance: PRESENT: no acute distress, well-developed, well-nourished Head exam: PRESENT: atraumatic, normocephalic Eye exam: PRESENT: conjunctiva pink, EOMI, PERRLA. ABSENT: scleral icterus Ear exam: PRESENT: normal external ear exam Neck exam: ABSENT: carotid bruit, JVD, lymphadenopathy, thyromegaly Respiratory exam: PRESENT: rales, rhonchi. ABSENT: wheezes Cardiovascular exam: PRESENT: RRR. ABSENT: diastolic murmur, rubs, systolic murmur Pulses: PRESENT: normal dorsalis pedis pul GI/Abdominal exam: PRESENT: normal bowel sounds, soft. ABSENT: distended, guarding, mass, organolmegaly, rebound, tenderness Rectal exam: PRESENT: deferred Neurological exam: PRESENT: alert, awake, oriented to person, oriented to place, oriented to time, oriented to situation, CN II-XII grossly intact. ABSENT: motor sensory deficit Results Laboratory Results: 12/01/18 05:34 12/01/18 05:34 11/30/18 11/30/18 11/30/18 18:16 18:47 18:47 WBC 7.2 RBC 5.02 Hgb 13.3 L Hct 38.8 MCV 77 L MCH 26.4 L MCHC 34.2 RDW 20.2 H Plt Count 315 Seg Neutrophils % Not Reportable Lymphocytes % Not Reportable Monocytes % Not Reportable Eosinophils % Not Reportable Basophils % Not Reportable Absolute Neutrophils Not Reportable Absolute Lymphocytes Not Reportable Absolute Monocytes Not Reportable Absolute Eosinophils Not Reportable Absolute Basophils Not Reportable Carbonic Acid 0.74 L HCO3/H2CO3 Ratio 29:1 ABG pH 7.57 H ABG pCO2 24.6 L ABG pO2 66.0 L ABG HCO3 21.8 ABG O2 Saturation 95.7 ABG Base Excess 1.2 VBG pH VBG pCO2 VBG HCO3 VBG Base Excess FiO2 4L Sodium 127.8 L Potassium 5.5 H Chloride 91 L Carbon Dioxide 25 Anion Gap 12 BUN 21 H Creatinine 0.90 Est GFR ( Amer) > 60 Est GFR (Non-Af Amer) > 60 Glucose 100 Lactic Acid Calcium 8.2 L Phosphorus Magnesium Total Bilirubin 0.7 AST 42 ALT 20 L Alkaline Phosphatase 87 Total Protein 5.2 L Albumin 2.9 L TSH Free T4 Free T3 pg/mL Urine Color Urine Appearance Urine pH Ur Specific [place] Urine Protein Urine Glucose (UA) Urine Ketones Urine Blood Urine Nitrite Ur Leukocyte Esterase Urine WBC (Auto) Urine RBC (Auto) 11/30/18 11/30/18 12/01/18 18:47 18:47 00:21 WBC RBC Hgb Hct MCV MCH MCHC RDW Plt Count Seg Neutrophils % Lymphocytes % Monocytes % Eosinophils % Basophils % Absolute Neutrophils Absolute Lymphocytes Absolute Monocytes Absolute Eosinophils Absolute Basophils Carbonic Acid 0.72 L HCO3/H2CO3 Ratio 29:1 ABG pH 7.57 H ABG pCO2 24.0 L ABG pO2 51.7 L ABG HCO3 21.4 ABG O2 Saturation 91.9 L ABG Base Excess 0.3 VBG pH 7.48 H VBG pCO2 35.9 VBG HCO3 26.2 VBG Base Excess 2.9 FiO2 30% Sodium Potassium Chloride Carbon Dioxide Anion Gap BUN Creatinine Est GFR ( Amer) Est GFR (Non-Af Amer) Glucose Lactic Acid 2.1 Calcium Phosphorus Magnesium Total Bilirubin AST ALT Alkaline Phosphatase Total Protein Albumin TSH Free T4 Free T3 pg/mL Urine Color Urine Appearance Urine pH Ur Specific [place] Urine Protein Urine Glucose (UA) Urine Ketones Urine Blood Urine Nitrite Ur Leukocyte Esterase Urine WBC (Auto) Urine RBC (Auto) 12/01/18 12/01/18 12/01/18 00:25 01:30 04:29 WBC RBC Hgb Hct MCV MCH MCHC RDW Plt Count Seg Neutrophils % Lymphocytes % Monocytes % Eosinophils % Basophils % Absolute Neutrophils Absolute Lymphocytes Absolute Monocytes Absolute Eosinophils Absolute Basophils Carbonic Acid 1.15 HCO3/H2CO3 Ratio 21:1 ABG pH 7.42 ABG pCO2 38.1 ABG pO2 43.1 L ABG HCO3 24.3 H ABG O2 Saturation 80.2 L ABG Base Excess 0.1 VBG pH VBG pCO2 VBG HCO3 VBG Base Excess FiO2 50% Sodium Potassium Chloride Carbon Dioxide Anion Gap BUN Creatinine Est GFR ( Amer) Est GFR (Non-Af Amer) Glucose Lactic Acid 1.3 Calcium Phosphorus Magnesium Total Bilirubin AST ALT Alkaline Phosphatase Total Protein Albumin TSH Free T4 Free T3 pg/mL Urine Color DARK YELLOW Urine Appearance SLIGHTLY-CLOUDY Urine pH 5.0 Ur Specific [place] 1.024 Urine Protein 30 H Urine Glucose (UA) NEGATIVE Urine Ketones TRACE H Urine Blood NEGATIVE Urine Nitrite NEGATIVE Ur Leukocyte Esterase TRACE H Urine WBC (Auto) 7 Urine RBC (Auto) 1 12/01/18 12/01/18 12/01/18 05:34 05:34 05:34 WBC 9.2 RBC 4.54 Hgb 12.0 L Hct 35.3 L MCV 78 L MCH 26.4 L MCHC 33.9 RDW 19.8 H Plt Count 343 Seg Neutrophils % Not Reportable Lymphocytes % Not Reportable Monocytes % Not Reportable Eosinophils % Not Reportable Basophils % Not Reportable Absolute Neutrophils Not Reportable Absolute Lymphocytes Not Reportable Absolute Monocytes Not Reportable Absolute Eosinophils Not Reportable Absolute Basophils Not Reportable Carbonic Acid HCO3/H2CO3 Ratio ABG pH ABG pCO2 ABG pO2 ABG HCO3 ABG O2 Saturation ABG Base Excess VBG pH VBG pCO2 VBG HCO3 VBG Base Excess FiO2 Sodium 128.5 L Potassium 4.3 D Chloride 98 Carbon Dioxide 24 Anion Gap 7 BUN 17 Creatinine 0.70 Est GFR ( Amer) > 60 Est GFR (Non-Af Amer) > 60 Glucose 109 Lactic Acid 1.3 Calcium 7.5 L Phosphorus 3.5 Magnesium 1.4 L Total Bilirubin AST ALT Alkaline Phosphatase Total Protein Albumin TSH Free T4 Free T3 pg/mL Urine Color Urine Appearance Urine pH Ur Specific [place] Urine Protein Urine Glucose (UA) Urine Ketones Urine Blood Urine Nitrite Ur Leukocyte Esterase Urine WBC (Auto) Urine RBC (Auto) 12/01/18 12/01/18 05:34 08:40 WBC RBC Hgb Hct MCV MCH MCHC RDW Plt Count Seg Neutrophils % Lymphocytes % Monocytes % Eosinophils % Basophils % Absolute Neutrophils Absolute Lymphocytes Absolute Monocytes Absolute Eosinophils Absolute Basophils Carbonic Acid HCO3/H2CO3 Ratio ABG pH ABG pCO2 ABG pO2 ABG HCO3 ABG O2 Saturation ABG Base Excess VBG pH VBG pCO2 VBG HCO3 VBG Base Excess FiO2 Sodium Potassium Chloride Carbon Dioxide Anion Gap BUN Creatinine Est GFR ( Amer) Est GFR (Non-Af Amer) Glucose Lactic Acid 1.4 Calcium Phosphorus Magnesium Total Bilirubin AST ALT Alkaline Phosphatase Total Protein Albumin TSH 7.56 H Free T4 1.46 Free T3 pg/mL 2.25 L Urine Color Urine Appearance Urine pH Ur Specific [place] Urine Protein Urine Glucose (UA) Urine Ketones Urine Blood Urine Nitrite Ur Leukocyte Esterase Urine WBC (Auto) Urine RBC (Auto) Impressions: Chest X-Ray 11/30/18 17:27 IMPRESSION: Likely right lower lobe pneumonia. Assessment and Plan - Diagnosis (1) Acute and chronic respiratory failure with hypoxia Is this a current diagnosis for this admission?: Yes Plan: Secondary to pneumonia. Patient has been switched to nasal cannula from BiPAP on encounter and has been doing well so far. (2) Septic shock Is this a current diagnosis for this admission?: Yes Plan: Secondary to right lower lobe pneumonia. Currently on Min-Synephrine. Reduce IV fluids to 150 cc/h. Continue broad-spectrum IV antibiotics for now. Will order for sputum culture. Blood culture pending. (3) Pneumonia Qualifiers: Pneumonia type: due to unspecified organism Laterality: right Lung location: lower lobe of lung Qualified Code(s): J18.1 - Lobar pneumonia, unspecified organism Is this a current diagnosis for this admission?: Yes Plan: Likely HCAP. Patient had 2 episodes of pneumonia and hospitalization in the past 3 months. Empirically covering for MRSA and gram-negative bacteria. As per #2. (4) Large B-cell lymphoma Is this a current diagnosis for this admission?: Yes Plan: Reviewed previous hospitalizations, patient has been having recurrent pneumonia. He was seen by Dr. Vega previously and was deemed that the recurrent pneumonias in the past were related to immunosuppression from cancer treatments. Will consult Dr. Suarez for further recommendations. He does have a prior left upper lung nodule biopsy in 2017 but I am not able to find the biopsy results on the EMR. - Time Time Spent with patient: 25-34 minutes
[2018-12-01] MEDS: CEFEPIME HCL 2 GM in DEXTROSE 5%-WATER 50 ML IV SCH (17:19)
[2018-12-01] MEDS: LEVALBUTEROL HCL NEB 0.63 MG/3 ML AMPUL NEB PRN (20:50)
[2018-12-02] MEDS: IPRATROPIUM BROMIDE 0.02% NEB 0.5 MG/2.5 ML AMPUL NEB SCH ×3 (00:42→16:23)
[2018-12-02] MEDS: LEVALBUTEROL HCL NEB 1.25 MG/3 ML AMPUL NEB SCH ×3 (00:42→16:23)
[2018-12-02 04:18] LABS: HEMATOCRIT 33.5 % (37.9-51.0); HEMOGLOBIN 11.3 g/dL (13.5-17.0); MEAN CORPUSCULAR HEMOGLOBIN 26.4 pg (27.0-33.4); MEAN CORPUSCULAR HGB CONC 33.6 g/dL (32.0-36.0); MEAN CORPUSCULAR VOLUME 79 fl (80-97); PLATELET COUNT 274 10^3/uL (150-450); RED BLOOD COUNT 4.27 10^6/uL (4.35-5.55); WHITE BLOOD COUNT 4.4 10^3/uL (4.0-10.5)
[2018-12-02 04:39] LABS: ANION GAP 8 (5-19); BLOOD UREA NITROGEN 16 mg/dL (7-20); CALCIUM 7.8 mg/dL (8.4-10.2); CARBON DIOXIDE 27 mmol/L (22-30); CHLORIDE 98 mmol/L (98-107); GLUCOSE 140 mg/dL (75-110); PHOSPHORUS 3.9 mg/dL (2.5-4.5); POTASSIUM 4.8 mmol/L (3.6-5.0); SODIUM 132.6 mmol/L (137-145)
[2018-12-02 05:12] LABS: ABSOLUTE LYMPHOCYTES# (MANUAL) 0.3 10^3/uL (0.5-4.7); ABSOLUTE MONOCYTES # (MANUAL) 0.3 10^3/uL (0.1-1.4); BAND NEUTROPHILS % (MANUAL) 6 % (3-5); BASOPHILS % (MANUAL) 0 % (0-2); EOSINOPHILS % (MANUAL) 0 % (0-6); LYMPHOCYTES % (MANUAL) 7 % (13-45); METAMYELOCYTES % (MANUAL) 1 % (0); MONOCYTES % (MANUAL) 7 % (3-13); SEGMENTED NEUTROPHILS % (MAN) 79 % (42-78); TOTAL CELLS COUNTED 100
[2018-12-02 05:13] LABS: ANISOCYTOSIS 2+
[2018-12-02 05:14] LABS: PLATELET COMMENT ADEQUATE
[2018-12-02] MEDS: HEPARIN SOD (PORCINE) 5,000 UNIT/ML 1 ML SYRINGE SUBCUT SCH ×3 (05:55→21:08)
[2018-12-02] MEDS: CEFEPIME HCL 2 GM in DEXTROSE 5%-WATER 50 ML IV SCH ×2 (05:55→17:04)
--- NOTE | 2018-12-02 08:05 | PDOC CONSULTATION ---
Consultation Consult Date: 12/02/18 Provider Consulted: DALE GUZMAN Consult reason:: Hematology/Oncology consult was requested for patient with a history of lymphoma History of Present Illness Admission Date/PCP: 11/30/18 22:46 HILLARY CONTRERAS MD History of Present Illness: DARSHAN SABA is a 53 year old male who completed treatment for follicular lymphoma 12/2017. He has had no evidence of lymphoma since 01/2017. However, since his treatments, he has had recurrent pneumonias. He states that about 1 week prior to admission, he began feeling weak, and this progressed until he could hardly roll over in bed. 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 He continues to try to take good care of himself following a well balanced diet, he no longer drinks any alcohol, no longer smokes, but continues to have recurrent infections. Past Medical History Cardiac Medical History: Denies: Coronary Artery Disease, Myocardial Infarction, Hypertension Pulmonary Medical History: Reports: Chronic Obstructive Pulmonary Disease (COPD), Pneumonia - Had pneumonia ~3 weeks ago, Respiratory Failure Denies: Asthma, Bronchitis EENT Medical History: Denies: Cataracts, Ears - Hearing aids Neurological Medical History: Reports: Seizures - 20 YEARS AGO R/T HX COCAINE Denies: Hemorrhagic CVA, Ischemic CVA, Multiple Sclerosis Endocrine Medical History: Denies: Diabetes Mellitus Type 1, Diabetes Mellitus Type 2, Hyperthyroidism, Hypothyroidism, Obesity Renal/ Medical History: Denies: Chronic Kidney Disease, Nephrolithiasis Malignancy Medical History: Reports: Lymphoma - Follicular. Completed all treatment. 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 evidence of disease Denies: Anemia, Bleeding Tendencies Infectious Medical History: Reports: None Past Surgical History Past Surgical History: Reports: Other - Ulcer repair, SBO repair, port placement, left eyebrow surgery Social History Information Source: Patient Lives with: Family Smoking Status: Former Smoker - Quit smoking 6 months ago Frequency of Alcohol Use: None Hx Recreational Drug Use: No Drugs: None Hx Prescription Drug Abuse: No - Advance Directive Resuscitation Status: Full Code Family History Family History: CAD, Hypertension Parental Family History Reviewed: Yes - Mother and father both of infectious causes Children Family History Reviewed: No Sibling(s) Family History Reviewed.: No Medication/Allergy Home Medications: Budesonide/Formoterol Fumarate [Symbicort HFA 160-4.5 mcg Inhaler 6 gm] 2 puff IH Q12 07/10/18 Omeprazole 40 mg PO DAILY 07/10/18 Tiotropium Bryan [Spiriva Handihaler 5 Cap/Kit (18 Mcg/Cap)] 1 cap IH DAILY 30 Days #30 capsule 07/19/18 Albuterol Sulfate [Ventolin 0.083% Neb 2.5 mg/3 mL Ampul] 1 vial NEB Q6HP PRN 10/05/18 Bupropion HCl [Wellbutrin Xl 150 mg 24hr Tablet] 150 mg PO DAILY 10/05/18 Fluticasone Propionate [Flonase Nasal [place] 50 Mcg/[place] 16 gm] 1 spray NAREB DAILY 10/05/18 Albuterol Sulfate [Albuterol Sulfate Hfa] 2 gm IH Q6HP PRN 12/01/18 l Acidophil/B Lactis/B Longum [Florajen3 Capsule] 460 mg PO DAILY MDD 2 CAPS 12/01/18 Allergies/Adverse Reactions: alex Allergy (Mild, Verified 11/30/18 15:20) RASH Review of Systems Constitutional: PRESENT: weight loss. ABSENT: fever(s), headache(s) Eyes: ABSENT: visual disturbances Ears: ABSENT: hearing changes Nose, Mouth, and Throat: ABSENT: sore throat Cardiovascular: PRESENT: dyspnea on exertion. ABSENT: chest pain Respiratory: PRESENT: cough, dyspnea Gastrointestinal: PRESENT: dysphagia. ABSENT: constipation Genitourinary: ABSENT: difficulty urinating Musculoskeletal: ABSENT: muscle weakness Integumentary: ABSENT: rash Neurological: PRESENT: weakness Hematologic/Lymphatic: ABSENT: easy bleeding Physical Exam Vital Signs: Temp Pulse Resp BP Pulse Ox 97.9 F 101 H 15 103/77 100 12/02/18 06:00 12/02/18 02:00 12/02/18 02:26 12/02/18 02:26 12/02/18 02:26 Intake & Output 06/12/02/18 12/03/18 06:59 06:59 06:59 Intake Total 2890 3645 Output Total 165 2910 Balance 2730 735 Weight 49.7 kg General appearance: PRESENT: mild distress, thin, well-developed Exam: 53 year old male. Head exam: PRESENT: normocephalic Eye exam: PRESENT: EOMI, PERRLA Mouth exam: PRESENT: tongue midline Neck exam: ABSENT: lymphadenopathy, tenderness Respiratory exam: PRESENT: decreased breath sounds Cardiovascular exam: PRESENT: RRR GI/Abdominal exam: PRESENT: soft. ABSENT: tenderness Extremities exam: ABSENT: pedal edema Musculoskeletal exam: PRESENT: normal inspection Neurological exam: PRESENT: alert, awake, oriented to person, oriented to place, oriented to time, oriented to situation Psychiatric exam: PRESENT: appropriate affect Skin exam: PRESENT: normal color Results Laboratory Results: 12/02/18 03:30 12/02/18 03:30 12/01/18 12/02/18 12/02/18 08:40 03:30 03:30 WBC 4.4 RBC 4.27 L Hgb 11.3 L Hct 33.5 L MCV 79 L MCH 26.4 L MCHC 33.6 RDW 20.0 H Plt Count 274 Seg Neutrophils % Not Reportable Lymphocytes % Not Reportable Monocytes % Not Reportable Eosinophils % Not Reportable Basophils % Not Reportable Absolute Neutrophils Not Reportable Absolute Lymphocytes Not Reportable Absolute Monocytes Not Reportable Absolute Eosinophils Not Reportable Absolute Basophils Not Reportable Sodium 132.6 L Potassium 4.8 Chloride 98 Carbon Dioxide 27 Anion Gap 8 BUN 16 Creatinine 0.49 L Est GFR ( Amer) > 60 Est GFR (Non-Af Amer) > 60 Glucose 140 H Lactic Acid 1.4 Calcium 7.8 L Phosphorus 3.9 Magnesium 1.7 Impressions: Chest X-Ray 11/30/18 17:27 IMPRESSION: Likely right lower lobe pneumonia. Status: Image reviewed by me Assessment & Plan - Diagnosis (1) Acute and chronic respiratory failure with hypoxia Is this a current diagnosis for this admission?: Yes Plan: As per primary team. He is on steroids and appropriate antibiotics. (2) Large B-cell lymphoma Is this a current diagnosis for this admission?: No Plan: No evidence of lymphoma recently. Although past therapy could have contributed to a suppressed immune system, he is not on any current therapy (3) Pneumonia Qualifiers: Pneumonia type: due to unspecified organism Laterality: right Lung location: lower lobe of lung Qualified Code(s): J18.1 - Lobar pneumonia, un specified organism Is this a current diagnosis for this admission?: Yes Plan: He has been suffering from recurrent pneumonias over the last year. Prior IgG levels were low. I will repeat IgG level now. If still low, then he would most likely benefit from IVIg infusions. However, this may be challenging with a national backorder and very low supply of this medication. I will still try. - Plan Summary Plan Summary: Thank you for this consultation. I will continue to follow with you.
[2018-12-02] MEDS: ACETYLCYSTEINE 20% SOLN 800 MG/4 ML VIAL.NEB NEB SCH ×2 (08:16→21:00)
[2018-12-02] MEDS: BUDESONIDE NEB 0.5 MG/2 ML AMPUL NEB SCH ×2 (08:16→21:00)
[2018-12-02] MEDS: VANCOMYCIN HCL 500 MG in DEXTROSE 5%-WATER 100 ML IV SCH (09:57)
[2018-12-02] MEDS: FAMOTIDINE 20 MG TABLET PO SCH ×2 (09:57→21:09)
[2018-12-02] MEDS: DOCUSATE SODIUM 100 MG CAPSULE PO SCH ×2 (09:57→17:05)
[2018-12-02] MEDS: METHYLPREDNISOLONE INJ 40 MG/1 ML SDV IV SCH (09:57)
[2018-12-02] MEDS: RINGERS SOLUTION,LACTATED 1,000 ML IV PRN ×2 (09:59→11:00)
[2018-12-02] MEDS: LIDOCAINE 5% (700 MG) TRANSDERMAL ADH..PATCH TP SCH (10:00)
[2018-12-02 10:57] LABS: VANCOMYCIN,TROUGH 5.4 ug/mL (5.0-20.0)
--- NOTE | 2018-12-02 11:59 | PDOC PROGRESS REPORT ---
Subjective Progress Note for:: 12/02/18 Subjective:: 12/01: Assumed care today. Chart and ICU course reviewed. This is a 53-year-old male who has a history of COPD, recurrent pneumonia, Stage IV large B cell lymphoma, and history of left upper lung nodule who presented with cough and shortness of breath. Patient was noted to be tachypneic, tachycardic, hypoxic and hypotensive. He was noted to have a right lower lobe pneumonia. He was admitted to the ICU for septic shock as he was requiring vasopressor. Patient is also requiring BiPAP. Upon encounter, patient is not in acute distress and has been switched to nasal cannula. He says that his shortness of breath is slightly improved today. He denies chest pain. He is still currently on high dose of Min-Synephrine. 12/02: No acute event overnight. Patient was weaned off Min-Synephrine since early this morning at 4 AM. He has been also off BiPAP for more than 24 hours now. He saturating well and is comfortable nasal cannula. Blood pressures have remained stable. No fever or chills. Denies chest pain. He will be downgraded to tele floor. Reason For Visit: RIGHT LOWER LOBE PNEUMONIA, ACUTE ON CHRONIC Physical Exam Vital Signs: Temp Pulse Resp BP Pulse Ox 98.0 F 118 H 18 93/71 L 100 12/02/18 08:00 12/02/18 10:00 12/02/18 10:42 12/02/18 10:42 12/02/18 10:42 Intake & Output 12/01/18 12/02/18 12/03/18 06:59 06:59 06:59 Intake Total 2895 4745 770 Output Total 165 2910 250 Balance 2730 1835 520 Weight 109 lb 9.116 oz General appearance: PRESENT: no acute distress, well-developed, well-nourished Head exam: PRESENT: atraumatic, normocephalic Eye exam: PRESENT: conjunctiva pink, EOMI, PERRLA. ABSENT: scleral icterus Ear exam: PRESENT: normal external ear exam Mouth exam: PRESENT: moist, tongue midline Neck exam: ABSENT: carotid bruit, JVD, lymphadenopathy, thyromegaly Respiratory exam: PRESENT: rhonchi - [id number]. ABSENT: rales, wheezes Cardiovascular exam: PRESENT: RRR. ABSENT: diastolic murmur, rubs, systolic murmur Pulses: PRESENT: normal dorsalis pedis pul GI/Abdominal exam: PRESENT: normal bowel sounds, soft. ABSENT: distended, guarding, mass, organolmegaly, rebound, tenderness Rectal exam: PRESENT: deferred Neurological exam: PRESENT: alert, awake, oriented to person, oriented to place, oriented to time, oriented to situation, CN II-XII grossly intact. ABSENT: motor sensory deficit Results Laboratory Results: 12/02/18 03:30 12/02/18 03:30 12/02/18 12/02/18 03:30 03:30 WBC 4.4 RBC 4.27 L Hgb 11.3 L Hct 33.5 L MCV 79 L MCH 26.4 L MCHC 33.6 RDW 20.0 H Plt Count 274 Seg Neutrophils % Not Reportable Lymphocytes % Not Reportable Monocytes % Not Reportable Eosinophils % Not Reportable Basophils % Not Reportable Absolute Neutrophils Not Reportable Absolute Lymphocytes Not Reportable Absolute Monocytes Not Reportable Absolute Eosinophils Not Reportable Absolute Basophils Not Reportable Sodium 132.6 L Potassium 4.8 Chloride 98 Carbon Dioxide 27 Anion Gap 8 BUN 16 Creatinine 0.49 L Est GFR ( Amer) > 60 Est GFR (Non-Af Amer) > 60 Glucose 140 H Calcium 7.8 L Phosphorus 3.9 Magnesium 1.7 Impressions: Chest X-Ray 11/30/18 17:27 IMPRESSION: Likely right lower lobe pneumonia. Assessment and Plan - Diagnosis (1) Acute and chronic respiratory failure with hypoxia Is this a current diagnosis for this admission?: Yes Plan: Resolved. 12/01: Secondary to pneumonia. Patient has been switched to nasal cannula from BiPAP on encounter and has been doing well so far. 12/02: He has been also off BiPAP for more than 24 hours now. He saturating well and is comfortable nasal cannula. (2) Septic shock Is this a current diagnosis for this admission?: Yes Plan: Secondary to right lower lobe pneumonia. 12/01: Currently on Min-Synephrine. Reduce IV fluids to 150 cc/h. Continue broad-spectrum IV antibiotics for now. Will order for sputum culture. Blood culture pending. 12/02: Patient was weaned off Min-Synephrine since early this morning at 4 AM. Blood pressures have remained stable. He will be downgraded to tele floor. Continue IV antibiotics. Decrease IV fluids to 50 cc/hr. (3) Pneumonia Qualifiers: Pneumonia type: due to unspecified organism Laterality: right Lung location: lower lobe of lung Qualified Code(s): J18.1 - Lobar pneumonia, unspecified organism Is this a current diagnosis for this admission?: Yes Plan: Likely HCAP. Patient had 2 episodes of pneumonia and hospitalization in the past 3 months. Empirically covering for MRSA and gram-negative bacteria. As per #2. (4) Large B-cell lymphoma Is this a current diagnosis for this admission?: Yes Plan: Reviewed previous hospitalizations, patient has been having recurrent pneumonia. He was seen by Dr. Vega previously and was deemed that the recurrent pneumonias in the past were related to immunosuppression from cancer treatments. Will consult Dr. Suarez for further recommendations. He does have a prior left upper lung nodule biopsy in 2017 but I am not able to find the biopsy results on the EMR. - Time Time Spent with patient: 25-34 minutes
[2018-12-02] MEDS: VANCOMYCIN HCL 750 MG in DEXTROSE 5%-WATER 250 ML IV SCH ×2 (14:23→21:08)
[2018-12-02] MEDS: ACETAMINOPHEN 325 MG TABLET PO PRN (19:59)
[2018-12-02] MEDS: LEVALBUTEROL HCL NEB 0.63 MG/3 ML AMPUL NEB PRN (21:00)
[2018-12-03] MEDS: IPRATROPIUM BROMIDE 0.02% NEB 0.5 MG/2.5 ML AMPUL NEB SCH ×4 (00:39→23:47)
[2018-12-03] MEDS: LEVALBUTEROL HCL NEB 1.25 MG/3 ML AMPUL NEB SCH ×4 (00:39→23:47)
[2018-12-03 04:18] LABS: HEMATOCRIT 31.2 % (37.9-51.0); HEMOGLOBIN 10.6 g/dL (13.5-17.0); MEAN CORPUSCULAR HEMOGLOBIN 26.7 pg (27.0-33.4); MEAN CORPUSCULAR VOLUME 78 fl (80-97); PLATELET COUNT 279 10^3/uL (150-450); RED BLOOD COUNT 3.97 10^6/uL (4.35-5.55); RED CELL DISTRIBUTION WIDTH 19.6 % (11.5-14.0); WHITE BLOOD COUNT 4.4 10^3/uL (4.0-10.5)
[2018-12-03 04:24] LABS: ANION GAP 5 (5-19); BLOOD UREA NITROGEN 15 mg/dL (7-20); CALCIUM 8.3 mg/dL (8.4-10.2); CARBON DIOXIDE 31 mmol/L (22-30); CHLORIDE 97 mmol/L (98-107); GLUCOSE 124 mg/dL (75-110); PHOSPHORUS 3.1 mg/dL (2.5-4.5); POTASSIUM 4.7 mmol/L (3.6-5.0); SODIUM 133.2 mmol/L (137-145)
[2018-12-03 04:51] LABS: ABSOLUTE LYMPHOCYTES# (MANUAL) 0.3 10^3/uL (0.5-4.7); ABSOLUTE MONOCYTES # (MANUAL) 0.6 10^3/uL (0.1-1.4); BAND NEUTROPHILS % (MANUAL) 2 % (3-5); BASOPHILS % (MANUAL) 0 % (0-2); EOSINOPHILS % (MANUAL) 0 % (0-6); LYMPHOCYTES % (MANUAL) 6 % (13-45); METAMYELOCYTES % (MANUAL) 1 % (0); MONOCYTES % (MANUAL) 14 % (3-13); SEGMENTED NEUTROPHILS % (MAN) 77 % (42-78); TOTAL CELLS COUNTED 100
[2018-12-03 04:52] LABS: ANISOCYTOSIS 2+; PLATELET COMMENT ADEQUATE
[2018-12-03] MEDS: HEPARIN SOD (PORCINE) 5,000 UNIT/ML 1 ML SYRINGE SUBCUT SCH ×3 (05:37→21:09)
[2018-12-03] MEDS: CEFEPIME HCL 2 GM in DEXTROSE 5%-WATER 50 ML IV SCH ×2 (05:37→17:06)
[2018-12-03] MEDS: VANCOMYCIN HCL 750 MG in DEXTROSE 5%-WATER 250 ML IV SCH ×2 (05:38→14:25)
--- NOTE | 2018-12-03 07:41 | PDOC PROGRESS REPORT ---
Subjective Progress Note for:: 12/03/18 Subjective:: Patient currently on BiPAP, but states that he was able to sleep some last night. He is using the BiPAP intermittently and was able to eat some dinner last night. No new complaints today. ROS: denies pain. No nausea. Reason For Visit: RIGHT LOWER LOBE PNEUMONIA, ACUTE ON CHRONIC Physical Exam Vital Signs: Temp Pulse Resp BP Pulse Ox 97.9 F 111 H 17 126/94 H 95 12/03/18 04:00 12/03/18 07:35 12/03/18 06:07 12/03/18 06:07 12/03/18 06:07 Intake & Output 12/02/18 12/03/18 12/04/18 06:59 06:59 06:59 Intake Total 4745 2953 300 Output Total 2910 3125 Balance 1835 -172 300 Weight 54.8 kg General appearance: PRESENT: thin Head exam: PRESENT: normocephalic Mouth exam: PRESENT: other - BiPAP in place. Respiratory exam: PRESENT: clear to auscultation rylie, unlabored Cardiovascular exam: PRESENT: RRR GI/Abdominal exam: PRESENT: soft. ABSENT: tenderness Extremities exam: ABSENT: pedal edema Neurological exam: PRESENT: alert, awake, oriented to person, oriented to place, oriented to time, oriented to situation Psychiatric exam: PRESENT: appropriate affect Skin exam: PRESENT: normal color Results Laboratory Results: 12/03/18 04:00 12/03/18 04:00 12/03/18 12/03/18 04:00 04:00 WBC 4.4 RBC 3.97 L Hgb 10.6 L Hct 31.2 L MCV 78 L MCH 26.7 L MCHC 34.0 RDW 19.6 H Plt Count 279 Seg Neutrophils % Not Reportable Lymphocytes % Not Reportable Monocytes % Not Reportable Eosinophils % Not Reportable Basophils % Not Reportable Absolute Neutrophils Not Reportable Absolute Lymphocytes Not Reportable Absolute Monocytes Not Reportable Absolute Eosinophils Not Reportable Absolute Basophils Not Reportable Sodium 133.2 L Potassium 4.7 Chloride 97 L Carbon Dioxide 31 H Anion Gap 5 BUN 15 Creatinine 0.53 Est GFR ( Amer) > 60 Est GFR (Non-Af Amer) > 60 Glucose 124 H Calcium 8.3 L Phosphorus 3.1 Magnesium 1.7 Impressions: Chest X-Ray 11/30/18 17:27 IMPRESSION: Likely right lower lobe pneumonia. Assessment & Plan - Diagnosis (1) Acute and chronic respiratory failure with hypoxia Is this a current diagnosis for this admission?: Yes Plan: As per primary team. He remains on antibiotics and steroids. (2) Large B-cell lymphoma Is this a current diagnosis for this admission?: Yes Plan: No evidence of disease currently. (3) Pneumonia Qualifiers: Pneumonia type: due to unspecified organism Laterality: right Lung location: lower lobe of lung Qualified Code(s): J18.1 - Lobar pneumonia, unspecified organism Is this a current diagnosis for this admission?: Yes (4) Hypogammaglobulinemia Is this a current diagnosis for this admission?: Yes Plan: Await IgG level. If low, will try to order IVIg. This may greatly improve his overall health and help avoid further admissions for recurrent pneumonia.
[2018-12-03] MEDS: RINGERS SOLUTION,LACTATED 1,000 ML IV PRN (07:44)
[2018-12-03] MEDS: BUDESONIDE NEB 0.5 MG/2 ML AMPUL NEB SCH ×2 (08:15→19:16)
[2018-12-03] MEDS: ACETYLCYSTEINE 20% SOLN 800 MG/4 ML VIAL.NEB NEB SCH ×2 (08:15→19:16)
[2018-12-03] MEDS: LIDOCAINE 5% (700 MG) TRANSDERMAL ADH..PATCH TP SCH (09:04)
[2018-12-03] MEDS: FAMOTIDINE 20 MG TABLET PO SCH ×2 (09:04→21:08)
[2018-12-03] MEDS: DOCUSATE SODIUM 100 MG CAPSULE PO SCH ×2 (09:04→17:06)
[2018-12-03] MEDS: ACETAMINOPHEN 325 MG TABLET PO PRN (10:37)
--- NOTE | 2018-12-03 11:32 | RADIOLOGY REPORT (SQ) ---
EXAM DESCRIPTION: CHEST SINGLE VIEW COMPLETED DATE/TIME: 12/03/2018 10:50 am REASON FOR STUDY: reassess infiltrates COMPARISON: CT angio chest 10/05/2018 AP chest 10/10/2018, 11/04/2018 EXAM PARAMETERS: NUMBER OF VIEWS: One view. TECHNIQUE: Single frontal radiographic view of the chest acquired. RADIATION DOSE: NA LIMITATIONS: None. FINDINGS: LUNGS AND PLEURA: Persistent patchy airspace disease in the right perihilar region, right middle and lower lobe, left perihilar region. This could either represent pneumonia superimposed on obstructive lung disease, for edema superimposed on obstructive disease. These infiltrates are new c ompared to 11/04/2018. No pleural effusion. No pneumothorax. MEDIASTINUM AND HILAR STRUCTURES: No masses. Contour normal. HEART AND VASCULAR STRUCTURES: Heart normal in size. Normal vasculature. BONES: No acute findings. HARDWARE: None in the chest. OTHER: No other significant finding. IMPRESSION: Persistent patchy multifocal airspace disease, edema versus pneumonia superimposed on ob structive disease. This is similar compared to 11/30/2018 and new compared to 11/04/2018 TECHNICAL DOCUMENTATION: JOB ID: [id number] [employer]- All Rights Reserved Reading location - IP/workstation name: [email or web address]
[2018-12-03 14:21] LABS: VANCOMYCIN,TROUGH 8.8 ug/mL (5.0-20.0)
--- NOTE | 2018-12-03 17:46 | PDOC PROGRESS REPORT ---
Subjective Progress Note for:: 12/03/18 Subjective:: 12/01: Assumed care today. Chart and ICU course reviewed. This is a 53-year-old male who has a history of COPD, recurrent pneumonia, Stage IV large B cell lymphoma, and history of left upper lung nodule who presented with cough and shortness of breath. Patient was noted to be tachypneic, tachycardic, hypoxic and hypotensive. He was noted to have a right lower lobe pneumonia. He was admitted to the ICU for septic shock as he was requiring vasopressor. Patient is also requiring BiPAP. Upon encounter, patient is not in acute distress and has been switched to nasal cannula. He says that his shortness of breath is slightly improved today. He denies chest pain. He is still currently on high dose of Min-Synephrine. 12/02: Patient was weaned off Min-Synephrine since early this morning at 4 AM. He has been also off BiPAP for more than 24 hours now. He saturating well and is comfortable nasal cannula. Blood pressures have remained stable. No fever or chills. Denies chest pain. 12/03: No acute event overnight. Blood pressures remain stable. Continue to saturate well on nasal cannula. Denies acute complaints. Downgrade to tele floor. Reason For Visit: RIGHT LOWER LOBE PNEUMONIA, ACUTE ON CHRONIC Physical Exam Vital Signs: Temp Pulse Resp BP Pulse Ox 97.8 F 125 H 19 114/87 H 92 12/03/18 16:00 12/03/18 16:17 12/03/18 16:17 12/03/18 16:00 12/03/18 16:17 Intake & Output 12/02/18 12/03/18 12/04/18 06:59 06:59 06:59 Intake Total 4745 2953 1150 Output Total 2910 3125 225 Balance 1835 -172 925 Weight 120 lb 13.013 oz General appearance: PRESENT: no acute distress, well-developed, well-nourished Head exam: PRESENT: atraumatic, normocephalic Eye exam: PRESENT: conjunctiva pink, EOMI, PERRLA. ABSENT: scleral icterus Ear exam: PRESENT: normal external ear exam Mouth exam: PRESENT: moist, tongue midline Neck exam: ABSENT: carotid bruit, JVD, lymphadenopathy, thyromegaly Respiratory exam: PRESENT: rales, rhonchi. ABSENT: wheezes Cardiovascular exam: PRESENT: RRR. ABSENT: diastolic murmur, rubs, systolic murmur Pulses: PRESENT: normal dorsalis pedis pul GI/Abdominal exam: PRESENT: normal bowel sounds, soft. ABSENT: distended, guarding, mass, organolmegaly, rebound, tenderness Rectal exam: PRESENT: deferred Extremities exam: PRESENT: full ROM. ABSENT: calf tenderness, clubbing, pedal edema Neurological exam: PRESENT: alert, awake, oriented to person, oriented to place, oriented to time, oriented to situation, CN II-XII grossly intact. ABSENT: motor sensory deficit Results Laboratory Results: 12/03/18 04:00 12/03/18 04:00 12/03/18 12/03/18 04:00 04:00 WBC 4.4 RBC 3.97 L Hgb 10.6 L Hct 31.2 L MCV 78 L MCH 26.7 L MCHC 34.0 RDW 19.6 H Plt Count 279 Seg Neutrophils % Not Reportable Lymphocytes % Not Reportable Monocytes % Not Reportable Eosinophils % Not Reportable Basophils % Not Reportable Absolute Neutrophils Not Reportable Absolute Lymphocytes Not Reportable Absolute Monocytes Not Reportable Absolute Eosinophils Not Reportable Absolute Basophils Not Reportable Sodium 133.2 L Potassium 4.7 Chloride 97 L Carbon Dioxide 31 H Anion Gap 5 BUN 15 Creatinine 0.53 Est GFR ( Amer) > 60 Est GFR (Non-Af Amer) > 60 Glucose 124 H Calcium 8.3 L Phosphorus 3.1 Magnesium 1.7 12/01/18 01:30 Catheterized Urine Urine Culture - Final Enterococcus Faecalis(Group D) Impressions: Chest X-Ray 12/03/18 00:00 IMPRESSION: Persistent patchy multifocal airspace disease, edema versus pneumonia superimposed on obstructive disease. This is similar compared to 11/30/2018 and new compared to 11/04/2018 Assessment and Plan - Diagnosis (1) Acute and chronic respiratory failure with hypoxia Is this a current diagnosis for this admission?: Yes Plan: Resolved. 12/01: Secondary to pneumonia. Patient has been switched to nasal cannula from BiPAP on encounter and has been doing well so far. 12/03: He saturating well and is comfortable nasal cannula. (2) Septic shock Is this a current diagnosis for this admission?: Yes Plan: Resolved. Secondary to right lower lobe pneumonia. 12/01: Currently on Min-Synephrine. Reduce IV fluids to 150 cc/h. Continue broad-spectrum IV antibiotics for now. Will order for sputum culture. Blood culture pending. 12/02: Patient was weaned off Min-Synephrine since early this morning at 4 AM. Blood pressures have remained stable. Continue IV antibiotics. Decrease IV fluids to 50 cc/hr. 12/03: DC IV fluids. (3) Pneumonia Qualifiers: Pneumonia type: due to unspecified organism Laterality: right Lung location: lower lobe of lung Qualified Code(s): J18.1 - Lobar pneumonia, unspecified organism Is this a current diagnosis for this admission?: Yes Plan: Likely HCAP. Patient had 2 episodes of pneumonia and hospitalization in the past 3 months. Empirically covering for MRSA and gram-negative bacteria. As per #2. (4) Large B-cell lymphoma Is this a current diagnosis for this admission?: Yes Plan: Reviewed previous hospitalizations, patient has been having recurrent pneumonia. He was seen by Dr. Vega previously and was deemed that the recurrent pneumonias in the past were related to immunosuppression from cancer treatments. Will consult Dr. Suarez for further recommendations. He does have a prior left upper lung nodule biopsy in 2017 but I am not able to find the biopsy results on the EMR. 12/03: IgG levels ordered by oncology for possible need for IVIg. - Time Time Spent with patient: 25-34 minutes
[2018-12-03] MEDS: LEVALBUTEROL HCL NEB 0.63 MG/3 ML AMPUL NEB PRN (19:16)
[2018-12-03] MEDS: AZITHROMYCIN 250 MG TABLET PO SCH (21:07)
[2018-12-03] MEDS: FUROSEMIDE INJ/PF 20 MG/2 ML SDV IV SCH (21:08)
[2018-12-03] MEDS: VANCOMYCIN HCL 1,000 MG in DEXTROSE 5%-WATER 250 ML IV SCH (21:09)
[2018-12-03] MEDS: MORPHINE SULFATE 10 MG/ML INJ IV PRN (23:31)
[2018-12-04] MEDS: VANCOMYCIN HCL 1,000 MG in DEXTROSE 5%-WATER 250 ML IV SCH ×4 (02:14→21:16)
[2018-12-04] MEDS: FUROSEMIDE INJ/PF 20 MG/2 ML SDV IV SCH (05:58)
[2018-12-04] MEDS: CEFEPIME HCL 2 GM in DEXTROSE 5%-WATER 50 ML IV SCH ×2 (05:58→17:17)
[2018-12-04] MEDS: HEPARIN SOD (PORCINE) 5,000 UNIT/ML 1 ML SYRINGE SUBCUT SCH ×2 (05:59→13:29)
[2018-12-04] MEDS ORDERED: IMMUNE GLOB,GAM CAPRYLATE(IGG) 20 GM/200 ML SDV IV ONE (08:00)
[2018-12-04] MEDS ORDERED: [UNRECOGNIZED DRUG - OTHER] IV PRN (08:04)
[2018-12-04] MEDS ORDERED: IMMUNE GLOB GAM CAPRYLATE IV PRN (08:04)
[2018-12-04] MEDS: LEVALBUTEROL HCL NEB 1.25 MG/3 ML AMPUL NEB SCH ×2 (08:07→15:41)
[2018-12-04] MEDS: IPRATROPIUM BROMIDE 0.02% NEB 0.5 MG/2.5 ML AMPUL NEB SCH ×2 (08:07→15:41)
[2018-12-04] MEDS: ACETYLCYSTEINE 20% SOLN 800 MG/4 ML VIAL.NEB NEB SCH (08:07)
[2018-12-04] MEDS: BUDESONIDE NEB 0.5 MG/2 ML AMPUL NEB SCH (08:07)
--- NOTE | 2018-12-04 08:49 | PDOC PROGRESS REPORT ---
Subjective Progress Note for:: 12/04/18 Subjective:: Patient states that he has needed the BiPAP more over the last 24 hours. His recovery has been very slow and this is frustrating for him. No new complaints. Reason For Visit: RIGHT LOWER LOBE PNEUMONIA, ACUTE ON CHRONIC Physical Exam Vital Signs: Temp Pulse Resp BP Pulse Ox 98.1 F 132 H 24 H 101/81 100 12/04/18 08:00 12/04/18 08:06 12/04/18 08:00 12/04/18 08:00 12/04/18 08:00 Intake & Output 12/03/18 12/04/18 12/05/18 06:59 06:59 06:59 Intake Total 2953 2130 1100 Output Total 3125 4125 - 1100 Weight 54.8 kg 51.2 kg General appearance: PRESENT: mild distress, thin Exam: Tmax 99. Head exam: PRESENT: normocephalic Respiratory exam: PRESENT: accessory muscle use, wheezes Cardiovascular exam: PRESENT: RRR Extremities exam: ABSENT: pedal edema Neurological exam: PRESENT: alert, awake Psychiatric exam: PRESENT: appropriate affect Skin exam: PRESENT: normal color Results Laboratory Results: 12/03/18 04:00 12/03/18 04:00 12/01/18 01:30 Catheterized Urine Urine Culture - Final Enterococcus Faecalis(Group D) Impressions: Chest X-Ray 12/03/18 00:00 IMPRESSION: Persistent patchy multifocal airspace disease, edema versus pneumonia superimposed on obstructive disease. This is similar compared to 11/30/2018 and new compared to 11/04/2018 Assessment & Plan - Diagnosis (1) Acute and chronic respiratory failure with hypoxia Is this a current diagnosis for this admission?: Yes (2) Large B-cell lymphoma Is this a current diagnosis for this admission?: Yes (3) Pneumonia Qualifiers: Pneumonia type: due to unspecified organism Laterality: right Lung location: lower lobe of lung Qualified Code(s): J18.1 - Lobar pneumonia, unsp ecified organism Is this a current diagnosis for this admission?: Yes (4) Hypogammaglobulinemia Is this a current diagnosis for this admission?: Yes Plan: His IgG levels are very low. I have ordered IVIg and pharmacy does have a partial dose to give him today. Hopefully this will help him recover faster. If these infusions can be continued as outpatient, this may prevent further admissions for sepsis and pneumonia. I will try to arrange. - Plan Summary Plan Summary: Please call over the weekend if needed.
[2018-12-04] MEDS: DOCUSATE SODIUM 100 MG CAPSULE PO SCH ×2 (09:21→17:17)
[2018-12-04] MEDS: FAMOTIDINE 20 MG TABLET PO SCH (09:21)
[2018-12-04] MEDS: MORPHINE SULFATE 10 MG/ML INJ IV PRN ×4 (09:22→21:16)
[2018-12-04] MEDS: LIDOCAINE 5% (700 MG) TRANSDERMAL ADH..PATCH TP SCH (09:22)
--- NOTE | 2018-12-04 09:57 | Operative Report ---
Bedside Procedure - History of Present Illness History of Present Illness: DARSHAN SABA is a 53 year old male Indication for Procedure: needs CTA poor peripheral acess Date: 12/04/18 Surgeon: CRISTIN CLEANING - Central Line Right Internal jugular Time completed: 09:57 Consent obtained: Yes Central line pre-insertion: Sterile PPE donned, Betadine prep applied, Chloraprep applied, Sterile drapes applied Central line lumen type: Triple Anesthetic type: 1% Lidocaine Ultrasound guided: Yes Line secured with sutures: Yes Central line post-insertion: Blood return from lumens, Biopatch applied, Sutured, Sterile dressing applied, Position confirmed w/ CXR Complications: No
[2018-12-04 10:07] LABS: ARTERIAL BLOOD BASE EXCESS 9.6 mmol/L; ARTERIAL BLOOD H2CO3 1.36 mmol/L (1.05-1.35); ARTERIAL BLOOD O2 SATURATION 65.8 % (94-98); ARTERIAL BLOOD PCO2 45.3 mmHg (35-45); ARTERIAL BLOOD PH 7.49 (7.35-7.45); ARTERIAL BLOOD TOTAL CO2 35.4 mmol/L (23-27)
[2018-12-04 10:08] LABS: ARTERIAL BLOOD FIO2 40%
[2018-12-04 10:11] LABS: ARTERIAL BLOOD PO2 31.8 mmHg (80-100)
[2018-12-04] MEDS ORDERED: NORMAL SALINE INJ/PF 0.9% 10 ML SDV IV PRN ×2 (10:13→10:26)
--- NOTE | 2018-12-04 10:17 | RADIOLOGY REPORT (SQ) ---
EXAM DESCRIPTION: CHEST SINGLE VIEW COMPLETED DATE/TIME: 12/04/2018 10:08 am REASON FOR STUDY: Confirme central line placement COMPARISON: Chest films 12/03/2018, 11/30/2018, 11/04/2018 EXAM PARAMETERS: NUMBER OF VIEWS: One view. TECHNIQUE: Single frontal radiographic view of the chest acquired. RADIATION DOSE: NA LIMITATIONS: None. FINDINGS: LUNGS AND PLEURA: Patchy airspace disease is present in the right perihilar region, of rig ht lower lobe, and left perihilar region unchanged from 12/03/2018. No pleural effusion. No pneumothorax. MEDIASTINUM AND HILAR STRUCTURES: No masses. Contour normal. HEART AND VASCULAR STRUCTURES: Heart normal in size. Normal vasculature. BONES: No acute findings. HARDWARE: Right jugular central line tip superior vena cava. OTHER: No other significant finding. IMPRESSION: Right jugular central line tip superior vena cava. No pneumothorax TECHNICAL DOCUMENTATION: JOB ID: [id number] [employer]- All Rights Reserved Reading location - IP/workstation name: [email or web address]
[2018-12-04] MEDS: PANTOPRAZOLE SODIUM 40 MG VIAL IV SCH (10:47)
[2018-12-04] MEDS ORDERED: NORMAL SALINE 500 ML IV ONE ×2 (13:00→18:00)
--- NOTE | 2018-12-04 15:15 | RADIOLOGY REPORT (SQ) ---
EXAM DESCRIPTION: CTA CHEST COMPLETED DATE/TIME: 12/04/2018 2:33 pm REASON FOR STUDY: r/o PE COMPARISON: 10/05/2018 TECHNIQUE: CT scan of the chest performed using helical scanning technique with dynamic intravenous contrast injection. Images reviewed with lung, soft tissue and bone windows. Reconstructed coronal and sagittal MPR images reviewed. Additional 3 dimensional post-processing performed to develop Maximal Intensity Projection images (MN P). All images stored on PACS. All CT scanners at this facility use dose modulation, iterative reconstruction, and/or weight based d osing when appropriate to reduce radiation dose to as low as reasonably achievable (ALARA). [facility]: Dose Right [facility]: CareDose [facility]: Dose Right [facility]: Teradose 4D [facility]: [employer] CONTRAST TYPE AND DOSE: contrast/concentration: Isovue 350.00 mg/ml; Total Contrast Delivered: 45.0 ml; Total Saline Delivered: 52.0 ml Contrast bolus adequate for pulmonary arteries and aorta. RENAL FUNCTION: Not recorded. Refer to arrt technologist's notes. RADIATION DOSE: CT Rad equipment meets quality standard of care and radiation dose reduction techniq ues were employed. CTDIvol: 1.9 - 13.2 mGy. DLP: 238 mGy-cm. . LIMITATIONS: None. FINDINGS: LUNGS AND PLEURA: Bilateral infiltrates in the left upper lobe, left lower lobe, right mid dle lobe, and right lower lobe. There appears to be bilateral lower lobe bronchiectasis. AORTA AND GREAT VESSELS: No aneurysm. No dissection. HEART: No pericardial effusion. No significant coronary artery calcifications. PULMONARY ARTERIES: Limited thrombus is present in right upper lobe and middle lobe pulmonary arterie s. See images 42 through 60 series 3 . HILAR AND MEDIASTINAL STRUCTURES: No identified masses or abnormal nodes. HARDWARE: Right internal jugular catheter. UPPER ABDOMEN: No significant findings. Limited exam. THYROID AND OTHER SOFT TISSUES: No masses. No adenopathy. BONES: No acute or significant finding. 3D MIPS: Confirm above findings. OTHER: No other significant finding. IMPRESSION: 1. Right-sided pulmonary emboli as described. 2. Multicentric pneumonia, some of which appears to be chronic. Possibly atypical. Chronic lower l obe bronchiectasis. COMMENT: Quality ID # [id number]: Final reports with documentation of one or more dose reduction techniques (e.g., Automated exposure control, adjustment of the mA and/or kV according to patient size, use of iterative reconstruction technique) TECHNICAL DOCUMENTATION: JOB ID: [id number] [employer]- All Rights Reserved Reading location - IP/workstation name: [email or web address]
--- NOTE | 2018-12-04 15:21 | RADIOLOGY REPORT (SQ) ---
EXAM DESCRIPTION: CT ABDOMEN NO ORAL OR IV COMPLETED DATE/TIME: 12/04/2018 2:33 pm REASON FOR STUDY: upper abdominal pain COMPARISON: None. TECHNIQUE: CT scan of the abdomen performed without intravenous contrast and without oral contrast. Images reviewed with lung, soft tissue, and bone windows. Reconstructed coronal and sagittal MPR im ages reviewed. All images stored on PACS. All CT scanners at this facility use dose modulation, iterative reconstruction, and/or weight based d osing when appropriate to reduce radiation dose to as low as reasonably achievable (ALARA). [facility]: Dose Right [facility]: CareDose [facility]: Dose Right [facility]: Teradose 4D [facility]: [employer] group RADIATION DOSE: CT Rad equipment meets quality standard of care and radiation dose reduction techniq ues were employed. CTDIvol: 2.8 mGy. DLP: 101 mGy-cm.mGy. LIMITATIONS: Lack of oral and intravenous contrast. Paucity of intra-abdominal fat. FINDINGS: LOWER CHEST: See separate report of the CT of the chest. NONCONTRASTED LIVER, SPLEEN, ADRENALS: There are some prominent intrahepatic ducts. Spleen and adren al glands are normal. PANCREAS: No masses. No peripancreatic inflammatory changes. GALLBLADDER: Contracted. No stones. RIGHT KIDNEY AND URETER: No suspicious masses. Assessment limited by lack of IV contrast. No signif icant calcifications. No hydronephrosis or hydroureter. LEFT KIDNEY AND URETER: Hypoplastic. AORTA AND RETROPERITONEUM: No aneurysm. No retroperitoneal masses or adenopathy. BOWEL AND PERITONEAL CAVITY: No obvious masses or inflammatory changes. No free fluid. APPENDIX: Not included. ABDOMINAL WALL: No abdominal wall hernias. BONES: No significant findings. OTHER: No other significant finding. IMPRESSION: Intrahepatic ductal prominence. Hypoplastic left kidney. No acute finding. COMMENT: It is not understood why the abdomen was done without contrast when contrast was going to b e given for the CT of the chest. TECHNICAL DOCUMENTATION: JOB ID: [id number] Quality ID # [id number]: Final reports with documentation of one or more dose reduction techniques (e.g., Au tomated exposure control, adjustment of the mA and/or kV according to patient size, use of iterative reconstruction technique) 2010 [employer]- All Rights Reserved Reading location - IP/workstation name: [email or web address]
[2018-12-04] MEDS ORDERED: METOPROLOL TARTRATE PF/INJ 5 MG/5 ML SDV IV ONE (15:30)
--- NOTE | 2018-12-04 15:51 | PDOC PROGRESS REPORT ---
Subjective Progress Note for:: 12/04/18 Subjective:: 12/01: Assumed care today. Chart and ICU course reviewed. This is a 53-year-old male who has a history of COPD, recurrent pneumonia, Stage IV large B cell lymphoma, and history of left upper lung nodule who presented with cough and shortness of breath. Patient was noted to be tachypneic, tachycardic, hypoxic and hypotensive. He was noted to have a right lower lobe pneumonia. He was admitted to the ICU for septic shock as he was requiring vasopressor. Patient is also requiring BiPAP. Upon encounter, patient is not in acute distress and has been switched to nasal cannula. He says that his shortness of breath is slightly improved today. He denies chest pain. He is still currently on high dose of Min-Synephrine. 12/02: Patient was weaned off Min-Synephrine since early this morning at 4 AM. He has been also off BiPAP for more than 24 hours now. He saturating well and is comfortable nasal cannula. Blood pressures have remained stable. No fever or chills. Denies chest pain. 12/03: No acute event overnight. Blood pressures remain stable. Continue to saturate well on nasal cannula. Denies acute complaints. Downgrade to tele floor. 12/04: Patient has been increasingly more BiPAP dependent. Deferred downgrade to telemetry. He does complain of increasing shortness of breath as the past 24 hours despite being on broad IV antibiotics. Will pursue a chest CTA to rule out a PE. Reason For Visit: RIGHT LOWER LOBE PNEUMONIA, ACUTE ON CHRONIC Physical Exam Vital Signs: Temp Pulse Resp BP Pulse Ox 98.1 F 137 H 27 H 105/81 99 12/04/18 08:00 12/04/18 09:59 12/04/18 10:00 12/04/18 09:59 12/04/18 10:00 Intake & Output 12/03/18 12/04/18 12/05/18 06:59 06:59 06:59 Intake Total 2953 2130 1350 Output Total 3125 4125 1350 Weight 120 lb 13.013 oz 112 lb 14.027 oz General appearance: PRESENT: mild distress Head exam: PRESENT: atraumatic, normocephalic Eye exam: PRESENT: conjunctiva pink, EOMI, PERRLA. ABSENT: scleral icterus Ear exam: PRESENT: normal external ear exam Mouth exam: PRESENT: moist, tongue midline Neck exam: ABSENT: carotid bruit, JVD, lymphadenopathy, thyromegaly Respiratory exam: PRESENT: rhonchi. ABSENT: rales, wheezes Cardiovascular exam: PRESENT: RRR. ABSENT: diastolic murmur, rubs, systolic murmur Pulses: PRESENT: normal dorsalis pedis pul GI/Abdominal exam: PRESENT: normal bowel sounds, soft. ABSENT: distended, guarding, mass, organolmegaly, rebound, tenderness Rectal exam: PRESENT: deferred Extremities exam: PRESENT: full ROM. ABSENT: calf tenderness, clubbing, pedal edema Neurological exam: PRESENT: alert, awake, oriented to person, oriented to place, oriented to time, oriented to situation, CN II-XII grossly intact. ABSENT: motor sensory deficit Results Laboratory Results: 12/03/18 04:00 12/03/18 04:00 12/04/18 09:52 Carbonic Acid 1.36 H HCO3/H2CO3 Ratio 25:1 ABG pH 7.49 H ABG pCO2 45.3 H ABG pO2 31.8 L* ABG HCO3 34.0 H ABG O2 Saturation 65.8 L ABG Base Excess 9.6 FiO2 40% 12/01/18 01:30 Catheterized Urine Urine Culture - Final Enterococcus Faecalis(Group D) Impressions: Chest X-Ray 12/04/18 09:54 IMPRESSION: Right jugular central line tip superior vena cava. No pneumothorax Assessment and Plan - Diagnosis (1) Acute and chronic respiratory failure with hypoxia Is this a current diagnosis for this admission?: Yes Plan: Resolved. 12/01: Secondary to pneumonia. Patient has been switched to nasal cannula from BiPAP on encounter and has been doing well so far. 12/03: He saturating well and is comfortable nasal cannula. 12/04: Patient has been increasingly more BiPAP dependent. He does complain of increasing shortness of breath as the past 24 hours despite being on broad IV antibiotics. Will pursue a chest CTA to rule out a PE. (2) Septic shock Is this a current diagnosis for this admission?: Yes Plan: Resolved. Secondary to right lower lobe pneumonia. 12/01: Currently on Min-Synephrine. Reduce IV fluids to 150 cc/h. Continue broad-spectrum IV antibiotics for now. Will order for sputum culture. Blood culture pending. 12/02: Patient was weaned off Min-Synephrine since early this morning at 4 AM. Blood pressures have remained stable. Continue IV antibiotics. Decrease IV fluids to 50 cc/hr. 12/03: DC IV fluids. (3) Pneumonia Qualifiers: Pneumonia type: due to unspecified organism Laterality: right Lung location: lower lobe of lung Qualified Code(s): J18.1 - Lobar pneumonia, unspecified organism Is this a current diagnosis for this admission?: Yes Plan: Likely HCAP. Patient had 2 episodes of pneumonia and hospitalization in the past 3 months. Empirically covering for MRSA and gram-negative bacteria. As per #2. (4) Large B-cell lymphoma Is this a current diagnosis for this admission?: Yes Plan: Reviewed previous hospitalizations, patient has been having recurrent pneumonia. He was seen by Dr. Vega previously and was deemed that the recurrent pneumonias in the past were related to immunosuppression from cancer treatments. Will consult Dr. Suarez for further recommendations. He does have a prior left upper lung nodule biopsy in 2017 but I am not able to find the biopsy results on the EMR. 12/03: IgG levels ordered by oncology for possible need for IVIg. - Time Time Spent with patient: 25-34 minutes
[2018-12-04] MEDS ORDERED: HEPARIN SOD (PORCINE) 1,000 UNIT/ML 10 ML VIAL IV ONE (16:00)
[2018-12-04] MEDS: HEPARIN SODIUM,PORCINE/D5W 25,000 UNIT/250 ML RTUINJ IV PRN (16:14)
[2018-12-04 16:26] LABS: HEMATOCRIT 30.1 % (37.9-51.0); HEMOGLOBIN 10.2 g/dL (13.5-17.0); MEAN CORPUSCULAR HEMOGLOBIN 26.7 pg (27.0-33.4); MEAN CORPUSCULAR HGB CONC 33.8 g/dL (32.0-36.0); MEAN CORPUSCULAR VOLUME 79 fl (80-97); PLATELET COUNT 272 10^3/uL (150-450); RED CELL DISTRIBUTION WIDTH 19.7 % (11.5-14.0); WHITE BLOOD COUNT 3.6 10^3/uL (4.0-10.5)
[2018-12-04 16:34] LABS: INTERNATIONAL RATION (INR) 1.03
[2018-12-04 16:35] LABS: PARTIAL THROMBOPLASTIN TIME 59.1 SEC (23.5-35.8)
[2018-12-04 16:36] LABS: APPEARANCE,URINE CLEAR; BILIRUBIN,URINE NEGATIVE (NEGATIVE); COLOR,URINE STRAW; GLUCOSE, URINE NEGATIVE (NEGATIVE); KETONES,URINE NEGATIVE (NEGATIVE); LEUKOCYTE ESTERASE,URINE NEGATIVE (NEGATIVE); NITRITE,URINE NEGATIVE (NEGATIVE); PROTEIN,URINE NEGATIVE (NEGATIVE); UROBILINOGEN,URINE NEGATIVE mg/dL (<2.0)
[2018-12-04 16:48] LABS: ABSOLUTE LYMPHOCYTES# (MANUAL) 0.4 10^3/uL (0.5-4.7); ABSOLUTE MONOCYTES # (MANUAL) 0.4 10^3/uL (0.1-1.4); BASOPHILS % (MANUAL) 0 % (0-2); EOSINOPHILS % (MANUAL) 1 % (0-6); LYMPHOCYTES % (MANUAL) 10 % (13-45); MONOCYTES % (MANUAL) 10 % (3-13); SEGMENTED NEUTROPHILS % (MAN) 53 % (42-78); TOTAL CELLS COUNTED 100
[2018-12-04 16:49] LABS: PLATELET COMMENT ADEQUATE; PLATELET GIANT PRESENT
[2018-12-04 16:51] LABS: ANISOCYTOSIS 2+; POIKILOCYTOSIS SLIGHT; POLYCHROMASIA SLIGHT
[2018-12-04 16:52] LABS: BAND NEUTROPHILS % (MANUAL) 15 % (3-5); METAMYELOCYTES % (MANUAL) 5 % (0); MYELOCYTES % (MANUAL) 3 % (0); PROMYELOCYTES % (MANUAL) 3 % (0)
[2018-12-04] MEDS: AZITHROMYCIN 250 MG TABLET PO SCH (17:17)
[2018-12-04] MEDS: POLYETHYLENE GLYCOL 3350 POWDER 17 GM/1 PACKET PO PRN (17:17)
[2018-12-04] MEDS ORDERED: HEPARIN SOD (PORCINE) 1,000 UNIT/ML 10 ML VIAL IV PRN (18:41)
[2018-12-04] MEDS: NORMAL SALINE 1000 ML 1,000 ML IV PRN (19:00)
--- NOTE | 2018-12-04 19:16 | EKG REPORT ---
SEVERITY:- BORDERLINE ECG - SINUS TACHYCARDIA BORDERLINE RIGHT AXIS DEVIATION LOW VOLTAGE IN FRONTAL LEADS : Confirmed by: Kayy Sauer MD 04-Dec-2018 19:15:44
[2018-12-05] MEDS: LEVALBUTEROL HCL NEB 1.25 MG/3 ML AMPUL NEB SCH ×4 (00:08→23:55)
[2018-12-05] MEDS ORDERED: DILTIAZEM HCL 60 MG TABLET PO ONE (00:45)
[2018-12-05] MEDS: VANCOMYCIN HCL 1,000 MG in DEXTROSE 5%-WATER 250 ML IV SCH ×4 (02:05→21:09)
[2018-12-05] MEDS ORDERED: DILTIAZEM HCL 30 MG TABLET PO ONE (03:15)
[2018-12-05 04:42] LABS: ARTERIAL BLOOD H2CO3 1.26 mmol/L (1.05-1.35); ARTERIAL BLOOD HCO3 33.8 mmol/L (20-24); ARTERIAL BLOOD O2 SATURATION 97.4 % (94-98); ARTERIAL BLOOD PCO2 41.9 mmHg (35-45); ARTERIAL BLOOD PH 7.52 (7.35-7.45); ARTERIAL BLOOD PO2 86.7 mmHg (80-100)
[2018-12-05 04:45] LABS: HEMATOCRIT 29.3 % (37.9-51.0); MEAN CORPUSCULAR HEMOGLOBIN 26.8 pg (27.0-33.4); MEAN CORPUSCULAR VOLUME 79 fl (80-97); PLATELET COUNT 256 10^3/uL (150-450); RED BLOOD COUNT 3.72 10^6/uL (4.35-5.55); WHITE BLOOD COUNT 4.5 10^3/uL (4.0-10.5)
[2018-12-05] MEDS: ACETAMINOPHEN 325 MG TABLET PO PRN (04:45)
[2018-12-05] MEDS: MAGNESIUM HYDROXIDE SUSP 30 ML UDCUP PO PRN (04:45)
[2018-12-05 04:48] LABS: ARTERIAL BLOOD FIO2 40%
[2018-12-05 05:05] LABS: ALANINE AMINOTRANSFERASE 21 U/L (21-72); ALBUMIN 2.3 g/dL (3.5-5.0); ALKALINE PHOSPHATASE 70 U/L (38-126); ANION GAP 5 (5-19); ASPARTATE AMINO TRANSFERASE 26 U/L (17-59); BILIRUBIN,DIRECT 0.2 mg/dL (0.0-0.4); BILIRUBIN,TOTAL 0.4 mg/dL (0.2-1.3); BLOOD UREA NITROGEN 13 mg/dL (7-20); CALCIUM 7.2 mg/dL (8.4-10.2); CARBON DIOXIDE 35 mmol/L (22-30); CHLORIDE 90 mmol/L (98-107); GLUCOSE 101 mg/dL (75-110); POTASSIUM 3.8 mmol/L (3.6-5.0); SODIUM 129.5 mmol/L (137-145); TOTAL PROTEIN 5.4 g/dL (6.3-8.2)
[2018-12-05] MEDS: DILTIAZEM HCL 30 MG TABLET PO SCH ×3 (05:18→17:37)
[2018-12-05 05:25] LABS: ABSOLUTE LYMPHOCYTES# (MANUAL) 0.1 10^3/uL (0.5-4.7); ABSOLUTE MONOCYTES # (MANUAL) 0.3 10^3/uL (0.1-1.4); BAND NEUTROPHILS % (MANUAL) 8 % (3-5); BASOPHILS % (MANUAL) 1 % (0-2); EOSINOPHILS % (MANUAL) 3 % (0-6); LYMPHOCYTES % (MANUAL) 3 % (13-45); MONOCYTES % (MANUAL) 6 % (3-13); SEGMENTED NEUTROPHILS % (MAN) 79 % (42-78); TOTAL CELLS COUNTED 100
[2018-12-05 05:27] LABS: ANISOCYTOSIS 2+; TOXIC GRANULATION SLIGHT; TOXIC VACUOLATION PRESENT
[2018-12-05 05:28] LABS: PLATELET COMMENT ADEQUATE
[2018-12-05] MEDS ORDERED: NORMAL SALINE 1000 ML 1,000 ML IV ONE (06:00)
[2018-12-05] MEDS: MORPHINE SULFATE 10 MG/ML INJ IV PRN ×5 (06:13→22:39)
[2018-12-05] MEDS: MAGNESIUM SULFATE 1 GM/D5W 100 ML IV SCH ×2 (06:16→07:21)
[2018-12-05] MEDS: CEFEPIME HCL 2 GM in DEXTROSE 5%-WATER 50 ML IV SCH ×2 (06:23→17:39)
--- NOTE | 2018-12-05 07:14 | RADIOLOGY REPORT (SQ) ---
EXAM DESCRIPTION: XR CHEST 1 VIEW COMPLETED DATE/TME: 12/05/2018 06:00 CLINICAL HISTORY: 53 years Male, resp failure/pna COMPARISON: One day prior. NUMBER OF VIEWS/TECHNIQUE: 1/AP FINDINGS: Moderate mixed airspace and interstitial opacities. Normal cardiac silhouette size. Adequate appearing right jugular central line. No pneumothorax. Stable bony thorax. IMPRESSION: No significant change.
[2018-12-05] MEDS: NORMAL SALINE 1000 ML 1,000 ML IV PRN ×2 (07:21→17:38)
[2018-12-05] MEDS: LIDOCAINE 5% (700 MG) TRANSDERMAL ADH..PATCH TP SCH ×2 (09:29→17:36)
[2018-12-05] MEDS: DOCUSATE SODIUM 100 MG CAPSULE PO SCH ×2 (09:29→17:37)
[2018-12-05] MEDS: PANTOPRAZOLE SODIUM 40 MG VIAL IV SCH (09:29)
--- NOTE | 2018-12-05 12:24 | PDOC PROGRESS REPORT ---
Subjective Progress Note for:: 12/05/18 Subjective:: 12/01: Assumed care today. Chart and ICU course reviewed. This is a 53-year-old male who has a history of COPD, recurrent pneumonia, Stage IV large B cell lymphoma, and history of left upper lung nodule who presented with cough and shortness of breath. Patient was noted to be tachypneic, tachycardic, hypoxic and hypotensive. He was noted to have a right lower lobe pneumonia. He was admitted to the ICU for septic shock as he was requiring vasopressor. Patient is also requiring BiPAP. Upon encounter, patient is not in acute distress and has been switched to nasal cannula. He says that his shortness of breath is slightly improved today. He denies chest pain. He is still currently on high dose of Min-Synephrine. 12/02: Patient was weaned off Min-Synephrine since early this morning at 4 AM. He has been also off BiPAP for more than 24 hours now. He saturating well and is comfortable nasal cannula. Blood pressures have remained stable. No fever or chills. Denies chest pain. 12/03: No acute event overnight. Blood pressures remain stable. Continue to saturate well on nasal cannula. Denies acute complaints. Downgrade to tele floor. 12/04: Patient has been increasingly more BiPAP dependent. Deferred downgrade to telemetry. He does complain of increasing shortness of breath as the past 24 hours despite being on broad IV antibiotics. Will pursue a chest CTA to rule out a PE. 12/05: Chest CTA did reveal patient has a right-sided PE. He was started on heparin drip. He was also restarted on IV fluids. He was given a bolus of fluid and a dose of IV Cardizem last night for his tachycardia. Heart rate has improved to the 90s today. He says his shortness of breath is a little better. He is saturating well on BiPAP and appears more comfortable. Blood pressures are stable. Reason For Visit: RIGHT LOWER LOBE PNEUMONIA, ACUTE ON CHRONIC Physical Exam Vital Signs: Temp Pulse Resp BP Pulse Ox 100.0 F 101 H 24 H 93/69 L 95 12/05/18 04:00 12/05/18 08:17 12/05/18 10:34 12/05/18 10:34 12/05/18 10:34 Intake & Output 12/04/18 12/05/18 12/06/18 06:59 06:59 06:59 Intake Total 2130 3209 968 Output Total 4124 1540 700 Balance -1994 -53 268 Weight 112 lb 14.027 oz 116 lb 2.938 oz General appearance: PRESENT: no acute distress Head exam: PRESENT: atraumatic, normocephalic Eye exam: PRESENT: conjunctiva pink, EOMI, PERRLA. ABSENT: scleral icterus Ear exam: PRESENT: normal external ear exam Mouth exam: PRESENT: moist, tongue midline Neck exam: ABSENT: carotid bruit, JVD, lymphadenopathy, thyromegaly Respiratory exam: PRESENT: rhonchi. ABSENT: rales, wheezes Cardiovascular exam: PRESENT: RRR. ABSENT: diastolic murmur, rubs, systolic murmur Pulses: PRESENT: normal dorsalis pedis pul GI/Abdominal exam: PRESENT: normal bowel sounds, soft. ABSENT: distended, guarding, mass, organolmegaly, rebound, tenderness Rectal exam: PRESENT: deferred Extremities exam: PRESENT: full ROM. ABSENT: calf tenderness, clubbing, pedal edema Neurological exam: PRESENT: alert, awake, oriented to person, oriented to place, oriented to time, oriented to situation, CN II-XII grossly intact. ABSENT: motor sensory deficit Results Laboratory Results: 12/05/18 04:29 12/05/18 04:29 12/04/18 12/04/18 12/04/18 14:59 15:58 15:58 WBC 3.6 L RBC 3.80 L Hgb 10.2 L Hct 30.1 L MCV 79 L MCH 26.7 L MCHC 33.8 RDW 19.7 H Plt Count 272 Seg Neutrophils % Not Reportable Lymphocytes % Not Reportable Monocytes % Not Reportable Eosinophils % Not Reportable Basophils % Not Reportable Absolute Neutrophils Not Reportable Absolute Lymphocytes Not Reportable Absolute Monocytes Not Reportable Absolute Eosinophils Not Reportable Absolute Basophils Not Reportable Carbonic Acid HCO3/H2CO3 Ratio ABG pH ABG pCO2 ABG pO2 ABG HCO3 ABG O2 Saturation ABG Base Excess FiO2 Sodium Potassium Chloride Carbon Dioxide Anion Gap BUN Creatinine 0.67 Est GFR ( Amer) > 60 Est GFR (Non-Af Amer) > 60 Glucose Calcium Phosphorus Magnesium Total Bilirubin AST ALT Alkaline Phosphatase Total Protein Albumin Urine Color STRAW Urine Appearance CLEAR Urine pH 7.0 Ur Specific Byron 1.020 Urine Protein NEGATIVE Urine Glucose (UA) NEGATIVE Urine Ketones NEGATIVE Urine Blood NEGATIVE Urine Nitrite NEGATIVE Ur Leukocyte Esterase NEGATIVE Urine WBC (Auto) 2 Urine RBC (Auto) 0 12/05/18 12/05/18 12/05/18 04:29 04:29 04:29 WBC 4.5 RBC 3.72 L Hgb 10.0 L Hct 29.3 L MCV 79 L MCH 26.8 L MCHC 34.0 RDW 20.0 H Plt Count 256 Seg Neutrophils % Not Reportable Lymphocytes % Not Reportable Monocytes % Not Reportable Eosinophils % Not Reportable Basophils % Not Reportable Absolute Neutrophils Not Reportable Absolute Lymphocytes Not Reportable Absolute Monocytes Not Reportable Absolute Eosinophils Not Reportable Absolute Basophils Not Reportable Carbonic Acid 1.26 HCO3/H2CO3 Ratio 26:1 ABG pH 7.52 H ABG pCO2 41.9 ABG pO2 86.7 ABG HCO3 33.8 H ABG O2 Saturation 97.4 ABG Base Excess 10.0 FiO2 40% Sodium 129.5 L Potassium 3.8 Chloride 90 L Carbon Dioxide 35 H Anion Gap 5 BUN 13 Creatinine 0.59 Est GFR ( Amer) > 60 Est GFR (Non-Af Amer) > 60 Glucose 101 Calcium 7.2 L Phosphorus 4.0 Magnesium 1.3 L Total Bilirubin 0.4 AST 26 ALT 21 Alkaline Phosphatase 70 Total Protein 5.4 L Albumin 2.3 L Urine Color Urine Appearance Urine pH Ur Specific Byron Urine Protein Urine Glucose (UA) Urine Ketones Urine Blood Urine Nitrite Ur Leukocyte Esterase Urine WBC (Auto) Urine RBC (Auto) Impressions: Chest/Abdomen CTA 12/04/18 00:00 IMPRESSION: 1. Right-sided pulmonary emboli as described. 2. Multicentric pneumonia, some of which appears to be chronic. Possibly atypical. Chronic lower lobe bronchiectasis. Abdomen CT 12/04/18 13:48 IMPRESSION: Intrahepatic ductal prominence. Hypoplastic left kidney. No acute finding. Chest X-Ray 12/05/18 06:00 IMPRESSION: No significant change. Assessment and Plan - Diagnosis (1) Acute and chronic respiratory failure with hypoxia Is this a current diagnosis for this admission?: Yes Plan: Resolved. 12/01: Secondary to pneumonia. Patient has been switched to nasal cannula from BiPAP on encounter and has been doing well so far. 12/03: He saturating well and is comfortable nasal cannula. 12/04: Patient has been increasingly more BiPAP dependent. He does complain of increasing shortness of breath as the past 24 hours despite being on broad IV antibiotics. Will pursue a chest CTA to rule out a PE. 12/05: Chest CTA did reveal patient has a right-sided PE. He is saturating well on BiPAP and appears more comfortable today. (2) Acute pulmonary embolism Is this a current diagnosis for this admission?: Yes Plan: 12/05: Chest CTA did reveal patient has a right-sided PE. He was started on heparin drip. He was also restarted on IV fluids. He was given a bolus of fluid and a dose of IV Cardizem last night for his tachycardia. Heart rate has improved to the 90s today. He says his shortness of breath is a little better. He is saturating well on BiPAP and appears more comfortable today. Blood pressures are stable. (3) Septic shock Is this a current diagnosis for this admission?: Yes Plan: Resolved. Secondary to right lower lobe pneumonia. 12/01: Currently on Min-Synephrine. Reduce IV fluids to 150 cc/h. Continue broad-spectrum IV antibiotics for now. Will order for sputum culture. Blood culture pending. 12/02: Patient was weaned off Min-Synephrine since early this morning at 4 AM. Blood pressures have remained stable. Continue IV antibiotics. Decrease IV fluids to 50 cc/hr. 12/03: DC IV fluids. (4) Pneumonia Qualifiers: Pneumonia type: due to unspecified organism Laterality: right Lung location: lower lobe of lung Qualified Code(s): J18.1 - Lobar pneumonia, unspecified organism Is this a current diagnosis for this admission?: Yes Plan: Likely HCAP. Patient had 2 episodes of pneumonia and hospitalization in the past 3 months. Empirically covering for MRSA and gram-negative bacteria. As per #2. (5) Large B-cell lymphoma Is this a current diagnosis for this admission?: Yes Plan: Reviewed previous hospitalizations, patient has been having recurrent pneumonia. He was seen by Dr. Vega previously and was deemed that the recurrent pneumonias in the past were related to immunosuppression from cancer treatments. Will consult Dr. Suarez for further recommendations. He does have a prior left upper lung nodule biopsy in 2017 but I am not able to find the biopsy results on the EMR. 12/03: IgG levels ordered by oncology for possible need for IVIg. 12/04: Received IVIg per oncology. - Time Time Spent with patient: 25-34 minutes
[2018-12-05] MEDS ORDERED: DILTIAZEM HCL INJ 25 MG/5 ML VIAL ONE (14:16)
[2018-12-05] MEDS ORDERED: LORAZEPAM INJ 2 MG/1 ML VIAL ONE (14:16)
[2018-12-05] MEDS: LEVALBUTEROL HCL NEB 0.63 MG/3 ML AMPUL NEB PRN (14:29)
[2018-12-05] MEDS ORDERED: METOPROLOL TARTRATE PF/INJ 5 MG/5 ML SDV IV ONE ×2 (16:05→16:30)
[2018-12-05] MEDS ORDERED: NORMAL SALINE 500 ML IV ONE (16:30)
[2018-12-05] MEDS: AZITHROMYCIN 250 MG TABLET PO SCH (17:37)
[2018-12-05] MEDS: HEPARIN SODIUM,PORCINE/D5W 25,000 UNIT/250 ML RTUINJ IV PRN (17:39)
[2018-12-05 17:52] LABS: VANCOMYCIN,TROUGH 29.6 ug/mL (5.0-20.0)
[2018-12-06] MEDS: DILTIAZEM HCL 30 MG TABLET PO SCH ×5 (01:22→23:59)
[2018-12-06] MEDS: MORPHINE SULFATE 10 MG/ML INJ IV PRN ×7 (01:30→23:59)
[2018-12-06] MEDS: VANCOMYCIN HCL 1,000 MG in DEXTROSE 5%-WATER 250 ML IV SCH ×2 (04:09→22:35)
[2018-12-06] MEDS: CEFEPIME HCL 2 GM in DEXTROSE 5%-WATER 50 ML IV SCH ×2 (05:13→17:01)
[2018-12-06 05:44] LABS: HEMATOCRIT 26.5 % (37.9-51.0); MEAN CORPUSCULAR HGB CONC 33.9 g/dL (32.0-36.0); MEAN CORPUSCULAR VOLUME 80 fl (80-97); PLATELET COUNT 288 10^3/uL (150-450); RED BLOOD COUNT 3.33 10^6/uL (4.35-5.55); WHITE BLOOD COUNT 3.4 10^3/uL (4.0-10.5)
[2018-12-06 05:47] LABS: ARTERIAL BLOOD BASE EXCESS 4.2 mmol/L; ARTERIAL BLOOD FIO2 40%; ARTERIAL BLOOD H2CO3 1.25 mmol/L (1.05-1.35); ARTERIAL BLOOD HCO3 28.5 mmol/L (20-24); ARTERIAL BLOOD O2 SATURATION 95.9 % (94-98); ARTERIAL BLOOD PCO2 41.5 mmHg (35-45); ARTERIAL BLOOD PH 7.46 (7.35-7.45); ARTERIAL BLOOD PO2 76.5 mmHg (80-100); ARTERIAL BLOOD TOTAL CO2 29.8 mmol/L (23-27)
[2018-12-06 06:08] LABS: BLOOD UREA NITROGEN 10 mg/dL (7-20); CALCIUM 7.1 mg/dL (8.4-10.2); CHLORIDE 96 mmol/L (98-107); GLUCOSE 112 mg/dL (75-110); PHOSPHORUS 2.7 mg/dL (2.5-4.5); POTASSIUM 3.9 mmol/L (3.6-5.0)
[2018-12-06 06:24] LABS: ABSOLUTE LYMPHOCYTES# (MANUAL) 0.2 10^3/uL (0.5-4.7); ABSOLUTE MONOCYTES # (MANUAL) 0.5 10^3/uL (0.1-1.4); BAND NEUTROPHILS % (MANUAL) 4 % (3-5); BASOPHILS % (MANUAL) 0 % (0-2); EOSINOPHILS % (MANUAL) 3 % (0-6); HYPOCHROMASIA 1+; LYMPHOCYTES % (MANUAL) 5 % (13-45); MONOCYTES % (MANUAL) 15 % (3-13); PLATELET COMMENT ADEQUATE; POLYCHROMASIA 1+; SEGMENTED NEUTROPHILS % (MAN) 71 % (42-78); TOTAL CELLS COUNTED 100
[2018-12-06 06:25] LABS: ANISOCYTOSIS 2+; TOXIC GRANULATION SLIGHT; TOXIC VACUOLATION PRESENT
[2018-12-06 06:26] LABS: CARBON DIOXIDE 32 mmol/L (22-30); SODIUM 130.8 mmol/L (137-145)
[2018-12-06 06:28] LABS: ANION GAP 3 (5-19)
--- NOTE | 2018-12-06 07:59 | RADIOLOGY REPORT (SQ) ---
EXAM DESCRIPTION: XR CHEST 1 VIEW COMPLETED DATE/TME: 12/06/2018 06:00 CLINICAL HISTORY: 53 years Male, resp failure COMPARISON: One day prior. NUMBER OF VIEWS/TECHNIQUE: 1/AP FINDINGS: Moderate mixed airspace and interstitial opacities. Adequate appearing right jugular central line. Normal cardiac silhouette size. No pneumothorax. Stable bony thorax. IMPRESSION: No significant change.
[2018-12-06] MEDS: LEVALBUTEROL HCL NEB 1.25 MG/3 ML AMPUL NEB SCH ×2 (08:10→15:36)
[2018-12-06] MEDS: NORMAL SALINE 1000 ML 1,000 ML IV PRN ×2 (08:14→22:36)
[2018-12-06] MEDS: PANTOPRAZOLE SODIUM 40 MG VIAL IV SCH (09:17)
[2018-12-06] MEDS: DOCUSATE SODIUM 100 MG CAPSULE PO SCH ×2 (09:17→17:00)
[2018-12-06] MEDS: LIDOCAINE 5% (700 MG) TRANSDERMAL ADH..PATCH TP SCH ×2 (09:17)
--- NOTE | 2018-12-06 09:37 | RADIOLOGY REPORT (SQ) ---
EXAM DESCRIPTION: CT ABD/PELVIS WITH IV ONLY COMPLETED DATE/TIME: 12/06/2018 9:02 am REASON FOR STUDY: further evaluate hepatic ductal abnormalities COMPARISON: 12/04/2018 TECHNIQUE: CT scan of the abdomen and pelvis performed using helical scanning technique with dynamic intravenous contrast injection. No oral contrast. Images reviewed with lung, soft tissue, and bone windows. Reconstructed coronal and sagittal MPR images reviewed. Delayed images for evaluation of the urinary system also acquired. All images stored on PACS. All CT scanners at this facility use dose modulation, iterative reconstruction, and/or weight based d osing when appropriate to reduce radiation dose to as low as reasonably achievable (ALARA). [facility]: Dose Right [facility]: CareDose [facility]: Dose Right [facility]: Teradose 4D [facility]: Innovative Silicon CONTRAST TYPE AND DOSE: contrast/concentration: Isovue 350.00 mg/ml; Total Contrast Delivered: 61.0 ml; Total Saline Delivered: 65.0 ml RENAL FUNCTION: GFR > 60. RADIATION DOSE: CT Rad equipment meets quality standard of care and radiation dose reduction techniq ues were employed. CTDIvol: 4.8 - 5.1 mGy. DLP: 496 mGy-cm.. LIMITATIONS: None. FINDINGS: LOWER CHEST: No change in the appearance of the lung bases. Extensive honeycombing, paren chymal opacities, and left effusion. LIVER: No masses in the liver. No obvious intrahepatic ductal dilatation. Common duct appears vaughn l. SPLEEN: Normal size. No focal lesions. PANCREAS: No masses. No significant calcifications. No adjacent inflammation or peripancreatic fluid collections. Pancreatic duct not dilated. GALLBLADDER: No identified stones by CT criteria. No inflammatory changes to suggest cholecystitis. ADRENAL GLANDS: No significant masses or asymmetry. RIGHT KIDNEY AND URETER: No solid masses. No significant calcifications. No hydronephrosis or hyd roureter. LEFT KIDNEY AND URETER: Hypoplastic. No masses. No significant calcifications. No hydronephrosis or hydroureter. AORTA AND VESSELS: No aneurysm. No dissection. Renal arteries, SMA, celiac without stenosis. RETROPERITONEUM: No retroperitoneal adenopathy, hemorrhage or masses. BOWEL AND PERITONEAL CAVITY: No masses or inflammatory changes. No bowel obstruction. . APPENDIX: Not visualized. PELVIS: There is free fluid in the pelvis. Peres catheter in the bladder. ABDOMINAL WALL: No masses. No hernias. BONES: No significant or acute findings. OTHER: No other significant finding. IMPRESSION: No change in the appearance of the lung bases with extensive parenchymal interstitial an d pleural changes. There is some free fluid in the pelvis. There is no obvious intrahepatic or extra hepatic ductal dilatation. No gallstones noted in the gall bladder based on CT criteria. TECHNICAL DOCUMENTATION: JOB ID: [id number] Quality ID # [id number]: Final reports with documentation of one or more dose reduction techniques (e.g., Au tomated exposure control, adjustment of the mA and/or kV according to patient size, use of iterative reconstruction technique) 2010 [employer]- All Rights Reserved Reading location - IP/workstation name: [email or web address]
[2018-12-06] MEDS: HEPARIN SODIUM,PORCINE/D5W 25,000 UNIT/250 ML RTUINJ IV PRN (11:42)
--- NOTE | 2018-12-06 15:17 | PDOC PROGRESS REPORT ---
Subjective Progress Note for:: 12/06/18 Subjective:: 12/01: Assumed care today. Chart and ICU course reviewed. This is a 53-year-old male who has a history of COPD, recurrent pneumonia, Stage IV large B cell lymphoma, and history of left upper lung nodule who presented with cough and shortness of breath. Patient was noted to be tachypneic, tachycardic, hypoxic and hypotensive. He was noted to have a right lower lobe pneumonia. He was admitted to the ICU for septic shock as he was requiring vasopressor. Patient is also requiring BiPAP. Upon encounter, patient is not in acute distress and has been switched to nasal cannula. He says that his shortness of breath is slightly improved today. He denies chest pain. He is still currently on high dose of Min-Synephrine. 12/02: Patient was weaned off Min-Synephrine since early this morning at 4 AM. He has been also off BiPAP for more than 24 hours now. He saturating well and is comfortable nasal cannula. Blood pressures have remained stable. No fever or chills. Denies chest pain. 12/03: No acute event overnight. Blood pressures remain stable. Continue to saturate well on nasal cannula. Denies acute complaints. Downgrade to tele floor. 12/04: Patient has been increasingly more BiPAP dependent. Deferred downgrade to telemetry. He does complain of increasing shortness of breath as the past 24 hours despite being on broad IV antibiotics. Will pursue a chest CTA to rule out a PE. 12/05: Chest CTA did reveal patient has a limited right-sided PE. He was started on heparin drip. He was also restarted on IV fluids. He was given a bolus of fluid and a dose of IV Cardizem last night for his tachycardia. Heart rate has improved to the 90s today. He says his shortness of breath is a little better. He is saturating well on BiPAP and appears more comfortable. Blood pressures are stable. 12/06: No acute event overnight. He remains BiPAP dependent. This morning, he says that his shortness of breath is slightly improved from yesterday. Heart rate in the 110s. Pulmonology following. No signs of bleeding. He is on heparin drip. Reason For Visit: RIGHT LOWER LOBE PNEUMONIA, ACUTE ON CHRONIC Physical Exam Vital Signs: Temp Pulse Resp BP Pulse Ox 99.5 F 115 H 20 97/65 L 99 12/06/18 10:00 12/06/18 10:00 12/06/18 10:00 12/06/18 10:00 12/06/18 10:00 Intake & Output 12/05/18 12/06/18 12/07/18 06:59 06:59 06:59 Intake Total 3209 2561 1527 Output Total 3740 3105 385 Balance -531 -914 1142 Weight 116 lb 2.938 oz 122 lb 5.705 oz General appearance: PRESENT: no acute distress Head exam: PRESENT: atraumatic, normocephalic Eye exam: PRESENT: conjunctiva pink, EOMI, PERRLA. ABSENT: scleral icterus Ear exam: PRESENT: normal external ear exam Neck exam: ABSENT: carotid bruit, JVD, lymphadenopathy, thyromegaly Respiratory exam: PRESENT: rhonchi. ABSENT: rales, wheezes Cardiovascular exam: PRESENT: RRR. ABSENT: diastolic murmur, rubs, systolic murmur Pulses: PRESENT: normal dorsalis pedis pul GI/Abdominal exam: PRESENT: normal bowel sounds, soft. ABSENT: distended, guarding, mass, organolmegaly, rebound, tenderness Rectal exam: PRESENT: deferred Extremities exam: PRESENT: full ROM. ABSENT: calf tenderness, clubbing, pedal edema Neurological exam: PRESENT: alert, awake, oriented to person, oriented to place, oriented to time, oriented to situation, CN II-XII grossly intact. ABSENT: motor sensory deficit Results Laboratory Results: 12/06/18 05:34 12/06/18 05:34 12/06/18 12/06/18 12/06/18 05:34 05:34 05:34 WBC 3.4 L RBC 3.33 L Hgb 9.0 L Hct 26.5 L MCV 80 MCH 27.0 MCHC 33.9 RDW 20.0 H Plt Count 288 Seg Neutrophils % Not Reportable Lymphocytes % Not Reportable Monocytes % Not Reportable Eosinophils % Not Reportable Basophils % Not Reportable Absolute Neutrophils Not Reportable Absolute Lymphocytes Not Reportable Absolute Monocytes Not Reportable Absolute Eosinophils Not Reportable Absolute Basophils Not Reportable Carbonic Acid 1.25 HCO3/H2CO3 Ratio 22:1 ABG pH 7.46 H ABG pCO2 41.5 ABG pO2 76.5 L ABG HCO3 28.5 H ABG O2 Saturation 95.9 ABG Base Excess 4.2 FiO2 40% Sodium 130.8 L Potassium 3.9 Chloride 96 L Carbon Dioxide 32 H Anion Gap 3 L BUN 10 Creatinine 0.56 Est GFR ( Amer) > 60 Est GFR (Non-Af Amer) > 60 Glucose 112 H Calcium 7.1 L Phosphorus 2.7 Magnesium 1.7 11/30/18 21:08 Blood Blood Culture - Final NO GROWTH IN 5 DAYS 11/30/18 18:47 Blood Blood Culture - Final NO GROWTH IN 5 DAYS Impressions: Chest/Abdomen CTA 12/04/18 00:00 IMPRESSION: 1. Right-sided pulmonary emboli as described. 2. Multicentric pneumonia, some of which appears to be chronic. Possibly atypical. Chronic lower lobe bronchiectasis. Abdomen CT 12/04/18 13:48 IMPRESSION: Intrahepatic ductal prominence. Hypoplastic left kidney. No acute finding. Chest X-Ray 12/06/18 06:00 IMPRESSION: No significant change. Abdomen/Pelvis CT 12/06/18 08:00 IMPRESSION: No change in the appearance of the lung bases with extensive parenchymal interstitial and pleural changes. There is some free fluid in the pelvis. There is no obvious intrahepatic or extra hepatic ductal dilatation. No gallstones noted in the gallbladder based on CT criteria. Assessment and Plan - Diagnosis (1) Acute and chronic respiratory failure with hypoxia Is this a current diagnosis for this admission?: Yes Plan: Resolved. 12/01: Secondary to pneumonia. Patient has been switched to nasal cannula from BiPAP on encounter and has been doing well so far. 12/03: He saturating well and is comfortable nasal cannula. 12/04: Patient has been increasingly more BiPAP dependent. He does complain of increasing shortness of breath as the past 24 hours despite being on broad IV antibiotics. Will pursue a chest CTA to rule out a PE. 12/05: Chest CTA did reveal patient has a right-sided PE. He is saturating well on BiPAP and appears more comfortable today. 12/06: He remains BiPAP dependent. This morning, he says that his shortness of breath is slightly improved from yesterday. Pulmonology following. (2) Acute pulmonary embolism Is this a current diagnosis for this admission?: Yes Plan: 12/05: Chest CTA did reveal patient has a right-sided PE. He was started on heparin drip. He was also restarted on IV fluids. He was given a bolus of fluid and a dose of IV Cardizem last night for his tachycardia. Heart rate has improved to the 90s today. He says his shortness of breath is a little better. He is saturating well on BiPAP and appears more comfortable today. Blood pressures are stable. 12/06:He remains BiPAP dependent. This morning, he says that his shortness of breath is slightly improved from yesterday. Heart rate in the 110s. No signs of bleeding. Continue heparin drip. (3) Septic shock Is this a current diagnosis for this admission?: Yes Plan: Resolved. Secondary to right lower lobe pneumonia. He was persistently tachycardic, tachypneic and hypotensive initially not responsive to IV fluids. 12/01: Currently on Min-Synephrine. Reduce IV fluids to 150 cc/h. Continue broad-spectrum IV antibiotics for now. Will order for sputum culture. Blood culture pending. 12/02: Patient was weaned off Min-Synephrine since early this morning at 4 AM. Blood pressures have remained stable. Continue IV antibiotics. Decrease IV fluids to 50 cc/hr. 12/03: DC IV fluids. 12/06: On day 6 of IV antibiotics. Will complete a total of 7 days. (4) Pneumonia Qualifiers: Pneumonia type: due to unspecified organism Laterality: right Lung location: lower lobe of lung Qualified Code(s): J18.1 - Lobar pneumonia, unspecified organism Is this a current diagnosis for this admission?: Yes Plan: Likely HCAP. Patient had 2 episodes of pneumonia and hospitalization in the past 3 months. Empirically covering for MRSA and gram-negative bacteria. As per #2. 12/06: On day 6 of IV antibiotics. Will complete a total of 7 days. (5) Large B-cell lymphoma Is this a current diagnosis for this admission?: Yes Plan: Reviewed previous hospitalizations, patient has been having recurrent pneumonia. He was seen by Dr. Vega previously and was deemed that the recurrent pneumonias in the past were related to immunosuppression from cancer treatments. Will consult Dr. Suarez for further recommendations. He does have a prior left upper lung nodule biopsy in 2017 but I am not able to find the biopsy results on the EMR. 12/03: IgG levels ordered by oncology for possible need for IVIg. 12/04: Received IVIg per oncology. - Time Time Spent with patient: 25-34 minutes
[2018-12-06] MEDS ORDERED: FENTANYL CITRATE INJ/PF 100 MCG/2 ML AMPUL IV ONE (16:00)
[2018-12-06] MEDS ORDERED: PREDNISONE 20 MG TABLET ONE (16:52)
[2018-12-06] MEDS: PREDNISONE 20 MG TABLET PO SCH (17:00)
[2018-12-06] MEDS: AZITHROMYCIN 250 MG TABLET PO SCH (17:01)
[2018-12-07] MEDS: LEVALBUTEROL HCL NEB 1.25 MG/3 ML AMPUL NEB SCH ×4 (00:51→23:57)
[2018-12-07] MEDS: CEFEPIME HCL 2 GM in DEXTROSE 5%-WATER 50 ML IV SCH ×2 (06:29→18:44)
[2018-12-07] MEDS: DILTIAZEM HCL 30 MG TABLET PO SCH ×4 (06:30→23:53)
[2018-12-07] MEDS: MORPHINE SULFATE 10 MG/ML INJ IV PRN ×6 (06:30→22:37)
[2018-12-07] MEDS: VANCOMYCIN HCL 1,000 MG in DEXTROSE 5%-WATER 250 ML IV SCH ×3 (06:31→21:37)
[2018-12-07 06:57] LABS: ARTERIAL BLOOD BASE EXCESS 4.9 mmol/L; ARTERIAL BLOOD FIO2 80%; ARTERIAL BLOOD H2CO3 1.36 mmol/L (1.05-1.35); ARTERIAL BLOOD HCO3 29.7 mmol/L (20-24); ARTERIAL BLOOD O2 SATURATION 94.1 % (94-98); ARTERIAL BLOOD PCO2 45.1 mmHg (35-45); ARTERIAL BLOOD PH 7.44 (7.35-7.45); ARTERIAL BLOOD PO2 68.3 mmHg (80-100); ARTERIAL BLOOD TOTAL CO2 31.1 mmol/L (23-27)
[2018-12-07 07:03] LABS: HEMATOCRIT 27.4 % (37.9-51.0); HEMOGLOBIN 9.3 g/dL (13.5-17.0); MEAN CORPUSCULAR HEMOGLOBIN 26.6 pg (27.0-33.4); MEAN CORPUSCULAR HGB CONC 33.8 g/dL (32.0-36.0); MEAN CORPUSCULAR VOLUME 79 fl (80-97); PLATELET COUNT 335 10^3/uL (150-450); RED BLOOD COUNT 3.48 10^6/uL (4.35-5.55); WHITE BLOOD COUNT 2.6 10^3/uL (4.0-10.5)
[2018-12-07 07:12] LABS: APPEARANCE,URINE CLEAR; BILIRUBIN,URINE NEGATIVE (NEGATIVE); COLOR,URINE YELLOW; GLUCOSE, URINE NEGATIVE (NEGATIVE); KETONES,URINE NEGATIVE (NEGATIVE); LEUKOCYTE ESTERASE,URINE NEGATIVE (NEGATIVE); NITRITE,URINE NEGATIVE (NEGATIVE); PROTEIN,URINE NEGATIVE (NEGATIVE); URINE SPECIFIC GRAVITY 1.009; UROBILINOGEN,URINE NEGATIVE mg/dL (<2.0)
[2018-12-07 07:21] LABS: ALANINE AMINOTRANSFERASE 23 U/L (21-72); ALBUMIN 2.2 g/dL (3.5-5.0); ALKALINE PHOSPHATASE 71 U/L (38-126); ANION GAP 5 (5-19); ASPARTATE AMINO TRANSFERASE 35 U/L (17-59); BILIRUBIN,DIRECT 0.2 mg/dL (0.0-0.4); BILIRUBIN,TOTAL 0.4 mg/dL (0.2-1.3); BLOOD UREA NITROGEN 10 mg/dL (7-20); CALCIUM 7.4 mg/dL (8.4-10.2); CARBON DIOXIDE 31 mmol/L (22-30); CHLORIDE 97 mmol/L (98-107); GLUCOSE 115 mg/dL (75-110); SODIUM 133.3 mmol/L (137-145); TOTAL PROTEIN 4.7 g/dL (6.3-8.2)
--- NOTE | 2018-12-07 07:26 | RADIOLOGY REPORT (SQ) ---
EXAM DESCRIPTION: XR CHEST 1 VIEW COMPLETED DATE/TME: 12/07/2018 06:00 CLINICAL HISTORY: 53 years Male, pna/pe COMPARISON: One day prior. NUMBER OF VIEWS/TECHNIQUE: 1/AP FINDINGS: Moderate mixed airspace and interstitial opacities. Adequate appearing right jugular central line. Normal cardiac silhouette size. No pneumothorax. Stable bony thorax. IMPRESSION: No significant change.
[2018-12-07 07:44] LABS: ABSOLUTE LYMPHOCYTES# (MANUAL) 0.3 10^3/uL (0.5-4.7); ABSOLUTE MONOCYTES # (MANUAL) 0.3 10^3/uL (0.1-1.4); BASOPHILS % (MANUAL) 1 % (0-2); EOSINOPHILS % (MANUAL) 0 % (0-6); LYMPHOCYTES % (MANUAL) 11 % (13-45); MONOCYTES % (MANUAL) 13 % (3-13); SEGMENTED NEUTROPHILS % (MAN) 75 % (42-78); TOTAL CELLS COUNTED 100
[2018-12-07 07:50] LABS: ANISOCYTOSIS 2+; TOXIC GRANULATION SLIGHT; TOXIC VACUOLATION PRESENT
[2018-12-07 07:51] LABS: HYPOCHROMASIA SLIGHT; OVALOCYTES SLIGHT; PLATELET COMMENT ADEQUATE; POLYCHROMASIA SLIGHT; TEAR DROP CELLS SLIGHT
--- NOTE | 2018-12-07 08:48 | PDOC PROGRESS REPORT ---
Subjective Progress Note for:: 12/07/18 Subjective:: Patient is now on high flow oxygen. He has been on BiPAP for 12 hours with 12 hour break. He states that he is still having some difficulty breathing, but he prefers NOT to have the BiPAP. His nose and face are very sore. No new complaints. Reason For Visit: RIGHT LOWER LOBE PNEUMONIA, ACUTE ON CHRONIC Physical Exam Vital Signs: Temp Pulse Resp BP Pulse Ox 97.7 F 99 21 H 105/82 99 12/07/18 08:00 12/07/18 08:00 12/07/18 08:00 12/07/18 08:00 12/07/18 08:00 Intake & Output 12/06/18 12/07/18 12/08/18 06:59 06:59 06:59 Intake Total 2561 2975 300 Output Total 3475 3785 150 Balance -914 -810 150 Weight 55.5 kg 55.1 kg General appearance: PRESENT: no acute distress, thin Exam: Able to talk a bit better today. Head exam: PRESENT: normocephalic Respiratory exam: PRESENT: clear to auscultation rylie Cardiovascular exam: PRESENT: RRR GI/Abdominal exam: PRESENT: soft. ABSENT: tenderness Extremities exam: ABSENT: pedal edema Neurological exam: PRESENT: alert, awake Psychiatric exam: PRESENT: appropriate affect Skin exam: PRESENT: normal color Results Laboratory Results: 12/07/18 06:40 12/07/18 06:40 12/07/18 12/07/18 12/07/18 06:40 06:40 06:40 WBC 2.6 L RBC 3.48 L Hgb 9.3 L Hct 27.4 L MCV 79 L MCH 26.6 L MCHC 33.8 RDW 20.0 H Plt Count 335 Seg Neutrophils % Not Reportable Lymphocytes % Not Reportable Monocytes % Not Reportable Eosinophils % Not Reportable Basophils % Not Reportable Absolute Neutrophils Not Reportable Absolute Lymphocytes Not Reportable Absolute Monocytes Not Reportable Absolute Eosinophils Not Reportable Absolute Basophils Not Reportable Carbonic Acid HCO3/H2CO3 Ratio ABG pH ABG pCO2 ABG pO2 ABG HCO3 ABG O2 Saturation ABG Base Excess FiO2 Sodium 133.3 L Potassium 4.0 Chloride 97 L Carbon Dioxide 31 H Anion Gap 5 BUN 10 Creatinine 0.48 L Est GFR ( Amer) > 60 Est GFR (Non-Af Amer) > 60 Glucose 115 H Calcium 7.4 L Magnesium 1.9 Total Bilirubin 0.4 AST 35 ALT 23 Alkaline Phosphatase 71 Total Protein 4.7 L Albumin 2.2 L Urine Color YELLOW Urine Appearance CLEAR Urine pH 7.0 Ur Specific [place] 1.009 Urine Protein NEGATIVE Urine Glucose (UA) NEGATIVE Urine Ketones NEGATIVE Urine Blood NEGATIVE Urine Nitrite NEGATIVE Ur Leukocyte Esterase NEGATIVE Urine WBC (Auto) 0 12/07/18 06:40 WBC RBC Hgb Hct MCV MCH MCHC RDW Plt Count Seg Neutrophils % Lymphocytes % Monocytes % Eosinophils % Basophils % Absolute Neutrophils Absolute Lymphocytes Absolute Monocytes Absolute Eosinophils Absolute Basophils Carbonic Acid 1.36 H HCO3/H2CO3 Ratio 21:1 ABG pH 7.44 ABG pCO2 45.1 H ABG pO2 68.3 L ABG HCO3 29.7 H ABG O2 Saturation 94.1 ABG Base Excess 4.9 FiO2 80% Sodium Potassium Chloride Carbon Dioxide Anion Gap BUN Creatinine Est GFR ( Amer) Est GFR (Non-Af Amer) Glucose Calcium Magnesium Total Bilirubin AST ALT Alkaline Phosphatase Total Protein Albumin Urine Color Urine Appearance Urine pH Ur Specific [place] Urine Protein Urine Glucose (UA) Urine Ketones Urine Blood Urine Nitrite Ur Leukocyte Esterase Urine WBC (Auto) Impressions: Chest/Abdomen CTA 12/04/18 00:00 IMPRESSION: 1. Right-sided pulmonary emboli as described. 2. Multicentric pneumonia, some of which appears to be chronic. Possibly atypical. Chronic lower lobe bronchiectasis. Abdomen CT 12/04/18 13:48 IMPRESSION: Intrahepatic ductal prominence. Hypoplastic left kidney. No acute finding. Abdomen/Pelvis CT 12/06/18 08:00 IMPRESSION: No change in the appearance of the lung bases with extensive parenchymal interstitial and pleural changes. There is some free fluid in the pelvis. There is no obvious intrahepatic or extra hepatic ductal dilatation. No gallstones noted in the gallbladder based on CT criteria. Chest X-Ray 12/07/18 06:00 IMPRESSION: No significant change. Assessment & Plan - Diagnosis (1) Acute and chronic respiratory failure with hypoxia Is this a current diagnosis for this admission?: Yes Plan: Pneumonia, COPD, and now PE. He is on heparin drip for now. I would transition him to a newer oral agent, when appropriate. Eliquis or Xarelto should both be reasonable choices. I am happy to follow this as outpatient. (2) Large B-cell lymphoma Is this a current diagnosis for this admission?: Yes Plan: No current evidence of disease. (3) Pneumonia Qualifiers: Pneumonia type: due to unspecified organism Laterality: right Lung location: lower lobe of lung Qualified Code(s): J18.1 - Lobar pneumonia, unspecified organism Is this a current diagnosis for this admission?: Yes (4) Hypogammaglobulinemia Is this a current diagnosis for this admission?: Yes Plan: He did receive a partial dose of IVIg, but this was all that was available with the national shortage. Hopefully, this will help prevent further admissions for chronic pneumonia. I will try to arrange further monthly treatments as outpatient and will monitor levels as out patient.
[2018-12-07] MEDS: LIDOCAINE 5% (700 MG) TRANSDERMAL ADH..PATCH TP SCH (10:36)
[2018-12-07] MEDS: DOCUSATE SODIUM 100 MG CAPSULE PO SCH ×2 (10:36→18:43)
[2018-12-07] MEDS: PREDNISONE 20 MG TABLET PO SCH ×2 (10:36→18:43)
--- NOTE | 2018-12-07 12:35 | RADIOLOGY REPORT (SQ) ---
EXAM DESCRIPTION: VENOUS BILATERAL LOWER COMPLETED DATE/TIME: 12/07/2018 12:25 pm REASON FOR STUDY: eval for DVT COMPARISON: None. TECHNIQUE: Dynamic and static pendleton scale and color images acquired of both lower extremity venous sy stems. Selected spectral images acquired with additional compression and augmentation maneuvers. Imag es stored on PACS. LIMITATIONS: None. FINDINGS: RIGHT LEG COMMON FEMORAL AND FEMORAL: Normal phasicity, compression and augmentation. No visualized echogenic m aterial on pendleton scale. No defects on color images. POPLITEAL: Normal compression and augmentation. No visualized echogenic material on pendleton scale. No de fects on color images. CALF VESSELS: Normal compression and augmentation. No visualized echogenic material on pendleton scale. No defects on color image. GSV AND SSV: Normal compression. No visualized echogenic material on pendleton scale. No defects on color images. ANY DEEP VENOUS INSUFFICIENCY: Not evaluated. ANY EVIDENCE OF POPLITEAL CYST: No. OTHER: No other significant finding. LEFT LEG COMMON FEMORAL AND FEMORAL: Normal phasicity, compression and augmentation. No visualized echogenic m aterial on pendleton scale. No defects on color images. POPLITEAL: Normal compression and augmentation. No visualized echogenic material on pendleton scale. No de fects on color images. CALF VESSELS: Normal compression and augmentation. No visualized echogenic material on pendleton scale. No defects on color images. GSV AND SSV: Normal compression. No visualized echogenic material on pendleton scale. No defects on color images. ANY DEEP VENOUS INSUFFICIENCY: Not evaluated. ANY EVIDENCE POPLITEAL CYST: No. OTHER: No other significant finding. IMPRESSION: NO EVIDENCE DVT OR SVT IN EITHER LEG. TECHNICAL DOCUMENTATION: JOB ID: [id number] 24/7 [employer]- All Rights Reserved Reading location - IP/workstation name: [email or web address]
[2018-12-07 14:12] LABS: PATH REVIEW PATHOLOGIST REVIEWED
[2018-12-07] MEDS: HEPARIN SODIUM,PORCINE/D5W 25,000 UNIT/250 ML RTUINJ IV PRN (16:06)
[2018-12-07] MEDS ORDERED: MIDAZOLAM HCL 50 MG/100 ML RTUINJ IV PRN (16:28)
[2018-12-07] MEDS: NORMAL SALINE 1000 ML 1,000 ML IV PRN (16:38)
--- NOTE | 2018-12-07 17:16 | PDOC PROGRESS REPORT ---
Subjective Progress Note for:: 12/07/18 Subjective:: 12/01: Assumed care today. Chart and ICU course reviewed. This is a 53-year-old male who has a history of COPD, recurrent pneumonia, Stage IV large B cell lymphoma, and history of left upper lung nodule who presented with cough and shortness of breath. Patient was noted to be tachypneic, tachycardic, hypoxic and hypotensive. He was noted to have a right lower lobe pneumonia. He was admitted to the ICU for septic shock as he was requiring vasopressor. Patient is also requiring BiPAP. Upon encounter, patient is not in acute distress and has been switched to nasal cannula. He says that his shortness of breath is slightly improved today. He denies chest pain. He is still currently on high dose of Min-Synephrine. 12/02: Patient was weaned off Min-Synephrine since early this morning at 4 AM. He has been also off BiPAP for more than 24 hours now. He saturating well and is comfortable nasal cannula. Blood pressures have remained stable. No fever or chills. Denies chest pain. 12/03: No acute event overnight. Blood pressures remain stable. Continue to saturate well on nasal cannula. Denies acute complaints. Downgrade to tele floor. 12/04: Patient has been increasingly more BiPAP dependent. Deferred downgrade to telemetry. He does complain of increasing shortness of breath as the past 24 hours despite being on broad IV antibiotics. Will pursue a chest CTA to rule out a PE. 12/05: Chest CTA did reveal patient has a limited right-sided PE. He was started on heparin drip. He was also restarted on IV fluids. He was given a bolus of fluid and a dose of IV Cardizem last night for his tachycardia. Heart rate has improved to the 90s today. He says his shortness of breath is a little better. He is saturating well on BiPAP and appears more comfortable. Blood pressures are stable. 12/06: He remains BiPAP dependent. This morning, he says that his shortness of breath is slightly improved from yesterday. Heart rate in the 110s-120s. Pulmonology following. No signs of bleeding. He is on heparin drip. 12/07: No acute event overnight. He is less tachycardic and heart rate is now down the high 90s-102. Saturating well on high flow O2. He says his shortness of breath is slightly improved today. He denies chest pain. Reason For Visit: RIGHT LOWER LOBE PNEUMONIA, ACUTE ON CHRONIC Physical Exam Vital Signs: Temp Pulse Resp BP Pulse Ox 97.7 F 111 H 24 H 93/78 L 95 12/07/18 08:00 12/07/18 10:00 12/07/18 11:18 12/07/18 10:00 12/07/18 11:18 Intake & Output 12/06/18 12/07/18 12/08/18 06:59 06:59 06:59 Intake Total 2561 2975 780 Output Total 3475 3785 500 Balance -914 -810 280 Weight 122 lb 5.705 oz 121 lb 7.595 oz General appearance: PRESENT: no acute distress Head exam: PRESENT: atraumatic, normocephalic Eye exam: PRESENT: conjunctiva pink, EOMI, PERRLA. ABSENT: scleral icterus Ear exam: PRESENT: normal external ear exam Mouth exam: PRESENT: moist, tongue midline Neck exam: ABSENT: carotid bruit, JVD, lymphadenopathy, thyromegaly Respiratory exam: PRESENT: rales, rhonchi. ABSENT: wheezes Cardiovascular exam: PRESENT: RRR. ABSENT: diastolic murmur, rubs, systolic murmur Pulses: PRESENT: normal dorsalis pedis pul GI/Abdominal exam: PRESENT: normal bowel sounds, soft. ABSENT: distended, guarding, mass, organolmegaly, rebound, tenderness Rectal exam: PRESENT: deferred Extremities exam: PRESENT: full ROM. ABSENT: calf tenderness, clubbing, pedal edema Neurological exam: PRESENT: alert, awake, oriented to person, oriented to place, oriented to time, oriented to situation, CN II-XII grossly intact. ABSENT: m otor sensory deficit Results Laboratory Results: 12/07/18 06:40 12/07/18 06:40 12/07/18 12/07/18 12/07/18 06:40 06:40 06:40 WBC 2.6 L RBC 3.48 L Hgb 9.3 L Hct 27.4 L MCV 79 L MCH 26.6 L MCHC 33.8 RDW 20.0 H Plt Count 335 Seg Neutrophils % Not Reportable Lymphocytes % Not Reportable Monocytes % Not Reportable Eosinophils % Not Reportable Basophils % Not Reportable Absolute Neutrophils Not Reportable Absolute Lymphocytes Not Reportable Absolute Monocytes Not Reportable Absolute Eosinophils Not Reportable Absolute Basophils Not Reportable Carbonic Acid HCO3/H2CO3 Ratio ABG pH ABG pCO2 ABG pO2 ABG HCO3 ABG O2 Saturation ABG Base Excess FiO2 Sodium 133.3 L Potassium 4.0 Chloride 97 L Carbon Dioxide 31 H Anion Gap 5 BUN 10 Creatinine 0.48 L Est GFR ( Amer) > 60 Est GFR (Non-Af Amer) > 60 Glucose 115 H Calcium 7.4 L Magnesium 1.9 Total Bilirubin 0.4 AST 35 ALT 23 Alkaline Phosphatase 71 Total Protein 4.7 L Albumin 2.2 L Urine Color YELLOW Urine Appearance CLEAR Urine pH 7.0 Ur Specific [place] 1.009 Urine Protein NEGATIVE Urine Glucose (UA) NEGATIVE Urine Ketones NEGATIVE Urine Blood NEGATIVE Urine Nitrite NEGATIVE Ur Leukocyte Esterase NEGATIVE Urine WBC (Auto) 0 Stool Occult Blood 12/07/18 12/07/18 06:40 10:26 WBC RBC Hgb Hct MCV MCH MCHC RDW Plt Count Seg Neutrophils % Lymphocytes % Monocytes % Eosinophils % Basophils % Absolute Neutrophils Absolute Lymphocytes Absolute Monocytes Absolute Eosinophils Absolute Basophils Carbonic Acid 1.36 H HCO3/H2CO3 Ratio 21:1 ABG pH 7.44 ABG pCO2 45.1 H ABG pO2 68.3 L ABG HCO3 29.7 H ABG O2 Saturation 94.1 ABG Base Excess 4.9 FiO2 80% Sodium Potassium Chloride Carbon Dioxide Anion Gap BUN Creatinine Est GFR ( Amer) Est GFR (Non-Af Amer) Glucose Calcium Magnesium Total Bilirubin AST ALT Alkaline Phosphatase Total Protein Albumin Urine Color Urine Appearance Urine pH Ur Specific [place] Urine Protein Urine Glucose (UA) Urine Ketones Urine Blood Urine Nitrite Ur Leukocyte Esterase Urine WBC (Auto) Stool Occult Blood NEGATIVE 12/06/18 11:25 Sputum Gram Stain - Final Impressions: Chest/Abdomen CTA 12/04/18 00:00 IMPRESSION: 1. Right-sided pulmonary emboli as described. 2. Multicentric pneumonia, some of which appears to be chronic. Possibly atypical. Chronic lower lobe bronchiectasis. Abdomen CT 12/04/18 13:48 IMPRESSION: Intrahepatic ductal prominence. Hypoplastic left kidney. No acute finding. Abdomen/Pelvis CT 12/06/18 08:00 IMPRESSION: No change in the appearance of the lung bases with extensive parenchymal interstitial and pleural changes. There is some free fluid in the pelvis. There is no obvious intrahepatic or extra hepatic ductal dilatation. No gallstones noted in the gallbladder based on CT criteria. Chest X-Ray 12/07/18 06:00 IMPRESSION: No significant change. Venous Doppler Study 12/07/18 15:10 IMPRESSION: NO EVIDENCE DVT OR SVT IN EITHER LEG. Assessment and Plan - Diagnosis (1) Acute and chronic respiratory failure with hypoxia Is this a current diagnosis for this admission?: Yes Plan: Resolved. 12/01: Secondary to pneumonia. Patient has been switched to nasal cannula from BiPAP on encounter and has been doing well so far. 12/03: He saturating well and is comfortable nasal cannula. 12/04: Patient has been increasingly more BiPAP dependent. He does complain of increasing shortness of breath as the past 24 hours despite being on broad IV antibiotics. Will pursue a chest CTA to rule out a PE. 12/05: Chest CTA did reveal patient has a right-sided PE. He is saturating well on BiPAP and appears more comfortable today. 12/06: He remains BiPAP dependent. This morning, he says that his shortness of breath is slightly improved from yesterday. Pulmonology following. 12/07: Saturating well on high flow O2. He says his shortness of breath is slightly improved today. (2) Acute pulmonary embolism Is this a current diagnosis for this admission?: Yes Plan: 12/05: Chest CTA did reveal patient has a right-sided PE. He was started on heparin drip. He was also restarted on IV fluids. He was given a bolus of fluid and a dose of IV Cardizem last night for his tachycardia. Heart rate has improved to the 90s today. He says his shortness of breath is a little better. He is saturating well on BiPAP and appears more comfortable today. Blood pressures are stable. 12/06:He remains BiPAP dependent. This morning, he says that his shortness of breath is slightly improved from yesterday. Heart rate in the 110s. No signs of bleeding. 12/07: Now on high flow O2. Continue heparin drip. (3) Septic shock Is this a current diagnosis for this admission?: Yes Plan: Resolved. Secondary to right lower lobe pneumonia. He was persistently t achycardic, tachypneic and hypotensive initially not responsive to IV fluids. 12/01: Currently on Min-Synephrine. Reduce IV fluids to 150 cc/h. Continue broad-spectrum IV antibiotics for now. Will order for sputum culture. Blood culture pending. 12/02: Patient was weaned off Min-Synephrine since early this morning at 4 AM. Blood pressures have remained stable. Continue IV antibiotics. Decrease IV fluids to 50 cc/hr. 12/03: DC IV fluids. 12/06: On day 6 of IV antibiotics. Will complete a total of 7 days. 12/07: Last day of IV antibiotics tomorrow. (4) Pneumonia Qualifiers: Pneumonia type: due to unspecified organism Laterality: right Lung location: lower lobe of lung Qualified Code(s): J18.1 - Lobar pneumonia, unspecified organism Is this a current diagnosis for this admission?: Yes Plan: Likely HCAP. Patient had 2 episodes of pneumonia and hospitalization in the past 3 months. Empirically covering for MRSA and gram-negative bacteria. As per #2. As per number 2. (5) Large B-cell lymphoma Is this a current diagnosis for this admission?: Yes Plan: Reviewed previous hospitalizations, patient has been having recurrent pneumonia. He was seen by Dr. Vega previously and was deemed that the recurrent pneumonias in the past were related to immunosuppression from cancer treatments. Will consult Dr. Suarez for further recommendations. He does have a prior left upper lung nodule biopsy in 2017 but I am not able to find the biopsy results on the EMR. 12/03: IgG levels ordered by oncology for possible need for IVIg. 12/04: Received IVIg per oncology. - Time Time Spent with patient: 25-34 minutes
--- NOTE | 2018-12-07 17:18 | ADVANCED CARE ---
- Diagnosis (1) Acute and chronic respiratory failure with hypoxia Diagnosis Current: Yes (2) Acute pulmonary embolism Diagnosis Current: Yes (3) Septic shock Diagnosis Current: Yes (4) Pneumonia Diagnosis Current: Yes (5) Large B-cell lymphoma Diagnosis Current: Yes Attendance: Patient says he is a full code and says he would want chest compressions, defibrillation and mechanical ventilation if the need arises. He says his son, Aleksander Low Jr is his surrogate medical decision maker. Resuscitation Status: Full Code
[2018-12-07] MEDS: AZITHROMYCIN 250 MG TABLET PO SCH (18:43)
[2018-12-07 22:39] LABS: VANCOMYCIN,TROUGH 18.7 ug/mL (5.0-20.0)
[2018-12-08] MEDS: MORPHINE SULFATE 10 MG/ML INJ IV PRN ×6 (03:37→22:15)
[2018-12-08] MEDS: ACETAMINOPHEN 325 MG TABLET PO PRN (04:12)
[2018-12-08] MEDS: CEFEPIME HCL 2 GM in DEXTROSE 5%-WATER 50 ML IV SCH (05:34)
[2018-12-08] MEDS: NORMAL SALINE 1000 ML 1,000 ML IV PRN ×2 (05:36→22:11)
[2018-12-08] MEDS: VANCOMYCIN HCL 1,000 MG in DEXTROSE 5%-WATER 250 ML IV SCH (06:13)
[2018-12-08] MEDS: DILTIAZEM HCL 30 MG TABLET PO SCH ×4 (06:13→23:06)
[2018-12-08] MEDS: LEVALBUTEROL HCL NEB 1.25 MG/3 ML AMPUL NEB SCH ×2 (07:34→16:50)
[2018-12-08] MEDS: DOCUSATE SODIUM 100 MG CAPSULE PO SCH ×2 (09:21→17:17)
[2018-12-08] MEDS: APIXABAN 5 MG TABLET PO SCH ×2 (09:21→17:17)
[2018-12-08] MEDS: PREDNISONE 20 MG TABLET PO SCH (09:21)
[2018-12-08] MEDS ORDERED: AMPICILLIN TRIHYD PO SCH (10:00)
[2018-12-08] MEDS: LIDOCAINE 5% (700 MG) TRANSDERMAL ADH..PATCH TP SCH (10:08)
[2018-12-08 10:59] LABS: ARTERIAL BLOOD BASE EXCESS 4.5 mmol/L; ARTERIAL BLOOD H2CO3 1.33 mmol/L (1.05-1.35); ARTERIAL BLOOD HCO3 29.3 mmol/L (20-24); ARTERIAL BLOOD O2 SATURATION 99.3 % (94-98); ARTERIAL BLOOD PCO2 44.3 mmHg (35-45); ARTERIAL BLOOD PH 7.44 (7.35-7.45); ARTERIAL BLOOD PO2 188.1 mmHg (80-100); ARTERIAL BLOOD TOTAL CO2 30.6 mmol/L (23-27)
[2018-12-08] MEDS ORDERED: MICAFUNGIN SODIUM 100 MG in NORMAL SALINE 100 ML IV SCH (11:00)
[2018-12-08 11:05] LABS: ARTERIAL BLOOD FIO2 65%
--- NOTE | 2018-12-08 12:05 | PDOC PROGRESS REPORT ---
Subjective Progress Note for:: 12/08/18 Subjective:: Assumed care today. Please see previous notes as well 12/08/2018-the patient is still on High Flow nasal canula but is down to 3 L/min. He is stable. There is no pain today. His breathing is comfortable Reason For Visit: RIGHT LOWER LOBE PNEUMONIA, ACUTE ON CHRONIC Physical Exam Vital Signs: Temp Pulse Resp BP Pulse Ox 97.7 F 86 12 127/60 H 100 12/08/18 08:00 12/08/18 08:00 12/08/18 08:00 12/08/18 08:00 12/08/18 08:00 Intake & Output 12/07/18 12/08/18 12/09/18 06:59 06:59 06:59 Intake Total 2975 4419 250 Output Total 3785 3425 200 Balance -810 994 50 Weight 55.1 kg 54.3 kg General appearance: PRESENT: no acute distress, thin - And very frail appearing 53-year-old male patient resting in bed eating breakfast. Head exam: PRESENT: atraumatic, normocephalic, other - Temporal wasting Eye exam: PRESENT: conjunctiva pale, EOMI. ABSENT: scleral icterus Ear exam: PRESENT: normal external ear exam Mouth exam: PRESENT: moist, tongue midline Neck exam: ABSENT: carotid bruit, JVD Respiratory exam: PRESENT: rhonchi - On the right, symmetrical, unlabored. ABSENT: accessory muscle use, rales, tachypnea, wheezes Cardiovascular exam: PRESENT: RRR, +S1, +S2, other - As for GI/Abdominal exam: PRESENT: normal bowel sounds, soft. ABSENT: distended, guarding, tenderness Rectal exam: PRESENT: deferred Gentrourinary exam: PRESENT: indwelling catheter - Peres catheter in place Extremities exam: ABSENT: joint swelling, pedal edema Musculoskeletal exam: ABSENT: normal inspection - Decreased muscle mass Neurological exam: PRESENT: alert, awake, oriented to person, oriented to place, oriented to time, oriented to situation, CN II-XII grossly intact. ABSENT: motor sensory deficit Psychiatric exam: PRESENT: appropriate affect, normal mood. ABSENT: agitated, anxious Focused psych exam: ABSENT: delusional, restlessness Skin exam: PRESENT: dry, pallor, warm. ABSENT: rash Results Laboratory Results: 12/07/18 06:40 12/07/18 21:34 12/07/18 12/07/18 10:26 21:34 Creatinine 0.47 L Est GFR ( Amer) > 60 Est GFR (Non-Af Amer) > 60 Stool Occult Blood NEGATIVE 12/06/18 11:25 Sputum Gram Stain - Final 12/06/18 11:25 Sputum Sputum Culture - Final C.albicans/C.dubliniensis Greatly Reduced Normal Trino Impressions: Chest/Abdomen CTA 12/04/18 00:00 IMPRESSION: 1. Right-sided pulmonary emboli as described. 2. Multicentric pneumonia, some of which appears to be chronic. Possibly atypical. Chronic lower lobe bronchiectasis. Abdomen CT 12/04/18 13:48 IMPRESSION: Intrahepatic ductal prominence. Hypoplastic left kidney. No acute finding. Abdomen/Pelvis CT 12/06/18 08:00 IMPRESSION: No change in the appearance of the lung bases with extensive paren chymal interstitial and pleural changes. There is some free fluid in the pelvis. There is no obvious intrahepatic or extra hepatic ductal dilatation. No gallstones noted in the gallbladder based on CT criteria. Chest X-Ray 12/07/18 06:00 IMPRESSION: No significant change. Venous Doppler Study 12/07/18 15:10 IMPRESSION: NO EVIDENCE DVT OR SVT IN EITHER LEG. Assessment and Plan - Diagnosis (1) Acute and chronic respiratory failure with hypoxia Is this a current diagnosis for this admission?: Yes Plan: Resolved. 12/01: Secondary to pneumonia. Patient has been switched to nasal cannula from BiPAP on encounter and has been doing well so far. 12/03: He saturating well and is comfortable nasal cannula. 12/04: Patient has been increasingly more BiPAP dependent. He does complain of increasing shortness of breath as the past 24 hours despite being on broad IV antibiotics. Will pursue a chest CTA to rule out a PE. 12/05: Chest CTA did reveal patient has a right-sided PE. He is saturating well on BiPAP and appears more comfortable today. 12/06: He remains BiPAP dependent. This morning, he says that his shortness of breath is slightly improved from yesterday. Pulmonology following. 12/07: Saturating well on high flow O2. He says his shortness of breath is slightly improved today. 12/08/2018-on high flow nasal cannula the patient in fact is saturating greater than 90%. The oxygen is running at 3 L/min. He does have an oxygen concentrator at home. We will try to wean him to nasal cannula. His oxygen demands will likely go up once he is more active but our goal will be to decrease his oxygen demand to something that is achievable with his home concentrator. Pneumonia and pulmonary embolus are the major factors for his failure. (2) Acute pulmonary embolism Qualifiers: Pulmonary embolism type: other Acute cor pulmonale presence: without acute cor pulmonale Qualified Code(s): I26.99 - Other pulmonary embolism without acute cor pulmonale Is this a current diagnosis for this admission?: Yes Plan: 12/05: Chest CTA did reveal patient has a right-sided PE. He was started on heparin drip. He was also restarted on IV fluids. He was given a bolus of fluid and a dose of IV Cardizem last night for his tachycardia. Heart rate has improved to the 90s today. He says his shortness of breath is a little better. He is saturating well on BiPAP and appears more comfortable today. Blood pressures are stable. 12/06:He remains BiPAP dependent. This morning, he says that his shortness of breath is slightly improved from yesterday. Heart rate in the 110s. No signs of bleeding. 12/07: Now on high flow O2. Continue heparin drip. 12/08/2018-the hematology note was reviewed. The patient is appropriate for change to oral anticoagulant. He will be started on apixaban 10 mg twice daily. Despite his low body weight (less than 60 kg) he does not meet the other criteria of age greater than 80 and elevated serum creatinine to require a decreased dose. Therefore we will start at 10 mg twice daily for 7 days and then decrease to 5 mg twice daily. He will follow-up with Dr. Vega at her office after discharge. (3) Septic shock Is this a current diagnosis for this admission?: Yes Plan: Resolved. Secondary to right lower lobe pneumonia. He was persistently tachycardic, tachypneic and hypotensive initially not responsive to IV fluids. 12/01: Currently on Min-Synephrine. Reduce IV fluids to 150 cc/h. Continue broad-spectrum IV antibiotics for now. Will order for sputum culture. Blood culture pending. 12/02: Patient was weaned off Min-Synephrine since early this morning at 4 AM. Blood pressures have remained stable. Continue IV antibiotics. Decrease IV fluids to 50 cc/hr. 12/03: DC IV fluids. 12/06: On day 6 of IV antibiotics. Will complete a total of 7 days. 12/07: Last day of IV antibiotics tomorrow. 12/08/2018-sepsis from the right lower lobe pneumonia. The patient is no longer on vasopressors. His infiltrate has remained fairly unchanged and his breathing still requires high flow nasal cannula. His sputum culture had predominantly Gisell species with minimal normal trino. Considering his significant i mmunocompromised state I will add an antifungal medication. He has completed a full course of vancomycin and cefepime and has I believe 1 day left of azithromycin. Additionally he had a positive urine culture for enterococcus. The organism is fairly sensitive I will switch to ampicillin for a brief course and this should complete his antibiotic therapy. (4) Pneumonia Qualifiers: Pneumonia type: due to unspecified organism Laterality: right Lung location: lower lobe of lung Qualified Code(s): J18.1 - Lobar pneumonia, unspecified organism Is this a current diagnosis for this admission?: Yes Plan: Likely HCAP. Patient had 2 episodes of pneumonia and hospitalization in the past 3 months. Empirically covering for MRSA and gram-negative bacteria. As per #2. As per number 2. 12/08/2018-as noted above, with the sputum culture growing a predominance of Gisell, and his marked immunosuppression, I have elected to start the patient on fluconazole. The persistent oxygen demand as well as persistent infiltrate is concerning. Unfortunately because of his current state his white blood cell count cannot be used as a marker for improvement. He is afebrile at this time which is a plus. If his respiratory status does not continue to improve and the infiltrate does not show improvement then consideration of bronchoscopy will be given. It is also likely that with activity his oxygen demand will increase and so this will need to be monitored. The goal will be to decrease his oxygen requirements to a level that can be accommodated by his oxygen concentrator at home. (5) Large B-cell lymphoma Is this a current diagnosis for this admission?: Yes Plan: Reviewed previous hospitalizations, patient has been having recurrent pneumonia. He was seen by Dr. Vega previously and was deemed that the recurrent pneumonias in the past were related to immunosuppression from cancer treatments. Will consult Dr. Suarez for further recommendations. He does have a prior left upper lung nodule biopsy in 2017 but I am not able to find the biopsy results on the EMR. 12/03: IgG levels ordered by oncology for possible need for IVIg. 12/04: Received IVIg per oncology. 12/08/2018-please also see hematology/oncology note. The patient's IgG was very low. He did receive a dose of IVIG per oncology. This should help his immune system. Defer treatment plan for lymphoma to oncology. The patient will follow-up with Dr. Vega after discharge. He has completed a course of treatment already for the lymphoma. (6) Neutropenia Qualifiers: Neutropenia type: due to infection Qualified Code(s): D70.3 - Neutropenia due to infection Is this a current diagnosis for this admission?: Yes Plan: 12/08/2018-yesterday the patient's white blood cell count was only 2.6 which is the lowest it has been during this hospitalization. I will recheck a CBC tomorrow. Hopefully as the infection resolves his white blood cell count should recover. (7) Anemia Qualifiers: Anemia type: other cause Is this a current diagnosis for this admission?: Yes Plan: 12/08/2018-patient's hemoglobin is slowly drifted down. It was 9.0 on Friday but is slowly recovering and was 9.3 it is likely a combination of his history of lymphoma as well as his acute illness. We will continue to monitor the hemoglobin as I expect it to recover. (8) Protein-calorie malnutrition, severe Is this a current diagnosis for this admission?: Yes Plan: 12/08/2018-the patient's BMI is only 16.7. This is quite low. He has decreased muscle mass and weakness. His appetite is improving. In addition to his diet he is receiving protein supplements and being followed by the dietitian. I expect that with physical therapy, increased activity and his improving diet he should do well and likely begin to gain some weight and strength. (9) Hyponatremia Is this a current diagnosis for this admission?: Yes Plan: 12/08/2018-the low sodium is most likely from a primary pulmonary process. I have changed his diet from low-sodium to regular. We will continue to monitor his serum sodium. Sodium levels have been improving. 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 His Peres catheter will be removed. As his oral intake improves his central line should be able to be discontinued.
[2018-12-08] MEDS: AMPICILLIN TRIHYD 500 MG CAPSULE PO SCH ×3 (12:55→23:06)
[2018-12-08] MEDS: AZITHROMYCIN 250 MG TABLET PO SCH (17:18)
[2018-12-09] MEDS: LEVALBUTEROL HCL NEB 1.25 MG/3 ML AMPUL NEB SCH ×3 (00:25→16:49)
[2018-12-09] MEDS: MORPHINE SULFATE 10 MG/ML INJ IV PRN ×5 (02:46→21:14)
[2018-12-09] MEDS: DILTIAZEM HCL 30 MG TABLET PO SCH ×3 (05:44→17:19)
[2018-12-09] MEDS: AMPICILLIN TRIHYD 500 MG CAPSULE PO SCH ×3 (05:44→17:37)
[2018-12-09 06:27] LABS: HEMATOCRIT 26.7 % (37.9-51.0); HEMOGLOBIN 9.2 g/dL (13.5-17.0); MEAN CORPUSCULAR HEMOGLOBIN 27.1 pg (27.0-33.4); MEAN CORPUSCULAR HGB CONC 34.3 g/dL (32.0-36.0); MEAN CORPUSCULAR VOLUME 79 fl (80-97); PLATELET COUNT 379 10^3/uL (150-450); RED BLOOD COUNT 3.39 10^6/uL (4.35-5.55); RED CELL DISTRIBUTION WIDTH 19.6 % (11.5-14.0); WHITE BLOOD COUNT 2.5 10^3/uL (4.0-10.5)
[2018-12-09 06:41] LABS: ARTERIAL BLOOD BASE EXCESS 3.1 mmol/L; ARTERIAL BLOOD HCO3 27.8 mmol/L (20-24); ARTERIAL BLOOD O2 SATURATION 92.7 % (94-98); ARTERIAL BLOOD PCO2 43.2 mmHg (35-45); ARTERIAL BLOOD PH 7.43 (7.35-7.45); ARTERIAL BLOOD PO2 63.5 mmHg (80-100); ARTERIAL BLOOD TOTAL CO2 29.2 mmol/L (23-27)
[2018-12-09 06:42] LABS: ARTERIAL BLOOD FIO2 45%
[2018-12-09 06:47] LABS: ANION GAP 5 (5-19); BLOOD UREA NITROGEN 7 mg/dL (7-20); CALCIUM 7.9 mg/dL (8.4-10.2); CARBON DIOXIDE 31 mmol/L (22-30); CHLORIDE 102 mmol/L (98-107); GLUCOSE 91 mg/dL (75-110); POTASSIUM 4.1 mmol/L (3.6-5.0); SODIUM 137.7 mmol/L (137-145)
[2018-12-09 07:06] LABS: ABSOLUTE LYMPHOCYTES# (MANUAL) 0.3 10^3/uL (0.5-4.7); ABSOLUTE MONOCYTES # (MANUAL) 0.2 10^3/uL (0.1-1.4); BASOPHILS % (MANUAL) 0 % (0-2); EOSINOPHILS % (MANUAL) 0 % (0-6); LYMPHOCYTES % (MANUAL) 10 % (13-45); MONOCYTES % (MANUAL) 8 % (3-13); NUCLEATED RED BLOOD CELLS 1 /100 WBC (0); SEGMENTED NEUTROPHILS % (MAN) 80 % (42-78); TOTAL CELLS COUNTED 100
[2018-12-09 07:07] LABS: POLYCHROMASIA SLIGHT; TOXIC GRANULATION 1+
[2018-12-09 07:08] LABS: ANISOCYTOSIS 2+; PLATELET COMMENT ADEQUATE; POIKILOCYTOSIS SLIGHT; TEAR DROP CELLS SLIGHT
[2018-12-09] MEDS: DOCUSATE SODIUM 100 MG CAPSULE PO SCH ×2 (09:48→17:19)
[2018-12-09] MEDS: PREDNISONE 20 MG TABLET PO SCH (09:49)
[2018-12-09] MEDS: APIXABAN 5 MG TABLET PO SCH ×2 (09:49→17:19)
[2018-12-09] MEDS: LIDOCAINE 5% (700 MG) TRANSDERMAL ADH..PATCH TP SCH (09:49)
[2018-12-09] MEDS: FLUCONAZOLE 100 MG TABLET PO SCH (09:50)
--- NOTE | 2018-12-09 11:19 | RADIOLOGY REPORT (SQ) ---
EXAM DESCRIPTION: CHEST SINGLE VIEW COMPLETED DATE/TIME: 12/09/2018 11:00 am REASON FOR STUDY: resp failure-pna COMPARISON: None. EXAM PARAMETERS: NUMBER OF VIEWS: One view. TECHNIQUE: Single frontal radiographic view of the chest acquired. RADIATION DOSE: NA LIMITATIONS: None. FINDINGS: LUNGS AND PLEURA: Scattered bilateral interstitial and airspace opacities, more focal in t he right mid lung. Mild blunting of the costophrenic angles. MEDIASTINUM AND HILAR STRUCTURES: No masses. Contour normal. HEART AND VASCULAR STRUCTURES: Heart normal in size. Normal vasculature. BONES: No acute findings. HARDWARE: Central line. OTHER: No other significant finding. IMPRESSION: NO SIGNIFICANT INTERVAL CHANGE. TECHNICAL DOCUMENTATION: JOB ID: [id number] [employer]- All Rights Reserved Reading location - IP/workstation name: [email or web address]
--- NOTE | 2018-12-09 16:46 | Progress Note Acknowledgement ---
Progress Note Acknowledgement Progess Note Acknowledgement: I, the undersigned member of the medical staff with appropriate privileges and with supervisory authority over [ LONA GARCIA ], a [facility] practice allied health professional, acknowledge that I have reviewed the progress notes entered on this patient, and in my professional judgment believe that the assessment made and/or any care evidenced was appropriate
--- NOTE | 2018-12-09 16:46 | PDOC PROGRESS REPORT ---
Subjective Progress Note for:: 12/09/18 Subjective:: 53 y.o. M with a PMH of COPD, Stage IV large B cell lymphoma, recurrent PNA, depression and tobacco abuse. He presented to [facility] for dyspnea. Patient was noted to be tachypneic, tachycardic, hypoxic and hypotensive. He was noted to have a right lower lobe pneumonia. He was admitted to the ICU for septic shock requiring vasopressor support and BiPAP. Unfortunately, it was discovered on CTA that the patient also has a thrombus in the RUL & RML pulmonary arteries. The patient was seen this morning on rounds. He is resting comfortably in bed on high flow nasal cannula. The patient states is "feels comfortable" denies SOB only on exertion. Will attempt getting OOB to recliner today. Reason For Visit: RIGHT LOWER LOBE PNEUMONIA, ACUTE ON CHRONIC Physical Exam Vital Signs: Temp Pulse Resp BP Pulse Ox 97.6 F 101 H 18 124/84 99 12/09/18 11:05 12/09/18 14:00 12/09/18 08:42 12/09/18 11:05 12/09/18 11:05 Intake & Output 12/08/18 12/09/18 12/10/18 06:59 06:59 06:59 Intake Total 4419 1294 Output Total 3425 3250 Balance 994 -1956 Weight 54.3 kg 55.7 kg General appearance: PRESENT: thin Head exam: PRESENT: atraumatic Eye exam: PRESENT: conjunctiva pink, PERRLA Mouth exam: PRESENT: tongue midline Teeth exam: PRESENT: poor dentation Neck exam: PRESENT: full ROM Respiratory exam: PRESENT: crackles - LLL, rhonchi - RLL, symmetrical, unlabored, other - REQUIRING HIGH FLOW O2 Cardiovascular exam: PRESENT: RRR Pulses: PRESENT: normal radial pulses, normal dorsalis pedis pul Vascular exam: PRESENT: normal capillary refill GI/Abdominal exam: PRESENT: soft. ABSENT: distended, tenderness Rectal exam: PRESENT: deferred Extremities exam: PRESENT: full ROM. ABSENT: pedal edema Musculoskeletal exam: PRESENT: ambulatory, full ROM, normal inspection. ABSENT: deformity Neurological exam: PRESENT: alert, awake, oriented to person, oriented to place, oriented to time, oriented to situation Psychiatric exam: PRESENT: appropriate affect Skin exam: PRESENT: dry, intact, normal color Results Laboratory Results: 12/09/18 05:40 12/09/18 05:40 12/09/18 12/09/18 12/09/18 05:40 05:40 06:30 WBC 2.5 L RBC 3.39 L Hgb 9.2 L Hct 26.7 L MCV 79 L MCH 27.1 MCHC 34.3 RDW 19.6 H Plt Count 379 Seg Neutrophils % Not Reportable Lymphocytes % Not Reportable Monocytes % Not Reportable Eosinophils % Not Reportable Basophils % Not Reportable Absolute Neutrophils Not Reportable Absolute Lymphocytes Not Reportable Absolute Monocytes Not Reportable Absolute Eosinophils Not Reportable Absolute Basophils Not Reportable Carbonic Acid 1.30 HCO3/H2CO3 Ratio 21:1 ABG pH 7.43 ABG pCO2 43.2 ABG pO2 63.5 L ABG HCO3 27.8 H ABG O2 Saturation 92.7 L ABG Base Excess 3.1 FiO2 45% Sodium 137.7 Potassium 4.1 Chloride 102 Carbon Dioxide 31 H Anion Gap 5 BUN 7 Creatinine 0.39 L Est GFR ( Amer) > 60 Est GFR (Non-Af Amer) > 60 Glucose 91 Calcium 7.9 L Magnesium 1.8 Impressions: Chest/Abdomen CTA 12/04/18 00:00 IMPRESSION: 1. Right-sided pulmonary emboli as described. 2. Multicentric pneumonia, some of which appears to be chronic. Possibly atypical. Chronic lower lobe bronchiectasis. Abdomen CT 12/04/18 13:48 IMPRESSION: Intrahepatic ductal prominence. Hypoplastic left kidney. No acute finding. Abdomen/Pelvis CT 12/06/18 08:00 IMPRESSION: No change in the appearance of the lung bases with extensive parenchymal interstitial and pleural changes. There is some free fluid in the pelvis. There is no obvious intrahepatic or extra hepatic ductal dilatation. No gallstones noted in the gallbladder based on CT criteria. Venous Doppler Study 12/07/18 15:10 IMPRESSION: NO EVIDENCE DVT OR SVT IN EITHER LEG. Chest X-Ray 12/09/18 06:00 IMPRESSION: NO SIGNIFICANT INTERVAL CHANGE. Status: Imported from PACS Assessment and Plan - Diagnosis (1) Acute and chronic respiratory failure with hypoxia Is this a current diagnosis for this admission?: Yes Plan: Secondary to recurrent PNA and RUL/RML PE Initially requiring BiPAP, now weaned to high flow nasal cannula Pulmonology following [employer] antibiotic coverage for PNA Apixaban for PE Low-dose daily prednisone per pulmonary recommendations Continuous pulse oximetry We will continue to attempt weaning high flow NC (2) Acute pulmonary embolism Qualifiers: Pulmonary embolism type: other Acute cor pulmonale presence: without acute cor pulmonale Qualified Code(s): I26.99 - Other pulmonary embolism without acute cor pulmonale Is this a current diagnosis for this admission?: Yes Plan: Acute PE seen on CTA chest Thrombis in RUL/RML pulmonary arteries Initially treated with heparin gtt. Transitioned to p.o. apixaban 10 mg twice daily until December 15 and then decreased to 5 mg twice daily Follow-up with Dr. Suarez after discharge (3) Septic shock Is this a current diagnosis for this admission?: Yes Plan: Improving Secondary to recurrent RLL PNA Presented with tachycardia, tachypnea and hypotension initially not responsive to IVF, requiring vasopressor support Completed course of broad-spectrum antibiotics, vancomycin and cefepime and azithromycin Infiltrate has remained fairly unchanged on CXR, still requiring high flow nasal cannula Sputum cultures positive for Gisell, minimal normal trino Antifungal treatment initiated yesterday (4) Pneumonia Qualifiers: Pneumonia type: due to unspecified organism Laterality: right Lung location: lower lobe of lung Qualified Code(s): J18.1 - Lobar pneumonia, unspecified organism Is this a current diagnosis for this admission?: Yes Plan: Healthcare associated PNA Patient has history of recurrent PNA, hospitalization within the last 3 months Empirically covered for MRSA and gram-negative bacteria with vancomycin and cefepime and azithromycin Sputum culture growing Gisell Fluconazole initiated yesterday due to patient's immunosuppression and p ersistent infiltrate on CXR If respiratory status does not improve, consider bronchoscopy (5) Large B-cell lymphoma Is this a current diagnosis for this admission?: Yes Plan: Dr. Vega previously previously deemed that the recurrent PNA was related to immunosuppression from cancer treatments. IgG was very low, patient received a dose of IVIG per oncology. Defer treatment plan for lymphoma to oncology. The patient will follow-up with Dr. Vega after discharge. He has completed a course of treatment already for the lymphoma. (6) Anemia Qualifiers: Anemia type: other cause Is this a current diagnosis for this admission?: Yes Plan: Secondary to chronic disease, specifically lymphoma Has slowly drifted from 13.3-->9.2 No need for transfusion today Continue to monitor daily CBCs (7) Neutropenia Qualifiers: Neutropenia type: due to infection Qualified Code(s): D70.3 - Neutropenia due to infection Is this a current diagnosis for this admission?: Yes Plan: Secondary to acute illness/sepsis WBC 2.5 today, lowest it has been during hospitalization Clinically he appears to be improving Will continue to monitor at this time Appreciate Heme/Onc recommendations (8) Hyponatremia Is this a current diagnosis for this admission?: Yes Plan: Resolved Na 137 today Monitor with daily chemistries Likely stemming from primary pulmonary process Continue regular diet (9) Protein-calorie malnutrition, severe Is this a current diagnosis for this admission?: Yes Plan: BMI 17.1 - very low Continue regular diet with protein supplements at each meal Will require PT/OT once respiratory status is not so tenuous - Time Time Spent with patient: 15-24 minutes Medications reviewed and adjusted accordingly: Yes Anticipated discharge: Home Within: Other - WHEN MEDICALLY STABLE - Inpatient Certification Based on my medical assessment, after consideration of the patient's comorbidities, presenting symptoms, or acuity I expect that the services needed warrant INPATIENT care.: Yes I certify that my determination is in accordance with my understanding of Medicare's requirements for reasonable and necessary INPATIENT services [42 CFR 412.3e].: Yes Medical Necessity: Need Close Monitoring Due to Risk of Patient Decompensation, Need For Continuous Telemetry Monitoring, Need for IV Antibiotics, Risk of Complication if Not Cared For in Hospital
[2018-12-09] MEDS: AZITHROMYCIN 250 MG TABLET PO SCH (17:20)
[2018-12-10] MEDS: DILTIAZEM HCL 30 MG TABLET PO SCH ×4 (00:29→17:29)
[2018-12-10] MEDS: AMPICILLIN TRIHYD 500 MG CAPSULE PO SCH ×4 (00:29→17:31)
[2018-12-10] MEDS: LEVALBUTEROL HCL NEB 1.25 MG/3 ML AMPUL NEB SCH ×4 (00:40→23:49)
[2018-12-10 06:33] LABS: HEMOGLOBIN 9.1 g/dL (13.5-17.0); MEAN CORPUSCULAR HEMOGLOBIN 26.7 pg (27.0-33.4); MEAN CORPUSCULAR HGB CONC 33.8 g/dL (32.0-36.0); MEAN CORPUSCULAR VOLUME 79 fl (80-97); PLATELET COUNT 398 10^3/uL (150-450); RED BLOOD COUNT 3.42 10^6/uL (4.35-5.55); RED CELL DISTRIBUTION WIDTH 19.8 % (11.5-14.0); WHITE BLOOD COUNT 2.6 10^3/uL (4.0-10.5)
[2018-12-10 07:14] LABS: ABSOLUTE LYMPHOCYTES# (MANUAL) 0.5 10^3/uL (0.5-4.7); ABSOLUTE MONOCYTES # (MANUAL) 0.3 10^3/uL (0.1-1.4); BASOPHILS % (MANUAL) 0 % (0-2); EOSINOPHILS % (MANUAL) 2 % (0-6); LYMPHOCYTES % (MANUAL) 21 % (13-45); MONOCYTES % (MANUAL) 10 % (3-13); SEGMENTED NEUTROPHILS % (MAN) 67 % (42-78); TOTAL CELLS COUNTED 100
[2018-12-10 07:16] LABS: ANISOCYTOSIS 2+; PLATELET COMMENT ADEQUATE
[2018-12-10] MEDS: FLUCONAZOLE 100 MG TABLET PO SCH (10:02)
[2018-12-10] MEDS: DOCUSATE SODIUM 100 MG CAPSULE PO SCH (10:02)
[2018-12-10] MEDS: PREDNISONE 20 MG TABLET PO SCH (10:02)
[2018-12-10] MEDS: APIXABAN 5 MG TABLET PO SCH ×2 (10:02→17:29)
[2018-12-10] MEDS: LIDOCAINE 5% (700 MG) TRANSDERMAL ADH..PATCH TP SCH (10:02)
[2018-12-10] MEDS: MORPHINE SULFATE 10 MG/ML INJ IV PRN ×2 (12:45→16:27)
--- NOTE | 2018-12-10 13:01 | RADIOLOGY REPORT (SQ) ---
EXAM DESCRIPTION: KUB/ABDOMEN (SINGLE VIEW) COMPLETED DATE/TIME: 12/10/2018 12:51 pm REASON FOR STUDY: abdominal pain. LUQ pain COMPARISON: 11/30/2015 NUMBER OF VIEWS: One view. TECHNIQUE: Supine radiographic image of the abdomen acquired. LIMITATIONS: None. FINDINGS: BOWEL GAS PATTERN: Nonobstructive gas pattern. Considerable retained stool. CALCIFICATIONS: No suspicious calcifications. SOFT TISSUES: No gross mass or suggestion of organomegaly. HARDWARE: None in the abdomen. BONES: No acute fracture. No worrisome bone lesions. OTHER: No other significant finding. IMPRESSION: Constipation. TECHNICAL DOCUMENTATION: JOB ID: [id number] [employer]- All Rights Reserved Reading location - IP/workstation name: [email or web address]
[2018-12-10] MEDS: MAGNESIUM HYDROXIDE SUSP 30 ML UDCUP PO PRN (14:37)
[2018-12-10] MEDS: POLYETHYLENE GLYCOL 3350 POWDER 17 GM/1 PACKET PO PRN (14:37)
[2018-12-10] MEDS: SENNOSIDES/DOCUSATE 8.6-50 MG 1 EACH TABLET PO SCH (17:29)
[2018-12-10] MEDS ORDERED: MAGNESIUM CITRATE 296 ML BOTTLE PO ONE (17:30)
[2018-12-10] MEDS: AZITHROMYCIN 250 MG TABLET PO SCH (17:30)
--- NOTE | 2018-12-10 21:15 | PDOC PROGRESS REPORT ---
Subjective Progress Note for:: 12/10/18 Subjective:: 53 y.o. M with a PMH of COPD, Stage IV large B cell lymphoma, recurrent PNA, depression and tobacco abuse. He presented to [facility] for dyspnea. Patient was noted to be tachypneic, tachycardic, hypoxic and hypotensive. He was noted to have a right lower lobe pneumonia. He was admitted to the ICU for septic shock requiring vasopressor support and BiPAP. Unfortunately, it was discovered on CTA that the patient also has a thrombus in the RUL & RML pulmonary arteries. The patient was seen this morning on rounds. He is resting comfortably in bed on nasal cannula with oximyzer. Nursing staff reports they are unable to wean because the patient becomes profoundly hypoxic. The patient states he is experiencing LUQ abdominal pain, worse when he takes a deep breath. States he is passing gas and had a BM today but is was a "samll, rock hard" stool. Suspected that the patient is significantly constipated given the high amount of narcotics he has been receiving. New PE is less likely (but a possibility) since he has been anticoagulated s/p discovering R sided PE. KUB reveals a large stool burden, especially in the descending colon. Plan to expand the patient's daily bowel regimen and give a one time dose of magnesium citrate. If the patient does not experience relief, may need to attempt enema. Reason For Visit: RIGHT LOWER LOBE PNEUMONIA, ACUTE ON CHRONIC Physical Exam Vital Signs: Temp Pulse Resp BP Pulse Ox 97.3 F 96 26 H 129/88 H 90 L 12/10/18 15:51 12/10/18 16:38 12/10/18 16:38 12/10/18 15:51 12/10/18 16:38 Pulse Oximeter Continuous Start: 12/09/18 16:29 Freq: RTQ4 Status: Active Protocol: Document 12/10/18 16:38 [facility] (Rec: 12/10/18 16:50 [facility] [id number]) Pulse Oximetry Assessment Oxygen Saturation (92-100) 90 Oxygen Flow Rate (L/min) 5 Oxygen Delivery Method Oxymizer Oxygen Conserving Device Equipment Usage Equipment in Use Continuous SpO2 Machine # 10 Intake & Output 12/09/18 12/10/18 12/11/18 06:59 06:59 06:59 Intake Total 1294 1284 2416 Output Total 3250 2600 2175 Balance -6 -6 241 Weight 55.7 kg 52.3 kg General appearance: PRESENT: no acute distress, thin Head exam: PRESENT: atraumatic, normocephalic Eye exam: PRESENT: conjunctiva pink, EOMI, PERRLA. ABSENT: scleral icterus Ear exam: PRESENT: normal external ear exam Mouth exam: PRESENT: moist, tongue midline Teeth exam: PRESENT: poor dentation Neck exam: PRESENT: full ROM. ABSENT: carotid bruit, JVD, lymphadenopathy, thyromegaly Respiratory exam: PRESENT: crackles - RLL, symmetrical, unlabored. ABSENT: rales, rhonchi, wheezes Cardiovascular exam: PRESENT: RRR. ABSENT: diastolic murmur, rubs, systolic murmur Pulses: PRESENT: normal radial pulses, normal dorsalis pedis pul Vascular exam: PRESENT: normal capillary refill GI/Abdominal exam: PRESENT: normal bowel sounds, soft, tenderness - LUQ TTP. ABSENT: distended, guarding, mass, organolmegaly, rebound Rectal exam: PRESENT: deferred Extremities exam: PRESENT: full ROM. ABSENT: calf tenderness, clubbing, pedal edema Musculoskeletal exam: PRESENT: ambulatory - with assistance, full ROM Neurological exam: PRESENT: alert, awake, oriented to person, oriented to place, oriented to time, oriented to situation Psychiatric exam: PRESENT: appropriate affect, normal mood Skin exam: PRESENT: dry, intact, warm. ABSENT: cyanosis, rash Results Laboratory Results: 12/10/18 05:20 12/09/18 05:40 12/10/18 05:20 WBC 2.6 L RBC 3.42 L Hgb 9.1 L Hct 27.0 L MCV 79 L MCH 26.7 L MCHC 33.8 RDW 19.8 H Plt Count 398 Seg Neutrophils % Not Reportable Lymphocytes % Not Reportable Monocytes % Not Reportable Eosinophils % Not Reportable Basophils % Not Reportable Absolute Neutrophils Not Reportable Absolute Lymphocytes Not Reportable Absolute Monocytes Not Reportable Absolute Eosinophils Not Reportable Absolute Basophils Not Reportable Impressions: Chest/Abdomen CTA 12/04/18 00:00 IMPRESSION: 1. Right-sided pulmonary emboli as described. 2. Multicentric pneumonia, some of which appears to be chronic. Possibly atypical. Chronic lower lobe bronchiectasis. Abdomen CT 12/04/18 13:48 IMPRESSION: Intrahepatic ductal prominence. Hypoplastic left kidney. No acute finding. Abdomen/Pelvis CT 12/06/18 08:00 IMPRESSION: No change in the appearance of the lung bases with extensive parenchymal interstitial and pleural changes. There is some free fluid in the pelvis. There is no obvious intrahepatic or extra hepatic ductal dilatation. No gallsto tan noted in the gallbladder based on CT criteria. Venous Doppler Study 12/07/18 15:10 IMPRESSION: NO EVIDENCE DVT OR SVT IN EITHER LEG. Chest X-Ray 12/09/18 06:00 IMPRESSION: NO SIGNIFICANT INTERVAL CHANGE. KUB X-Ray 12/10/18 11:26 IMPRESSION: Constipation. Status: Imported from PACS Assessment and Plan - Diagnosis (1) Acute and chronic respiratory failure with hypoxia Is this a current diagnosis for this admission?: Yes Plan: Secondary to recurrent PNA and RUL/RML PE Overuse of narcotics and splinting LUQ pain could be contributing Initially requiring BiPAP, now weaned to high flow nasal cannula Pulmonology following [employer] antibiotic coverage for PNA Apixaban for PE Significantly expanded bowel regimen today to alleviate constipation Decreased Morphine dosage from 5mg-->4mg PRN Low-dose daily prednisone per pulmonary recommendations Continuous pulse oximetry We will continue to attempt weaning high flow NC (2) Acute pulmonary embolism Qualifiers: Pulmonary embolism type: other Acute cor pulmonale presence: without acute cor pulmonale Qualified Code(s): I26.99 - Other pulmonary embolism without acute cor pulmonale Is this a current diagnosis for this admission?: Yes Plan: Acute PE seen on CTA chest Thrombis in RUL/RML pulmonary arteries Initially treated with heparin gtt. Transitioned to p.o. apixaban 10 mg twice daily until December 15 and then decreased to 5 mg twice daily Follow-up with Dr. Suarez after discharge (3) Septic shock Is this a current diagnosis for this admission?: Yes Plan: Improving Secondary to recurrent RLL PNA Presented with tachycardia, tachypnea and hypotension initially not responsive to IVF, requiring vasopressor support Completed course of broad-spectrum antibiotics, vancomycin and cefepime and azithromycin Infiltrate has remained fairly unchanged on CXR, still requiring high flow nasal cannula Sputum cultures positive for Gisell, minimal normal trino Antifungal treatment initiated 48hrs ago (4) Pneumonia Qualifiers: Pneumonia type: due to unspecified organism Laterality: right Lung location: lower lobe of lung Qualified Code(s): J18.1 - Lobar pneumonia, unspecified organism Is this a current diagnosis for this admission?: Yes Plan: Healthcare associated PNA Patient has history of recurrent PNA, hospitalization within the last 3 months Empirically covered for MRSA and gram-negative bacteria with vancomycin and cefepime and azithromycin Sputum culture growing Gisell Fluconazole initiated due to patient's immunosuppression and persistent infiltrate on CXR If respiratory status does not improve, consider bronchoscopy (5) Large B-cell lymphoma Is this a current diagnosis for this admission?: Yes Plan: Dr. Vega previously previously deemed that the recurrent PNA was related to immunosuppression from cancer treatments. IgG was very low, patient received a dose of IVIG per oncology. Defer treatment plan for lymphoma to oncology. The patient will follow-up with Dr. Vega after discharge. He has completed a course of treatment already for the lymphoma. (6) Anemia Qualifiers: Anemia type: other cause Is this a current diagnosis for this admission?: Yes Plan: Secondary to chronic disease, specifically lymphoma Has slowly drifted from 13.3-->9.1 No need for transfusion today Continue to monitor daily CBCs (7) Neutropenia Qualifiers: Neutropenia type: due to infection Qualified Code(s): D70.3 - Neutropenia due to infection Is this a current diagnosis for this admission?: Yes Plan: Secondary to acute illness/sepsis WBC 2.6 today, very low for this hospitalization Clinically he appears to be improving Will continue to monitor at this time Appreciate Heme/Onc recommendations (8) Hyponatremia Is this a current diagnosis for this admission?: Yes Plan: Resolved Likely stemming from primary pulmonary process (9) Protein-calorie malnutrition, severe Is this a current diagnosis for this admission?: Yes Plan: BMI 16.1 - very low Continue regular diet with protein supplements at each meal Will require PT/OT once respiratory status is not so tenuous - Time Time Spent with patient: 15-24 minutes Medications reviewed and adjusted accordingly: Yes Anticipated discharge: Home Within: Other - when medically stable - Inpatient Certification Based on my medical assessment, after consideration of the patient's comorbidities, presenting symptoms, or acuity I expect that the services needed warrant INPATIENT care.: Yes I certify that my determination is in accordance with my understanding of Medicare's requirements for reasonable and necessary INPATIENT services [42 CFR 412.3e].: Yes Medical Necessity: Need Close Monitoring Due to Risk of Patient Decompensation, Need For Continuous Telemetry Monitoring, Need for Nebulizer Therapy and Monitoring of Response, Need for IV Antibiotics, Risk of Complication if Not Cared For in Hospital
[2018-12-11] MEDS: AMPICILLIN TRIHYD 500 MG CAPSULE PO SCH ×2 (00:03→05:27)
[2018-12-11] MEDS: DILTIAZEM HCL 30 MG TABLET PO SCH ×5 (00:06→23:00)
[2018-12-11] MEDS: MORPHINE SULFATE 10 MG/ML INJ IV PRN ×5 (00:09→22:58)
[2018-12-11 04:51] LABS: HEMATOCRIT 30.2 % (37.9-51.0); HEMOGLOBIN 10.4 g/dL (13.5-17.0); MEAN CORPUSCULAR HEMOGLOBIN 27.1 pg (27.0-33.4); MEAN CORPUSCULAR HGB CONC 34.5 g/dL (32.0-36.0); MEAN CORPUSCULAR VOLUME 79 fl (80-97); PLATELET COUNT 415 10^3/uL (150-450); RED BLOOD COUNT 3.84 10^6/uL (4.35-5.55); RED CELL DISTRIBUTION WIDTH 20.2 % (11.5-14.0); WHITE BLOOD COUNT 2.8 10^3/uL (4.0-10.5)
[2018-12-11 05:25] LABS: ANION GAP 7 (5-19); BLOOD UREA NITROGEN 8 mg/dL (7-20); CALCIUM 8.3 mg/dL (8.4-10.2); CARBON DIOXIDE 33 mmol/L (22-30); CHLORIDE 99 mmol/L (98-107); GLUCOSE 88 mg/dL (75-110); PHOSPHORUS 3.5 mg/dL (2.5-4.5); POTASSIUM 4.1 mmol/L (3.6-5.0); SODIUM 138.5 mmol/L (137-145)
[2018-12-11] MEDS: LEVALBUTEROL HCL NEB 1.25 MG/3 ML AMPUL NEB SCH ×2 (08:16→16:41)
[2018-12-11] MEDS: PREDNISONE 20 MG TABLET PO SCH (10:21)
[2018-12-11] MEDS: APIXABAN 5 MG TABLET PO SCH ×2 (10:21→17:32)
[2018-12-11] MEDS: SENNOSIDES/DOCUSATE 8.6-50 MG 1 EACH TABLET PO SCH ×2 (10:21→17:32)
[2018-12-11] MEDS: POLYETHYLENE GLYCOL 3350 POWDER 17 GM/1 PACKET PO SCH (10:22)
[2018-12-11] MEDS: LIDOCAINE 5% (700 MG) TRANSDERMAL ADH..PATCH TP SCH (10:22)
[2018-12-11] MEDS: FLUCONAZOLE 100 MG TABLET PO SCH (10:22)
--- NOTE | 2018-12-11 16:34 | PDOC PROGRESS REPORT ---
Subjective Progress Note for:: 12/11/18 Subjective:: 53 y.o. M with a PMH of COPD, Stage IV large B cell lymphoma, recurrent PNA, depression and tobacco abuse. He presented to [facility] for dyspnea. Patient was noted to be tachypneic, tachycardic, hypoxic and hypotensive. He was noted to have a right lower lobe pneumonia. He was admitted to the ICU for septic shock requiring vasopressor support and BiPAP. Unfortunately, it was discovered on CTA that the patient also has a thrombus in the RUL & RML pulmonary arteries. The patient was seen this morning on rounds. He is resting comfortably in bed on nasal cannula with oximyzer (5L). KUB yesterday revealed a large stool burden, especially in the descending colon. Given a one time dose of magnesium citrate and expanded scheduled bowel regimen. Patient states he had a bowel movement this morning around 0300. The patient's persistent hypoxia and high O2 requirements are likely the combination of his PE, PNA, and splinting from LUQ pain 2/2 constipation. Encouraged use of IS, ambulation as tolerated, and decreased dose of IV morphine. Will plan for PT/OT. Hopefully can wean O2 to 4L NC to keep SPO2>88%. Reason For Visit: RIGHT LOWER LOBE PNEUMONIA, ACUTE ON CHRONIC Physical Exam Vital Signs: Temp Pulse Resp BP Pulse Ox 97.3 F 96 20 116/84 99 12/11/18 12:07 12/11/18 14:00 12/11/18 12:07 12/11/18 12:07 12/11/18 13:44 Pulse Oximeter Continuous Start: 12/09/18 16:29 Freq: RTQ4 Status: Active Protocol: Document 12/11/18 13:44 [facility] (Rec: 12/11/18 13:44 [facility] [id number]) Pulse Oximetry Assessment Oxygen Saturation (92-100) 99 Oxygen Flow Rate (L/min) 4 Oxygen Delivery Method Oxymizer Oxygen Conserving Device Equipment Usage Equipment in Use Continuous SpO2 Machine # 10 Intake & Output 12/10/18 12/11/18 12/12/18 06:59 06:59 06:59 Intake Total 9392 1536 630 Output Total 7209 8013 Balance -1224 -8114 630 Weight 52.3 kg 55.3 kg General appearance: PRESENT: no acute distress, thin Head exam: PRESENT: atraumatic, normocephalic Eye exam: PRESENT: conjunctiva pink, EOMI, PERRLA. ABSENT: scleral icterus Ear exam: PRESENT: normal external ear exam Mouth exam: PRESENT: moist, tongue midline Teeth exam: PRESENT: poor dentation Neck exam: ABSENT: carotid bruit, JVD, lymphadenopathy, thyromegaly Respiratory exam: PRESENT: clear to auscultation rylie, decreased breath sounds - Bilateral lower lobes, symmetrical, unlabored, other - Requiring supplemental ox ygen via Oxymizer. ABSENT: rales, rhonchi, wheezes Cardiovascular exam: PRESENT: RRR. ABSENT: diastolic murmur, rubs, systolic murmur Pulses: PRESENT: normal radial pulses, normal dorsalis pedis pul Vascular exam: PRESENT: normal capillary refill GI/Abdominal exam: PRESENT: normal bowel sounds, soft, tenderness - LUQ. ABSENT: distended, guarding, mass, organolmegaly, rebound Rectal exam: PRESENT: deferred Extremities exam: PRESENT: full ROM. ABSENT: calf tenderness, clubbing, pedal edema Musculoskeletal exam: PRESENT: ambulatory, full ROM Neurological exam: PRESENT: alert, awake, oriented to person, oriented to place, oriented to time, oriented to situation Psychiatric exam: PRESENT: appropriate affect, normal mood. ABSENT: homicidal ideation, suicidal ideation Skin exam: PRESENT: dry, intact, warm. ABSENT: cyanosis, rash Results Laboratory Results: 12/11/18 04:14 12/11/18 04:14 12/11/18 12/11/18 04:14 04:14 WBC 2.8 L RBC 3.84 L Hgb 10.4 L Hct 30.2 L MCV 79 L MCH 27.1 MCHC 34.5 RDW 20.2 H Plt Count 415 Sodium 138.5 Potassium 4.1 Chloride 99 Carbon Dioxide 33 H Anion Gap 7 BUN 8 Creatinine 0.46 L Est GFR ( Amer) > 60 Est GFR (Non-Af Amer) > 60 Glucose 88 Calcium 8.3 L Phosphorus 3.5 Magnesium 2.0 Impressions: Chest/Abdomen CTA 12/04/18 00:00 IMPRESSION: 1. Right-sided pulmonary emboli as described. 2. Multicentric pneumonia, some of which appears to be chronic. Possibly atypical. Chronic lower lobe bronchiectasis. Abdomen CT 12/04/18 13:48 IMPRESSION: Intrahepatic ductal prominence. Hypoplastic left kidney. No acute finding. Abdomen/Pelvis CT 12/06/18 08:00 IMPRESSION: No change in the appearance of the lung bases with extensive parenchymal interstitial and pleural changes. There is some free fluid in the pelvis. There is no obvious intrahepatic or extra hepatic ductal dilatation. No gallstones noted in the gallbladder based on CT criteria. Venous Doppler Study 12/07/18 15:10 IMPRESSION: NO EVIDENCE DVT OR SVT IN EITHER LEG. Chest X-Ray 12/09/18 06:00 IMPRESSION: NO SIGNIFICANT INTERVAL CHANGE. KUB X-Ray 12/10/18 11:26 IMPRESSION: Constipation. Status: Imported from PACS Assessment and Plan - Diagnosis (1) Acute and chronic respiratory failure with hypoxia Is this a current diagnosis for this admission?: Yes Plan: Secondary to recurrent PNA and RUL/RML PE Overuse of narcotics and splinting LUQ pain could be contributing Initially requiring BiPAP, now weaned to high flow nasal cannula Pulmonology following Completed empiric antibiotic coverage for PNA, now on antifungal regimen Apixaban for PE Significantly expanded bowel regimen today to alleviate constipation Decreased Morphine dosage from 5mg-->4mg PRN Low-dose daily prednisone per pulmonary recommendations Continuous pulse oximetry We will continue to attempt weaning high flow NC (2) Acute pulmonary embolism Qualifiers: Pulmonary embolism type: other Acute cor pulmonale presence: without acute cor pulmonale Qualified Code(s): I26.99 - Other pulmonary embolism without acute cor pulmonale Is this a current diagnosis for this admission?: Yes Plan: Acute PE seen on CTA chest Thrombus in RUL/RML pulmonary arteries Initially treated with heparin gtt. Transitioned to p.o. apixaban 10 mg twice daily until December 15 and then decreased to 5 mg twice daily Follow-up with Dr. Suarez after discharge (3) Septic shock Is this a current diagnosis for this admission?: Yes Plan: Improving Secondary to recurrent RLL PNA Presented with tachycardia, tachypnea and hypotension initially not responsive to IVF, requiring vasopressor support Completed course of broad-spectrum antibiotics, vancomycin and cefepime and azithromycin Infiltrate has remained fairly unchanged on CXR, still requiring high flow nasal cannula Sputum cultures positive for Gisell, minimal normal trino Antifungal treatment initiated (4) Pneumonia Qualifiers: Pneumonia type: due to unspecified organism Laterality: right Lung location: lower lobe of lung Qualified Code(s): J18.1 - Lobar pneumonia, unspecified organism Is this a current diagnosis for this admission?: Yes Plan: Healthcare associated PNA Patient has history of recurrent PNA, hospitalization within the last 3 months Empirically covered for MRSA and gram-negative bacteria with vancomycin and cefepime and azithromycin Sputum culture growing Gisell Fluconazole initiated due to patient's immunosuppression and persistent infiltrate on CXR If respiratory status does not improve, consider bronchoscopy (5) Large B-cell lymphoma Is this a current diagnosis for this admission?: Yes Plan: Dr. Suarez previously previously deemed that the recurrent PNA was related to immunosuppression from cancer treatments. IgG was very low, patient received a dose of IVIG per oncology. Defer treatment plan for lymphoma to oncology. The patient will follow-up with Dr. Vega after discharge. He has completed a course of treatment already for the lymphoma. (6) Anemia Qualifiers: Anemia type: other cause Is this a current diagnosis for this admission?: Yes Plan: Secondary to chronic disease, specifically lymphoma Has slowly drifted from 13.3-->10 No need for transfusion today Continue to monitor daily CBCs (7) Neutropenia Qualifiers: Neutropenia type: due to infection Qualified Code(s): D70.3 - Neutropenia due to infection Is this a current diagnosis for this admission?: Yes Plan: Improving Secondary to acute illness/sepsis WBC 2.5-->2.6-->2.8 (today) remains very low for this hospitalization Clinically he appears to be improving Will continue to monitor at this time Appreciate Heme/Onc recommendations (8) Hyponatremia Is this a current diagnosis for this admission?: Yes Plan: Resolved Likely stemming from primary pulmonary process (9) Protein-calorie malnutrition, severe Is this a current diagnosis for this admission?: Yes Plan: BMI 16.1 - very low Continue regular diet with protein supplements at each meal Will require PT/OT once respiratory status is not so tenuous - Time Time Spent with patient: 15-24 minutes Medications reviewed and adjusted accordingly: Yes Anticipated discharge: Home Within: Other - When medically stable - Inpatient Certification Based on my medical assessment, after consideration of the patient's comorbidities, presenting symptoms, or acuity I expect that the services needed warrant INPATIENT care.: Yes I certify that my determination is in accordance with my understanding of Medicare's requirements for reasonable and necessary INPATIENT services [42 CFR 412.3e].: Yes Medical Necessity: Need For Continuous Telemetry Monitoring, Need for Nebulizer Therapy and Monitoring of Response, Risk of Complication if Not Cared For in Hospital
[2018-12-12] MEDS: LEVALBUTEROL HCL NEB 1.25 MG/3 ML AMPUL NEB SCH ×3 (00:13→16:25)
[2018-12-12] MEDS: MORPHINE SULFATE 10 MG/ML INJ IV PRN ×3 (04:46→14:21)
[2018-12-12] MEDS: DILTIAZEM HCL 30 MG TABLET PO SCH ×2 (05:39→13:06)
[2018-12-12] MEDS: PREDNISONE 20 MG TABLET PO SCH (09:16)
[2018-12-12] MEDS: FLUCONAZOLE 100 MG TABLET PO SCH (09:16)
[2018-12-12] MEDS: APIXABAN 5 MG TABLET PO SCH (09:16)
[2018-12-12] MEDS: SENNOSIDES/DOCUSATE 8.6-50 MG 1 EACH TABLET PO SCH (09:16)
[2018-12-12] MEDS: LIDOCAINE 5% (700 MG) TRANSDERMAL ADH..PATCH TP SCH (09:17)
[2018-12-12] MEDS: POLYETHYLENE GLYCOL 3350 POWDER 17 GM/1 PACKET PO SCH (09:17)
--- NOTE | 2018-12-12 11:06 | RADIOLOGY REPORT (SQ) ---
EXAM DESCRIPTION: CHEST SINGLE VIEW COMPLETED DATE/TIME: 12/12/2018 10:53 am REASON FOR STUDY: dyspnea COMPARISON: 12/09/2018. EXAM PARAMETERS: NUMBER OF VIEWS: One view. TECHNIQUE: Single frontal radiographic view of the chest acquired. RADIATION DOSE: NA LIMITATIONS: None. FINDINGS: LUNGS AND PLEURA: Hazy bilateral opacities, generally improved aeration. No pleural effus ion. No pneumothorax. MEDIASTINUM AND HILAR STRUCTURES: No masses. Contour normal. HEART AND VASCULAR STRUCTURES: Heart normal in size. Normal vasculature. BONES: No acute findings. HARDWARE: None in the chest. OTHER: No other significant finding. IMPRESSION: GENERALLY IMPROVED APPEARANCE OF THE CHEST. TECHNICAL DOCUMENTATION: JOB ID: [id number] [employer]- All Rights Reserved Reading location - IP/workstation name: [email or web address]
[2018-12-12 15:42] VITALS: BP 120/90
--- NOTE | 2018-12-12 18:17 | PDOC CONSULTATION ---
Consultation Consult Date: 12/04/18 Attending physician:: DALLIN NARANJO Provider Consulted: [employer] Consult reason:: pna/ acute-chronic resp failure History of Present Illness Admission Date/PCP: 11/30/18 22:46 HILLARY CONTRERAS MD History of Present Illness: DARSHAN SABA is a 53 year old male with history of COPD and smoking presented with increasing shortness of breath underwent a CTA and was found to have large PE he subsequently has been maintained on noninvasive positive pressure ventilation hemoptysis initially required FiO2 80% but this is subs equently been weaned down currently in ICU extremely tachypneic talking sentences Past Medical History Cardiac Medical History: Denies: Coronary Artery Disease, Myocardial Infarction, Hypertension Pulmonary Medical History: Reports: Chronic Obstructive Pulmonary Disease (COPD), Pneumonia - Had pneumonia ~3 weeks ago, Respiratory Failure Denies: Asthma, Bronchitis EENT Medical History: Reports: Other - Follicular lymphoma, 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 Completed all treatment. 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 evidence of disease Denies: Anemia, Bleeding Tendencies Infectious Medical History: Reports: None Past Surgical History Past Surgical History: Reports: Other - Ulcer repair, SBO repair, port placement, left eyebrow surgery Social History Lives with: Family Smoking Status: Former Smoker - Quit smoking 6 months ago Frequency of Alcohol Use: None Hx Recreational Drug Use: No Drugs: None Hx Prescription Drug Abuse: No Do you have pets?: No Have you had any respiratory illnesses as a child?: No Have you been exposed to any sick contacts recently?: No Have you had any recent respiratory illnesses?: No Have you travelled outside of [place] in the past 12 months?: No - Advance Directive Resuscitation Status: Full Code Family History Family History: CAD, Hypertension Parental Family History Reviewed: Yes Children Family History Reviewed: Yes Sibling(s) Family History Reviewed.: Yes Medication/Allergy Home Medications: Budesonide/Formoterol Fumarate [Symbicort HFA 160-4.5 mcg Inhaler 6 gm] 2 puff IH Q12 07/10/18 Omeprazole 40 mg PO DAILY 07/10/18 Tiotropium [place] [Spiriva Handihaler 5 Cap/Kit (18 Mcg/Cap)] 1 cap IH DAILY 30 Days #30 capsule 07/19/18 Albuterol Sulfate [Ventolin 0.083% Neb 2.5 mg/3 mL Ampul] 1 vial NEB Q6HP PRN 10/05/18 Bupropion HCl [Wellbutrin Xl 150 mg 24hr Tablet] 150 mg PO DAILY 10/05/18 Fluticasone Propionate [Flonase Nasal [place] 50 Mcg/[place] 16 gm] 1 spray NAREB DAILY 10/05/18 Albuterol Sulfate [Albuterol Sulfate Hfa] 2 gm IH Q6HP PRN 12/01/18 l Acidophil/B Lactis/B Longum [Florajen3 Capsule] 460 mg PO DAILY MDD 2 CAPS 12/01/18 Apixaban [Eliquis 5 mg Tablet] 10 mg PO BID #6 tablet 12/12/18 Diltiazem HCl [Cardizem 30 mg Tablet] 30 mg PO Q6 #120 tablet 12/12/18 Fluconazole [Diflucan 100 mg Tablet] 300 mg PO DAILY #6 tablet 12/12/18 Polyethylene Glycol 3350 [Miralax Powder 17 gm/Packet] 17 gm PO DAILY #10 powd.pack 12/12/18 Prednisone [Deltasone 20 mg Tablet] 20 mg PO DAILY #5 tablet 12/12/18 Allergies/Adverse Reactions: alex Allergy (Mild, Verified 11/30/18 15:20) RASH No Known Drug Allergies Allergy (Unverified 12/03/18 10:40) Review of Systems ROS unobtainable: Due to mental status Physical Exam Vital Signs: Temp Pulse Resp BP Pulse Ox 98.1 F 132 H 26 H 101/81 97 12/04/18 08:00 12/04/18 08:06 12/04/18 08:05 12/04/18 08:00 12/04/18 08:05 Intake & Output 12/03/18 12/04/18 12/05/18 06:59 06:59 06:59 Intake Total 2953 2130 1100 Output Total 3126 4129 -172 1100 Weight 54.8 kg 51.2 kg General appearance: PRESENT: cooperative, disheveled, mild distress, thin Head exam: PRESENT: atraumatic, normocephalic Eye exam: PRESENT: conjunctiva pale, EOMI. ABSENT: nystagmus Mouth exam: PRESENT: dry mucosa, neck supple, tongue midline Neck exam: ABSENT: carotid bruit, full ROM, JVD, lymphadenopathy, meningismus, tenderness, thyromegaly, tracheal deviation, tracheostomy, other Respiratory exam: PRESENT: decreased breath sounds, prolonged expiratory phas, rhonchi, symmetrical, tachypnea. ABSENT: retraction, stridor, unlabored Cardiovascular exam: PRESENT: irregular rhythm Pulses: PRESENT: normal radial pulses Vascular exam: PRESENT: pallor GI/Abdominal exam: PRESENT: soft. ABSENT: mass, tenderness Extremities exam: ABSENT: calf tenderness, clubbing, joint swelling Musculoskeletal exam: ABSENT: ambulatory, deformity, dislocation Neurological exam: PRESENT: awake Psychiatric exam: PRESENT: flat affect Skin exam: PRESENT: dry, warm Results Laboratory Results: 12/03/18 04:00 12/03/18 04:00 12/01/18 01:30 Catheterized Urine Urine Culture - Final Enterococcus Faecalis(Group D) Impressions: Chest X-Ray 12/03/18 00:00 IMPRESSION: Persistent patchy multifocal airspace disease, edema versus pneu monia superimposed on obstructive disease. This is similar compared to 11/30/2018 and new compared to 11/04/2018 Assessment & Plan - Diagnosis (1) Acute and chronic respiratory failure with hypoxia Is this a current diagnosis for this admission?: Yes Plan: Alternates BiPAP with high flow O2 (2) Acute pulmonary embolism Qualifiers: Pulmonary embolism type: other Acute cor pulmonale presence: without acute cor pulmonale Qualified Code(s): I26.99 - Other pulmonary embolism without acute cor pulmonale Is this a current diagnosis for this admission?: Yes Plan: Anticoagulation per protocol (3) Neutropenia Qualifiers: Neutropenia type: secondary to cancer chemotherapy Qualified Code(s): D70.1 - Agranulocytosis secondary to cancer chemotherapy; T45.1X5A - Adverse effect of antineoplastic and immunosuppressive drugs, initial encounter Is this a current diagnosis for this admission?: Yes Plan: Status post chemotherapy (4) Pneumonia Qualifiers: Pneumonia type: due to unspecified organism Laterality: left Lung locat ion: lower lobe of lung Qualified Code(s): J18.1 - Lobar pneumonia, unspecified organism Is this a current diagnosis for this admission?: Yes Plan: No positive cultures thus far - Time Total Critical Time (Minutes): 55
--- NOTE | 2018-12-14 11:20 | PDOC PROGRESS REPORT ---
Subjective Progress Note for:: 12/05/18 Subjective:: Resting on bipap Reason For Visit: RIGHT LOWER LOBE PNEUMONIA, ACUTE ON CHRONIC Physical Exam Vital Signs: Temp Pulse Resp BP Pulse Ox 97.7 F 91 22 H 120/90 H 97 12/12/18 15:38 12/12/18 15:38 12/12/18 15:38 12/12/18 15:38 12/12/18 15:38 Pulse Oximeter Continuous Start: 12/09/18 16:29 Freq: RTQ4 Status: Discharge Protocol: Document 12/12/18 12:00 [facility] (Rec: 12/12/18 12:34 [facility] [id number]) Pulse Oximetry Assessment Oxygen Saturation (92-100) 97 Oxygen Flow Rate (L/min) 2 Oxygen Delivery Method Oxymizer Oxygen Conserving Device Fraction of Inspired Oxygen (FIO2) 28 Equipment Usage Equipment in Use Continuous SpO2 Machine # 10 Intake & Output 12/13/18 12/14/18 12/15/18 06:59 06:59 06:59 Intake Total 1320 Output Total 1150 Balance 170 General appearance: PRESENT: no acute distress, well-developed, well-nourished Head exam: PRESENT: atraumatic, normocephalic Eye exam: PRESENT: conjunctiva pink, EOMI, PERRLA. ABSENT: scleral icterus Ear exam: PRESENT: normal external ear exam Mouth exam: PRESENT: moist, tongue midline Neck exam: ABSENT: carotid bruit, JVD, lymphadenopathy, thyromegaly Respiratory exam: PRESENT: clear to auscultation rylie, rhonchi. ABSENT: rales, wheezes Cardiovascular exam: PRESENT: RRR. ABSENT: diastolic murmur, rubs, systolic murmur Pulses: PRESENT: normal dorsalis pedis pul Vascular exam: PRESENT: normal capillary refill GI/Abdominal exam: PRESENT: normal bowel sounds, soft. ABSENT: distended, guarding, mass, organolmegaly, rebound, tenderness Rectal exam: PRESENT: deferred Extremities exam: PRESENT: full ROM. ABSENT: calf tenderness, clubbing, pedal edema Neurological exam: PRESENT: alert, awake. ABSENT: altered, motor sensory deficit Psychiatric exam: PRESENT: appropriate affect, normal mood. ABSENT: homicidal ideation, suicidal ideation Skin exam: PRESENT: dry, intact, warm. ABSENT: cyanosis, rash Results Laboratory Results: 12/11/18 04:14 12/11/18 04:14 Impressions: Chest/Abdomen CTA 12/04/18 00:00 IMPRESSION: 1. Right-sided pulmonary emboli as described. 2. Multicentric pneumonia, some of which appears to be chronic. Possibly atypical. Chronic lower lobe bronchiectasis. Abdomen CT 12/04/18 13:48 IMPRESSION: Intrahepatic ductal prominence. Hypoplastic left kidney. No acute finding. Abdomen/Pelvis CT 12/06/18 08:00 IMPRESSION: No change in the appearance of the lung bases with extensive parenchymal interstitial and pleural changes. There is some free fluid in the pelvis. There is no obvious intrahepatic or extra hepatic ductal dilatation. No gallstones noted in the gallbladder based on CT criteria. Venous Doppler Study 12/07/18 15:10 IMPRESSION: NO EVIDENCE DVT OR SVT IN EITHER LEG. KUB X-Ray 12/10/18 11:26 IMPRESSION: Constipation. Chest X-Ray 12/12/18 09:34 IMPRESSION: GENERALLY IMPROVED APPEARANCE OF THE CHEST. Assessment & Plan - Diagnosis (1) Acute and chronic respiratory failure with hypoxia Is this a current diagnosis for this admission?: Yes Plan: alternate bipap with high flow o2 (2) Acute pulmonary embolism Qualifiers: Pulmonary embolism type: other Acute cor pulmonale presence: without acute cor pulmonale Qualified Code(s): I26.99 - Other pulmonary embolism without acute cor pulmonale Is this a current diagnosis for this admission?: Yes Plan: anticoagulation per protocol (3) Neutropenia Qualifiers: Neutropenia type: secondary to cancer chemotherapy Qualified Code(s): D70.1 - Agranulocytosis secondary to cancer chemotherapy; T45.1X5A - Adverse effect of antineoplastic and immunosuppressive drugs, initial encounter Is this a current diagnosis for this admission?: Yes Plan: status post chemotherapy (4) Pneumonia Qualifiers: Pneumonia type: due to unspecified organism Laterality: left Lung location: lower lobe of lung Qualified Code(s): J18.1 - Lobar pneumonia, unspecified organism Is this a current diagnosis for this admission?: Yes Plan: no positive cultures thus far - Time Total Critical Time (Minutes): 50 Inpatient Scribe Statement - . Entered by Abi Schneider, acting as scribe for Dr. Fontana.
--- NOTE | 2018-12-14 11:27 | PDOC PROGRESS REPORT ---
Subjective Progress Note for:: 12/06/18 Subjective:: patient currently on bipap Reason For Visit: RIGHT LOWER LOBE PNEUMONIA, ACUTE ON CHRONIC Physical Exam Vital Signs: Temp Pulse Resp BP Pulse Ox 97.7 F 91 22 H 120/90 H 97 12/12/18 15:38 12/12/18 15:38 12/12/18 15:38 12/12/18 15:38 12/12/18 15:38 Pulse Oximeter Continuous Start: 12/09/18 16:29 Freq: RTQ4 Status: Discharge Protocol: Document 12/12/18 12:00 [facility] (Rec: 12/12/18 12:34 [facility] [id number]) Pulse Oximetry Assessment Oxygen Saturation (92-100) 97 Oxygen Flow Rate (L/min) 2 Oxygen Delivery Method Oxymizer Oxygen Conserving Device Fraction of Inspired Oxygen (FIO2) 28 Equipment Usage Equipment in Use Continuous SpO2 Machine # 10 Intake & Output 12/13/18 12/14/18 12/15/18 06:59 06:59 06:59 Intake Total 1320 Output Total 1150 Balance 170 General appearance: PRESENT: no acute distress Head exam: PRESENT: atraumatic, normocephalic Eye exam: PRESENT: conjunctiva pink, EOMI, PERRLA. ABSENT: scleral icterus Ear exam: PRESENT: normal external ear exam Mouth exam: PRESENT: moist, tongue midline Neck exam: ABSENT: carotid bruit, JVD, lymphadenopathy, thyromegaly Respiratory exam: PRESENT: rhonchi. ABSENT: rales, wheezes Cardiovascular exam: PRESENT: RRR. ABSENT: diastolic murmur, rubs, systolic murmur Pulses: PRESENT: normal dorsalis pedis pul Vascular exam: PRESENT: normal capillary refill GI/Abdominal exam: PRESENT: normal bowel sounds, soft. ABSENT: distended, guarding, mass, organolmegaly, rebound, tenderness Rectal exam: PRESENT: deferred Extremities exam: PRESENT: full ROM. ABSENT: calf tenderness, clubbing, pedal edema Neurological exam: PRESENT: alert, awake, oriented to person. ABSENT: motor sensory deficit Psychiatric exam: PRESENT: appropriate affect, normal mood. ABSENT: homicidal ideation, suicidal ideation Skin exam: PRESENT: dry, intact, warm. ABSENT: cyanosis, rash Results Laboratory Results: 12/11/18 04:14 12/11/18 04:14 Impressions: Chest/Abdomen CTA 12/04/18 00:00 IMPRESSION: 1. Right-sided pulmonary emboli as described. 2. Multicentric pneumonia, some of which appears to be chronic. Possibly atypical. Chronic lower lobe bronchiectasis. Abdomen CT 12/04/18 13:48 IMPRESSION: Intrahepatic ductal prominence. Hypoplastic left kidney. No acute finding. Abdomen/Pelvis CT 12/06/18 08:00 IMPRESSION: No change in the appearance of the lung bases with extensive parenchymal interstitial and pleural changes. There is some free fluid in the pelvis. There is no obvious intrahepatic or extra hepatic ductal dilatation. No gallstones noted in the gallbladder based on CT criteria. Venous Doppler Study 12/07/18 15:10 IMPRESSION: NO EVIDENCE DVT OR SVT IN EITHER LEG. KUB X-Ray 12/10/18 11:26 IMPRESSION: Constipation. Chest X-Ray 12/12/18 09:34 IMPRESSION: GENERALLY IMPROVED APPEARANCE OF THE CHEST. Assessment & Plan - Diagnosis (1) Acute and chronic respiratory failure with hypoxia Is this a current diagnosis for this admission?: Yes Plan: alternate bipap with high flow o2 (2) Acute pulmonary embolism Qualifiers: Pulmonary embolism type: other Acute cor pulmonale presence: without acute cor pulmonale Qualified Code(s): I26.99 - Other pulmonary embolism without acute cor pulmonale Is this a current diagnosis for this admission?: Yes Plan: anticoagulation per protocol (3) Neutropenia Qualifiers: Neutropenia type: secondary to cancer chemotherapy Qualified Code(s): D70.1 - Agranulocytosis secondary to cancer chemotherapy; T45.1X5A - Adverse effect of antineoplastic and immunosuppressive drugs, initial encounter Is this a current diagnosis for this admission?: Yes Plan: status post chemotherapy (4) Pneumonia Qualifiers: Pneumonia type: due to unspecified organism Laterality: left Lung location: lower lobe of lung Qualified Code(s): J18.1 - Lobar pneumonia, unspecified organism Is this a current diagnosis for this admission?: Yes Plan: no positive cultures thus far - Time Total Critical Time (Minutes): 50 Inpatient Scribe Statement - . Entered by Abi Schneider, acting as scribe for Dr. Fontana.
--- NOTE | 2018-12-14 11:32 | PDOC PROGRESS REPORT ---
Subjective Progress Note for:: 12/07/18 Subjective:: patient is bipap dependent Reason For Visit: RIGHT LOWER LOBE PNEUMONIA, ACUTE ON CHRONIC Physical Exam Vital Signs: Temp Pulse Resp BP Pulse Ox 97.7 F 91 22 H 120/90 H 97 12/12/18 15:38 12/12/18 15:38 12/12/18 15:38 12/12/18 15:38 12/12/18 15:38 Pulse Oximeter Continuous Start: 12/09/18 16:29 Freq: RTQ4 Status: Discharge Protocol: Document 12/12/18 12:00 [facility] (Rec: 12/12/18 12:34 [facility] [id number]) Pulse Oximetry Assessment Oxygen Saturation (92-100) 97 Oxygen Flow Rate (L/min) 2 Oxygen Delivery Method Oxymizer Oxygen Conserving Device Fraction of Inspired Oxygen (FIO2) 28 Equipment Usage Equipment in Use Continuous SpO2 Machine # 10 Intake & Output 12/13/18 12/14/18 12/15/18 06:59 06:59 06:59 Intake Total 1320 Output Total 1150 Balance 170 General appearance: PRESENT: no acute distress, cooperative, disheveled Head exam: PRESENT: atraumatic, normocephalic Eye exam: PRESENT: conjunctiva pink, EOMI, PERRLA. ABSENT: scleral icterus Ear exam: PRESENT: normal external ear exam Mouth exam: PRESENT: moist, tongue midline Neck exam: ABSENT: carotid bruit, JVD, lymphadenopathy, thyromegaly Respiratory exam: PRESENT: rales, rhonchi. ABSENT: wheezes Cardiovascular exam: PRESENT: RRR. ABSENT: diastolic murmur, rubs, systolic murmur Pulses: PRESENT: normal dorsalis pedis pul Vascular exam: PRESENT: normal capillary refill GI/Abdominal exam: PRESENT: normal bowel sounds, soft. ABSENT: distended, guarding, mass, organolmegaly, rebound, tenderness Rectal exam: PRESENT: deferred Extremities exam: PRESENT: full ROM. ABSENT: calf tenderness, clubbing, pedal edema Neurological exam: PRESENT: alert, awake. ABSENT: motor sensory deficit Psychiatric exam: PRESENT: appropriate affect, normal mood. ABSENT: homicidal ideation, suicidal ideation Skin exam: PRESENT: dry, intact, warm. ABSENT: cyanosis, rash Results Laboratory Results: 12/11/18 04:14 12/11/18 04:14 Impressions: Chest/Abdomen CTA 12/04/18 00:00 IMPRESSION: 1. Right-sided pulmonary emboli as described. 2. Multicentric pneumonia, some of which appears to be chronic. Possibly atypical. Chronic lower lobe bronchiectasis. Abdomen CT 12/04/18 13:48 IMPRESSION: Intrahepatic ductal prominence. Hypoplastic left kidney. No acute finding. Abdomen/Pelvis CT 12/06/18 08:00 IMPRESSION: No change in the appearance of the lung bases with extensive par enchymal interstitial and pleural changes. There is some free fluid in the pelvis. There is no obvious intrahepatic or extra hepatic ductal dilatation. No gallstones noted in the gallbladder based on CT criteria. Venous Doppler Study 12/07/18 15:10 IMPRESSION: NO EVIDENCE DVT OR SVT IN EITHER LEG. KUB X-Ray 12/10/18 11:26 IMPRESSION: Constipation. Chest X-Ray 12/12/18 09:34 IMPRESSION: GENERALLY IMPROVED APPEARANCE OF THE CHEST. Assessment & Plan - Diagnosis (1) Acute and chronic respiratory failure with hypoxia Is this a current diagnosis for this admission?: Yes Plan: alternate bipap with high flow o2 (2) Acute pulmonary embolism Qualifiers: Pulmonary embolism type: other Acute cor pulmonale presence: without acute cor pulmonale Qualified Code(s): I26.99 - Other pulmonary embolism without acute cor pulmonale Is this a current diagnosis for this admission?: Yes Plan: anticoagulation per protocol (3) Neutropenia Qualifiers: Neutropenia type: secondary to cancer chemotherapy Qualified Code(s): D70.1 - Agranulocytosis secondary to cancer chemotherapy; T45.1X5A - Adverse effect of antineoplastic and immunosuppressive drugs, initial encounter Is this a current diagnosis for this admission?: Yes Plan: status post chemotherapy (4) Pneumonia Qualifiers: Pneumonia type: due to unspecified organism Laterality: left Lung location: lower lobe of lung Qualified Code(s): J18.1 - Lobar pneumonia, unspecified organism Is this a current diagnosis for this admission?: Yes Plan: no positive cultures thus far - Time Total Critical Time (Minutes): 40 Inpatient Scribe Statement - . Entered by Abi Schneider, acting as scribe for Dr. Fontana.
--- NOTE | 2018-12-14 11:35 | PDOC PROGRESS REPORT ---
Subjective Progress Note for:: 12/08/18 Subjective:: Utilizing high flow o2 Reason For Visit: RIGHT LOWER LOBE PNEUMONIA, ACUTE ON CHRONIC Physical Exam Vital Signs: Temp Pulse Resp BP Pulse Ox 97.7 F 91 22 H 120/90 H 97 12/12/18 15:38 12/12/18 15:38 12/12/18 15:38 12/12/18 15:38 12/12/18 15:38 Pulse Oximeter Continuous Start: 12/09/18 16:29 Freq: RTQ4 Status: Discharge Protocol: Document 12/12/18 12:00 [facility] (Rec: 12/12/18 12:34 [facility] [id number]) Pulse Oximetry Assessment Oxygen Saturation (92-100) 97 Oxygen Flow Rate (L/min) 2 Oxygen Delivery Method Oxymizer Oxygen Conserving Device Fraction of Inspired Oxygen (FIO2) 28 Equipment Usage Equipment in Use Continuous SpO2 Machine # 10 Intake & Output 12/13/18 12/14/18 12/15/18 06:59 06:59 06:59 Intake Total 1320 Output Total 1150 Balance 170 General appearance: PRESENT: no acute distress, well-developed, well-nourished Head exam: PRESENT: atraumatic, normocephalic Eye exam: PRESENT: conjunctiva pink, EOMI, PERRLA. ABSENT: scleral icterus Ear exam: PRESENT: normal external ear exam Mouth exam: PRESENT: moist, tongue midline Neck exam: ABSENT: carotid bruit, JVD, lymphadenopathy, thyromegaly Respiratory exam: PRESENT: rhonchi. ABSENT: rales, wheezes Cardiovascular exam: PRESENT: RRR. ABSENT: diastolic murmur, rubs, systolic murmur Pulses: PRESENT: normal dorsalis pedis pul Vascular exam: PRESENT: normal capillary refill GI/Abdominal exam: PRESENT: normal bowel sounds, soft. ABSENT: distended, guarding, mass, organolmegaly, rebound, tenderness Rectal exam: PRESENT: deferred Extremities exam: PRESENT: full ROM. ABSENT: calf tenderness, clubbing, pedal edema Neurological exam: PRESENT: alert, awake, oriented to person, oriented to place, oriented to time, oriented to situation, CN II-XII grossly intact. ABSENT: motor sensory deficit Psychiatric exam: PRESENT: appropriate affect, normal mood. ABSENT: homicidal ideation, suicidal ideation Skin exam: PRESENT: dry, intact, warm. ABSENT: cyanosis, rash Results Laboratory Results: 12/11/18 04:14 12/11/18 04:14 Impressions: Chest/Abdomen CTA 12/04/18 00:00 IMPRESSION: 1. Right-sided pulmonary emboli as described. 2. Multicentric pneumonia, some of which appears to be chronic. Possibly atypical. Chronic lower lobe bronchiectasis. Abdomen CT 12/04/18 13:48 IMPRESSION: Intrahepatic ductal prominence. Hypoplastic left kidney. No acute finding. Abdomen/Pelvis CT 12/06/18 08:00 IMPRESSION: No change in the appearance of the lung bases with extensive parenchymal interstitial and pleural changes. There is some free fluid in the pelvis. There is no obvious intrahepatic or extra hepatic ductal dilatation. No gallstones noted in the gallbladder based on CT criteria. Venous Doppler Study 12/07/18 15:10 IMPRESSION: NO EVIDENCE DVT OR SVT IN EITHER LEG. KUB X-Ray 12/10/18 11:26 IMPRESSION: Constipation. Chest X-Ray 12/12/18 09:34 IMPRESSION: GENERALLY IMPROVED APPEARANCE OF THE CHEST. Assessment & Plan - Diagnosis (1) Acute and chronic respiratory failure with hypoxia Is this a current diagnosis for this admission?: Yes Plan: alternate bipap with high flow o2 (2) Acute pulmonary embolism Qualifiers: Pulmonary embolism type: other Acute cor pulmonale presence: without acute cor pulmonale Qualified Code(s): I26.99 - Other pulmonary embolism without acute cor pulmonale Is this a current diagnosis for this admission?: Yes Plan: anticoagulation per protocol (3) Neutropenia Qualifiers: Neutropenia type: secondary to cancer chemotherapy Qualified Code(s): D70.1 - Agranulocytosis secondary to cancer chemotherapy; T45.1X5A - Adverse effect of antineoplastic and immunosuppressive drugs, initial encounter Is this a current diagnosis for this admission?: Yes Plan: status post chemotherapy (4) Pneumonia Qualifiers: Pneumonia type: due to unspecified organism Laterality: left Lung location: lower lobe of lung Qualified Code(s): J18.1 - Lobar pneumonia, unspecified organism Is this a current diagnosis for this admission?: Yes Plan: no positive cultures thus far - Time Total Critical Time (Minutes): 45 Inpatient Scribe Statement - . Entered by Abi Schneider, acting as scribe for Dr. Fontana.
--- NOTE | 2018-12-14 12:22 | PDOC PROGRESS REPORT ---
Subjective Progress Note for:: 12/06/18 Subjective:: Remains tachypneic slightly improved Reason For Visit: RIGHT LOWER LOBE PNEUMONIA, ACUTE ON CHRONIC Physical Exam Vital Signs: Temp Pulse Resp BP Pulse Ox 99.5 F 115 H 19 97/65 L 96 12/06/18 10:00 12/06/18 10:00 12/06/18 12:23 12/06/18 10:00 12/06/18 12:23 Intake & Output 12/05/18 12/06/18 12/07/18 06:59 06:59 06:59 Intake Total 3209 2561 1675 Output Total 3740 3475 660 Balance -531 -914 1015 Weight 52.7 kg 55.5 kg General appearance: PRESENT: cooperative, disheveled, mild distress, thin Head exam: PRESENT: atraumatic, normocephalic Eye exam: PRESENT: conjunctiva pale, EOMI. ABSENT: nystagmus Mouth exam: PRESENT: dry mucosa, neck supple, tongue midline Teeth exam: PRESENT: poor dentation Neck exam: ABSENT: carotid bruit, full ROM, JVD, lymphadenopathy, meningismus, tenderness, thyromegaly, tracheal deviation, tracheostomy, other Respiratory exam: PRESENT: decreased breath sounds, prolonged expiratory phas, rhonchi, symmetrical, tachypnea. ABSENT: retraction, stridor Cardiovascular exam: PRESENT: RRR, +S1, +S2, tachycardia Pulses: PRESENT: normal radial pulses Vascular exam: PRESENT: normal capillary refill GI/Abdominal exam: PRESENT: soft. ABSENT: mass, tenderness Extremities exam: PRESENT: full ROM. ABSENT: calf tenderness, clubbing, joint swelling Musculoskeletal exam: PRESENT: full ROM. ABSENT: deformity, dislocation Neurological exam: PRESENT: alert, awake Psychiatric exam: PRESENT: anxious Skin exam: PRESENT: dry, warm Results Laboratory Results: 12/06/18 05:34 12/06/18 05:34 12/06/18 12/06/18 12/06/18 05:34 05:34 05:34 WBC 3.4 L RBC 3.33 L Hgb 9.0 L Hct 26.5 L MCV 80 MCH 27.0 MCHC 33.9 RDW 20.0 H Plt Count 288 Seg Neutrophils % Not Reportable Lymphocytes % Not Reportable Monocytes % Not Reportable Eosinophils % Not Reportable Basophils % Not Reportable Absolute Neutrophils Not Reportable Absolute Lymphocytes Not Reportable Absolute Monocytes Not Reportable Absolute Eosinophils Not Reportable Absolute Basophils Not Reportable Carbonic Acid 1.25 HCO3/H2CO3 Ratio 22:1 ABG pH 7.46 H ABG pCO2 41.5 ABG pO2 76.5 L ABG HCO3 28.5 H ABG O2 Saturation 95.9 ABG Base Excess 4.2 FiO2 40% Sodium 130.8 L Potassium 3.9 Chloride 96 L Carbon Dioxide 32 H Anion Gap 3 L BUN 10 Creatinine 0.56 Est GFR ( Amer) > 60 Est GFR (Non-Af Amer) > 60 Glucose 112 H Calcium 7.1 L Phosphorus 2.7 Magnesium 1.7 11/30/18 21:08 Blood Blood Culture - Final NO GROWTH IN 5 DAYS 11/30/18 18:47 Blood Blood Culture - Final NO GROWTH IN 5 DAYS Impressions: Chest/Abdomen CTA 12/04/18 00:00 IMPRESSION: 1. Right-sided pulmonary emboli as described. 2. Multicentric pneumonia, some of which appears to be chronic. Possibly atypical. Chronic lower lobe bronchiectasis. Abdomen CT 12/04/18 13:48 IMPRESSION: Intrahepatic ductal prominence. Hypoplastic left kidney. No acute finding. Chest X-Ray 12/06/18 06:00 IMPRESSION: No significant change. Abdomen/Pelvis CT 12/06/18 08:00 IMPRESSION: No change in the appearance of the lung bases with extensive parenchymal interstitial and pleural changes. There is some free fluid in the pelvis. There is no obvious intrahepatic or extra hepatic ductal dilatation. No gallstones noted in the gallbladder based on CT criteria. Assessment & Plan - Diagnosis (1) Acute pulmonary embolism Qualifiers: Pulmonary embolism type: other Acute cor pulmonale presence: without acute cor pulmonale Qualified Code(s): I26.99 - Other pulmonary embolism without acute cor pulmonale Is this a current diagnosis for this admission?: Yes Plan: Anticoagulation per protocol (2) Atypical pneumonia Is this a current diagnosis for this admission?: Yes Plan: No etiology thus far (3) COPD exacerbation Is this a current diagnosis for this admission?: Yes Plan: Long-acting beta agonist long-acting anticholinergic (4) Hypotension Qualifiers: Hypotension type: other hypotension type Qualified Code(s): I95.89 - Other hypotension Is this a current diagnosis for this admission?: Yes Plan: This is more from pulmonary emboli than pneumonia (5) Tobacco abuse Is this a current diagnosis for this admission?: Yes Plan: Smoking should be discontinued immediately - Time Total Critical Time (Minutes): 45
--- NOTE | 2018-12-14 12:25 | PDOC PROGRESS REPORT ---
Subjective Progress Note for:: 12/07/18 Subjective:: Remains tachypneic continues improved Reason For Visit: RIGHT LOWER LOBE PNEUMONIA, ACUTE ON CHRONIC Physical Exam Vital Signs: Temp Pulse Resp BP Pulse Ox 97.7 F 86 12 127/60 H 100 12/08/18 08:00 12/08/18 08:00 12/08/18 08:00 12/08/18 08:00 12/08/18 08:00 Intake & Output 12/07/18 12/08/18 12/09/18 06:59 06:59 06:59 Intake Total 2975 4419 250 Output Total 3785 3425 200 Balance -810 994 50 Weight 55.1 kg 54.3 kg General appearance: PRESENT: cooperative, disheveled, mild distress, thin Head exam: PRESENT: atraumatic, normocephalic Eye exam: PRESENT: conjunctiva pale, EOMI. ABSENT: nystagmus Mouth exam: PRESENT: dry mucosa, neck supple, tongue midline Teeth exam: PRESENT: poor dentation Neck exam: ABSENT: carotid bruit, full ROM, JVD, lymphadenopathy, meningismus, tenderness, thyromegaly, tracheal deviation, tracheostomy, other Respiratory exam: PRESENT: decreased breath sounds, prolonged expiratory phas, rhonchi, symmetrical, tachypnea. ABSENT: retraction, stridor, unlabored Cardiovascular exam: PRESENT: RRR, +S1, +S2, tachycardia Pulses: PRESENT: normal radial pulses GI/Abdominal exam: PRESENT: soft. ABSENT: mass, tenderness Extremities exam: ABSENT: calf tenderness, clubbing, joint swelling, pedal edema Musculoskeletal exam: ABSENT: deformity, dislocation Neurological exam: PRESENT: alert, awake Psychiatric exam: PRESENT: anxious Skin exam: PRESENT: dry, warm Results Laboratory Results: 12/07/18 06:40 12/07/18 21:34 12/07/18 12/07/18 10:26 21:34 Creatinine 0.47 L Est GFR ( Amer) > 60 Est GFR (Non-Af Amer) > 60 Stool Occult Blood NEGATIVE 12/06/18 11:25 Sputum Gram Stain - Final 12/06/18 11:25 Sputum Sputum Culture - Final C.albicans/C.dubliniensis Greatly Reduced Normal Belen Impressions: Chest/Abdomen CTA 12/04/18 00:00 IMPRESSION: 1. Right-sided pulmonary emboli as described. 2. Multicentric pneumonia, some of which appears to be chronic. Possibly atypical. Chronic lower lobe bronchiectasis. Abdomen CT 12/04/18 13:48 IMPRESSION: Intrahepatic ductal prominence. Hypoplastic left kidney. No acute finding. Abdomen/Pelvis CT 12/06/18 08:00 IMPRESSION: No change in the appearance of the lung bases with extensive parenchymal interstitial and pleural changes. There is some free fluid in the pelvis. There is no obvious intrahepatic or extra hepatic ductal dilatation. No gallstones noted in the gallbladder based on CT criteria. Chest X-Ray 12/07/18 06:00 IMPRESSION: No significant change. Venous Doppler Study 12/07/18 15:10 IMPRESSION: NO EVIDENCE DVT OR SVT IN EITHER LEG. Assessment & Plan - Diagnosis (1) Acute pulmonary embolism Qualifiers: Pulmonary embolism type: other Acute cor pulmonale presence: without acute cor pulmonale Qualified Code(s): I26.99 - Other pulmonary embolism without acute cor pulmonale Is this a current diagnosis for this admission?: Yes Plan: Anticoagulation per protocol (2) Atypical pneumonia Is this a current diagnosis for this admission?: Yes Plan: No etiology thus far (3) Pneumonia Qualifiers: Pneumonia type: due to unspecified organism Laterality: left Lung location: lower lobe of lung Qualified Code(s): J18.1 - Lobar pneumonia, unspecified organism Is this a current diagnosis for this admission?: Yes Plan: No positive cultures thus far - Time Total Critical Time (Minutes): 40
--- NOTE | 2018-12-14 12:30 | PDOC PROGRESS REPORT ---
Subjective Progress Note for:: 12/08/18 Subjective:: tachypneic continues improved Reason For Visit: RIGHT LOWER LOBE PNEUMONIA, ACUTE ON CHRONIC Physical Exam Vital Signs: Temp Pulse Resp BP Pulse Ox 97.7 F 86 12 127/60 H 100 12/08/18 08:00 12/08/18 08:00 12/08/18 08:00 12/08/18 08:00 12/08/18 08:00 Intake & Output 12/07/18 12/08/18 12/09/18 06:59 06:59 06:59 Intake Total 2975 4419 250 Output Total 3785 3425 200 Balance -810 994 50 Weight 55.1 kg 54.3 kg General appearance: PRESENT: cooperative, disheveled, mild distress, thin Head exam: PRESENT: atraumatic, normocephalic Eye exam: PRESENT: conjunctiva pale, EOMI. ABSENT: nystagmus Mouth exam: PRESENT: dry mucosa, neck supple, tongue midline Teeth exam: PRESENT: poor dentation Neck exam: ABSENT: carotid bruit, full ROM, JVD, lymphadenopathy, meningismus, tenderness, thyromegaly, tracheal deviation, tracheostomy, other Respiratory exam: PRESENT: decreased breath sounds, prolonged expiratory phas, rhonchi, symmetrical, unlabored. ABSENT: rales, retraction, stridor Cardiovascular exam: PRESENT: RRR, +S1, +S2, tachycardia Pulses: PRESENT: normal radial pulses GI/Abdominal exam: PRESENT: soft. ABSENT: mass, tenderness Extremities exam: ABSENT: calf tenderness, clubbing, joint swelling, pedal edema Musculoskeletal exam: ABSENT: deformity, dislocation Neurological exam: PRESENT: alert, awake Psychiatric exam: PRESENT: appropriate affect Skin exam: PRESENT: dry, warm Results Laboratory Results: 12/07/18 06:40 12/07/18 21:34 12/07/18 12/07/18 10:26 21:34 Creatinine 0.47 L Est GFR ( Amer) > 60 Est GFR (Non-Af Amer) > 60 Stool Occult Blood NEGATIVE 12/06/18 11:25 Sputum Gram Stain - Final 12/06/18 11:25 Sputum Sputum Culture - Final C.albicans/C.dubliniensis Greatly Reduced Normal Belen Impressions: Chest/Abdomen CTA 12/04/18 00:00 IMPRESSION: 1. Right-sided pulmonary emboli as described. 2. Multicentric pneumonia, some of which appears to be chronic. Possibly atypical. Chronic lower lobe bronchiectasis. Abdomen CT 12/04/18 13:48 IMPRESSION: Intrahepatic ductal prominence. Hypoplastic left kidney. No acute finding. Abdomen/Pelvis CT 12/06/18 08:00 IMPRESSION: No change in the appearance of the lung bases with extensive parenchymal interstitial and pleural changes. There is some free fluid in the pelvis. There is no obvious intrahepatic or extra hepatic ductal dilatation. No gallstones noted in the gallbladder based on CT criteria. Chest X-Ray 12/07/18 06:00 IMPRESSION: No significant change. Venous Doppler Study 12/07/18 15:10 IMPRESSION: NO EVIDENCE DVT OR SVT IN EITHER LEG. Assessment & Plan - Diagnosis (1) Acute pulmonary embolism Qualifiers: Pulmonary embolism type: other Acute cor pulmonale presence: without acute cor pulmonale Qualified Code(s): I26.99 - Other pulmonary embolism without acute cor pulmonale Is this a current diagnosis for this admission?: Yes Plan: Anticoagulation per protocol (2) COPD exacerbation Is this a current diagnosis for this admission?: Yes Plan: Long-acting beta agonist long-acting anticholinergic (3) Pneumonia Qualifiers: Pneumonia type: due to unspecified organism Laterality: left Lung location: lower lobe of lung Qualified Code(s): J18.1 - Lobar pneumonia, unspecified organism Is this a current diagnosis for this admission?: Yes Plan: No positive cultures thus far - Time Total Critical Time (Minutes): 45
--- NOTE | 2018-12-20 22:03 | PDOC DISCHARGE SUMMARY ---
General - Admit/Disc Date/PCP Admission Date/Primary Care Provider: 11/30/18 22:46 HILLARY CONTRERAS MD Discharge Date: 12/12/18 - Discharge Diagnosis (1) Septic shock Is this a current diagnosis for this admission?: Yes Summary: Secondary to recurrent RLL PNA Presented with tachycardia, tachypnea and hypotension initially not responsive to IVF, requiring vasopressor support Completed course of broad-spectrum antibiotics, vancomycin and cefepime and azithromycin Infiltrate had remained fairly unchanged on CXR, still requiring high flow nasal cannula Sputum cultures positive for Gisell, minimal normal trino Antifungal treatment initiated during inpatient stay, continued as an outpatient (2) Acute and chronic respiratory failure with hypoxia Is this a current diagnosis for this admission?: Yes Summary: Secondary to recurrent PNA and RUL/RML PE Overuse of narcotics and splinting LUQ pain also contributing Initially requiring BiPAP, weaned to high flow nasal cannula then to oxymizer Completed empiric antibiotic coverage for PNA, followed by antifungal regimen given persistent infiltrate seen on XRAY Apixaban for PE KUB for LUQ pain/splinting done showed significant stool burden Expanded bowel regimen and decreased IV narcotics dosage Pulmonary consulted, likely COPD diagnosis due to patient's long history of heavy smoking but nothing official. Pulm recommended low-dose daily prednisone The patient was sent home with home O2 on oxymizer. (3) Acute pulmonary embolism Is this a current diagnosis for this admission?: Yes Summary: Acute PE seen on CTA chest Thrombus in RUL/RML pulmonary arteries Initially treated with heparin gtt. Transitioned to p.o. apixaban 10 mg twice daily until December 15 and then decreased to 5 mg twice daily Instructed to follow-up with Dr. Suarez after discharge (4) Pneumonia Is this a current diagnosis for this admission?: Yes Summary: Healthcare associated PNA Patient has history of recurrent PNA, hospitalization within the last 3 months Empirically covered for MRSA and gram-negative bacteria with vancomycin and cefepime and azithromycin Sputum culture growing Gisell Fluconazole initiated due to patient's immunosuppression and persistent infiltrate on CXR, continued as an outpatient Provided Pulmonary referral at the time of discharge No need for bronchoscopy during hospitalization (5) Large B-cell lymphoma Is this a current diagnosis for this admission?: Yes Summary: Dr. Suarez previously deemed that the recurrent PNA was related to immunosuppression from cancer treatments. IgG was very low, patient received a dose of IVIG while at [facility] per oncology recommendations. Defer treatment plan for lymphoma to oncology. The patient will follow-up with Dr. Vega after discharge. He has completed a course of treatment already for the lymphoma. (6) Anemia Is this a current diagnosis for this admission?: Yes Summary: Secondary to chronic disease, specifically lymphoma Has slowly drifted from 13.3-->10-->9.0 but increased back to 10.4 prior to discharge Did not require transfusion (7) Neutropenia Is this a current diagnosis for this admission?: Yes Summary: Secondary to acute illness/sepsis WBC 2.5-->2.6-->2.8 remained very low this hospitalization Clinically the patient appeared to be improving Slight improvement as the PNA improved (8) Hyponatremia Is this a current diagnosis for this admission?: Yes Summary: Likely stemming from primary pulmonary process Resolved with treatment (9) Protein-calorie malnutrition, severe Is this a current diagnosis for this admission?: Yes Summary: BMI 16.1 - very low The patient was provided a regular diet with protein supplements at each meal Encouraged to include protein with meals once at home. - Additional Information Resuscitation Status: Full Code Discharge Diet: As Tolerated Discharge Activity: Activity As Tolerated Prescriptions: Apixaban [Eliquis 5 mg Tablet] 10 mg PO BID #6 tablet Diltiazem HCl [Cardizem 30 mg Tablet] 30 mg PO Q6 #120 tablet Fluconazole [Diflucan 100 mg Tablet] 300 mg PO DAILY #6 tablet Polyethylene Glycol 3350 [Miralax Powder 17 gm/Packet] 17 gm PO DAILY #10 powd.pack Prednisone [Deltasone 20 mg Tablet] 20 mg PO DAILY #5 tablet Home Medications: Budesonide/Formoterol Fumarate [Symbicort HFA 160-4.5 mcg Inhaler 6 gm] 2 puff IH Q12 07/10/18 Omeprazole 40 mg PO DAILY 07/10/18 Tiotropium [place] [Spiriva Handihaler 5 Cap/Kit (18 Mcg/Cap)] 1 cap IH DAILY 30 Days #30 capsule 07/19/18 Albuterol Sulfate [Ventolin 0.083% Neb 2.5 mg/3 mL Ampul] 1 vial NEB Q6HP PRN 10/05/18 Bupropion HCl [Wellbutrin Xl 150 mg 24hr Tablet] 150 mg PO DAILY 10/05/18 Fluticasone Propionate [Flonase Nasal [place] 50 Mcg/[place] 16 gm] 1 spray NAREB DAILY 10/05/18 Albuterol Sulfate [Albuterol Sulfate Hfa] 2 gm IH Q6HP PRN 12/01/18 l Acidophil/B Lactis/B Longum [Florajen3 Capsule] 460 mg PO DAILY MDD 2 CAPS 12/01/18 Apixaban [Eliquis 5 mg Tablet] 10 mg PO BID #6 tablet 12/12/18 Diltiazem HCl [Cardizem 30 mg Tablet] 30 mg PO Q6 #120 tablet 12/12/18 Fluconazole [Diflucan 100 mg Tablet] 300 mg PO DAILY #6 tablet 12/12/18 Polyethylene Glycol 3350 [Miralax Powder 17 gm/Packet] 17 gm PO DAILY #10 powd. pack 12/12/18 Prednisone [Deltasone 20 mg Tablet] 20 mg PO DAILY #5 tablet 12/12/18 History of Present Illness History of Present Illness: DARSHAN SABA is a 53 year old male who presented to the emergency room with a 4-day history of dyspnea. He admits to progressively worsening dyspnea becoming severe over the last 24 hours accompanied by extremely severe dyspnea on exertion, a productive cough (yellowish mucus) and air hunger. He denies all other associated or accompanying signs and symptoms. He has had previous similar symptoms with a pneumonia for which he just recently finished treatment. He denies identification of any additional aggravating or ameliorating factors for his dyspnea. In the emergency room his initial presentation showed tachypnea, tachycardia, hypotension and hypoxia. He was initially placed on oxygen and treated with an aggressive pulmonary toilet. He was subsequently placed on Min-Synephrine for blood pressure support and BiPAP. He was admitted to the ICU for further evaluation and treatment. Hospital Course Hospital Course: 53 y.o. M with a PMH of COPD, Stage IV large B cell lymphoma, recurrent PNA, depression and tobacco abuse. He presented to [facility] for dyspnea. Patient was noted to be tachypneic, tachycardic, hypoxic and hypotensive. He was noted to have a right lower lobe pneumonia. He was admitted to the ICU for septic shock requiring vasopressor support and BiPAP. Unfortunately, it was discovered on CTA that the patient also has a thrombus in the RUL & RML pulmonary arteries. Detailed treatment plan listed above. Physical Exam Vital Signs: Temp Pulse Resp BP Pulse Ox 97.7 F 91 22 H 120/90 H 97 12/12/18 15:38 12/12/18 15:38 12/12/18 15:38 12/12/18 15:38 12/12/18 15:38 Pulse Oximeter Continuous Start: 12/09/18 16:29 Freq: RTQ4 Status: Discharge Protocol: Document 12/12/18 12:00 [facility] (Rec: 12/12/18 12:34 [facility] [email or web address]) Pulse Oximetry Assessment Oxygen Saturation (92-100) 97 Oxygen Flow Rate (L/min) 2 Oxygen Delivery Method Oxymizer Oxygen Conserving Device Fraction of Inspired Oxygen (FIO2) 28 Equipment Usage Equipment in Use Continuous SpO2 Machine # 10 General appearance: PRESENT: no acute distress, thin Head exam: PRESENT: atraumatic, normocephalic Eye exam: PRESENT: conjunctiva pink, EOMI, PERRLA. ABSENT: scleral icterus Ear exam: PRESENT: normal external ear exam Mouth exam: PRESENT: moist, tongue midline Teeth exam: PRESENT: poor dentation Neck exam: ABSENT: carotid bruit, JVD, lymphadenopathy, thyromegaly Respiratory exam: PRESENT: clear to auscultation rylie, symmetrical, unlabored, other - requiring supplemental O2 via oxymizer. ABSENT: rales, rhonchi, wheezes Cardiovascular exam: PRESENT: RRR. ABSENT: diastolic murmur, rubs, systolic murmur Pulses: PRESENT: normal radial pulses, normal dorsalis pedis pul Vascular exam: PRESENT: normal capillary refill GI/Abdominal exam: PRESENT: normal bowel sounds, soft. ABSENT: distended, guarding, mass, organolmegaly, rebound, tenderness Rectal exam: PRESENT: deferred Extremities exam: PRESENT: full ROM. ABSENT: calf tenderness, clubbing, pedal edema Musculoskeletal exam: PRESENT: ambulatory Neurological exam: PRESENT: alert, awake, oriented to person, oriented to place, oriented to time, oriented to situation Psychiatric exam: PRESENT: appropriate affect, normal mood Skin exam: PRESENT: dry, intact, warm. ABSENT: cyanosis, rash Results Laboratory Results: 12/11/18 04:14 12/11/18 04:14 Impressions: Chest/Abdomen CTA 12/04/18 00:00 IMPRESSION: 1. Right-sided pulmonary emboli as described. 2. Multicentric pneumonia, some of which appears to be chronic. Possibly atypical. Chronic lower lobe bronchiectasis. Abdomen CT 12/04/18 13:48 IMPRESSION: Intrahepatic ductal prominence. Hypoplastic left kidney. No acute finding. Abdomen/Pelvis CT 12/06/18 08:00 IMPRESSION: No change in the appearance of the lung bases with extensive parenchymal interstitial and pleural changes. There is some free fluid in the pelvis. There is no obvious intrahepatic or extra hepatic ductal dilatation. No gallstones noted in the gallbladder based on CT criteria. Venous Doppler Study 12/07/18 15:10 IMPRESSION: NO EVIDENCE DVT OR SVT IN EITHER LEG. KUB X-Ray 12/10/18 11:26 IMPRESSION: Constipation. Chest X-Ray 12/12/18 09:34 IMPRESSION: GENERALLY IMPROVED APPEARANCE OF THE CHEST. Status: Imported from PACS Qualifiers - * PATIENT BEING DISCHARGED WITH ANY OF THE FOLLOWING DIAGNOSIS: VTE (PE or DVT) VTE patient discharged on overlapping Therapy?: Yes Acute Heart Failure - Is this a Heart Failure Patient?: No Plan Discharge Plan: The patient was able to ambulate without an assistive device. He required supplemental O2 via oxymizer at all times. The patient was offered home health but refused, stated they "wouldn't really do much for him". Extensive teaching provided regarding avoiding overexertion, minimizing ill contacts, protein rich diet, and avoiding second hand smoke (a COPD trigger). Time Spent: Greater than 30 Minutes
== END 2018-12-12 17:01 | disposition home or self-care (01) | DRG 871 ==
LOC: ER 14:31 → EH 22:46 → ICU 12-01 02:08 → 3S 12-09 05:23 → 3N 12-10 13:45
PROVIDERS: ADMIT Emergency Medicine; ATTEND Emergency Medicine
PROC: 02HV33Z Insertion of Infusion Device into Superior Vena Cava, Percutaneous Approach (ICD-10-PCS; principal; 2018-12-04)
DX: A41.9 Sepsis, unspecified organism (principal); J18.1 Lobar pneumonia, unspecified organism; J96.21 Acute and chronic respiratory failure with hypoxia; E43 Unspecified severe protein-calorie malnutrition; R65.21 Severe sepsis with septic shock; J96.01 Acute respiratory failure with hypoxia; I26.99 Other pulmonary embolism without acute cor pulmonale; J44.1 Chronic obstructive pulmonary disease with (acute) exacerbation; E87.1 Hypo-osmolality and hyponatremia; E87.3 Alkalosis; C82.80 Other types of follicular lymphoma, unspecified site; Z68.1 Body mass index [BMI] 19.9 or less, adult; D80.1 Nonfamilial hypogammaglobulinemia; I95.9 Hypotension, unspecified; D64.9 Anemia, unspecified; D70.3 Neutropenia due to infection; K59.03 Drug induced constipation; K31.9 Disease of stomach and duodenum, unspecified; T40.605A Adverse effect of unspecified narcotics, initial encounter; Y92.230 Patient room in hospital as the place of occurrence of the external cause; Z79.51 Long term (current) use of inhaled steroids; Z79.899 Other long term (current) drug therapy; Z87.891 Personal history of nicotine dependence
CPT/HCPCS: 36415; 36600; 71045; 71275; 74018; 74150; 74177; 80048; 80053; 80202; 81001; 82272; 82565; 82784; 82803; 83605; 83735; 84100; 84439; 84443; 84481; 85025; 85027; 85610; 85730; 87040; 87070; 87086; 87088; 87186; 87205; 93005; 93010; 93306; 93970; 94660; 94762; 96361; 96365; 96366; 96367; 99291; J1561; C1751; J0692; J0696; J1644; J1940; J1956; J2060; J2248; J2270; J2370; J2920; J3010; J3370; J3475; J3490; J7030; J7040; J7050; J7060; J7120; J7512; J7614; S0164

== ENCOUNTER → 2019-01-19 | Outpatient (CLI) | payer MEDICARE, MEDICAID ==
--- NOTE | 2019-01-19 11:55 | RADIOLOGY REPORT (SQ) ---
EXAM DESCRIPTION: CHEST PA/LATERAL COMPLETED DATE/TIME: 01/19/2019 10:53 am REASON FOR STUDY: PNEUMONIA, UNSPECIFIED ORGANISM COMPARISON: 12/12/2018 EXAM PARAMETERS: NUMBER OF VIEWS: two views TECHNIQUE: Digital Frontal and Lateral radiographic views of the chest acquired. RADIATION DOSE: NA LIMITATIONS: none FINDINGS: LUNGS AND PLEURA: There is hyperexpansion. Probable scarring in both upper lobes. No con solidation or effusions. MEDIASTINUM AND HILAR STRUCTURES: No masses or contour abnormalities. HEART AND VASCULAR STRUCTURES: Heart normal size. No evidence for failure. BONES: No acute findings. HARDWARE: None in the chest. OTHER: No other significant finding. IMPRESSION: Hyperexpansion with chronic changes in the upper lobes. No acute findings. TECHNICAL DOCUMENTATION: JOB ID: [id number] [employer]- All Rights Reserved Reading location - IP/workstation name: [email or web address]
== END ==
LOC: OD 10:09
PROVIDERS: ATTEND Internal Medicine
DX: J18.9 Pneumonia, unspecified organism (principal)
CPT/HCPCS: 71046

== ENCOUNTER → 2019-02-24 | Outpatient (CLI) | payer MEDICAID, MEDICARE ==
--- NOTE | 2019-02-24 10:50 | RADIOLOGY REPORT (SQ) ---
EXAM DESCRIPTION: CT CHEST WITHOUT COMPLETED DATE/TIME: 02/24/2019 9:56 am REASON FOR STUDY: J44.9 CHRONIC OBSTRUCTIVE PULMONARY DISEASE, UNSPECIFIED J44.9 CHRONIC OBSTRUCTIV E PULMONARY DISEASE, UNSPECIFIED COMPARISON: CT of the chest from 12/04/2018 TECHNIQUE: CT scan performed of the chest without intravenous contrast. Images reviewed with lung, soft tissue and bone windows. Reconstructed coronal and sagittal MPR images reviewed. All images st ored on PACS. All CT scanners at this facility use dose modulation, iterative reconstruction, and/or weight based d osing when appropriate to reduce radiation dose to as low as reasonably achievable (ALARA). [facility]: Dose Right [facility]: CareDose [facility]: Dose Right [facility]: Teradose 4D [facility]: [employer] RADIATION DOSE: CT Rad equipment meets quality standard of care and radiation dose reduction techniq ues were employed. CTDIvol: 3.4 mGy. DLP: 150 mGy-cm. mGy. LIMITATIONS: No technical limitations. FINDINGS: LUNGS AND PLEURA: The trachea and central bronchi are patent. There is mild lower lobe br onchiectasis. There is moderate upper lobe predominant centrilobular emphysema with mild mosaic attenuation of the lung parenchyma that could indicate a component of air trapping. There are residual patchy peribronc hiolar opacities in the right upper lobe (image 36 and 40 of series 4) are that nonspecific. The per ipheral curvilinear opacities in the lower lobes are unchanged. There is no consolidation, pleural e ffusion or pneumothorax. There is no pulmonary nodule or mass. HILAR AND MEDIASTINAL STRUCTURES: There is no enlarged mediastinal adenopathy. HEART AND VASCULAR STRUCTURES: There is a standard 3 vessel arch. The thoracic aorta is normal in ca liber; there is no thoracic aortic intramural hematoma. There is no cardiomegaly or pericardial effu yogi. UPPER ABDOMEN: Asymmetric left renal atrophy. THYROID AND OTHER SOFT TISSUES: No mass or adenopathy. BONES: No acute finding. HARDWARE: None in the chest. OTHER: No other findings. IMPRESSION: Moderate upper lobe predominant centrilobular emphysema with mild mosaic attenuation of the lung parenchyma that could indicate a component of air trapping. The patchy peribronchiolar opac ities in the right upper lobe (image 36 and 40 of series 4) are nonspecific and are decreased compare d to 12/04/2018. TECHNICAL DOCUMENTATION: JOB ID: [id number] Quality ID # [id number]: Final reports with documentation of one or more dose reduction techniques (e.g., Au tomated exposure control, adjustment of the mA and/or kV according to patient size, use of iterative reconstruction technique) 2010 [employer]- All Rights Reserved Reading location - IP/workstation name: [email or web address]
== END ==
LOC: RAD 09:47
PROVIDERS: ATTEND Internal Medicine Critical Care Medicine
DX: J44.9 Chronic obstructive pulmonary disease, unspecified (principal); J43.2 Centrilobular emphysema; R91.1 Solitary pulmonary nodule; R91.8 Other nonspecific abnormal finding of lung field
CPT/HCPCS: 71250

== ENCOUNTER → 2019-06-28 | Outpatient (CLI) | payer MEDICAID, MEDICARE ==
--- NOTE | 2019-06-28 10:53 | RADIOLOGY REPORT (SQ) ---
EXAM DESCRIPTION: CT CHEST WITHOUT COMPLETED DATE/TIME: 06/28/2019 10:39 am REASON FOR STUDY: CHRONIC OBSTRUCTIVE PULMONARY DISEASE, UNSPECIFIED J44.9 CHRONIC OBSTRUCTIVE PULM ONARY DISEASE, UNSPECIFIED COMPARISON: 02/24/2019 TECHNIQUE: CT scan performed of the chest without intravenous contrast. Images reviewed with lung, soft tissue and bone windows. Reconstructed coronal and sagittal MPR images reviewed. All images st ored on PACS. All CT scanners at this facility use dose modulation, iterative reconstruction, and/or weight based d osing when appropriate to reduce radiation dose to as low as reasonably achievable (ALARA). [facility]: Dose Right [facility]: CareDose [facility]: Dose Right [facility]: Teradose 4D [facility]: [employer] RADIATION DOSE: mGy. LIMITATIONS: No technical limitations. FINDINGS: LUNGS AND PLEURA: Bilateral emphysematous changes are again noted. There is scarring in t he apices. No suspicious nodules. No consolidation. HILAR AND MEDIASTINAL STRUCTURES: No identified masses or abnormal nodes. No obvious aneurysm. HEART AND VASCULAR STRUCTURES: No aneurysm. No pericardial effusion. UPPER ABDOMEN: Small atrophic left kidney. THYROID AND OTHER SOFT TISSUES: No masses. No adenopathy. BONES: No significant finding. HARDWARE: None in the chest. OTHER: No other significant findings. IMPRESSION: Grossly stable bilateral emphysematous changes. No suspicious pulmonary nodules. TECHNICAL DOCUMENTATION: JOB ID: [id number] Quality ID # [id number]: Final reports with documentation of one or more dose reduction techniques (e.g., Au tomated exposure control, adjustment of the mA and/or kV according to patient size, use of iterative reconstruction technique) 2010 [employer]- All Rights Reserved Reading location - IP/workstation name: [email or web address]
== END ==
LOC: RAD 10:18
PROVIDERS: ATTEND Internal Medicine Critical Care Medicine
DX: J44.9 Chronic obstructive pulmonary disease, unspecified (principal); R91.1 Solitary pulmonary nodule; R91.8 Other nonspecific abnormal finding of lung field
CPT/HCPCS: 71250

== ENCOUNTER 2019-08-04 08:34 | Outpatient (CLI) | payer MEDICARE, MEDICAID ==
[~2019-08-04 08:34] MED LIST changes: +ACETAMINOPHEN 325 MG TABLET PO PRN; -CEFAZOLIN 1 GM/D5W RTU 1 GM/50 ML RTUPB IV PRN; +DEXTROSE 5%-WATER 250 ML IV PRN; +DIPHENHYDRAMINE HCL 50 MG/ML VIAL IV PRN; +IMMUNE GLOB,GAM CAPRYLATE(IGG) 40 GM, IMMUNE GLOB,GAM CAPRYLATE(IGG) 10 GM in CONTAINER... IV PRN; -LIDOCAINE 0.5% INJ-PF (5 MG/ML) 50 ML SDV INJ PRN; -RINGERS SOLUTION,LACTATED 1,000 ML IV PRN
[2019-08-04 09:14] VITALS: BP 133/80
== END 2019-08-04 12:34 | disposition home or self-care (01) ==
LOC: II 08:34 → 5TH 08:37 → II 12:34
PROVIDERS: ATTEND Internal Medicine Hematology & Oncology
DX: C83.39 Diffuse large B-cell lymphoma, extranodal and solid organ sites (principal); D80.1 Nonfamilial hypogammaglobulinemia
CPT/HCPCS: 96365; 96366; 96375; J1561 ×2; A9270 ×2; J1200; J3490